=== PATIENT | female | born 1940 | race Caucasian/White ===

== ENCOUNTER 2018-11-16 13:01 | Emergency (ER) | payer BC, MEDICARE ==
[~2018-11-16] VITALS: Ht 167.6 cm; Wt 70.3 kg
[2018-11-16] MEDS ORDERED: VANCOMYCIN PER PHARMACY MC ONE (14:00)
--- NOTE | 2018-11-16 14:18 | EKG ---
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
[2018-11-16 14:31] LABS: BASO # 0.1 x10^3/uL (0.0-0.2); BASO % 1 % (0-3); EOS # 0.1 x10^3/uL (0.0-0.7); EOS % 1 % (0-3); HEMATOCRIT 42.3 % (36.0-47.0); HEMOGLOBIN 13.8 g/dL (12.0-15.5); LYMPH # 0.5 x10^3/uL (1.0-4.8); LYMPH % 8 % (24-48); MEAN CORPUSCULAR HEMOGLOBIN 31 pg (25-35); MEAN CORPUSCULAR HGB CONC 33 g/dL (31-37); MEAN CORPUSCULAR VOLUME 96 fL (79-100); MONO # 0.2 x10^3/uL (0.0-1.1); MONO % 3 % (0-9); NEUT # 6.1 x10^3uL (1.8-7.7); NEUT % 88 % (31-73); PLATELET COUNT 232 x10^3/uL (140-400); PROTHROMBIN TIME PATIENT 12.7 SEC (11.7-14.0); RED BLOOD COUNT 4.41 x10^6/uL (3.50-5.40); RED CELL DISTRIBUTION WIDTH 16.2 % (11.5-14.5)
[2018-11-16 14:36] LABS: CALCIUM 9.9 mg/dL (8.5-10.1); CREATININE 0.8 mg/dL (0.6-1.0); GFR 69.4; POTASSIUM 4.1 mmol/L (3.5-5.1)
[2018-11-16 14:41] LABS: ALBUMIN 4.6 g/dL (3.4-5.0); ALBUMIN/GLOBULIN RATIO 1.2 (1.0-1.7); TOTAL BILIRUBIN 1.1 mg/dL (0.2-1.0); TOTAL PROTEIN 8.4 g/dL (6.4-8.2)
[2018-11-16] MEDS ORDERED: SULFAMETH/TRIMETH 20 ML in IV DEXTROSE 5% 500 ML IV STA (14:50)
[2018-11-16] MEDS ORDERED: VANCOMYCIN 1.75 GM in IV NORMAL SALINE 500ML BAG 500 ML IV ONE (15:00)
--- NOTE | 2018-11-16 16:39 | RAD ---
Left lower extremity venous Doppler ultrasound History: Left lower extremity swelling and redness. Comparison: None. Procedure: Color flow Doppler, Doppler spectral analysis, and 2D images are obtained with and without compression in the area of the common femoral vein, superficial femoral vein - femoral vein junction, main femoral vein (superficial femoral vein) and popliteal vein. Veins of the proximal calf are also imaged. Findings: There is normal color flow, augmentation, and compressibility of all visualized vein segments. No evidence of deep venous thrombus is present. There is a benign lymph node in the left groin. There is severe subcutaneous edema of the medial and lateral calf. No organized fluid collection is seen. IMPRESSION: No evidence of left lower extremity deep venous thrombosis. Electronically signed by: Bennie Butler MD (11/16/2018 4:34 PM) [id number]
[2018-11-16] MEDS ORDERED: SULF1TAB24 PO (17:18)
--- NOTE | 2018-11-16 17:18 | PHYS DOC ---
Past Medical History Past Medical History: COPD, Hypertension, Other Additional Past Medical Histor: chronic BLE swellling Past Surgical History: Other Additional Past Surgical Histo: throat tumor removed, left wrist tumor removed , lt partial mastectomy Additional Information: quit smoking 50 year ago Alcohol Use: Rarely Drug Use: None Adult General Chief Complaint Chief Complaint: LOWER EXTREMITY SWELLING HPI HPI Patient is a 77 year old female who presents with left lower extremity swelling and redness. This started approximately week ago. Patient was seen by her primary care physician and started on doxycycline 3 days ago without any improvement. Patient denies any worsening shortness of breath beyond her usual baseline COPD. Denies any chest pain or palpitations. Denies any fever. Nothing seems to make this better or worse. It is moderate in intensity. [] Review of Systems Review of Systems Constitutional: Denies fever or chills [] Eyes: Denies change in visual acuity, redness, or eye pain [] HENT: Denies nasal congestion or sore throat [] Respiratory: Denies cough or shortness of breath [] Cardiovascular: No chest pain or palpitations[] GI: Denies abdominal pain, nausea, vomiting, bloody stools or diarrhea [] : Denies dysuria or hematuria [] Musculoskeletal: Denies back pain or joint pain [] Integument: See history of present illness[] Neurologic: Denies headache, focal weakness or sensory changes [] Endocrine: Denies polyuria or polydipsia [] All other systems were reviewed and found to be within normal limits, except as documented in this note. Current Medications Current Medications Current Medications Medications (Trade) Dose Ordered Sig/Samara Start Time Stop Time Status Last Admin Dose Admin Trimethoprim/ Sulfamethoxazole 20 ml/Dextrose 520 ml @ 346.667 mls/hr 1X STAT 11/16/18 14:50 11/16/18 16:19 DC 11/16/18 15:31 346.667 MLS/HR Vancomycin HCl (Vanco Per Pharmacy) 1 each 1X ONCE 11/16/18 14:00 11/16/18 14:01 UNV Vancomycin HCl 1.75 gm/Sodium Chloride 500 ml @ 250 mls/hr 1X ONCE 11/16/18 15:00 11/16/18 16:59 DC Allergies Allergies Allergies Coded Allergies Type Severity Reaction Last Updated Verified Penicillins Allergy Intermediate 11/16/18 Yes Physical Exam Physical Exam Constitutional: Well developed, well nourished, no acute distress, non-toxic appearance. [] HENT: Normocephalic, atraumatic, bilateral external ears normal, oropharynx moist, no oral exudates, nose normal. [] Eyes: PERRLA, EOMI, conjunctiva normal, no discharge. [] Neck: Normal range of motion, no tenderness, supple, no stridor. [] Cardiovascular:Heart rate regular rhythm, no murmur [] Lungs & Thorax: Bilateral breath sounds clear to auscultation [] Abdomen: Bowel sounds normal, soft, no tenderness, no masses, no pulsatile masses. [] Skin: Warm, dry, erythema of the left calf with significant swelling. Patient is distal neurovascularly intact. No skin sloughing present.. [] Back: No tenderness, no CVA tenderness. [] Extremities: No tenderness, no cyanosis, no clubbing, ROM intact, edema present bilateral lower extremities, significantly worse in the left calf[] Neurologic: Alert and oriented X 3, normal motor function, normal sensory function, no focal deficits noted. [] Psychologic: Affect normal, judgement normal, mood normal. [] Current Patient Data Vital Signs Vital Signs Date Time Temp Pulse Resp B/P (MAP) Pulse Ox O2 Delivery O2 Flow Rate FiO2 11/16/18 13:34 98.5 105 28 167/74 (105) 99 Nasal Cannula 3.0 98.5 Lab Values Laboratory Tests Test 11/16/18 13:34 White Blood Count 7.0 x10^3/uL (4.0-11.0) Red Blood Count 4.41 x10^6/uL (3.50-5.40) Hemoglobin 13.8 g/dL (12.0-15.5) Hematocrit 42.3 % (36.0-47.0) Mean Corpuscular Volume 96 fL (79-100) Mean Corpuscular Hemoglobin 31 pg (25-35) Mean Corpuscular Hemoglobin Concent 33 g/dL (31-37) Red Cell Distribution Width 16.2 % (11.5-14.5) H Platelet Count 232 x10^3/uL (140-400) Neutrophils (%) (Auto) 88 % (31-73) H Lymphocytes (%) (Auto) 8 % (24-48) L Monocytes (%) (Auto) 3 % (0-9) Eosinophils (%) (Auto) 1 % (0-3) Basophils (%) (Auto) 1 % (0-3) Neutrophils # (Auto) 6.1 x10^3uL (1.8-7.7) Lymphocytes # (Auto) 0.5 x10^3/uL (1.0-4.8) L Monocytes # (Auto) 0.2 x10^3/uL (0.0-1.1) Eosinophils # (Auto) 0.1 x10^3/uL (0.0-0.7) Basophils # (Auto) 0.1 x10^3/uL (0.0-0.2) Erythrocyte Sedimentation Rate 34 (0-25) H Prothrombin Time 12.7 SEC (11.7-14.0) Prothrombin Time INR 1.0 (0.8-1.1) Sodium Level 141 mmol/L (136-145) Potassium Level 4.1 mmol/L (3.5-5.1) Chloride Level 100 mmol/L (98-107) Carbon Dioxide Level 33 mmol/L (21-32) H Anion Gap 8 (6-14) Blood Urea Nitrogen 22 mg/dL (7-20) H Creatinine 0.8 mg/dL (0.6-1.0) Estimated GFR (Cockcroft-Gault) 69.4 BUN/Creatinine Ratio 28 (6-20) H Glucose Level 127 mg/dL (70-99) H Calcium Level 9.9 mg/dL (8.5-10.1) Total Bilirubin 1.1 mg/dL (0.2-1.0) H Aspartate Amino Transferase (AST) 17 U/L (15-37) Alanine Aminotransferase (ALT) 15 U/L (14-59) Alkaline Phosphatase 162 U/L (46-116) H C-Reactive Protein, Quantitative 2.0 mg/L (0-3.3) ZB-Krw-O-Type Natriuretic Peptide 34 pg/mL (0-449) Total Protein 8.4 g/dL (6.4-8.2) H Albumin 4.6 g/dL (3.4-5.0) Albumin/Globulin Ratio 1.2 (1.0-1.7) Laboratory Tests 11/16/18 13:34 Laboratory Tests 11/16/18 13:34 EKG EKG EKG showed a sinus tachycardia at 106 bpm, no ST elevation, normal axis, QTC of 432 ms, nonspecific T-wave changes in the anteroseptal leads.[] Radiology/Procedures Radiology/Procedures PROCEDURE: VENOUS LOWER EXTREMITY LEFT Left lower extremity venous Doppler ultrasound History: Left lower extremity swelling and redness. Comparison: None. Procedure: Color flow Doppler, Doppler spectral analysis, and 2D images are obtained with and without compression in the area of the common femoral vein, superficial femoral vein - femoral vein junction, main femoral vein (superficial femoral vein) and popliteal vein. Veins of the proximal calf are also imaged. Findings: There is normal color flow, augmentation, and compressibility of all visualized vein segments. No evidence of deep venous thrombus is present. There is a benign lymph node in the left groin. There is severe subcutaneous edema of the medial and lateral calf. No organized fluid collection is seen. IMPRESSION: No evidence of left lower extremity deep venous thrombosis. [] Course & Med Decision Making Course & Med Decision Making Pertinent Labs and Imaging studies reviewed. (See chart for details) Medical decision making: There is no evidence of CHF, DVT, significant infection , nor abscess. We will add an additional antibiotic be on the doxycycline that she is already taking along with compression. Course: Patient arrived, was placed in bed, tolerated exam well. Patient tolerated the ultrasound with thank him patient's. Patient did receive doses of IV antibiotics in the emergency department. Patient's heart rate did improve to the 90s while she was admitted to the emergency department.[] Dragon Disclaimer Dragon Disclaimer This electronic medical record was generated, in whole or in part, using a voice recognition dictation system. Departure Departure Impression: Primary Impression: Cellulitis Disposition: 01 HOME, SELF-CARE Condition: IMPROVED Referrals: SIMRAN PAT MD (PCP) Follow-up with your regular doctor in 2 days. Patient Instructions: Cellulitis Additional Instructions: Keep the area clean and dry. Use compression stockings to assist with the swelling. Follow-up with your regular doctor in 2 days. Return to the ER if you develop a fever, difficulty breathing, or any other concerns. Scripts Sulfamethoxazole/Trimethoprim (BACTRIM DS TABLET) 1 Each Tablet 1 TAB PO BID, #20 TAB Prov: DELLA RICHEY DO 11/16/18 Problem Qualifiers Primary Impression: Cellulitis Site of cellulitis: extremity Site of cellulitis of extremity: lower extremity Laterality: left Qualified Codes: L03.116 - Cellulitis of left lower limb DELLA RICHEY DO Nov 16, 2018 17:18
[2018-11-16 19:30] VITALS: BP 160/65
== END 2018-11-16 20:26 | disposition home or self-care (01) ==
LOC: ER 13:01
DX: L03.116 Cellulitis of left lower limb (principal); I10 Essential (primary) hypertension; J44.9 Chronic obstructive pulmonary disease, unspecified; Z87.891 Personal history of nicotine dependence; Z88.0 Allergy status to penicillin
CPT/HCPCS: 36415; 80053; 83880; 85025; 85610; 85651; 86140; 87040; 93005; 93971; 96365; 96366; 96367; 99285; J3370; J7040

== ENCOUNTER 2020-05-11 10:19 | Inpatient (IN) | payer OTHER, MEDICAID ==
[2020-05-11] VITALS (13 sets, daily range): BP systolic 121–168; BP diastolic 45–76
[~2020-05-11] VITALS: Ht 170.2 cm; Wt 66.2 kg
[~2020-05-11 10:19] MED LIST: SULF1TAB24 PO
--- NOTE | 2020-05-11 10:28 | PHYS DOC ---
Past Medical History Past Medical History: COPD, Hypertension, Other Additional Past Medical Histor: chronic BLE swellling Past Surgical History: Other Additional Past Surgical Histo: throat tumor removed, left wrist tumor removed, lt partial mastectomy Smoking Status: Former Smoker Alcohol Use: Rarely Drug Use: None General Adult EDM: Chief Complaint: SHORTNESS OF BREATH HPI: HPI: 79-year-old female presenting the emergency department today with shortness of breath over the past few days. It got worse last night. She has had some intermittent chest pain that is a sharp shooting nonradiating pain. The pain comes and goes. It is associated with her shortness of breath which is her primary complaint. She denies recent unilateral leg swelling or hemoptysis. She has a history of COPD. She also has been having some urinary frequency as well. She denies any fevers or cough or recent exposure to COVID-19. Review of systems is negative for abdominal pain vomiting. She denies fever or cough. Positive for shortness of breath. Positive for chest pain. Negative for recent exposure COVID. All other review of systems negative. ED course: 79-year-old female presenting with shortness of breath. On arrival she is tachycardic and tachypneic with clear wheezing with prolonged expiratory phase. Clinical presentation suggestive of COPD exacerbation. She was given a nebulizer in the emergency department along with starting her on IV corticosteroids. CBC unremarkable. Chemistry panel shows elevated troponin and elevated proBNP. EKG obtained and reviewed by myself shows sinus tachycardia. Patient improved with nebulizers in the emergency department however still tachypneic and tachycardic. We will admit the patient to the intensive care unit. CT angiogram ordered to exclude pulmonary embolism, however after speaking with Dr. Higgins her switch house operator he believes this is strongly suggestive of COPD he had just seen the patient and we decided to cancel the CT angiogram treat the patient for COPD and he will order the angiogram if the patient does not improve. I spoke with Dr. Stack who accepts the patient for admission. Heart Score: Risk Factors: Risk Factors: DM, Current or recent (<one month) smoker, HTN, HLP, family history of CAD, obesity. Risk Scores: Score 0 - 3: 2.5% MACE over next 6 weeks - Discharge Home Score 4 - 6: 20.3% MACE over next 6 weeks - Admit for Clinical Observation Score 7 - 10: 72.7% MACE over next 6 weeks - Early Invasive Strategies Allergies: Allergies: Allergies Coded Allergies Type Severity Reaction Last Updated Verified Penicillins Allergy Intermediate 11/16/18 Yes Physical Exam: PE: Constitutional: Well developed, well nourished, increased work of breathing and tachypnic but maintaining her airway HENT: Normocephalic, atraumatic, bilateral external ears normal, oropharynx moist, no oral exudates, nose normal. [] Eyes: PERRLA, EOMI, conjunctiva normal, no discharge. [] Neck: Normal range of motion, no tenderness, supple, no stridor. [] Cardiovascular:Heart rate regular rhythm, no murmur [] Lungs & Thorax: wheezing bilaterally with prolonged expiratory phase. Abdomen: Bowel sounds normal, soft, no tenderness, no masses, no pulsatile masses. [] Skin: Warm, dry, no erythema, no rash. [] Back: No tenderness, no CVA tenderness. [] Extremities: No tenderness, no cyanosis, no clubbing, ROM intact, no edema. [] Neurologic: Alert and oriented X 3, normal motor function, normal sensory function, no focal deficits noted. [] Psychologic: Affect normal, judgement normal, mood normal. [] EKG: EKG: [] Radiology/Procedures: Radiology/Procedures: [] Course & Med Decision Making: Course & Med Decision Making Pertinent Labs and Imaging studies reviewed. (See chart for details) [] Dragon Disclaimer: Dragon Disclaimer: This electronic medical record was generated, in whole or in part, using a voice recognition dictation system. Departure Departure Impression: Primary Impression: COPD exacerbation Disposition: ADMITTED INPATIENT Condition: CRITICAL Referrals: SIMRAN PAT MD (PCP) Justicifation of Admission Dx: Justifications for Admission: Justification of Admission Dx: Yes Acute COPD Exacerbation: Acute COPD Exacerbation Critical Care Time Critical care time spent was 35 minutes exclusive of procedures. Time was spent evaluating the patient, ordering the administration of medications, reevaluating the patient, discussing with the admitting provider and documenting. LEIA DUENAS MD May 11, 2020 10:28
--- NOTE | 2020-05-11 10:55 | RAD ---
EXAM: Chest, single view. HISTORY: Shortness of air. COMPARISON: None. FINDINGS: A frontal view of the chest is obtained. There is no infiltrate, pleural effusion or pneumothorax. The heart is stable in size. There are healed rib fractures. IMPRESSION: No acute pulmonary finding. Electronically signed by: Kadie Raya MD (05/11/2020 10:52 AM) [id number]
[2020-05-11 11:02] LABS: BASO # 0.1 x10^3/uL (0.0-0.2); BASO % 1 % (0-3); EOS # 0.1 x10^3/uL (0.0-0.7); EOS % 1 % (0-3); HEMATOCRIT 37.6 % (36.0-47.0); HEMOGLOBIN 12.8 g/dL (12.0-15.5); LYMPH # 0.8 x10^3/uL (1.0-4.8); LYMPH % 10 % (24-48); MEAN CORPUSCULAR HEMOGLOBIN 33 pg (25-35); MEAN CORPUSCULAR HGB CONC 34 g/dL (31-37); MEAN CORPUSCULAR VOLUME 97 fL (79-100); MONO # 0.4 x10^3/uL (0.0-1.1); MONO % 5 % (0-9); NEUT # 6.4 x10^3/uL (1.8-7.7); NEUT % 83 % (31-73); PLATELET COUNT 231 x10^3/uL (140-400); RED BLOOD COUNT 3.87 x10^6/uL (3.50-5.40); RED CELL DISTRIBUTION WIDTH 15.6 % (11.5-14.5); WHITE BLOOD COUNT 7.7 x10^3/uL (4.0-11.0)
[2020-05-11 11:11] LABS: CALCIUM 9.2 mg/dL (8.5-10.1); CREATININE 0.8 mg/dL (0.6-1.0); POTASSIUM 4.4 mmol/L (3.5-5.1)
[2020-05-11] MEDS ORDERED: IPRATRPIUM/ALBUTEROL 0.5/2.5MG 3 ML NEBU. NEB ONE (11:15)
[2020-05-11] MEDS ORDERED: methylPREDNISolone SOD SUCC PF 125 MG/2 ML VIAL. IV ONE (11:15)
[2020-05-11] MEDS ORDERED: ASPIRIN CHEWABLE 81 MG TABLET. PO ONE (11:30)
[2020-05-11 11:31] LABS: ALBUMIN 4.2 g/dL (3.4-5.0); DIRECT BILIRUBIN 0.2 mg/dL (0.0-0.2); TOTAL BILIRUBIN 0.8 mg/dL (0.2-1.0); TOTAL PROTEIN 7.3 g/dL (6.4-8.2)
[2020-05-11] MEDS ORDERED: IOHEXOL 350 MG/ML 100 ML VIAL. IV ONE (11:45)
[2020-05-11] MEDS: MORPHINE SULFATE 2 MG/ML VIAL. IV PRN ×3 (11:45→15:40)
--- NOTE | 2020-05-11 11:45 | EKG ---
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
--- NOTE | 2020-05-11 11:46 | EKG ---
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
[2020-05-11] MEDS: IPRATRPIUM/ALBUTEROL 0.5/2.5MG 3 ML NEBU. NEB SCH ×3 (11:47→20:00)
[2020-05-11] MEDS ORDERED: CONTRAST GIVEN. MC PRN (12:00)
[2020-05-11 12:10] LABS: BILIRUBIN,URINE SMALL (NEG); CLARITY,URINE CLEAR; COLOR,URINE YELLOW; NITRITE,URINE POSITIVE (NEG); PH,URINE 5.5 (<5.0-8.0); PROTEIN,URINE >=300 mg/dL (NEG-TRACE)
[2020-05-11 12:19] LABS: BACTERIA,URINE MANY /HPF (0-FEW)
[2020-05-11 12:20] LABS: HYALINE CASTS, URINE FEW /HPF
[2020-05-11] MEDS ORDERED: LABETALOL 20 MG/4 ML DISP.SYRIN. IVP ONE (13:00)
[2020-05-11 13:08] LABS: BASE EXCESS COOX 2 mmol/L (-3-3); HCO3 COOX 31 mmol/L (21-28); METHEMOGLOBIN 0.5 % (0.0-1.9); OXYHEMOGLOBIN 97.1 %; PO2 COOX 125 mmHg (65-108); SAT O2 COOX 98 % (92-99)
--- NOTE | 2020-05-11 13:13 | PDOC ---
PULMONARY PROGRESS NOTES Vitals Vital Signs Date Time Temp Pulse Resp B/P (MAP) Pulse Ox O2 Delivery O2 Flow Rate FiO2 05/11/20 12:18 114 30 203/77 (119) 99 NonRebreather Mask 15.0 05/11/20 10:28 98.1 98.1 Labs Laboratory Tests Test 05/11/20 10:40 White Blood Count 7.7 x10^3/uL (4.0-11.0) Red Blood Count 3.87 x10^6/uL (3.50-5.40) Hemoglobin 12.8 g/dL (12.0-15.5) Hematocrit 37.6 % (36.0-47.0) Mean Corpuscular Volume 97 fL (79-100) Mean Corpuscular Hemoglobin 33 pg (25-35) Mean Corpuscular Hemoglobin Concent 34 g/dL (31-37) Red Cell Distribution Width 15.6 % (11.5-14.5) Platelet Count 231 x10^3/uL (140-400) Neutrophils (%) (Auto) 83 % (31-73) Lymphocytes (%) (Auto) 10 % (24-48) Monocytes (%) (Auto) 5 % (0-9) Eosinophils (%) (Auto) 1 % (0-3) Basophils (%) (Auto) 1 % (0-3) Neutrophils # (Auto) 6.4 x10^3/uL (1.8-7.7) Lymphocytes # (Auto) 0.8 x10^3/uL (1.0-4.8) Monocytes # (Auto) 0.4 x10^3/uL (0.0-1.1) Eosinophils # (Auto) 0.1 x10^3/uL (0.0-0.7) Basophils # (Auto) 0.1 x10^3/uL (0.0-0.2) Urine Collection Type Unknown Urine Color Yellow Urine Clarity Clear Urine pH 5.5 (<5.0-8.0) Urine Specific [place] >=1.030 (1.000-1.030) Urine Protein >=300 mg/dL (NEG-TRACE) Urine Glucose (UA) Negative mg/dL (NEG) Urine Ketones (Stick) 15 mg/dL (NEG) Urine Blood Large (NEG) Urine Nitrite Positive (NEG) Urine Bilirubin Small (NEG) Urine Urobilinogen Dipstick 1.0 mg/dL (0.2 mg/dL) Urine Leukocyte Esterase Negative (NEG) Urine RBC 6-10 /HPF (0-2) Urine WBC 5-10 /HPF (0-4) Urine Bacteria Many /HPF (0-FEW) Urine Hyaline Casts Few /HPF Sodium Level 141 mmol/L (136-145) Potassium Level 4.4 mmol/L (3.5-5.1) Chloride Level 99 mmol/L (98-107) Carbon Dioxide Level 34 mmol/L (21-32) Anion Gap 8 (6-14) Blood Urea Nitrogen 21 mg/dL (7-20) Creatinine 0.8 mg/dL (0.6-1.0) Estimated GFR (Cockcroft-Gault) 69.0 Glucose Level 117 mg/dL (70-99) Calcium Level 9.2 mg/dL (8.5-10.1) Total Bilirubin 0.8 mg/dL (0.2-1.0) Direct Bilirubin 0.2 mg/dL (0.0-0.2) Aspartate Amino Transf (AST/SGOT) 24 U/L (15-37) Alanine Aminotransferase (ALT/SGPT) 17 U/L (14-59) Alkaline Phosphatase 99 U/L (46-116) Troponin I Quantitative 0.074 ng/mL (0.000-0.055) XG-Kxs-E-Type Natriuretic Peptide 1169 pg/mL (0-449) Total Protein 7.3 g/dL (6.4-8.2) Albumin 4.2 g/dL (3.4-5.0) Lipase 101 U/L (73-393) Laboratory Tests Test 05/11/20 10:40 White Blood Count 7.7 x10^3/uL (4.0-11.0) Red Blood Count 3.87 x10^6/uL (3.50-5.40) Hemoglobin 12.8 g/dL (12.0-15.5) Hematocrit 37.6 % (36.0-47.0) Mean Corpuscular Volume 97 fL (79-100) Mean Corpuscular Hemoglobin 33 pg (25-35) Mean Corpuscular Hemoglobin Concent 34 g/dL (31-37) Red Cell Distribution Width 15.6 % (11.5-14.5) Platelet Count 231 x10^3/uL (140-400) Neutrophils (%) (Auto) 83 % (31-73) Lymphocytes (%) (Auto) 10 % (24-48) Monocytes (%) (Auto) 5 % (0-9) Eosinophils (%) (Auto) 1 % (0-3) Basophils (%) (Auto) 1 % (0-3) Neutrophils # (Auto) 6.4 x10^3/uL (1.8-7.7) Lymphocytes # (Auto) 0.8 x10^3/uL (1.0-4.8) Monocytes # (Auto) 0.4 x10^3/uL (0.0-1.1) Eosinophils # (Auto) 0.1 x10^3/uL (0.0-0.7) Basophils # (Auto) 0.1 x10^3/uL (0.0-0.2) Urine Collection Type Unknown Urine Color Yellow Urine Clarity Clear Urine pH 5.5 (<5.0-8.0) Urine Specific [place] >=1.030 (1.000-1.030) Urine Protein >=300 mg/dL (NEG-TRACE) Urine Glucose (UA) Negative mg/dL (NEG) Urine Ketones (Stick) 15 mg/dL (NEG) Urine Blood Large (NEG) Urine Nitrite Positive (NEG) Urine Bilirubin Small (NEG) Urine Urobilinogen Dipstick 1.0 mg/dL (0.2 mg/dL) Urine Leukocyte Esterase Negative (NEG) Urine RBC 6-10 /HPF (0-2) Urine WBC 5-10 /HPF (0-4) Urine Bacteria Many /HPF (0-FEW) Urine Hyaline Casts Few /HPF Sodium Level 141 mmol/L (136-145) Potassium Level 4.4 mmol/L (3.5-5.1) Chloride Level 99 mmol/L (98-107) Carbon Dioxide Level 34 mmol/L (21-32) Anion Gap 8 (6-14) Blood Urea Nitrogen 21 mg/dL (7-20) Creatinine 0.8 mg/dL (0.6-1.0) Estimated GFR (Cockcroft-Gault) 69.0 Glucose Level 117 mg/dL (70-99) Calcium Level 9.2 mg/dL (8.5-10.1) Total Bilirubin 0.8 mg/dL (0.2-1.0) Direct Bilirubin 0.2 mg/dL (0.0-0.2) Aspartate Amino Transf (AST/SGOT) 24 U/L (15-37) Alanine Aminotransferase (ALT/SGPT) 17 U/L (14-59) Alkaline Phosphatase 99 U/L (46-116) Troponin I Quantitative 0.074 ng/mL (0.000-0.055) RR-Uhi-N-Type Natriuretic Peptide 1169 pg/mL (0-449) Total Protein 7.3 g/dL (6.4-8.2) Albumin 4.2 g/dL (3.4-5.0) Lipase 101 U/L (73-393) Medications Active Scripts Medications Dose Route/Sig Max Daily Dose Days Date Category Bactrim Ds Tablet (Sulfamethoxazole/Trimethoprim) 1 Each Tablet 1 Tab PO BID 11/16/18 Rx Impression . Full note dictated patient seen in the emergency department Acute exacerbation of COPD leading to acute hypoxemic respiratory failure, my clinical suspicion for PE is low Check SARS-CoV-2 next check venous Dopplers of the lower extremities along with d-dimer CHIKIS NIXON MD May 11, 2020 13:13
[2020-05-11 13:23] LABS: PCO2 COOX 75 mmHg (35-46)
--- NOTE | 2020-05-11 13:28 | CONS ---
DATE OF CONSULTATION: 05/11/2020 ATTENDING PHYSICIAN: Zachery Ruiz DO REASON FOR CONSULTATION: The patient is an 79-year-old seen in pulmonary consultation at the request of Dr. Ruiz for acute hypoxemic respiratory failure. HISTORY OF PRESENT ILLNESS: The patient is an 79-year-old that normally wears 3 liters of oxygen at home, underlying COPD. This is her first acute exacerbation of chronic obstructive pulmonary disease that she has had in many years. She quit tobacco 30 years ago. Denies fever, chills, nausea or vomiting. She has had no COVID-19 exposures. She lives by herself. She utilizes nebulized treatments at home. I saw the patient while she was in the Emergency Department. She was on oxygen supplementation. She was severely short of air, unable to complete full sentences. She was utilizing accessory muscles to breathe. PAST MEDICAL HISTORY: Otherwise remarkable for ALLERGIES TO PENICILLIN, COPD, hypertension. She has chronic lower extremity lymphedema. She was wearing compressive stockings. PAST SURGICAL HISTORY: Throat tumor removed, left wrist tumor removed. She had a partial mastectomy. REVIEW OF SYSTEMS: CONSTITUTIONAL: No fever or chills. EYES: No change in visual acuity. HENT: No nasal congestion or sore throat. PULMONARY: As indicated above. CARDIOVASCULAR: No chest pain or pressure. GASTROINTESTINAL: No nausea, vomiting, diarrhea. GENITOURINARY: No dysuria or frequency. MUSCULOSKELETAL: No localized muscle aches or joint pains. SKIN: No new skin rashes. NEUROLOGIC: No headaches, diplopia or blurred vision. ALLERGIES: PENICILLIN. CURRENT MEDICATION: List was reviewed. SOCIAL HISTORY: She is a former smoker. She is currently not smoking. Lives in assisted living situation. PHYSICAL EXAMINATION: VITAL SIGNS: She was on 4 liters. At one point, she was on 15 liters of oxygen supplementation. T-max was 98.1. HEENT: Eyes, the sclerae were nonicteric. NECK: Jugular venous distention was not elevated. No lymphadenopathy. CHEST: Full expansion. LUNGS: Very poor air flow with prolonged expiratory phase. CARDIOVASCULAR: Regular rate and rhythm with S1, S2, no S3. ABDOMEN: Soft, nontender, nondistended. EXTREMITIES: No clubbing, cyanosis or edema. NEUROLOGICAL: The patient was awake, alert, following commands. A detailed neuro exam was not performed. LABORATORY DATA: Reviewed. Troponin was slightly elevated. BNP was elevated. White count was normal. Chest x-ray was reviewed. There was evidence of hyperinflation, no evidence of acute pulmonary findings. IMPRESSION: 1. Acute hypoxemic respiratory failure. 2. Acute exacerbation of chronic obstructive pulmonary disease. 3. Chronic lower extremity cellulitis. 4. Hypertension. PLAN: 1. My clinical suspicion for pulmonary embolism is very low. I do not think we need a CT angiogram at this time. 2. We will perform venous Dopplers of lower extremities. 3. Check SARS-CoV-2 . 4. Arterial blood gas. 5. D-dimer. I do appreciate the privilege in sharing in the patient's care. CHIKIS NIXON MD DR: TOMI/olivier JOB#: [id number] / [id number]
--- NOTE | 2020-05-11 13:48 | HP ---
ADMIT DATE: 05/11/2020 CHIEF COMPLAINT: Shortness of breath. HISTORY OF PRESENT ILLNESS: The patient is a pleasant 79-year-old female, who quit smoking years ago. She does have known underlying COPD. She presents to the ER with increasing shortness of breath. She denies being exposed to COVID-19. She also has some associated chest pain. Rates her symptoms at 10/10. She increased her home meds, but that did not seem to help. Symptoms are worse with moving, better with sitting still. She has also been having some urinary frequency. While in the ER, we noticed that she is in fulminant respiratory failure. She is tripoding. She is quite short of breath. She is gasping for air. I discussed the case with ER physician and we have consulted Dr. Higgins. I briefly discussed the case with him as well. The patient is being admitted for further evaluation and treatment. 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 ALLERGIES: PENICILLIN. FAMILY HISTORY: Coronary disease. SOCIAL HISTORY: She quit smoking. No drink or drugs. MEDICATIONS: Reviewed. Please refer to the MRAD. REVIEW OF SYSTEMS: GENERAL: No history of weight change, weakness or fevers. SKIN: No bruising, hair changes or rashes. EYES: No blurred, double or loss of vision. NOSE AND THROAT: No history of nosebleeds, hoarseness or sore throat. HEART: She complains of vague chest pain. LUNGS: She complains shortness of breath and cough. GASTROINTESTINAL: Denies changes in appetite, nausea, vomiting, diarrhea or constipation. GENITOURINARY: No history of frequency, urgency, hesitancy or nocturia. NEUROLOGIC: Denies history of numbness, tingling, tremor or weakness. PSYCHIATRIC: She complains of anxiety. ENDOCRINE: No history of heat or cold intolerance, polyuria or polydipsia. EXTREMITIES: Denies muscle weakness, joint pain, pain on walking or stiffness. PHYSICAL EXAMINATION: VITALS: Within normal limits and are stable. GENERAL: She is quite anxious. She is short of breath. She is tripoding. HEENT: Normocephalic, atraumatic, external auditory canals are patent. EYES: Extraocular muscles are intact, pupils are equally round and reactive to light and accommodation. MUSCULOSKELETAL: Well developed, well nourished, good range of motion. ENDOCRINE: No thyromegaly was palpated. LYMPHATICS: No cervical chain or axillary nodes were noted. HEMATOPOIETIC: No bruising. NECK: Supple, no JVD, no thyromegaly was noted. LUNGS: She has bibasilar crackles with decreased breath sounds. HEART: RRR, S1, S2 present. Peripheral pulses intact, no obvious murmurs were noted. ABDOMEN: Soft, nontender. Positive bowel sounds no organomegaly, normal bowel sounds. EXTREMITIES: Without any cyanosis, clubbing, or edema. Pedal pulses intact, Homans sign is negative. NEUROLOGIC: Normal speech, normal tone. A & O x3, moves all extremities, no obvious focal deficits. PSYCHIATRIC: She is anxious. SKIN: No ulcerations or rashes, good skin turgor, no jaundice. VASCULAR: Good capillary refill, neurovascular bundle appears to be intact. LABORATORY DATA: White count 7, hemoglobin 12.8, platelets 231. Electrolytes: Sodium 141, potassium 4.4, chloride 99, bicarb 34, BUN 21, creatinine is 0.8, glucose 117. Troponin 0.07. BNP 1169. Chest x-ray showed no acute disease. ASSESSMENT AND PLAN: Respiratory failure, suspect chronic obstructive pulmonary disease with a low suspicion for pulmonary embolism, possible COVID-19. The patient has been admitted. We will give her breathing treatments, oxygen, steroids, antibiotics. Consult Pulmonary. Lower extremity Dopplers to rule out DVT. Home meds, DVT prophylaxis. Full code. Check blood gas. Consult Cardiology. Cardiac monitoring. Morphine p.r.n. for pain. PROGNOSIS: Long-term guarded. HOA MOSS DO DR: PIPER/olivier JOB#: [id number] / [id number]
[2020-05-11] MEDS ORDERED: hydrALAZINE 20 MG/ML VIAL. IVP PRN (15:30)
--- NOTE | 2020-05-11 15:45 | PDOC2 ---
MARY JO DUNHAM SOCIAL WORKER CLINICAL 05/11/20 1545: CARDIAC CONSULT DATE OF CONSULT Date of Consult DATE: 05/11/20 TIME: 15:01 REASON FOR CONSULT Reason for Consult: Chest pain REFERRING PHYSICIAN Referring Physician: Rambo SOURCE Source: Chart review, Patient HISTORY OF PRESENT ILLNESS HISTORY OF PRESENT ILLNESS This is an 79 yo female admitted for complains of SOA. She lives alone in an assisted living and denies any exposure to covid. She has been having increasing SOA and wheeze. She is significant for COPD with chronic O2 use. She did have some sharp chest pain with associated wheezing that was nonradiating but presently just anxious and no CP. SOA better after treatment. This just started happening yesterday. Her legs have edema but this is chronic an takes lasicx for lypmphedema and no changes by her account. PAST MEDICAL HISTORY Cardiovascular: HTN, Other (LE lymphedema) Pulmonary: COPD, Pneumonia CENTRAL NERVOUS SYSTEM: Other (parkinsons on sinemet) GI: No pertinent hx Heme/Onc: No pertinent hx Hepatobiliary: No pertinent hx Psych: No pertinent hx Musculoskeletal: Osteoarthritis Infectious disease: No pertinent hx ENT: Other (cataract) Renal/: No pertinent hx, UTI Endocrine: No pertinent hx Dermatology: No pertinent hx PAST SURGICAL HISTORY Past Surgical History: Cataract Removal (right), Mastectomy (lumpectomy), Hysterectomy, Other (thorat and left wrist tumor removal; left hip repair) FAMILY HISTORY Family History: Diabetes (father) SOCIAL HISTORY Smoke: Quit ALCOHOL: none Drugs: None Lives: Alone (assisted living) CURRENT MEDICATIONS CURRENT MEDICATIONS Current Medications Medications (Trade) Dose Ordered Sig/Samara Route PRN Reason Start Time Stop Time Status Last Admin Dose Admin Albuterol/ Ipratropium (Duoneb) 3 ml 1X ONCE NEB 05/11/20 11:15 05/11/20 11:16 DC 05/11/20 11:36 Methylprednisolone Sodium Succinate (SOLU-Medrol 125MG VIAL) 125 mg 1X ONCE IV 05/11/20 11:15 05/11/20 11:16 DC 05/11/20 11:25 Aspirin (Aspirin Chewable) 324 mg 1X ONCE PO 05/11/20 11:30 05/11/20 11:44 DC 05/11/20 11:45 Morphine Sulfate (Morphine Sulfate) 2 mg PRN Q1HR PRN IV SEVERE PAIN 05/11/20 11:30 05/11/20 13:16 Albuterol/ Ipratropium (Duoneb) 3 ml RTQID NEB 05/11/20 12:00 05/12/20 11:59 05/11/20 11:47 ALLERGIES ALLERGIES: Coded Allergies: Penicillins (Verified Allergy, Intermediate, 11/16/18) aspirin (Verified Allergy, Unknown, 05/12/20) codeine (Verified Allergy, Unknown, 05/12/20) doxycycline (Verified Allergy, Unknown, 05/12/20) tramadol (Verified Allergy, Unknown, 05/12/20) ROS Review of System 14 point ROS evaluated with pertinent positives noted per HPI PHYSICAL EXAM PHYSICAL EXAM discussed with RN General: Alert, Oriented X3, Cooperative, No acute distress HEENT: Atraumatic, Mucous membr. moist/pink Lungs: Other (diminished, with wheeze) Heart: Regular rate (SR with no significant ectopies) Abdomen: Soft, No tenderness Extremities: No cyanosis, Other (2-3+ bilateral LE pitting edema) Skin: No breakdown, No significant lesion Neuro: Normal speech, Sensation intact Psych/Mental Status: Mental status NL, Mood NL MUSCULOSKELETAL: Osteoarthritic changes both hands VITALS/I&O VITALS/I&O: Vital Signs Date Time Temp Pulse Resp B/P (MAP) Pulse Ox O2 Delivery O2 Flow Rate FiO2 05/11/20 14:25 106 161/67 (98) 95 Nasal Cannula 2.0 05/11/20 13:28 24 05/11/20 10:28 98.1 98.1 LABS Lab: Laboratory Tests Test 05/11/20 10:40 05/11/20 12:55 White Blood Count 7.7 x10^3/uL (4.0-11.0) Red Blood Count 3.87 x10^6/uL (3.50-5.40) Hemoglobin 12.8 g/dL (12.0-15.5) Hematocrit 37.6 % (36.0-47.0) Mean Corpuscular Volume 97 fL (79-100) Mean Corpuscular Hemoglobin 33 pg (25-35) Mean Corpuscular Hemoglobin Concent 34 g/dL (31-37) Red Cell Distribution Width 15.6 % (11.5-14.5) H Platelet Count 231 x10^3/uL (140-400) Neutrophils (%) (Auto) 83 % (31-73) H Lymphocytes (%) (Auto) 10 % (24-48) L Monocytes (%) (Auto) 5 % (0-9) Eosinophils (%) (Auto) 1 % (0-3) Basophils (%) (Auto) 1 % (0-3) Neutrophils # (Auto) 6.4 x10^3/uL (1.8-7.7) Lymphocytes # (Auto) 0.8 x10^3/uL (1.0-4.8) L Monocytes # (Auto) 0.4 x10^3/uL (0.0-1.1) Eosinophils # (Auto) 0.1 x10^3/uL (0.0-0.7) Basophils # (Auto) 0.1 x10^3/uL (0.0-0.2) D-Dimer (Kavya) 0.97 ug/mlFEU (0.00-0.50) H Urine Collection Type Unknown Urine Color Yellow Urine Clarity Clear Urine pH 5.5 (<5.0-8.0) Urine Specific [place] >=1.030 (1.000-1.030) Urine Protein >=300 mg/dL (NEG-TRACE) Urine Glucose (UA) Negative mg/dL (NEG) Urine Ketones (Stick) 15 mg/dL (NEG) Urine Blood Large (NEG) Urine Nitrite Positive (NEG) Urine Bilirubin Small (NEG) Urine Urobilinogen Dipstick 1.0 mg/dL (0.2 mg/dL) Urine Leukocyte Esterase Negative (NEG) Urine RBC 6-10 /HPF (0-2) Urine WBC 5-10 /HPF (0-4) Urine Bacteria Many /HPF (0-FEW) Urine Hyaline Casts Few /HPF Sodium Level 141 mmol/L (136-145) Potassium Level 4.4 mmol/L (3.5-5.1) Chloride Level 99 mmol/L (98-107) Carbon Dioxide Level 34 mmol/L (21-32) H Anion Gap 8 (6-14) Blood Urea Nitrogen 21 mg/dL (7-20) H Creatinine 0.8 mg/dL (0.6-1.0) Estimated GFR (Cockcroft-Gault) 69.0 Glucose Level 117 mg/dL (70-99) H Calcium Level 9.2 mg/dL (8.5-10.1) Total Bilirubin 0.8 mg/dL (0.2-1.0) Direct Bilirubin 0.2 mg/dL (0.0-0.2) Aspartate Amino Transferase (AST) 24 U/L (15-37) Alanine Aminotransferase (ALT) 17 U/L (14-59) Alkaline Phosphatase 99 U/L (46-116) Troponin I Quantitative 0.074 ng/mL (0.000-0.055) OF-Gqm-C-Type Natriuretic Peptide 1169 pg/mL (0-449) H Total Protein 7.3 g/dL (6.4-8.2) Albumin 4.2 g/dL (3.4-5.0) Lipase 101 U/L (73-393) O2 Saturation 98 % (92-99) Arterial Blood pH 7.24 (7.35-7.45) L Arterial Blood pCO2 at Patient Temp 75 mmHg (35-46) *H Arterial Blood pO2 at Patient Temp 125 mmHg (65-108) H Arterial Blood HCO3 31 mmol/L (21-28) H Arterial Blood Base Excess 2 mmol/L (-3-3) Oxyhemoglobin 97.1 % Methemoglobin 0.5 % (0.0-1.9) Carbon Monoxide, Quantitative 0.3 % (0.0-1.9) FiO2 36 Laboratory Tests 05/11/20 10:40 Laboratory Tests 05/11/20 10:40 ASSESSMENT/PLAN ASSESSMENT/PLAN 1. Acute on chronic respiratory failure with AECOPD: pulmonary following 2. HTN urgency: uses losartan, amlodipine, aldactone and lasix at home 3. Mild troponin elevation: EKG sinus tach without acute ST-T wave changes. CP free. Possibly demand mediated 4. PUI 5. Chronic LE lymphedema 6. UTI: per PCP 7. Anxiety 8. Reactive sinus tachycardia: post nebulizer Recommendations 1. Trend troponin. Await Covid PCR and will obtain TTE if negative. 2. Antibiotics per PCP 3. No BB with noted wheezing. Hydralazine IV PRN 4. May resume home lasix and losartan and amlodipine 5. Consider outpt stress testing if none recent SUSAN CHAMBERS MD 05/12/20 0936: CARDIAC CONSULT ASSESSMENT/PLAN ASSESSMENT/PLAN Patient seen and examined 05/11/20. Agree with FLOOR TRADER's assessment and plan. Acute respiratory failure probably secondary to acute COPD exacerbation COVID test pending. Pulmonary team following. Slight troponin elevation probably demand ischemia. Resume home antihypertensives and titrate for better control of blood pressure. We will obtain 2D echocardiogram if COVID test is negative. Consider ischemic evaluation outpatient. Thank you for your consultation. MARY JO DUNHAM APRN May 11, 2020 15:45 SUSAN CHAMBERS MD May 12, 2020 09:36
--- NOTE | 2020-05-11 16:18 | NUR ---
No breathing tx given due to PUI status CHolmesRRT
[2020-05-11] MEDS ORDERED: LOSARTAN POTASSIUM 50 MG TABLET. PO SCH (17:00)
[2020-05-11] MEDS: amLODIPine BESYLATE 10 MG TABLET PO SCH (17:00)
[2020-05-11] MEDS: FUROSEMIDE 40 MG TABLET. PO SCH (17:00)
[2020-05-12] VITALS (23 sets, daily range): BP systolic 102–198; BP diastolic 40–106
[2020-05-12] MEDS: MORPHINE SULFATE 2 MG/ML VIAL. IV PRN ×4 (00:52→11:19)
[2020-05-12] MEDS: ALBUTEROL SULFATE 8GM INHALER. INH SCH ×4 (01:23→12:00)
[2020-05-12 05:14] LABS: BASO % 0 % (0-3); EOS % 0 % (0-3); HEMATOCRIT 32.4 % (36.0-47.0); HEMOGLOBIN 11.1 g/dL (12.0-15.5); LYMPH # 0.5 x10^3/uL (1.0-4.8); LYMPH % 8 % (24-48); MEAN CORPUSCULAR HEMOGLOBIN 33 pg (25-35); MEAN CORPUSCULAR HGB CONC 34 g/dL (31-37); MEAN CORPUSCULAR VOLUME 97 fL (79-100); MONO # 0.5 x10^3/uL (0.0-1.1); MONO % 9 % (0-9); NEUT # 4.8 x10^3/uL (1.8-7.7); NEUT % 82 % (31-73); PLATELET COUNT 206 x10^3/uL (140-400); RED BLOOD COUNT 3.36 x10^6/uL (3.50-5.40); RED CELL DISTRIBUTION WIDTH 15.7 % (11.5-14.5); WHITE BLOOD COUNT 5.8 x10^3/uL (4.0-11.0)
[2020-05-12] MEDS ORDERED: CLOT12CR2 TP (05:27)
[2020-05-12] MEDS ORDERED: ALBU2.5V5 NEB (05:27)
[2020-05-12] MEDS ORDERED: BUDE10.2 IH (05:27)
[2020-05-12] MEDS ORDERED: AMLO10TA8 PO (05:27)
[2020-05-12] MEDS ORDERED: FURO40TA4 PO (05:27)
[2020-05-12] MEDS ORDERED: LOSA100T14 PO (05:27)
[2020-05-12] MEDS ORDERED: SPIR50TA4 PO (05:27)
[2020-05-12] MEDS ORDERED: TRAZ-118 PO (05:27)
[2020-05-12] MEDS ORDERED: IPRA4AER IH (05:27)
[2020-05-12] MEDS ORDERED: POTA10TA6 PO (05:27)
[2020-05-12] MEDS ORDERED: TIZA4TAB2 PO (05:27)
[2020-05-12] MEDS ORDERED: MIRT45TA58 PO (05:27)
[2020-05-12] MEDS ORDERED: PRED20TA PO (05:27)
[2020-05-12 05:40] LABS: CALCIUM 8.9 mg/dL (8.5-10.1); CREATININE 0.7 mg/dL (0.6-1.0); GFR 80.5; POTASSIUM 4.5 mmol/L (3.5-5.1)
[2020-05-12 05:58] LABS: CHOLESTEROL/HDL RATIO 2.3
[2020-05-12] MEDS: amLODIPine BESYLATE 10 MG TABLET PO SCH (08:54)
[2020-05-12] MEDS: POTASSIUM CHLORIDE 10 MEQ TABLET.ER. PO SCH (08:55)
[2020-05-12] MEDS: FUROSEMIDE 40 MG TABLET. PO SCH (08:55)
[2020-05-12] MEDS: LOSARTAN POTASSIUM 50 MG TABLET. PO SCH (08:55)
--- NOTE | 2020-05-12 09:18 | PDOC ---
PROGRESS NOTES History of Present Illness History of Present Illness ASSESSMENT AND PLAN: Respiratory failure, suspect chronic obstructive pulmonary low suspicion for pulmonary embolism, possible COVID-19. UTI admitted. breathing treatments, oxygen, steroids, antibiotics. Consult Pulmonary. Lower extremity Dopplers to rule out DVT. Home meds, DVT prophylaxis. Full code. Check blood gas. Consult Cardiology. Cardiac monitoring. Morphine p.r.n. for pain. IV ROCEPHIN 38 MIN ICU CARE Vitals Vitals Vital Signs Date Time Temp Pulse Resp B/P (MAP) Pulse Ox O2 Delivery O2 Flow Rate FiO2 05/12/20 08:59 22 91 Nasal Cannula 3.0 05/12/20 08:55 111 198/72 05/12/20 03:00 97.9 97.9 Physical Exam General: Alert, Oriented X3, Cooperative, No acute distress Heart: Regular rate (SR with no significant ectopies) Lungs: Wheezing Abdomen: Soft, No tenderness Extremities: No cyanosis, Other (2-3+ bilateral LE pitting edema) Skin: No breakdown, No significant lesion Labs LABS Procedure Result URINE CULTURE Preliminary Preliminary GREATER THAN 100,000 CFU/ML GRAM NEGATIVE RODS on 05/12/20 at 1028 FINAL ID= [ESCHERICHIA COLI] Testing Performed by: [address] [address] For Inquires, the Physician may contact the Microbiology department at [phone] ESCHERICHIA COLI Unless otherwise specified, Testing Performed by: [address] [address] For Inquires, the Physician may contact the Microbiology department at [phone] Laboratory Tests Test 05/11/20 10:40 05/11/20 12:55 05/11/20 14:45 05/11/20 17:45 White Blood Count 7.7 x10^3/uL (4.0-11.0) Red Blood Count 3.87 x10^6/uL (3.50-5.40) Hemoglobin 12.8 g/dL (12.0-15.5) Hematocrit 37.6 % (36.0-47.0) Mean Corpuscular Volume 97 fL (79-100) Mean Corpuscular Hemoglobin 33 pg (25-35) Mean Corpuscular Hemoglobin Concent 34 g/dL (31-37) Red Cell Distribution Width 15.6 % (11.5-14.5) Platelet Count 231 x10^3/uL (140-400) Neutrophils (%) (Auto) 83 % (31-73) Lymphocytes (%) (Auto) 10 % (24-48) Monocytes (%) (Auto) 5 % (0-9) Eosinophils (%) (Auto) 1 % (0-3) Basophils (%) (Auto) 1 % (0-3) Neutrophils # (Auto) 6.4 x10^3/uL (1.8-7.7) Lymphocytes # (Auto) 0.8 x10^3/uL (1.0-4.8) Monocytes # (Auto) 0.4 x10^3/uL (0.0-1.1) Eosinophils # (Auto) 0.1 x10^3/uL (0.0-0.7) Basophils # (Auto) 0.1 x10^3/uL (0.0-0.2) D-Dimer (Kavya) 0.97 ug/mlFEU (0.00-0.50) Urine Collection Type Unknown Urine Color Yellow Urine Clarity Clear Urine pH 5.5 (<5.0-8.0) Urine Specific [place] >=1.030 (1.000-1.030) Urine Protein >=300 mg/dL (NEG-TRACE) Urine Glucose (UA) Negative mg/dL (NEG) Urine Ketones (Stick) 15 mg/dL (NEG) Urine Blood Large (NEG) Urine Nitrite Positive (NEG) Urine Bilirubin Small (NEG) Urine Urobilinogen Dipstick 1.0 mg/dL (0.2 mg/dL) Urine Leukocyte Esterase Negative (NEG) Urine RBC 6-10 /HPF (0-2) Urine WBC 5-10 /HPF (0-4) Urine Bacteria Many /HPF (0-FEW) Urine Hyaline Casts Few /HPF Sodium Level 141 mmol/L (136-145) Potassium Level 4.4 mmol/L (3.5-5.1) Chloride Level 99 mmol/L (98-107) Carbon Dioxide Level 34 mmol/L (21-32) Anion Gap 8 (6-14) Blood Urea Nitrogen 21 mg/dL (7-20) Creatinine 0.8 mg/dL (0.6-1.0) Estimated GFR (Cockcroft-Gault) 69.0 Glucose Level 117 mg/dL (70-99) Calcium Level 9.2 mg/dL (8.5-10.1) Total Bilirubin 0.8 mg/dL (0.2-1.0) Direct Bilirubin 0.2 mg/dL (0.0-0.2) Aspartate Amino Transf (AST/SGOT) 24 U/L (15-37) Alanine Aminotransferase (ALT/SGPT) 17 U/L (14-59) Alkaline Phosphatase 99 U/L (46-116) Troponin I Quantitative 0.074 ng/mL (0.000-0.055) 0.086 ng/mL (0.000-0.055) 0.066 ng/mL (0.000-0.055) VK-Bwr-F-Type Natriuretic Peptide 1169 pg/mL (0-449) Total Protein 7.3 g/dL (6.4-8.2) Albumin 4.2 g/dL (3.4-5.0) Lipase 101 U/L (73-393) O2 Saturation 98 % (92-99) Arterial Blood pH 7.24 (7.35-7.45) Arterial Blood pCO2 at Patient Temp 75 mmHg (35-46) Arterial Blood pO2 at Patient Temp 125 mmHg (65-108) Arterial Blood HCO3 31 mmol/L (21-28) Arterial Blood Base Excess 2 mmol/L (-3-3) Oxyhemoglobin 97.1 % Methemoglobin 0.5 % (0.0-1.9) Carbon Monoxide, Quantitative 0.3 % (0.0-1.9) FiO2 36 Test 7/ 04:50 White Blood Count 5.8 x10^3/uL (4.0-11.0) Red Blood Count 3.36 x10^6/uL (3.50-5.40) Hemoglobin 11.1 g/dL (12.0-15.5) Hematocrit 32.4 % (36.0-47.0) Mean Corpuscular Volume 97 fL (79-100) Mean Corpuscular Hemoglobin 33 pg (25-35) Mean Corpuscular Hemoglobin Concent 34 g/dL (31-37) Red Cell Distribution Width 15.7 % (11.5-14.5) Platelet Count 206 x10^3/uL (140-400) Neutrophils (%) (Auto) 82 % (31-73) Lymphocytes (%) (Auto) 8 % (24-48) Monocytes (%) (Auto) 9 % (0-9) Eosinophils (%) (Auto) 0 % (0-3) Basophils (%) (Auto) 0 % (0-3) Neutrophils # (Auto) 4.8 x10^3/uL (1.8-7.7) Lymphocytes # (Auto) 0.5 x10^3/uL (1.0-4.8) Monocytes # (Auto) 0.5 x10^3/uL (0.0-1.1) Eosinophils # (Auto) 0.0 x10^3/uL (0.0-0.7) Basophils # (Auto) 0.0 x10^3/uL (0.0-0.2) Sodium Level 141 mmol/L (136-145) Potassium Level 4.5 mmol/L (3.5-5.1) Chloride Level 101 mmol/L (98-107) Carbon Dioxide Level 34 mmol/L (21-32) Anion Gap 6 (6-14) Blood Urea Nitrogen 22 mg/dL (7-20) Creatinine 0.7 mg/dL (0.6-1.0) Estimated GFR (Cockcroft-Gault) 80.5 Glucose Level 103 mg/dL (70-99) Calcium Level 8.9 mg/dL (8.5-10.1) Triglycerides Level 78 mg/dL (0-150) Cholesterol Level 208 mg/dL (0-200) LDL Cholesterol, Calculated 103 mg/dL (0-100) VLDL Cholesterol, Calculated 16 mg/dL (0-40) Non-HDL Cholesterol Calculated 119 mg/dL (0-129) HDL Cholesterol 89 mg/dL (40-60) Cholesterol/HDL Ratio 2.3 Assessment and Plan Assessmemt and Plan Problems Medical Problems: (1) COPD exacerbation Status: Acute Comment Review of Relevant I have reviewed the following items cira (where applicable) has been applied. Labs Laboratory Tests Test 05/11/20 10:40 05/11/20 12:55 05/11/20 14:45 05/11/20 17:45 White Blood Count 7.7 x10^3/uL (4.0-11.0) Red Blood Count 3.87 x10^6/uL (3.50-5.40) Hemoglobin 12.8 g/dL (12.0-15.5) Hematocrit 37.6 % (36.0-47.0) Mean Corpuscular Volume 97 fL (79-100) Mean Corpuscular Hemoglobin 33 pg (25-35) Mean Corpuscular Hemoglobin Concent 34 g/dL (31-37) Red Cell Distribution Width 15.6 % (11.5-14.5) Platelet Count 231 x10^3/uL (140-400) Neutrophils (%) (Auto) 83 % (31-73) Lymphocytes (%) (Auto) 10 % (24-48) Monocytes (%) (Auto) 5 % (0-9) Eosinophils (%) (Auto) 1 % (0-3) Basophils (%) (Auto) 1 % (0-3) Neutrophils # (Auto) 6.4 x10^3/uL (1.8-7.7) Lymphocytes # (Auto) 0.8 x10^3/uL (1.0-4.8) Monocytes # (Auto) 0.4 x10^3/uL (0.0-1.1) Eosinophils # (Auto) 0.1 x10^3/uL (0.0-0.7) Basophils # (Auto) 0.1 x10^3/uL (0.0-0.2) D-Dimer (Kavya) 0.97 ug/mlFEU (0.00-0.50) Urine Collection Type Unknown Urine Color Yellow Urine Clarity Clear Urine pH 5.5 (<5.0-8.0) Urine Specific [place] >=1.030 (1.000-1.030) Urine Protein >=300 mg/dL (NEG-TRACE) Urine Glucose (UA) Negative mg/dL (NEG) Urine Ketones (Stick) 15 mg/dL (NEG) Urine Blood Large (NEG) Urine Nitrite Positive (NEG) Urine Bilirubin Small (NEG) Urine Urobilinogen Dipstick 1.0 mg/dL (0.2 mg/dL) Urine Leukocyte Esterase Negative (NEG) Urine RBC 6-10 /HPF (0-2) Urine WBC 5-10 /HPF (0-4) Urine Bacteria Many /HPF (0-FEW) Urine Hyaline Casts Few /HPF Sodium Level 141 mmol/L (136-145) Potassium Level 4.4 mmol/L (3.5-5.1) Chloride Level 99 mmol/L (98-107) Carbon Dioxide Level 34 mmol/L (21-32) Anion Gap 8 (6-14) Blood Urea Nitrogen 21 mg/dL (7-20) Creatinine 0.8 mg/dL (0.6-1.0) Estimated GFR (Cockcroft-Gault) 69.0 Glucose Level 117 mg/dL (70-99) Calcium Level 9.2 mg/dL (8.5-10.1) Total Bilirubin 0.8 mg/dL (0.2-1.0) Direct Bilirubin 0.2 mg/dL (0.0-0.2) Aspartate Amino Transf (AST/SGOT) 24 U/L (15-37) Alanine Aminotransferase (ALT/SGPT) 17 U/L (14-59) Alkaline Phosphatase 99 U/L (46-116) Troponin I Quantitative 0.074 ng/mL (0.000-0.055) 0.086 ng/mL (0.000-0.055) 0.066 ng/mL (0.000-0.055) XZ-Woa-B-Type Natriuretic Peptide 1169 pg/mL (0-449) Total Protein 7.3 g/dL (6.4-8.2) Albumin 4.2 g/dL (3.4-5.0) Lipase 101 U/L (73-393) O2 Saturation 98 % (92-99) Arterial Blood pH 7.24 (7.35-7.45) Arterial Blood pCO2 at Patient Temp 75 mmHg (35-46) Arterial Blood pO2 at Patient Temp 125 mmHg (65-108) Arterial Blood HCO3 31 mmol/L (21-28) Arterial Blood Base Excess 2 mmol/L (-3-3) Oxyhemoglobin 97.1 % Methemoglobin 0.5 % (0.0-1.9) Carbon Monoxide, Quantitative 0.3 % (0.0-1.9) FiO2 36 Test 7// 04:50 White Blood Count 5.8 x10^3/uL (4.0-11.0) Red Blood Count 3.36 x10^6/uL (3.50-5.40) Hemoglobin 11.1 g/dL (12.0-15.5) Hematocrit 32.4 % (36.0-47.0) Mean Corpuscular Volume 97 fL (79-100) Mean Corpuscular Hemoglobin 33 pg (25-35) Mean Corpuscular Hemoglobin Concent 34 g/dL (31-37) Red Cell Distribution Width 15.7 % (11.5-14.5) Platelet Count 206 x10^3/uL (140-400) Neutrophils (%) (Auto) 82 % (31-73) Lymphocytes (%) (Auto) 8 % (24-48) Monocytes (%) (Auto) 9 % (0-9) Eosinophils (%) (Auto) 0 % (0-3) Basophils (%) (Auto) 0 % (0-3) Neutrophils # (Auto) 4.8 x10^3/uL (1.8-7.7) Lymphocytes # (Auto) 0.5 x10^3/uL (1.0-4.8) Monocytes # (Auto) 0.5 x10^3/uL (0.0-1.1) Eosinophils # (Auto) 0.0 x10^3/uL (0.0-0.7) Basophils # (Auto) 0.0 x10^3/uL (0.0-0.2) Sodium Level 141 mmol/L (136-145) Potassium Level 4.5 mmol/L (3.5-5.1) Chloride Level 101 mmol/L (98-107) Carbon Dioxide Level 34 mmol/L (21-32) Anion Gap 6 (6-14) Blood Urea Nitrogen 22 mg/dL (7-20) Creatinine 0.7 mg/dL (0.6-1.0) Estimated GFR (Cockcroft-Gault) 80.5 Glucose Level 103 mg/dL (70-99) Calcium Level 8.9 mg/dL (8.5-10.1) Triglycerides Level 78 mg/dL (0-150) Cholesterol Level 208 mg/dL (0-200) LDL Cholesterol, Calculated 103 mg/dL (0-100) VLDL Cholesterol, Calculated 16 mg/dL (0-40) Non-HDL Cholesterol Calculated 119 mg/dL (0-129) HDL Cholesterol 89 mg/dL (40-60) Cholesterol/HDL Ratio 2.3 Laboratory Tests Test 05/11/20 10:40 05/11/20 12:55 05/11/20 14:45 05/11/20 17:45 White Blood Count 7.7 x10^3/uL (4.0-11.0) Red Blood Count 3.87 x10^6/uL (3.50-5.40) Hemoglobin 12.8 g/dL (12.0-15.5) Hematocrit 37.6 % (36.0-47.0) Mean Corpuscular Volume 97 fL (79-100) Mean Corpuscular Hemoglobin 33 pg (25-35) Mean Corpuscular Hemoglobin Concent 34 g/dL (31-37) Red Cell Distribution Width 15.6 % (11.5-14.5) Platelet Count 231 x10^3/uL (140-400) Neutrophils (%) (Auto) 83 % (31-73) Lymphocytes (%) (Auto) 10 % (24-48) Monocytes (%) (Auto) 5 % (0-9) Eosinophils (%) (Auto) 1 % (0-3) Basophils (%) (Auto) 1 % (0-3) Neutrophils # (Auto) 6.4 x10^3/uL (1.8-7.7) Lymphocytes # (Auto) 0.8 x10^3/uL (1.0-4.8) Monocytes # (Auto) 0.4 x10^3/uL (0.0-1.1) Eosinophils # (Auto) 0.1 x10^3/uL (0.0-0.7) Basophils # (Auto) 0.1 x10^3/uL (0.0-0.2) D-Dimer (Kavya) 0.97 ug/mlFEU (0.00-0.50) Urine Collection Type Unknown Urine Color Yellow Urine Clarity Clear Urine pH 5.5 (<5.0-8.0) Urine Specific [place] >=1.030 (1.000-1.030) Urine Protein >=300 mg/dL (NEG-TRACE) Urine Glucose (UA) Negative mg/dL (NEG) Urine Ketones (Stick) 15 mg/dL (NEG) Urine Blood Large (NEG) Urine Nitrite Positive (NEG) Urine Bilirubin Small (NEG) Urine Urobilinogen Dipstick 1.0 mg/dL (0.2 mg/dL) Urine Leukocyte Esterase Negative (NEG) Urine RBC 6-10 /HPF (0-2) Urine WBC 5-10 /HPF (0-4) Urine Bacteria Many /HPF (0-FEW) Urine Hyaline Casts Few /HPF Sodium Level 141 mmol/L (136-145) Potassium Level 4.4 mmol/L (3.5-5.1) Chloride Level 99 mmol/L (98-107) Carbon Dioxide Level 34 mmol/L (21-32) Anion Gap 8 (6-14) Blood Urea Nitrogen 21 mg/dL (7-20) Creatinine 0.8 mg/dL (0.6-1.0) Estimated GFR (Cockcroft-Gault) 69.0 Glucose Level 117 mg/dL (70-99) Calcium Level 9.2 mg/dL (8.5-10.1) Total Bilirubin 0.8 mg/dL (0.2-1.0) Direct Bilirubin 0.2 mg/dL (0.0-0.2) Aspartate Amino Transf (AST/SGOT) 24 U/L (15-37) Alanine Aminotransferase (ALT/SGPT) 17 U/L (14-59) Alkaline Phosphatase 99 U/L (46-116) Troponin I Quantitative 0.074 ng/mL (0.000-0.055) 0.086 ng/mL (0.000-0.055) 0.066 ng/mL (0.000-0.055) WR-Tyi-G-Type Natriuretic Peptide 1169 pg/mL (0-449) Total Protein 7.3 g/dL (6.4-8.2) Albumin 4.2 g/dL (3.4-5.0) Lipase 101 U/L (73-393) O2 Saturation 98 % (92-99) Arterial Blood pH 7.24 (7.35-7.45) Arterial Blood pCO2 at Patient Temp 75 mmHg (35-46) Arterial Blood pO2 at Patient Temp 125 mmHg (65-108) Arterial Blood HCO3 31 mmol/L (21-28) Arterial Blood Base Excess 2 mmol/L (-3-3) Oxyhemoglobin 97.1 % Methemoglobin 0.5 % (0.0-1.9) Carbon Monoxide, Quantitative 0.3 % (0.0-1.9) FiO2 36 Test 7/ 04:50 White Blood Count 5.8 x10^3/uL (4.0-11.0) Red Blood Count 3.36 x10^6/uL (3.50-5.40) Hemoglobin 11.1 g/dL (12.0-15.5) Hematocrit 32.4 % (36.0-47.0) Mean Corpuscular Volume 97 fL (79-100) Mean Corpuscular Hemoglobin 33 pg (25-35) Mean Corpuscular Hemoglobin Concent 34 g/dL (31-37) Red Cell Distribution Width 15.7 % (11.5-14.5) Platelet Count 206 x10^3/uL (140-400) Neutrophils (%) (Auto) 82 % (31-73) Lymphocytes (%) (Auto) 8 % (24-48) Monocytes (%) (Auto) 9 % (0-9) Eosinophils (%) (Auto) 0 % (0-3) Basophils (%) (Auto) 0 % (0-3) Neutrophils # (Auto) 4.8 x10^3/uL (1.8-7.7) Lymphocytes # (Auto) 0.5 x10^3/uL (1.0-4.8) Monocytes # (Auto) 0.5 x10^3/uL (0.0-1.1) Eosinophils # (Auto) 0.0 x10^3/uL (0.0-0.7) Basophils # (Auto) 0.0 x10^3/uL (0.0-0.2) Sodium Level 141 mmol/L (136-145) Potassium Level 4.5 mmol/L (3.5-5.1) Chloride Level 101 mmol/L (98-107) Carbon Dioxide Level 34 mmol/L (21-32) Anion Gap 6 (6-14) Blood Urea Nitrogen 22 mg/dL (7-20) Creatinine 0.7 mg/dL (0.6-1.0) Estimated GFR (Cockcroft-Gault) 80.5 Glucose Level 103 mg/dL (70-99) Calcium Level 8.9 mg/dL (8.5-10.1) Triglycerides Level 78 mg/dL (0-150) Cholesterol Level 208 mg/dL (0-200) LDL Cholesterol, Calculated 103 mg/dL (0-100) VLDL Cholesterol, Calculated 16 mg/dL (0-40) Non-HDL Cholesterol Calculated 119 mg/dL (0-129) HDL Cholesterol 89 mg/dL (40-60) Cholesterol/HDL Ratio 2.3 Medications Current Medications Albuterol/ Ipratropium (Duoneb) 3 ml 1X ONCE NEB Last administered on 05/11/20at 11:36; Start 05/11/20 at 11:15; Stop 05/11/20 at 11:16; Status DC Methylprednisolone Sodium Succinate (SOLU-Medrol 125MG VIAL) 125 mg 1X ONCE IV Last administered on 05/11/20at 11:25; Start 05/11/20 at 11:15; Stop 05/11/20 at 11:16; Status DC Aspirin (Aspirin Chewable) 324 mg 1X ONCE PO Last administered on 05/11/20at 11:45; Start 05/11/20 at 11:30; Stop 05/11/20 at 11:44; Status DC Morphine Sulfate (Morphine Sulfate) 2 mg PRN Q1HR PRN IV SEVERE PAIN Last administered on 05/11/20at 15:40; Start 05/11/20 at 11:30; Stop 05/11/20 at 15:40; Status DC Albuterol/ Ipratropium (Duoneb) 3 ml RTQID NEB Last administered on 05/11/20at 11:47; Start 05/11/20 at 12:00; Stop 05/12/20 at 01:14; Status DC Iohexol (Omnipaque 350 Mg/ml) 90 ml 1X ONCE IV ; Start 05/11/20 at 11:45; Stop 05/11/20 at 11:51; Status DC Info (CONTRAST GIVEN -- Rx MONITORING) 1 each PRN DAILY PRN MC SEE COMMENTS; Start 05/11/20 at 12:00; Stop 05/13/20 at 11:59 Labetalol HCl (Normodyne Iv Push) 10 mg 1X ONCE IVP ; Start 05/11/20 at 13:00; Stop 05/11/20 at 13:01; Status DC Hydralazine HCl (Apresoline Inj) 10 mg PRN Q4HRS PRN IVP ELEVATED BP, SEE COMMENTS; Start 05/11/20 at 15:30 Morphine Sulfate (Morphine Sulfate) 2 mg PRN Q2HR PRN IV MODERATE TO SEVERE PAIN Last administered on 05/12/20at 08:59; Start 05/11/20 at 15:45 Amlodipine Besylate (Norvasc) 10 mg DAILY PO Last administered on 05/12/20at 08:54; Start 05/11/20 at 17:00 Losartan Potassium (Cozaar) 50 mg DAILY PO ; Start 05/11/20 at 17:00; Stop 05/11/20 at 16:51; Status DC Furosemide (Lasix) 40 mg DAILY PO Last administered on 05/12/20at 08:55; Start 05/11/20 at 17:00 Potassium Chloride (Klor-Con) 10 meq [id number] PO Last administered on 05/12/20at 08:55; Start 05/12/20 at 08:00 Losartan Potassium (Cozaar) 100 mg DAILY PO Last administered on 05/12/20at 08:55; Start 05/12/20 at 09:00 Albuterol Sulfate (Ventolin Hfa) 2 puff Q4HRS INH Last administered on 05/12/20at 01:23; Start 05/12/20 at 01:30 Methylprednisolone Sodium Succinate (SOLU-Medrol 125MG VIAL) 125 mg Q8HRS IV ; Start 05/12/20 at 14:00 Methylprednisolone Sodium Succinate (SOLU-Medrol 125MG VIAL) 125 mg 1X ONCE IV Last administered on 05/12/20at 09:10; Start 05/12/20 at 10:00; Stop 05/12/20 at 10:01 Active Scripts Active Bactrim Ds Tablet (Sulfamethoxazole/Trimethoprim) 1 Each Tablet 1 Tab PO BID Reported Tizanidine Hcl 4 Mg Tablet 2 Mg PO TID PRN Albuterol Sulfate Neb Soln (Albuterol Sulfate) 2.5 Mg/3 Ml Vial.neb 2.5 Mg NEB PRN Q4-6HRS PRN Trazodone Hcl 50 Mg Tablet 50 Mg PO HS Symbicort 160-4.5 Mcg Inhaler (Budesonide/Formoterol Fumarate) 10.2 Gm Hfa.aer.ad 2 Puff IH BID Spironolactone 50 Mg Tablet 50 Mg PO BID Prednisone 20 Mg Tablet 20 Mg PO DAILY Klor-Con 10 (Potassium Chloride) 10 Meq Tablet.er 10 Meq PO BID Mirtazapine 45 Mg Tablet 45 Mg PO HS Losartan Potassium 100 Mg Tablet 100 Mg PO DAILY Furosemide 40 Mg Tablet 40 Mg PO BID Combivent Respimat Inhal (Ipratropium/Albuterol Sulfate) 4 Gm Aer.w.adap 1 Puff IH 5XDAY Lotrimin Af (Clotrimazole) 12 Gm Cream..g. 1 Jesus TP BID Amlodipine Besylate 10 Mg Tablet 10 Mg PO DAILY Vitals/I & O Vital Sign - Last 24 Hours 05/11/20 05/11/20 05/11/20 05/11/20 10:25 10:28 10:55 11:08 Temp 98.1 98.1 Pulse 119 120 118 Resp 26 24 B/P (MAP) 217/94 (135) 217/94 (135) 189/80 (116) 202/80 (120) Pulse Ox 98 99 99 99 O2 Delivery Nasal Cannula NonRebreather Mask Nasal Cannula Nasal Cannula O2 Flow Rate 6.0 5.0 6.0 6.0 05/11/20 05/11/20 05/11/20 05/11/20 11:25 11:40 11:48 11:55 Pulse 115 116 Resp 22 B/P (MAP) 181/76 (111) 208/86 (126) Pulse Ox 98 96 96 97 O2 Delivery Nasal Cannula Nasal Cannula Nasal Cannula Nasal Cannula O2 Flow Rate 6.0 4.0 4.0 6.0 05/11/20 05/11/20 05/11/20 05/11/20 12:18 12:25 12:55 13:13 Pulse 114 110 112 108 Resp 30 B/P (MAP) 203/77 (119) 195/77 (116) 172/71 (104) 158/68 (98) Pulse Ox 99 99 99 99 O2 Delivery NonRebreather Mask Nasal Cannula Nasal Cannula Nasal Cannula O2 Flow Rate 15.0 6.0 6.0 6.0 05/11/20 05/11/20 05/11/20 05/11/20 13:16 13:28 13:55 14:25 Pulse 112 108 106 Resp 24 24 B/P (MAP) 151/68 (95) 149/66 (93) 161/67 (98) Pulse Ox 99 98 96 95 O2 Delivery Nasal Cannula Nasal Cannula Nasal Cannula Nasal Cannula O2 Flow Rate 3.0 2.0 2.0 2.0 05/11/20 05/11/20 05/11/20 05/11/20 14:45 15:00 15:15 15:30 Temp 98.8 98.8 Pulse 110 106 98 96 Resp 24 23 B/P (MAP) 168/65 (99) 141/49 (79) 138/50 (79) 121/45 (70) Pulse Ox 95 95 95 95 O2 Delivery Nasal Cannula Nasal Cannula Nasal Cannula Nasal Cannula O2 Flow Rate 2.0 2.0 2.0 2.0 05/11/20 05/11/20 05/11/20 05/11/20 15:40 15:45 16:00 16:00 Pulse 100 96 Resp 24 B/P (MAP) 147/49 (81) 142/56 (84) Pulse Ox 96 96 95 O2 Delivery Nasal Cannula Nasal Cannula Nasal Cannula Nasal Cannula O2 Flow Rate 2.0 2.0 2.0 2.0 05/11/20 05/11/20 05/11/20 05/11/20 17:00 18:00 19:00 20:00 Pulse 95 102 102 Resp 40 B/P (MAP) 162/76 (104) 140/52 (81) 148/50 (82) Pulse Ox 95 95 96 O2 Delivery Nasal Cannula Nasal Cannula Nasal Cannula Nasal Cannula O2 Flow Rate 2.0 2.0 2.0 2.0 05/11/20 05/11/20 05/11/20 05/11/20 20:06 21:13 22:10 23:00 Temp 98.5 98.5 Pulse 100 107 99 90 Resp 32 35 21 22 B/P (MAP) 156/65 (95) 164/64 (97) 158/63 (94) 134/63 (86) Pulse Ox 96 96 97 97 O2 Delivery Nasal Cannula Nasal Cannula Nasal Cannula Nasal Cannula O2 Flow Rate 2.0 2.0 2.0 2.0 05/12/20 05/12/20 05/12/20 05/12/20 00:00 00:00 01:00 02:22 Temp 98.2 98.2 Pulse 90 104 89 Resp 22 32 22 B/P (MAP) 140/57 (84) 189/74 (112) 139/57 (84) Pulse Ox 97 96 98 O2 Delivery Nasal Cannula Nasal Cannula Nasal Cannula Nasal Cannula O2 Flow Rate 2.0 2.0 3.0 3.0 05/12/20 05/12/20 05/12/20 05/12/20 03:00 04:00 04:25 05:00 Temp 97.9 97.9 Pulse 88 88 110 Resp 30 B/P (MAP) 127/56 (79) 138/59 (85) Pulse Ox 98 97 98 O2 Delivery Nasal Cannula Nasal Cannula Nasal Cannula Nasal Cannula O2 Flow Rate 3.0 3.0 3.0 3.5 05/12/20 05/12/20 05/12/20 05/12/20 06:04 07:00 08:54 08:55 Pulse 85 120 111 111 Resp 39 30 B/P (MAP) 119/44 (69) 117/44 (68) 198/72 198/72 Pulse Ox 98 90 O2 Delivery Nasal Cannula Nasal Cannula O2 Flow Rate 3.5 3.5 05/12/20 08:59 Resp 22 Pulse Ox 91 O2 Delivery Nasal Cannula O2 Flow Rate 3.0 Intake and Output 05/11/20 05/11/20 05/12/20 15:00 23:00 07:00 Output Total 350 ml 600 ml Balance -350 ml -600 ml Justicifation of Admission Dx: Justifications for Admission: Justification of Admission Dx: Yes Acute COPD Exacerbation: Acute COPD Exacerbation KATIE MCKEE MD May 12, 2020 09:18
[2020-05-12] MEDS ORDERED: methylPREDNISolone SOD SUCC PF 125 MG/2 ML VIAL. IV ONE (10:00)
--- NOTE | 2020-05-12 10:59 | PDOC ---
MARY JO DUNHAM UNIT OPERATOR 05/12/20 1059: CARDIO Progress Notes Date and Time Date of Service 05/12/2020 Time of Evaluation 0930 Subjective Subjective: No Chest Pain, No Palpitations, Other (some SOA) Vitals Vitals Vital Signs Date Time Temp Pulse Resp B/P (MAP) Pulse Ox O2 Delivery O2 Flow Rate FiO2 05/12/20 10:00 89 20 114/46 (68) 99 Nasal Cannula 3.5 05/12/20 08:00 97.7 97.7 Weight Weight [ ] Input and Output Intake and Output Intake and Output 05/12/20 07:00 Output Total 950 ml Balance -950 ml Output Urine Total 950 ml Laboratory Labs Laboratory Tests Test 05/11/20 12:55 05/11/20 14:45 05/11/20 17:45 05/12/20 04:50 O2 Saturation 98 % (92-99) Arterial Blood pH 7.24 (7.35-7.45) Arterial Blood pCO2 at Patient Temp 75 mmHg (35-46) Arterial Blood pO2 at Patient Temp 125 mmHg (65-108) Arterial Blood HCO3 31 mmol/L (21-28) Arterial Blood Base Excess 2 mmol/L (-3-3) Oxyhemoglobin 97.1 % Methemoglobin 0.5 % (0.0-1.9) Carbon Monoxide, Quantitative 0.3 % (0.0-1.9) FiO2 36 Troponin I Quantitative 0.086 ng/mL (0.000-0.055) 0.066 ng/mL (0.000-0.055) White Blood Count 5.8 x10^3/uL (4.0-11.0) Red Blood Count 3.36 x10^6/uL (3.50-5.40) Hemoglobin 11.1 g/dL (12.0-15.5) Hematocrit 32.4 % (36.0-47.0) Mean Corpuscular Volume 97 fL (79-100) Mean Corpuscular Hemoglobin 33 pg (25-35) Mean Corpuscular Hemoglobin Concent 34 g/dL (31-37) Red Cell Distribution Width 15.7 % (11.5-14.5) Platelet Count 206 x10^3/uL (140-400) Neutrophils (%) (Auto) 82 % (31-73) Lymphocytes (%) (Auto) 8 % (24-48) Monocytes (%) (Auto) 9 % (0-9) Eosinophils (%) (Auto) 0 % (0-3) Basophils (%) (Auto) 0 % (0-3) Neutrophils # (Auto) 4.8 x10^3/uL (1.8-7.7) Lymphocytes # (Auto) 0.5 x10^3/uL (1.0-4.8) Monocytes # (Auto) 0.5 x10^3/uL (0.0-1.1) Eosinophils # (Auto) 0.0 x10^3/uL (0.0-0.7) Basophils # (Auto) 0.0 x10^3/uL (0.0-0.2) Sodium Level 141 mmol/L (136-145) Potassium Level 4.5 mmol/L (3.5-5.1) Chloride Level 101 mmol/L (98-107) Carbon Dioxide Level 34 mmol/L (21-32) Anion Gap 6 (6-14) Blood Urea Nitrogen 22 mg/dL (7-20) Creatinine 0.7 mg/dL (0.6-1.0) Estimated GFR (Cockcroft-Gault) 80.5 Glucose Level 103 mg/dL (70-99) Calcium Level 8.9 mg/dL (8.5-10.1) Triglycerides Level 78 mg/dL (0-150) Cholesterol Level 208 mg/dL (0-200) LDL Cholesterol, Calculated 103 mg/dL (0-100) VLDL Cholesterol, Calculated 16 mg/dL (0-40) Non-HDL Cholesterol Calculated 119 mg/dL (0-129) HDL Cholesterol 89 mg/dL (40-60) Cholesterol/HDL Ratio 2.3 Microbiology Micro Microbiology 05/11/20 Urine Culture - Preliminary, Resulted Physical Exam HEENT: Neck Supple W Full Motion Chest: Symmetric LUNGS: Other (auydible wheeze) Heart: RRR (SR/ST) Abdomen: Soft N/T Extremities: No Calf Tenderness, Other (LE lymphedema) Neurology: alert, oriented, follow commands Assessment Assessment 1. Acute on chronic respiratory failure with AECOPD: Presently wheezy. pulmonary following 2. HTN urgency: labile episodes 3. Mild troponin elevation: EKG sinus tach without acute ST-T wave changes. CP free. Possibly demand mediated 4. PUI 5. Chronic LE lymphedema 6. UTI: per PCP 7. Anxiety 8. Reactive sinus tachycardia Recommendations 1. Await Covid PCR and will obtain TTE if negative. 2. Antibiotics per PCP 3. No BB with noted wheezing. Hydralazine IV PRN 4. Continue home lasix and losartan and amlodipine 5. Consider outpt stress testing if none recent. Start on baby ASA. Will check venous reflux as an outpt. Justicifation of Admission Dx: Justifications for Admission: Justification of Admission Dx: Yes Acute COPD Exacerbation: Acute COPD Exacerbation SUSAN CHAMBERS MD 05/12/20 1500: CARDIO Progress Notes Assessment Assessment Agree with ELECTORATE OFFICER's assessment and plan. Slight troponin elevation probably demand ischemia. Continue management of acute respiratory failure/acute COPD exacerbation per pulmonary team. Plan 2D echocardiogram if COVID test is negative. We will consider ischemic evaluation as an outpatient MARY JO DUNHAM APRN May 12, 2020 10:59 SUSAN CHAMBERS MD May 12, 2020 15:00
--- NOTE | 2020-05-12 11:20 | PDOC ---
PULMONARY PROGRESS NOTES Subjective increase soa/ paradoxical breathing on canula Vitals Vital Signs Date Time Temp Pulse Resp B/P (MAP) Pulse Ox O2 Delivery O2 Flow Rate FiO2 05/12/20 11:00 101 24 184/84 (117) 91 Nasal Cannula 2.5 05/12/20 08:00 97.7 97.7 General: Alert, Mild Distress Lungs: Wheezing (faint) Cardiovascular: S1 Abdomen: Soft Neuro Exam: Alert Extremities: No Edema Skin: Warm Labs Laboratory Tests Test 05/11/20 10:40 05/11/20 12:55 05/11/20 14:45 05/11/20 17:45 White Blood Count 7.7 x10^3/uL (4.0-11.0) Red Blood Count 3.87 x10^6/uL (3.50-5.40) Hemoglobin 12.8 g/dL (12.0-15.5) Hematocrit 37.6 % (36.0-47.0) Mean Corpuscular Volume 97 fL (79-100) Mean Corpuscular Hemoglobin 33 pg (25-35) Mean Corpuscular Hemoglobin Concent 34 g/dL (31-37) Red Cell Distribution Width 15.6 % (11.5-14.5) Platelet Count 231 x10^3/uL (140-400) Neutrophils (%) (Auto) 83 % (31-73) Lymphocytes (%) (Auto) 10 % (24-48) Monocytes (%) (Auto) 5 % (0-9) Eosinophils (%) (Auto) 1 % (0-3) Basophils (%) (Auto) 1 % (0-3) Neutrophils # (Auto) 6.4 x10^3/uL (1.8-7.7) Lymphocytes # (Auto) 0.8 x10^3/uL (1.0-4.8) Monocytes # (Auto) 0.4 x10^3/uL (0.0-1.1) Eosinophils # (Auto) 0.1 x10^3/uL (0.0-0.7) Basophils # (Auto) 0.1 x10^3/uL (0.0-0.2) D-Dimer (Kavya) 0.97 ug/mlFEU (0.00-0.50) Urine Collection Type Unknown Urine Color Yellow Urine Clarity Clear Urine pH 5.5 (<5.0-8.0) Urine Specific [place] >=1.030 (1.000-1.030) Urine Protein >=300 mg/dL (NEG-TRACE) Urine Glucose (UA) Negative mg/dL (NEG) Urine Ketones (Stick) 15 mg/dL (NEG) Urine Blood Large (NEG) Urine Nitrite Positive (NEG) Urine Bilirubin Small (NEG) Urine Urobilinogen Dipstick 1.0 mg/dL (0.2 mg/dL) Urine Leukocyte Esterase Negative (NEG) Urine RBC 6-10 /HPF (0-2) Urine WBC 5-10 /HPF (0-4) Urine Bacteria Many /HPF (0-FEW) Urine Hyaline Casts Few /HPF Sodium Level 141 mmol/L (136-145) Potassium Level 4.4 mmol/L (3.5-5.1) Chloride Level 99 mmol/L (98-107) Carbon Dioxide Level 34 mmol/L (21-32) Anion Gap 8 (6-14) Blood Urea Nitrogen 21 mg/dL (7-20) Creatinine 0.8 mg/dL (0.6-1.0) Estimated GFR (Cockcroft-Gault) 69.0 Glucose Level 117 mg/dL (70-99) Calcium Level 9.2 mg/dL (8.5-10.1) Total Bilirubin 0.8 mg/dL (0.2-1.0) Direct Bilirubin 0.2 mg/dL (0.0-0.2) Aspartate Amino Transf (AST/SGOT) 24 U/L (15-37) Alanine Aminotransferase (ALT/SGPT) 17 U/L (14-59) Alkaline Phosphatase 99 U/L (46-116) Troponin I Quantitative 0.074 ng/mL (0.000-0.055) 0.086 ng/mL (0.000-0.055) 0.066 ng/mL (0.000-0.055) YT-Edk-E-Type Natriuretic Peptide 1169 pg/mL (0-449) Total Protein 7.3 g/dL (6.4-8.2) Albumin 4.2 g/dL (3.4-5.0) Lipase 101 U/L (73-393) O2 Saturation 98 % (92-99) Arterial Blood pH 7.24 (7.35-7.45) Arterial Blood pCO2 at Patient Temp 75 mmHg (35-46) Arterial Blood pO2 at Patient Temp 125 mmHg (65-108) Arterial Blood HCO3 31 mmol/L (21-28) Arterial Blood Base Excess 2 mmol/L (-3-3) Oxyhemoglobin 97.1 % Methemoglobin 0.5 % (0.0-1.9) Carbon Monoxide, Quantitative 0.3 % (0.0-1.9) FiO2 36 Test 7/ 04:50 White Blood Count 5.8 x10^3/uL (4.0-11.0) Red Blood Count 3.36 x10^6/uL (3.50-5.40) Hemoglobin 11.1 g/dL (12.0-15.5) Hematocrit 32.4 % (36.0-47.0) Mean Corpuscular Volume 97 fL (79-100) Mean Corpuscular Hemoglobin 33 pg (25-35) Mean Corpuscular Hemoglobin Concent 34 g/dL (31-37) Red Cell Distribution Width 15.7 % (11.5-14.5) Platelet Count 206 x10^3/uL (140-400) Neutrophils (%) (Auto) 82 % (31-73) Lymphocytes (%) (Auto) 8 % (24-48) Monocytes (%) (Auto) 9 % (0-9) Eosinophils (%) (Auto) 0 % (0-3) Basophils (%) (Auto) 0 % (0-3) Neutrophils # (Auto) 4.8 x10^3/uL (1.8-7.7) Lymphocytes # (Auto) 0.5 x10^3/uL (1.0-4.8) Monocytes # (Auto) 0.5 x10^3/uL (0.0-1.1) Eosinophils # (Auto) 0.0 x10^3/uL (0.0-0.7) Basophils # (Auto) 0.0 x10^3/uL (0.0-0.2) Sodium Level 141 mmol/L (136-145) Potassium Level 4.5 mmol/L (3.5-5.1) Chloride Level 101 mmol/L (98-107) Carbon Dioxide Level 34 mmol/L (21-32) Anion Gap 6 (6-14) Blood Urea Nitrogen 22 mg/dL (7-20) Creatinine 0.7 mg/dL (0.6-1.0) Estimated GFR (Cockcroft-Gault) 80.5 Glucose Level 103 mg/dL (70-99) Calcium Level 8.9 mg/dL (8.5-10.1) Triglycerides Level 78 mg/dL (0-150) Cholesterol Level 208 mg/dL (0-200) LDL Cholesterol, Calculated 103 mg/dL (0-100) VLDL Cholesterol, Calculated 16 mg/dL (0-40) Non-HDL Cholesterol Calculated 119 mg/dL (0-129) HDL Cholesterol 89 mg/dL (40-60) Cholesterol/HDL Ratio 2.3 Laboratory Tests Test 05/11/20 12:55 05/11/20 14:45 05/11/20 17:45 05/12/20 04:50 O2 Saturation 98 % (92-99) Arterial Blood pH 7.24 (7.35-7.45) Arterial Blood pCO2 at Patient Temp 75 mmHg (35-46) Arterial Blood pO2 at Patient Temp 125 mmHg (65-108) Arterial Blood HCO3 31 mmol/L (21-28) Arterial Blood Base Excess 2 mmol/L (-3-3) Oxyhemoglobin 97.1 % Methemoglobin 0.5 % (0.0-1.9) Carbon Monoxide, Quantitative 0.3 % (0.0-1.9) FiO2 36 Troponin I Quantitative 0.086 ng/mL (0.000-0.055) 0.066 ng/mL (0.000-0.055) White Blood Count 5.8 x10^3/uL (4.0-11.0) Red Blood Count 3.36 x10^6/uL (3.50-5.40) Hemoglobin 11.1 g/dL (12.0-15.5) Hematocrit 32.4 % (36.0-47.0) Mean Corpuscular Volume 97 fL (79-100) Mean Corpuscular Hemoglobin 33 pg (25-35) Mean Corpuscular Hemoglobin Concent 34 g/dL (31-37) Red Cell Distribution Width 15.7 % (11.5-14.5) Platelet Count 206 x10^3/uL (140-400) Neutrophils (%) (Auto) 82 % (31-73) Lymphocytes (%) (Auto) 8 % (24-48) Monocytes (%) (Auto) 9 % (0-9) Eosinophils (%) (Auto) 0 % (0-3) Basophils (%) (Auto) 0 % (0-3) Neutrophils # (Auto) 4.8 x10^3/uL (1.8-7.7) Lymphocytes # (Auto) 0.5 x10^3/uL (1.0-4.8) Monocytes # (Auto) 0.5 x10^3/uL (0.0-1.1) Eosinophils # (Auto) 0.0 x10^3/uL (0.0-0.7) Basophils # (Auto) 0.0 x10^3/uL (0.0-0.2) Sodium Level 141 mmol/L (136-145) Potassium Level 4.5 mmol/L (3.5-5.1) Chloride Level 101 mmol/L (98-107) Carbon Dioxide Level 34 mmol/L (21-32) Anion Gap 6 (6-14) Blood Urea Nitrogen 22 mg/dL (7-20) Creatinine 0.7 mg/dL (0.6-1.0) Estimated GFR (Cockcroft-Gault) 80.5 Glucose Level 103 mg/dL (70-99) Calcium Level 8.9 mg/dL (8.5-10.1) Triglycerides Level 78 mg/dL (0-150) Cholesterol Level 208 mg/dL (0-200) LDL Cholesterol, Calculated 103 mg/dL (0-100) VLDL Cholesterol, Calculated 16 mg/dL (0-40) Non-HDL Cholesterol Calculated 119 mg/dL (0-129) HDL Cholesterol 89 mg/dL (40-60) Cholesterol/HDL Ratio 2.3 Medications Active Scripts Medications Dose Route/Sig Max Daily Dose Days Date Category Bactrim Ds Tablet (Sulfamethoxazole/Trimethoprim) 1 Each Tablet 1 Tab PO BID 11/16/18 Rx Comments cxr clear Impression . 1. Acute hypercapnic respiratory failure. 2. Acute exacerbation of chronic obstructive pulmonary disease. 3. Chronic lower extremity cellulitis. 4. Hypertension. Plan . 1. d/w RN/RT. will place her on BIPAP 2. f/u ABG post 2 hr bipap 3. Check SARS-CoV-2 .low suspicion 4. Neg venous Dopplers of lower extremities. 5. steroids 6. MDI. start nebs if covid neg d/w rn/rt. cct 30 min including review of clinical data and formulating a plan CHELSIE CARMEN MD May 12, 2020 11:20
[2020-05-12] MEDS: ASPIRIN ENTERIC COATED 81 MG TABLET.DR. PO SCH ×2 (12:00→13:02)
[2020-05-12 12:50] LABS: BASE EXCESS ABG 9 mmol/L (-3-3); HCO3 ABG 37 mmol/L (21-28); PO2 ABG 80 mmHg (65-108); SAT O2 ABG 95 % (92-99)
[2020-05-12 12:51] LABS: PCO2 ABG 68 mmHg (35-46)
[2020-05-12 12:52] LABS: FIO2 ABG 35
[2020-05-12] MEDS: methylPREDNISolone SOD SUCC PF 125 MG/2 ML VIAL. IV SCH ×2 (15:29→22:54)
[2020-05-12] MEDS ORDERED: cefTRIAXone IV Push 1 GM VIAL. IVP SCH (16:00)
--- NOTE | 2020-05-12 16:00 | NUR ---
SS following for discharge planning. SS reviewed pt chart and discussed with pt RN. Pt is from [facility], ; fax [phone]. COVID19 negative. Pt is currently on BIPAP and IV Rocephin. SS will continue to follow for discharge planning.
--- NOTE | 2020-05-12 16:48 | RAD ---
Bilateral Lower Extremity Venous Doppler Ultrasound History: Reason: Edema, short of air. / Spl. Instructions: / History: Comparison: None Procedure: Color flow, duplex, spectral analysis and 2D images are obtained with and without compression in the area of the common femoral vein, superficial femoral vein - femoral vein junction, main femoral vein (superficial femoral vein) and popliteal vein. Veins of the proximal calf are also imaged. Findings: There is normal duplex flow, color flow and compressibility of all visualized vein segments. No evidence of deep venous thrombus is present. The calf veins are difficult to visualize due to soft tissue edema. Impression: No evidence of DVT. Electronically signed by: Aly Vee III, MD (05/12/2020 4:45 PM) [facility]
[2020-05-12] MEDS: IPRATRPIUM/ALBUTEROL 0.5/2.5MG 3 ML NEBU. NEB SCH (20:00)
[2020-05-13] VITALS (18 sets, daily range): BP systolic 108–182; BP diastolic 48–78
[2020-05-13 05:24] LABS: BASO % 0 % (0-3); EOS % 0 % (0-3); HEMATOCRIT 33.5 % (36.0-47.0); HEMOGLOBIN 11.4 g/dL (12.0-15.5); LYMPH # 0.2 x10^3/uL (1.0-4.8); LYMPH % 5 % (24-48); MEAN CORPUSCULAR HEMOGLOBIN 33 pg (25-35); MEAN CORPUSCULAR HGB CONC 34 g/dL (31-37); MEAN CORPUSCULAR VOLUME 97 fL (79-100); MONO # 0.1 x10^3/uL (0.0-1.1); MONO % 3 % (0-9); NEUT # 4.1 x10^3/uL (1.8-7.7); NEUT % 92 % (31-73); PLATELET COUNT 228 x10^3/uL (140-400); RED BLOOD COUNT 3.48 x10^6/uL (3.50-5.40); RED CELL DISTRIBUTION WIDTH 16.4 % (11.5-14.5); WHITE BLOOD COUNT 4.5 x10^3/uL (4.0-11.0)
[2020-05-13 06:04] LABS: ALBUMIN 3.7 g/dL (3.4-5.0); ALBUMIN/GLOBULIN RATIO 1.1 (1.0-1.7); CALCIUM 9.3 mg/dL (8.5-10.1); CREATININE 0.9 mg/dL (0.6-1.0); GFR 60.2; POTASSIUM 4.1 mmol/L (3.5-5.1); TOTAL BILIRUBIN 0.5 mg/dL (0.2-1.0)
[2020-05-13] MEDS: methylPREDNISolone SOD SUCC PF 125 MG/2 ML VIAL. IV SCH ×3 (06:51→20:55)
[2020-05-13] MEDS: ASPIRIN ENTERIC COATED 81 MG TABLET.DR. PO SCH (08:00)
[2020-05-13 08:14] LABS: % BANDS 4 % (0-9); % LYMPHS 4 % (24-48); % MONOS 1 % (0-10); % SEGS 91 % (35-66)
[2020-05-13 08:15] LABS: PLT ESTIMATE ADEQUATE (ADEQUATE)
[2020-05-13 08:16] LABS: ANISOCYTOSIS SLIGHT
[2020-05-13] MEDS: IPRATRPIUM/ALBUTEROL 0.5/2.5MG 3 ML NEBU. NEB SCH ×4 (08:26→20:00)
[2020-05-13 08:35] LABS: BASE EXCESS ABG 9 mmol/L (-3-3); HCO3 ABG 35 mmol/L (21-28); PCO2 ABG 55 mmHg (35-46); PO2 ABG 98 mmHg (65-108); SAT O2 ABG 97 % (92-99)
[2020-05-13 08:37] LABS: FIO2 ABG 35%
[2020-05-13] MEDS: amLODIPine BESYLATE 10 MG TABLET PO SCH (09:01)
[2020-05-13] MEDS: POTASSIUM CHLORIDE 10 MEQ TABLET.ER. PO SCH (09:01)
[2020-05-13] MEDS: LOSARTAN POTASSIUM 50 MG TABLET. PO SCH (09:02)
--- NOTE | 2020-05-13 09:37 | PDOC ---
PROGRESS NOTES Chief Complaint Chief Complaint 79-year-old female, who quit smoking years ago. She does have known underlying COPD. She presented to the ER with increasing shortness of breath. She denies being exposed to COVID-19. She also has some associated chest pain. Rates her symptoms at 10/10. She increased her home meds, but that did not seem to help. Symptoms are worse with moving, better with sitting still. She has also been having some urinary frequency. While in the ER, we noticed that she is in fulminant respiratory failure. She is tripoding. She is quite short of breath. She is gasping for air. I discussed the case with ER physician and we have consulted Dr. Higgins. I briefly discussed the case with him as well. The patient is being admitted for further evaluation and treatment. 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 Consider ischemic evaluation as an outpatient. History of Present Illness History of Present Illness ASSESSMENT AND PLAN: Respiratory failure, suspect chronic obstructive pulmonary low suspicion for pulmonary embolism, possible COVID-19. covid 19 neg 05/13 hypercapnic respiratory failure UTI , ESBL anxiety admitted. breathing treatments, oxygen, steroids, antibiotics. Consult Pulmonary. Lower extremity Dopplers to rule out DVT. Home meds, DVT prophylaxis. Full code. Check blood gas. Consult Cardiology. Cardiac monitoring. Morphine p.r.n. for pain. IV ZOSYN Consider ischemic evaluation as an outpatient. 32 MIN ICU CARE Vitals Vitals Vital Signs Date Time Temp Pulse Resp B/P (MAP) Pulse Ox O2 Delivery O2 Flow Rate FiO2 05/13/20 09:02 75 134/53 05/13/20 09:00 31 93 Nasal Cannula 2.0 05/13/20 08:00 98.6 98.6 Physical Exam General: Alert, Oriented X3, Cooperative, No acute distress Heart: Regular rate (SR with no significant ectopies), Normal S1 Lungs: Wheezing Abdomen: Soft, No tenderness Extremities: No cyanosis, Other (2-3+ bilateral LE pitting edema) Skin: No breakdown, No significant lesion Labs LABS Procedure Result URINE CULTURE Final Final GREATER THAN 100,000 CFU/ML GRAM NEGATIVE RODS on 05/12/20 at 1028 FINAL ID= [ESCHERICHIA COLI ESBL] Testing Performed by: [address] [address] For Inquires, the Physician may contact the Microbiology department at [phone] ESCHERICHIA COLI ESBL ANTIMICROBIAL SUSCEPTIBILITY Final Comment NEG MATHEW 56 ESCHERICHIA COLI ESBL ANTIBIOTIC RESULT INTERPRETATION AMPICILLIN/SULBACTAM <=4/2 S AMIKACIN <=16 S AMPICILLIN >16 R* AMOXICILLIN/K CLAVULANATE <=8/4 S AZTREONAM >16 ESBL CEFTRIAXONE >32 ESBL CEFTAZIDIME 8 ESBL CEFOTAXIME-ESBL >1 ESBL CEFOTAXIME >32 ESBL CEFOXITIN <=8 S CIPROFLOXACIN >2 R CEFEPIME >16 R* CEFUROXIME >16 R* CEFTAZIDIME/AVIBACTAM <=4 S ERTAPENEM <=0.5 S NITROFURANTOIN <=32 S GENTAMICIN <=2 S LEVOFLOXACIN >4 R MEROPENEM <=1 S PIPERACILLIN/TAZOBACTAM <=8 S TRIMETHOPRIM/SULFAMETHOXAZOLE >2/38 R TETRACYCLINE >8 R STATUS: REG ER ORD. PHYSICIAN: LEIA DUENAS MD REASON: SOA PROCEDURE: CHEST AP ONLY EXAM: Chest, single view. HISTORY: Shortness of air. COMPARISON: None. FINDINGS: A frontal view of the chest is obtained. There is no infiltrate, pleural effusion or pneumothorax. The heart is stable in size. There are healed rib fractures. IMPRESSION: No acute pulmonary finding. Electronically signed by: Kadie Bonilla MD (05/11/2020 10:52 AM) [id number] DICTATED and SIGNED BY: KADIE BONILLA MD DATE: 05/11/20 105 Laboratory Tests Test 05/12/20 12:51 05/13/20 05:00 05/13/20 08:30 O2 Saturation 95 % (92-99) 97 % (92-99) Arterial Blood pH 7.36 (7.35-7.45) 7.42 (7.35-7.45) Arterial Blood pCO2 at Patient Temp 68 mmHg (35-46) 55 mmHg (35-46) Arterial Blood pO2 at Patient Temp 80 mmHg (65-108) 98 mmHg (65-108) Arterial Blood HCO3 37 mmol/L (21-28) 35 mmol/L (21-28) Arterial Blood Base Excess 9 mmol/L (-3-3) 9 mmol/L (-3-3) FiO2 35 35% White Blood Count 4.5 x10^3/uL (4.0-11.0) Red Blood Count 3.48 x10^6/uL (3.50-5.40) Hemoglobin 11.4 g/dL (12.0-15.5) Hematocrit 33.5 % (36.0-47.0) Mean Corpuscular Volume 97 fL (79-100) Mean Corpuscular Hemoglobin 33 pg (25-35) Mean Corpuscular Hemoglobin Concent 34 g/dL (31-37) Red Cell Distribution Width 16.4 % (11.5-14.5) Platelet Count 228 x10^3/uL (140-400) Neutrophils (%) (Auto) 92 % (31-73) Lymphocytes (%) (Auto) 5 % (24-48) Monocytes (%) (Auto) 3 % (0-9) Eosinophils (%) (Auto) 0 % (0-3) Basophils (%) (Auto) 0 % (0-3) Neutrophils # (Auto) 4.1 x10^3/uL (1.8-7.7) Lymphocytes # (Auto) 0.2 x10^3/uL (1.0-4.8) Monocytes # (Auto) 0.1 x10^3/uL (0.0-1.1) Eosinophils # (Auto) 0.0 x10^3/uL (0.0-0.7) Basophils # (Auto) 0.0 x10^3/uL (0.0-0.2) Segmented Neutrophils % 91 % (35-66) Band Neutrophils % 4 % (0-9) Lymphocytes % 4 % (24-48) Monocytes % 1 % (0-10) Platelet Estimate Adequate (ADEQUATE) Large Platelets Few Anisocytosis Slight Sodium Level 141 mmol/L (136-145) Potassium Level 4.1 mmol/L (3.5-5.1) Chloride Level 98 mmol/L (98-107) Carbon Dioxide Level 34 mmol/L (21-32) Anion Gap 9 (6-14) Blood Urea Nitrogen 32 mg/dL (7-20) Creatinine 0.9 mg/dL (0.6-1.0) Estimated GFR (Cockcroft-Gault) 60.2 BUN/Creatinine Ratio 36 (6-20) Glucose Level 122 mg/dL (70-99) Calcium Level 9.3 mg/dL (8.5-10.1) Total Bilirubin 0.5 mg/dL (0.2-1.0) Aspartate Amino Transf (AST/SGOT) 22 U/L (15-37) Alanine Aminotransferase (ALT/SGPT) 18 U/L (14-59) Alkaline Phosphatase 74 U/L (46-116) Total Protein 7.0 g/dL (6.4-8.2) Albumin 3.7 g/dL (3.4-5.0) Albumin/Globulin Ratio 1.1 (1.0-1.7) Assessment and Plan Assessmemt and Plan Problems Medical Problems: (1) COPD exacerbation Status: Acute Comment Review of Relevant I have reviewed the following items cira (where applicable) has been applied. Labs Laboratory Tests Test 05/11/20 10:40 05/11/20 11:30 05/11/20 12:55 05/11/20 14:45 White Blood Count 7.7 x10^3/uL (4.0-11.0) Red Blood Count 3.87 x10^6/uL (3.50-5.40) Hemoglobin 12.8 g/dL (12.0-15.5) Hematocrit 37.6 % (36.0-47.0) Mean Corpuscular Volume 97 fL (79-100) Mean Corpuscular Hemoglobin 33 pg (25-35) Mean Corpuscular Hemoglobin Concent 34 g/dL (31-37) Red Cell Distribution Width 15.6 % (11.5-14.5) Platelet Count 231 x10^3/uL (140-400) Neutrophils (%) (Auto) 83 % (31-73) Lymphocytes (%) (Auto) 10 % (24-48) Monocytes (%) (Auto) 5 % (0-9) Eosinophils (%) (Auto) 1 % (0-3) Basophils (%) (Auto) 1 % (0-3) Neutrophils # (Auto) 6.4 x10^3/uL (1.8-7.7) Lymphocytes # (Auto) 0.8 x10^3/uL (1.0-4.8) Monocytes # (Auto) 0.4 x10^3/uL (0.0-1.1) Eosinophils # (Auto) 0.1 x10^3/uL (0.0-0.7) Basophils # (Auto) 0.1 x10^3/uL (0.0-0.2) D-Dimer (Kavya) 0.97 ug/mlFEU (0.00-0.50) Urine Collection Type Unknown Urine Color Yellow Urine Clarity Clear Urine pH 5.5 (<5.0-8.0) Urine Specific [place] >=1.030 (1.000-1.030) Urine Protein >=300 mg/dL (NEG-TRACE) Urine Glucose (UA) Negative mg/dL (NEG) Urine Ketones (Stick) 15 mg/dL (NEG) Urine Blood Large (NEG) Urine Nitrite Positive (NEG) Urine Bilirubin Small (NEG) Urine Urobilinogen Dipstick 1.0 mg/dL (0.2 mg/dL) Urine Leukocyte Esterase Negative (NEG) Urine RBC 6-10 /HPF (0-2) Urine WBC 5-10 /HPF (0-4) Urine Bacteria Many /HPF (0-FEW) Urine Hyaline Casts Few /HPF Sodium Level 141 mmol/L (136-145) Potassium Level 4.4 mmol/L (3.5-5.1) Chloride Level 99 mmol/L (98-107) Carbon Dioxide Level 34 mmol/L (21-32) Anion Gap 8 (6-14) Blood Urea Nitrogen 21 mg/dL (7-20) Creatinine 0.8 mg/dL (0.6-1.0) Estimated GFR (Cockcroft-Gault) 69.0 Glucose Level 117 mg/dL (70-99) Calcium Level 9.2 mg/dL (8.5-10.1) Total Bilirubin 0.8 mg/dL (0.2-1.0) Direct Bilirubin 0.2 mg/dL (0.0-0.2) Aspartate Amino Transf (AST/SGOT) 24 U/L (15-37) Alanine Aminotransferase (ALT/SGPT) 17 U/L (14-59) Alkaline Phosphatase 99 U/L (46-116) Troponin I Quantitative 0.074 ng/mL (0.000-0.055) 0.086 ng/mL (0.000-0.055) PW-Kct-V-Type Natriuretic Peptide 1169 pg/mL (0-449) Total Protein 7.3 g/dL (6.4-8.2) Albumin 4.2 g/dL (3.4-5.0) Lipase 101 U/L (73-393) Coronavirus (PCR) Not detected (Not Detected) O2 Saturation 98 % (92-99) Arterial Blood pH 7.24 (7.35-7.45) Arterial Blood pCO2 at Patient Temp 75 mmHg (35-46) Arterial Blood pO2 at Patient Temp 125 mmHg (65-108) Arterial Blood HCO3 31 mmol/L (21-28) Arterial Blood Base Excess 2 mmol/L (-3-3) Oxyhemoglobin 97.1 % Methemoglobin 0.5 % (0.0-1.9) Carbon Monoxide, Quantitative 0.3 % (0.0-1.9) FiO2 36 Test 05/11/20 17:45 05/12/20 04:50 05/12/20 12:51 05/13/20 05:00 Troponin I Quantitative 0.066 ng/mL (0.000-0.055) White Blood Count 5.8 x10^3/uL (4.0-11.0) 4.5 x10^3/uL (4.0-11.0) Red Blood Count 3.36 x10^6/uL (3.50-5.40) 3.48 x10^6/uL (3.50-5.40) Hemoglobin 11.1 g/dL (12.0-15.5) 11.4 g/dL (12.0-15.5) Hematocrit 32.4 % (36.0-47.0) 33.5 % (36.0-47.0) Mean Corpuscular Volume 97 fL (79-100) 97 fL (79-100) Mean Corpuscular Hemoglobin 33 pg (25-35) 33 pg (25-35) Mean Corpuscular Hemoglobin Concent 34 g/dL (31-37) 34 g/dL (31-37) Red Cell Distribution Width 15.7 % (11.5-14.5) 16.4 % (11.5-14.5) Platelet Count 206 x10^3/uL (140-400) 228 x10^3/uL (140-400) Neutrophils (%) (Auto) 82 % (31-73) 92 % (31-73) Lymphocytes (%) (Auto) 8 % (24-48) 5 % (24-48) Monocytes (%) (Auto) 9 % (0-9) 3 % (0-9) Eosinophils (%) (Auto) 0 % (0-3) 0 % (0-3) Basophils (%) (Auto) 0 % (0-3) 0 % (0-3) Neutrophils # (Auto) 4.8 x10^3/uL (1.8-7.7) 4.1 x10^3/uL (1.8-7.7) Lymphocytes # (Auto) 0.5 x10^3/uL (1.0-4.8) 0.2 x10^3/uL (1.0-4.8) Monocytes # (Auto) 0.5 x10^3/uL (0.0-1.1) 0.1 x10^3/uL (0.0-1.1) Eosinophils # (Auto) 0.0 x10^3/uL (0.0-0.7) 0.0 x10^3/uL (0.0-0.7) Basophils # (Auto) 0.0 x10^3/uL (0.0-0.2) 0.0 x10^3/uL (0.0-0.2) Sodium Level 141 mmol/L (136-145) 141 mmol/L (136-145) Potassium Level 4.5 mmol/L (3.5-5.1) 4.1 mmol/L (3.5-5.1) Chloride Level 101 mmol/L (98-107) 98 mmol/L (98-107) Carbon Dioxide Level 34 mmol/L (21-32) 34 mmol/L (21-32) Anion Gap 6 (6-14) 9 (6-14) Blood Urea Nitrogen 22 mg/dL (7-20) 32 mg/dL (7-20) Creatinine 0.7 mg/dL (0.6-1.0) 0.9 mg/dL (0.6-1.0) Estimated GFR (Cockcroft-Gault) 80.5 60.2 Glucose Level 103 mg/dL (70-99) 122 mg/dL (70-99) Calcium Level 8.9 mg/dL (8.5-10.1) 9.3 mg/dL (8.5-10.1) Triglycerides Level 78 mg/dL (0-150) Cholesterol Level 208 mg/dL (0-200) LDL Cholesterol, Calculated 103 mg/dL (0-100) VLDL Cholesterol, Calculated 16 mg/dL (0-40) Non-HDL Cholesterol Calculated 119 mg/dL (0-129) HDL Cholesterol 89 mg/dL (40-60) Cholesterol/HDL Ratio 2.3 O2 Saturation 95 % (92-99) Arterial Blood pH 7.36 (7.35-7.45) Arterial Blood pCO2 at Patient Temp 68 mmHg (35-46) Arterial Blood pO2 at Patient Temp 80 mmHg (65-108) Arterial Blood HCO3 37 mmol/L (21-28) Arterial Blood Base Excess 9 mmol/L (-3-3) FiO2 35 Segmented Neutrophils % 91 % (35-66) Band Neutrophils % 4 % (0-9) Lymphocytes % 4 % (24-48) Monocytes % 1 % (0-10) Platelet Estimate Adequate (ADEQUATE) Large Platelets Few Anisocytosis Slight BUN/Creatinine Ratio 36 (6-20) Total Bilirubin 0.5 mg/dL (0.2-1.0) Aspartate Amino Transf (AST/SGOT) 22 U/L (15-37) Alanine Aminotransferase (ALT/SGPT) 18 U/L (14-59) Alkaline Phosphatase 74 U/L (46-116) Total Protein 7.0 g/dL (6.4-8.2) Albumin 3.7 g/dL (3.4-5.0) Albumin/Globulin Ratio 1.1 (1.0-1.7) Test 05/13/20 08:30 O2 Saturation 97 % (92-99) Arterial Blood pH 7.42 (7.35-7.45) Arterial Blood pCO2 at Patient Temp 55 mmHg (35-46) Arterial Blood pO2 at Patient Temp 98 mmHg (65-108) Arterial Blood HCO3 35 mmol/L (21-28) Arterial Blood Base Excess 9 mmol/L (-3-3) FiO2 35% Laboratory Tests Test 05/12/20 12:51 05/13/20 05:00 05/13/20 08:30 O2 Saturation 95 % (92-99) 97 % (92-99) Arterial Blood pH 7.36 (7.35-7.45) 7.42 (7.35-7.45) Arterial Blood pCO2 at Patient Temp 68 mmHg (35-46) 55 mmHg (35-46) Arterial Blood pO2 at Patient Temp 80 mmHg (65-108) 98 mmHg (65-108) Arterial Blood HCO3 37 mmol/L (21-28) 35 mmol/L (21-28) Arterial Blood Base Excess 9 mmol/L (-3-3) 9 mmol/L (-3-3) FiO2 35 35% White Blood Count 4.5 x10^3/uL (4.0-11.0) Red Blood Count 3.48 x10^6/uL (3.50-5.40) Hemoglobin 11.4 g/dL (12.0-15.5) Hematocrit 33.5 % (36.0-47.0) Mean Corpuscular Volume 97 fL (79-100) Mean Corpuscular Hemoglobin 33 pg (25-35) Mean Corpuscular Hemoglobin Concent 34 g/dL (31-37) Red Cell Distribution Width 16.4 % (11.5-14.5) Platelet Count 228 x10^3/uL (140-400) Neutrophils (%) (Auto) 92 % (31-73) Lymphocytes (%) (Auto) 5 % (24-48) Monocytes (%) (Auto) 3 % (0-9) Eosinophils (%) (Auto) 0 % (0-3) Basophils (%) (Auto) 0 % (0-3) Neutrophils # (Auto) 4.1 x10^3/uL (1.8-7.7) Lymphocytes # (Auto) 0.2 x10^3/uL (1.0-4.8) Monocytes # (Auto) 0.1 x10^3/uL (0.0-1.1) Eosinophils # (Auto) 0.0 x10^3/uL (0.0-0.7) Basophils # (Auto) 0.0 x10^3/uL (0.0-0.2) Segmented Neutrophils % 91 % (35-66) Band Neutrophils % 4 % (0-9) Lymphocytes % 4 % (24-48) Monocytes % 1 % (0-10) Platelet Estimate Adequate (ADEQUATE) Large Platelets Few Anisocytosis Slight Sodium Level 141 mmol/L (136-145) Potassium Level 4.1 mmol/L (3.5-5.1) Chloride Level 98 mmol/L (98-107) Carbon Dioxide Level 34 mmol/L (21-32) Anion Gap 9 (6-14) Blood Urea Nitrogen 32 mg/dL (7-20) Creatinine 0.9 mg/dL (0.6-1.0) Estimated GFR (Cockcroft-Gault) 60.2 BUN/Creatinine Ratio 36 (6-20) Glucose Level 122 mg/dL (70-99) Calcium Level 9.3 mg/dL (8.5-10.1) Total Bilirubin 0.5 mg/dL (0.2-1.0) Aspartate Amino Transf (AST/SGOT) 22 U/L (15-37) Alanine Aminotransferase (ALT/SGPT) 18 U/L (14-59) Alkaline Phosphatase 74 U/L (46-116) Total Protein 7.0 g/dL (6.4-8.2) Albumin 3.7 g/dL (3.4-5.0) Albumin/Globulin Ratio 1.1 (1.0-1.7) Microbiology 05/11/20 Urine Culture - Final, Complete 05/11/20 Antimicrobic Susceptibility - Final, Complete Medications Current Medications Albuterol/ Ipratropium (Duoneb) 3 ml 1X ONCE NEB Last administered on 05/11/20at 11:36; Start 05/11/20 at 11:15; Stop 05/11/20 at 11:16; Status DC Methylprednisolone Sodium Succinate (SOLU-Medrol 125MG VIAL) 125 mg 1X ONCE IV Last administered on 05/11/20at 11:25; Start 05/11/20 at 11:15; Stop 05/11/20 at 11:16; Status DC Aspirin (Aspirin Chewable) 324 mg 1X ONCE PO Last administered on 05/11/20at 11:45; Start 05/11/20 at 11:30; Stop 05/11/20 at 11:44; Status DC Morphine Sulfate (Morphine Sulfate) 2 mg PRN Q1HR PRN IV SEVERE PAIN Last administered on 05/11/20at 15:40; Start 05/11/20 at 11:30; Stop 05/11/20 at 15:40; Status DC Albuterol/ Ipratropium (Duoneb) 3 ml RTQID NEB Last administered on 05/11/20at 11:47; Start 05/11/20 at 12:00; Stop 05/12/20 at 01:14; Status DC Iohexol (Omnipaque 350 Mg/ml) 90 ml 1X ONCE IV ; Start 05/11/20 at 11:45; Stop 05/11/20 at 11:51; Status DC Info (CONTRAST GIVEN -- Rx MONITORING) 1 each PRN DAILY PRN MC SEE COMMENTS; Start 05/11/20 at 12:00; Stop 05/13/20 at 11:59 Labetalol HCl (Normodyne Iv Push) 10 mg 1X ONCE IVP ; Start 05/11/20 at 13:00; Stop 05/11/20 at 13:01; Status DC Hydralazine HCl (Apresoline Inj) 10 mg PRN Q4HRS PRN IVP ELEVATED BP, SEE COMMENTS; Start 05/11/20 at 15:30 Morphine Sulfate (Morphine Sulfate) 2 mg PRN Q2HR PRN IV MODERATE TO SEVERE PAIN Last administered on 05/12/20at 11:19; Start 05/11/20 at 15:45 Amlodipine Besylate (Norvasc) 10 mg DAILY PO Last administered on 05/13/20at 09:01; Start 05/11/20 at 17:00 Losartan Potassium (Cozaar) 50 mg DAILY PO ; Start 05/11/20 at 17:00; Stop 05/11/20 at 16:51; Status DC Furosemide (Lasix) 40 mg DAILY PO Last administered on 05/12/20at 08:55; Start 05/11/20 at 17:00 Potassium Chloride (Klor-Con) 10 meq DAILYWBKFT PO Last administered on 05/13/20at 09:01; Start 05/12/20 at 08:00 Losartan Potassium (Cozaar) 100 mg DAILY PO Last administered on 05/13/20at 09:02; Start 05/12/20 at 09:00 Albuterol Sulfate (Ventolin Hfa) 2 puff Q4HRS INH Last administered on 05/12/20at 01:23; Start 05/12/20 at 01:30; Stop 05/12/20 at 15:19; Status DC Methylprednisolone Sodium Succinate (SOLU-Medrol 125MG VIAL) 125 mg Q8HRS IV Last administered on 05/13/20at 06:51; Start 05/12/20 at 14:00 Methylprednisolone Sodium Succinate (SOLU-Medrol 125MG VIAL) 125 mg 1X ONCE IV Last administered on 05/12/20at 09:10; Start 05/12/20 at 10:00; Stop 05/12/20 at 10:01; Status DC Aspirin (Ecotrin) 81 mg DAILYWBKFT PO ; Start 05/12/20 at 12:00 Ceftriaxone Sodium (Rocephin) 1 gm Q24H IVP Last administered on 05/12/20at 15:29; Start 05/12/20 at 16:00 Albuterol/ Ipratropium (Duoneb) 3 ml RTQID NEB Last administered on 05/13/20at 08:26; Start 05/12/20 at 20:00 Active Scripts Active Bactrim Ds Tablet (Sulfamethoxazole/Trimethoprim) 1 Each Tablet 1 Tab PO BID Reported Tizanidine Hcl 4 Mg Tablet 2 Mg PO TID PRN Albuterol Sulfate Neb Soln (Albuterol Sulfate) 2.5 Mg/3 Ml Vial.neb 2.5 Mg NEB PRN Q4-6HRS PRN Trazodone Hcl 50 Mg Tablet 50 Mg PO HS Symbicort 160-4.5 Mcg Inhaler (Budesonide/Formoterol Fumarate) 10.2 Gm Hfa.aer.ad 2 Puff IH BID Spironolactone 50 Mg Tablet 50 Mg PO BID Prednisone 20 Mg Tablet 20 Mg PO DAILY Klor-Con 10 (Potassium Chloride) 10 Meq Tablet.er 10 Meq PO BID Mirtazapine 45 Mg Tablet 45 Mg PO HS Losartan Potassium 100 Mg Tablet 100 Mg PO DAILY Furosemide 40 Mg Tablet 40 Mg PO BID Combivent Respimat Inhal (Ipratropium/Albuterol Sulfate) 4 Gm Aer.w.adap 1 Puff IH 5XDAY Lotrimin Af (Clotrimazole) 12 Gm Cream..g. 1 Jesus TP BID Amlodipine Besylate 10 Mg Tablet 10 Mg PO DAILY Vitals/I & O Vital Sign - Last 24 Hours 05/12/20 05/12/20 05/12/20 05/12/20 10:00 11:00 11:19 11:35 Pulse 89 101 Resp 20 24 B/P (MAP) 114/46 (68) 184/84 (117) Pulse Ox 99 91 82 94 O2 Delivery Nasal Cannula Nasal Cannula Nasal Cannula BiPAP/CPAP O2 Flow Rate 3.5 2.5 2.5 05/12/20 05/12/20 05/12/20 05/12/20 11:50 12:00 12:00 13:00 Temp 98.1 98.1 Pulse 81 90 Resp 16 18 B/P (MAP) 133/54 (80) 132/55 (80) Pulse Ox 97 97 95 O2 Delivery BiPAP/CPAP Bi-pap BiPAP/CPAP BiPAP/CPAP 05/12/20 05/12/20 05/12/20 05/12/20 14:00 15:00 15:06 16:00 Pulse 77 102 Resp 18 27 B/P (MAP) 102/40 (60) 130/64 (86) Pulse Ox 97 97 97 O2 Delivery BiPAP/CPAP BiPAP/CPAP BiPAP/CPAP Bi-pap 05/12/20 05/12/20 05/12/20 05/12/20 16:00 17:00 18:00 19:00 Temp 98.2 97.6 98.2 97.6 Pulse 98 98 82 82 Resp 28 27 22 16 B/P (MAP) 155/81 (105) 153/64 (93) 162/73 (102) 167/106 (126) Pulse Ox 97 97 98 96 O2 Delivery BiPAP/CPAP BiPAP/CPAP BiPAP/CPAP BiPAP/CPAP 05/12/20 05/12/20 05/12/20 05/12/20 20:00 20:00 20:29 21:00 Temp Pulse 102 92 Resp 25 21 B/P (MAP) 176/81 (112) 126/59 (81) Pulse Ox 96 98 97 O2 Delivery Bi-pap BiPAP/CPAP BiPAP/CPAP BiPAP/CPAP 05/12/20 05/12/20 05/13/20 05/13/20 22:00 23:00 00:00 00:00 Temp Pulse 82 92 78 Resp 25 30 15 B/P (MAP) 136/60 (85) 145/66 (92) 121/63 (82) Pulse Ox 98 97 98 O2 Delivery BiPAP/CPAP BiPAP/CPAP Bi-pap BiPAP/CPAP 05/13/20 05/13/20 05/13/20 05/13/20 01:00 01:59 02:00 03:00 Temp 98.0 98.0 Pulse 76 76 74 Resp 36 31 B/P (MAP) 115/48 (70) 115/50 (71) 108/50 (69) Pulse Ox 96 98 97 96 O2 Delivery BiPAP/CPAP BiPAP/CPAP BiPAP/CPAP BiPAP/CPAP 05/13/20 05/13/20 05/13/20 05/13/20 04:00 04:00 04:55 05:09 Temp 98.0 98.0 Pulse 90 86 Resp 22 B/P (MAP) 136/72 (93) 138/64 (88) Pulse Ox 98 98 97 O2 Delivery Bi-pap BiPAP/CPAP BiPAP/CPAP BiPAP/CPAP 05/13/20 05/13/20 05/13/20 05/13/20 06:00 07:00 08:00 08:00 Temp 98.6 98.6 Pulse 75 88 Resp 22 23 25 B/P (MAP) 122/50 (74) 134/53 (80) 156/68 (97) Pulse Ox 97 97 98 O2 Delivery BiPAP/CPAP BiPAP/CPAP BiPAP/CPAP Bi-pap 05/13/20 05/13/20 05/13/20 05/13/20 08:26 09:00 09:01 09:02 Pulse 106 75 75 Resp 31 B/P (MAP) 182/78 (112) 134/53 134/53 Pulse Ox 100 93 O2 Delivery BiPAP/CPAP Nasal Cannula O2 Flow Rate 2.0 Intake and Output 05/12/20 05/12/20 05/13/20 15:00 23:00 07:00 Intake Total 360 ml 120 ml Output Total 1120 ml 700 ml 105 ml Balance -1120 ml -340 ml 15 ml Nutrition Consultation Dietary Evaluation: Recommendations by RD: Dietary education by RD, Increase Calorie Intake, Protein supplementation Comments: Continue w/cardiac diet as ordered; honor food preferences, provide snacks/supplements as requested REC Ensure w/dinner trays and more often pending pt preference Expected Outcomes/Goals: PO intake to meet >75% est needs Malnutrition Findings: Body Fat Depletion (Non Severe: Mild Depletion Weight Status: Appropriate Justicifation of Admission Dx: Justifications for Admission: Justification of Admission Dx: Yes Acute COPD Exacerbation: Acute COPD Exacerbation KATIE MCKEE MD May 13, 2020 09:37
[2020-05-13] MEDS: FUROSEMIDE 40 MG TABLET. PO SCH (10:31)
[2020-05-13] MEDS: ALPRAZolam 0.25 MG TABLET PO PRN (10:31)
--- NOTE | 2020-05-13 10:38 | PDOC ---
PULMONARY PROGRESS NOTES Subjective better with BIPAP abg improved Vitals Vital Signs Date Time Temp Pulse Resp B/P (MAP) Pulse Ox O2 Delivery O2 Flow Rate FiO2 05/13/20 10:00 98 27 132/54 (80) 98 BiPAP/CPAP 05/13/20 09:00 2.0 05/13/20 08:00 98.6 98.6 General: Alert, No acute distress Lungs: Clear Cardiovascular: S1 Abdomen: Soft Neuro Exam: Alert Extremities: No Edema Skin: Warm Labs Laboratory Tests Test 05/11/20 10:40 05/11/20 11:30 05/11/20 12:55 05/11/20 14:45 White Blood Count 7.7 x10^3/uL (4.0-11.0) Red Blood Count 3.87 x10^6/uL (3.50-5.40) Hemoglobin 12.8 g/dL (12.0-15.5) Hematocrit 37.6 % (36.0-47.0) Mean Corpuscular Volume 97 fL (79-100) Mean Corpuscular Hemoglobin 33 pg (25-35) Mean Corpuscular Hemoglobin Concent 34 g/dL (31-37) Red Cell Distribution Width 15.6 % (11.5-14.5) Platelet Count 231 x10^3/uL (140-400) Neutrophils (%) (Auto) 83 % (31-73) Lymphocytes (%) (Auto) 10 % (24-48) Monocytes (%) (Auto) 5 % (0-9) Eosinophils (%) (Auto) 1 % (0-3) Basophils (%) (Auto) 1 % (0-3) Neutrophils # (Auto) 6.4 x10^3/uL (1.8-7.7) Lymphocytes # (Auto) 0.8 x10^3/uL (1.0-4.8) Monocytes # (Auto) 0.4 x10^3/uL (0.0-1.1) Eosinophils # (Auto) 0.1 x10^3/uL (0.0-0.7) Basophils # (Auto) 0.1 x10^3/uL (0.0-0.2) D-Dimer (Kavya) 0.97 ug/mlFEU (0.00-0.50) Urine Collection Type Unknown Urine Color Yellow Urine Clarity Clear Urine pH 5.5 (<5.0-8.0) Urine Specific Fif[place] >=1.030 (1.000-1.030) Urine Protein >=300 mg/dL (NEG-TRACE) Urine Glucose (UA) Negative mg/dL (NEG) Urine Ketones (Stick) 15 mg/dL (NEG) Urine Blood Large (NEG) Urine Nitrite Positive (NEG) Urine Bilirubin Small (NEG) Urine Urobilinogen Dipstick 1.0 mg/dL (0.2 mg/dL) Urine Leukocyte Esterase Negative (NEG) Urine RBC 6-10 /HPF (0-2) Urine WBC 5-10 /HPF (0-4) Urine Bacteria Many /HPF (0-FEW) Urine Hyaline Casts Few /HPF Sodium Level 141 mmol/L (136-145) Potassium Level 4.4 mmol/L (3.5-5.1) Chloride Level 99 mmol/L (98-107) Carbon Dioxide Level 34 mmol/L (21-32) Anion Gap 8 (6-14) Blood Urea Nitrogen 21 mg/dL (7-20) Creatinine 0.8 mg/dL (0.6-1.0) Estimated GFR (Cockcroft-Gault) 69.0 Glucose Level 117 mg/dL (70-99) Calcium Level 9.2 mg/dL (8.5-10.1) Total Bilirubin 0.8 mg/dL (0.2-1.0) Direct Bilirubin 0.2 mg/dL (0.0-0.2) Aspartate Amino Transf (AST/SGOT) 24 U/L (15-37) Alanine Aminotransferase (ALT/SGPT) 17 U/L (14-59) Alkaline Phosphatase 99 U/L (46-116) Troponin I Quantitative 0.074 ng/mL (0.000-0.055) 0.086 ng/mL (0.000-0.055) XW-Ctg-C-Type Natriuretic Peptide 1169 pg/mL (0-449) Total Protein 7.3 g/dL (6.4-8.2) Albumin 4.2 g/dL (3.4-5.0) Lipase 101 U/L (73-393) Coronavirus (PCR) Not detected (Not Detected) O2 Saturation 98 % (92-99) Arterial Blood pH 7.24 (7.35-7.45) Arterial Blood pCO2 at Patient Temp 75 mmHg (35-46) Arterial Blood pO2 at Patient Temp 125 mmHg (65-108) Arterial Blood HCO3 31 mmol/L (21-28) Arterial Blood Base Excess 2 mmol/L (-3-3) Oxyhemoglobin 97.1 % Methemoglobin 0.5 % (0.0-1.9) Carbon Monoxide, Quantitative 0.3 % (0.0-1.9) FiO2 36 Test 05/11/20 17:45 05/12/20 04:50 05/12/20 12:51 05/13/20 05:00 Troponin I Quantitative 0.066 ng/mL (0.000-0.055) White Blood Count 5.8 x10^3/uL (4.0-11.0) 4.5 x10^3/uL (4.0-11.0) Red Blood Count 3.36 x10^6/uL (3.50-5.40) 3.48 x10^6/uL (3.50-5.40) Hemoglobin 11.1 g/dL (12.0-15.5) 11.4 g/dL (12.0-15.5) Hematocrit 32.4 % (36.0-47.0) 33.5 % (36.0-47.0) Mean Corpuscular Volume 97 fL (79-100) 97 fL (79-100) Mean Corpuscular Hemoglobin 33 pg (25-35) 33 pg (25-35) Mean Corpuscular Hemoglobin Concent 34 g/dL (31-37) 34 g/dL (31-37) Red Cell Distribution Width 15.7 % (11.5-14.5) 16.4 % (11.5-14.5) Platelet Count 206 x10^3/uL (140-400) 228 x10^3/uL (140-400) Neutrophils (%) (Auto) 82 % (31-73) 92 % (31-73) Lymphocytes (%) (Auto) 8 % (24-48) 5 % (24-48) Monocytes (%) (Auto) 9 % (0-9) 3 % (0-9) Eosinophils (%) (Auto) 0 % (0-3) 0 % (0-3) Basophils (%) (Auto) 0 % (0-3) 0 % (0-3) Neutrophils # (Auto) 4.8 x10^3/uL (1.8-7.7) 4.1 x10^3/uL (1.8-7.7) Lymphocytes # (Auto) 0.5 x10^3/uL (1.0-4.8) 0.2 x10^3/uL (1.0-4.8) Monocytes # (Auto) 0.5 x10^3/uL (0.0-1.1) 0.1 x10^3/uL (0.0-1.1) Eosinophils # (Auto) 0.0 x10^3/uL (0.0-0.7) 0.0 x10^3/uL (0.0-0.7) Basophils # (Auto) 0.0 x10^3/uL (0.0-0.2) 0.0 x10^3/uL (0.0-0.2) Sodium Level 141 mmol/L (136-145) 141 mmol/L (136-145) Potassium Level 4.5 mmol/L (3.5-5.1) 4.1 mmol/L (3.5-5.1) Chloride Level 101 mmol/L (98-107) 98 mmol/L (98-107) Carbon Dioxide Level 34 mmol/L (21-32) 34 mmol/L (21-32) Anion Gap 6 (6-14) 9 (6-14) Blood Urea Nitrogen 22 mg/dL (7-20) 32 mg/dL (7-20) Creatinine 0.7 mg/dL (0.6-1.0) 0.9 mg/dL (0.6-1.0) Estimated GFR (Cockcroft-Gault) 80.5 60.2 Glucose Level 103 mg/dL (70-99) 122 mg/dL (70-99) Calcium Level 8.9 mg/dL (8.5-10.1) 9.3 mg/dL (8.5-10.1) Triglycerides Level 78 mg/dL (0-150) Cholesterol Level 208 mg/dL (0-200) LDL Cholesterol, Calculated 103 mg/dL (0-100) VLDL Cholesterol, Calculated 16 mg/dL (0-40) Non-HDL Cholesterol Calculated 119 mg/dL (0-129) HDL Cholesterol 89 mg/dL (40-60) Cholesterol/HDL Ratio 2.3 O2 Saturation 95 % (92-99) Arterial Blood pH 7.36 (7.35-7.45) Arterial Blood pCO2 at Patient Temp 68 mmHg (35-46) Arterial Blood pO2 at Patient Temp 80 mmHg (65-108) Arterial Blood HCO3 37 mmol/L (21-28) Arterial Blood Base Excess 9 mmol/L (-3-3) FiO2 35 Segmented Neutrophils % 91 % (35-66) Band Neutrophils % 4 % (0-9) Lymphocytes % 4 % (24-48) Monocytes % 1 % (0-10) Platelet Estimate Adequate (ADEQUATE) Large Platelets Few Anisocytosis Slight BUN/Creatinine Ratio 36 (6-20) Total Bilirubin 0.5 mg/dL (0.2-1.0) Aspartate Amino Transf (AST/SGOT) 22 U/L (15-37) Alanine Aminotransferase (ALT/SGPT) 18 U/L (14-59) Alkaline Phosphatase 74 U/L (46-116) Total Protein 7.0 g/dL (6.4-8.2) Albumin 3.7 g/dL (3.4-5.0) Albumin/Globulin Ratio 1.1 (1.0-1.7) Test 05/13/20 08:30 O2 Saturation 97 % (92-99) Arterial Blood pH 7.42 (7.35-7.45) Arterial Blood pCO2 at Patient Temp 55 mmHg (35-46) Arterial Blood pO2 at Patient Temp 98 mmHg (65-108) Arterial Blood HCO3 35 mmol/L (21-28) Arterial Blood Base Excess 9 mmol/L (-3-3) FiO2 35% Laboratory Tests Test 05/12/20 12:51 05/13/20 05:00 05/13/20 08:30 O2 Saturation 95 % (92-99) 97 % (92-99) Arterial Blood pH 7.36 (7.35-7.45) 7.42 (7.35-7.45) Arterial Blood pCO2 at Patient Temp 68 mmHg (35-46) 55 mmHg (35-46) Arterial Blood pO2 at Patient Temp 80 mmHg (65-108) 98 mmHg (65-108) Arterial Blood HCO3 37 mmol/L (21-28) 35 mmol/L (21-28) Arterial Blood Base Excess 9 mmol/L (-3-3) 9 mmol/L (-3-3) FiO2 35 35% White Blood Count 4.5 x10^3/uL (4.0-11.0) Red Blood Count 3.48 x10^6/uL (3.50-5.40) Hemoglobin 11.4 g/dL (12.0-15.5) Hematocrit 33.5 % (36.0-47.0) Mean Corpuscular Volume 97 fL (79-100) Mean Corpuscular Hemoglobin 33 pg (25-35) Mean Corpuscular Hemoglobin Concent 34 g/dL (31-37) Red Cell Distribution Width 16.4 % (11.5-14.5) Platelet Count 228 x10^3/uL (140-400) Neutrophils (%) (Auto) 92 % (31-73) Lymphocytes (%) (Auto) 5 % (24-48) Monocytes (%) (Auto) 3 % (0-9) Eosinophils (%) (Auto) 0 % (0-3) Basophils (%) (Auto) 0 % (0-3) Neutrophils # (Auto) 4.1 x10^3/uL (1.8-7.7) Lymphocytes # (Auto) 0.2 x10^3/uL (1.0-4.8) Monocytes # (Auto) 0.1 x10^3/uL (0.0-1.1) Eosinophils # (Auto) 0.0 x10^3/uL (0.0-0.7) Basophils # (Auto) 0.0 x10^3/uL (0.0-0.2) Segmented Neutrophils % 91 % (35-66) Band Neutrophils % 4 % (0-9) Lymphocytes % 4 % (24-48) Monocytes % 1 % (0-10) Platelet Estimate Adequate (ADEQUATE) Large Platelets Few Anisocytosis Slight Sodium Level 141 mmol/L (136-145) Potassium Level 4.1 mmol/L (3.5-5.1) Chloride Level 98 mmol/L (98-107) Carbon Dioxide Level 34 mmol/L (21-32) Anion Gap 9 (6-14) Blood Urea Nitrogen 32 mg/dL (7-20) Creatinine 0.9 mg/dL (0.6-1.0) Estimated GFR (Cockcroft-Gault) 60.2 BUN/Creatinine Ratio 36 (6-20) Glucose Level 122 mg/dL (70-99) Calcium Level 9.3 mg/dL (8.5-10.1) Total Bilirubin 0.5 mg/dL (0.2-1.0) Aspartate Amino Transf (AST/SGOT) 22 U/L (15-37) Alanine Aminotransferase (ALT/SGPT) 18 U/L (14-59) Alkaline Phosphatase 74 U/L (46-116) Total Protein 7.0 g/dL (6.4-8.2) Albumin 3.7 g/dL (3.4-5.0) Albumin/Globulin Ratio 1.1 (1.0-1.7) Medications Active Scripts Medications Dose Route/Sig Max Daily Dose Days Date Category Bactrim Ds Tablet (Sulfamethoxazole/Trimethoprim) 1 Each Tablet 1 Tab PO BID 11/16/18 Rx Comments cxr clear Impression . 1. Acute hypercapnic respiratory failure.improved with BIPAP 2. Acute exacerbation of chronic obstructive pulmonary disease. 3. Chronic lower extremity cellulitis. 4. Hypertension. 5. Anxiety disorder Plan . 1. d/w RN/RT. try off BIPAP 2. f/u ABG fully compensated. 3. SARS-CoV-2 .neg 4. Neg venous Dopplers of lower extremities. 5. steroids 6. start nebs , covid neg 7. add Xanax d/w rn/rt. CHELSIE CARMEN MD May 13, 2020 10:38
--- NOTE | 2020-05-13 10:56 | PDOC ---
PROGRESS NOTES Subjective Subjective On BiPAP. COVID test negative. Objective Objective Vital Signs Date Time Temp Pulse Resp B/P (MAP) Pulse Ox O2 Delivery O2 Flow Rate FiO2 05/13/20 10:00 98 27 132/54 (80) 98 BiPAP/CPAP 05/13/20 09:00 2.0 05/13/20 08:00 98.6 98.6 Intake and Output 05/13/20 07:00 Intake Total 480 ml Output Total 1925 ml Balance -1445 ml Intake Oral 480 ml Output Urine Total 1925 ml Physical Exam Abdomen: Soft, No tenderness Heart: Regular rate (SR with no significant ectopies) Extremities: No cyanosis, Other (2-3+ bilateral LE pitting edema) General: Alert, Cooperative HEENT: Atraumatic, Other (On BiPAP) Lungs: Other (diminished, with wheeze) Psych/Mental Status: Mental status NL, Mood NL Skin: No breakdown, No significant lesion Assessment Assessment 1. Acute on chronic respiratory failure secondary to AECOPD: Improving. Currently on BiPAP. COVID test negative. Pulmonary team following. 2. HTN urgency: Better controlled since admission. 3. Mild troponin elevation: EKG sinus tach without acute ST-T wave changes. CP free. Most probably demand ischemia. Check 2D echo to assess LV systolic func tion. We will consider ischemic evaluation as an outpatient. 4. Mild acute on chronic probably diastolic heart failure. Diuresed well with Lasix yesterday. We will give another dose today. 5. Chronic LE lymphedema 6. UTI: per IM Plan Plan of Care Problems Medical Problems: (1) COPD exacerbation Status: Acute Comment Review of Relevant I have reviewed the following items cira (where applicable) has been applied. Labs Laboratory Tests Test 05/12/20 12:51 05/13/20 05:00 05/13/20 08:30 O2 Saturation 95 % (92-99) 97 % (92-99) Arterial Blood pH 7.36 (7.35-7.45) 7.42 (7.35-7.45) Arterial Blood pCO2 at Patient Temp 68 mmHg (35-46) 55 mmHg (35-46) Arterial Blood pO2 at Patient Temp 80 mmHg (65-108) 98 mmHg (65-108) Arterial Blood HCO3 37 mmol/L (21-28) 35 mmol/L (21-28) Arterial Blood Base Excess 9 mmol/L (-3-3) 9 mmol/L (-3-3) FiO2 35 35% White Blood Count 4.5 x10^3/uL (4.0-11.0) Red Blood Count 3.48 x10^6/uL (3.50-5.40) Hemoglobin 11.4 g/dL (12.0-15.5) Hematocrit 33.5 % (36.0-47.0) Mean Corpuscular Volume 97 fL (79-100) Mean Corpuscular Hemoglobin 33 pg (25-35) Mean Corpuscular Hemoglobin Concent 34 g/dL (31-37) Red Cell Distribution Width 16.4 % (11.5-14.5) Platelet Count 228 x10^3/uL (140-400) Neutrophils (%) (Auto) 92 % (31-73) Lymphocytes (%) (Auto) 5 % (24-48) Monocytes (%) (Auto) 3 % (0-9) Eosinophils (%) (Auto) 0 % (0-3) Basophils (%) (Auto) 0 % (0-3) Neutrophils # (Auto) 4.1 x10^3/uL (1.8-7.7) Lymphocytes # (Auto) 0.2 x10^3/uL (1.0-4.8) Monocytes # (Auto) 0.1 x10^3/uL (0.0-1.1) Eosinophils # (Auto) 0.0 x10^3/uL (0.0-0.7) Basophils # (Auto) 0.0 x10^3/uL (0.0-0.2) Segmented Neutrophils % 91 % (35-66) Band Neutrophils % 4 % (0-9) Lymphocytes % 4 % (24-48) Monocytes % 1 % (0-10) Platelet Estimate Adequate (ADEQUATE) Large Platelets Few Anisocytosis Slight Sodium Level 141 mmol/L (136-145) Potassium Level 4.1 mmol/L (3.5-5.1) Chloride Level 98 mmol/L (98-107) Carbon Dioxide Level 34 mmol/L (21-32) Anion Gap 9 (6-14) Blood Urea Nitrogen 32 mg/dL (7-20) Creatinine 0.9 mg/dL (0.6-1.0) Estimated GFR (Cockcroft-Gault) 60.2 BUN/Creatinine Ratio 36 (6-20) Glucose Level 122 mg/dL (70-99) Calcium Level 9.3 mg/dL (8.5-10.1) Total Bilirubin 0.5 mg/dL (0.2-1.0) Aspartate Amino Transf (AST/SGOT) 22 U/L (15-37) Alanine Aminotransferase (ALT/SGPT) 18 U/L (14-59) Alkaline Phosphatase 74 U/L (46-116) Total Protein 7.0 g/dL (6.4-8.2) Albumin 3.7 g/dL (3.4-5.0) Albumin/Globulin Ratio 1.1 (1.0-1.7) Microbiology 05/11/20 Urine Culture - Final, Complete 05/11/20 Antimicrobic Susceptibility - Final, Complete Medications Current Medications Albuterol/ Ipratropium (Duoneb) 3 ml RTQID NEB Last administered on 05/13/20at 08:26; Start 05/12/20 at 20:00 Alprazolam (Xanax) 0.25 mg PRN BID PRN PO ANXIETY / AGITATION Last administered on 05/13/20at 10:31; Start 05/13/20 at 10:15 Aspirin (Ecotrin) 81 mg [id number] PO ; Start 05/12/20 at 12:00; Stop 05/13/20 at 10:21; Status DC Ceftriaxone Sodium (Rocephin) 1 gm Q24H IVP Last administered on 05/12/20at 15:29; Start 05/12/20 at 16:00 Lactobacillus Rhamnosus (Culturelle) 1 cap BID PO ; Start 05/13/20 at 21:00; S top 05/13/20 at 09:57; Status DC Methylprednisolone Sodium Succinate (SOLU-Medrol 125MG VIAL) 125 mg Q8HRS IV Last administered on 05/13/20at 06:51; Start 05/12/20 at 14:00 Vitals/I & O Vital Sign - Last 24 Hours 05/12/20 05/12/20 05/12/20 05/12/20 11:00 11:19 11:35 11:50 Pulse 101 Resp 24 B/P (MAP) 184/84 (117) Pulse Ox 91 82 94 97 O2 Delivery Nasal Cannula Nasal Cannula BiPAP/CPAP BiPAP/CPAP O2 Flow Rate 2.5 2.5 05/12/20 05/12/20 05/12/20 05/12/20 12:00 12:00 13:00 14:00 Temp 98.1 98.1 Pulse 81 90 77 Resp 16 18 18 B/P (MAP) 133/54 (80) 132/55 (80) 102/40 (60) Pulse Ox 97 95 97 O2 Delivery Bi-pap BiPAP/CPAP BiPAP/CPAP BiPAP/CPAP 05/12/20 05/12/20 05/12/20 05/12/20 15:00 15:06 16:00 16:00 Temp 98.2 98.2 Pulse 102 98 Resp 28 B/P (MAP) 130/64 (86) 155/81 (105) Pulse Ox 97 97 97 O2 Delivery BiPAP/CPAP BiPAP/CPAP Bi-pap BiPAP/CPAP 05/12/20 05/12/20 05/12/20 05/12/20 17:00 18:00 19:00 20:00 Temp 97.6 97.6 Pulse 98 82 82 Resp 27 22 16 B/P (MAP) 153/64 (93) 162/73 (102) 167/106 (126) Pulse Ox 97 98 96 O2 Delivery BiPAP/CPAP BiPAP/CPAP BiPAP/CPAP Bi-pap 05/12/20 05/12/20 05/12/20 05/12/20 20:00 20:29 21:00 22:00 Temp Pulse 102 92 82 Resp 21 25 B/P (MAP) 176/81 (112) 126/59 (81) 136/60 (85) Pulse Ox 96 98 97 98 O2 Delivery BiPAP/CPAP BiPAP/CPAP BiPAP/CPAP BiPAP/CPAP 05/12/20 05/13/20 05/13/20 05/13/20 23:00 00:00 00:00 01:00 Pulse 92 78 76 Resp 30 15 B/P (MAP) 145/66 (92) 121/63 (82) 115/48 (70) Pulse Ox 97 98 96 O2 Delivery BiPAP/CPAP Bi-pap BiPAP/CPAP BiPAP/CPAP 05/13/20 05/13/20 05/13/20 05/13/20 01:59 02:00 03:00 04:00 Temp 98.0 98.0 Pulse 76 74 Resp 36 31 B/P (MAP) 115/50 (71) 108/50 (69) Pulse Ox 98 97 96 O2 Delivery BiPAP/CPAP BiPAP/CPAP BiPAP/CPAP Bi-pap 05/13/20 05/13/20 05/13/20 05/13/20 04:00 04:55 05:09 06:00 Temp 98.0 98.0 Pulse 90 86 Resp 22 22 B/P (MAP) 136/72 (93) 138/64 (88) 122/50 (74) Pulse Ox 98 98 97 97 O2 Delivery BiPAP/CPAP BiPAP/CPAP BiPAP/CPAP BiPAP/CPAP 05/13/20 05/13/20 05/13/20 05/13/20 07:00 08:00 08:00 08:26 Temp 98.6 98.6 Pulse 75 88 Resp 23 25 B/P (MAP) 134/53 (80) 156/68 (97) Pulse Ox 97 98 100 O2 Delivery BiPAP/CPAP BiPAP/CPAP Bi-pap BiPAP/CPAP 05/13/20 05/13/20 05/13/20 05/13/20 09:00 09:01 09:02 10:00 Pulse 106 75 75 98 Resp 31 27 B/P (MAP) 182/78 (112) 134/53 134/53 132/54 (80) Pulse Ox 93 98 O2 Delivery Nasal Cannula BiPAP/CPAP O2 Flow Rate 2.0 Intake and Output 05/12/20 05/12/20 05/13/20 15:00 23:00 07:00 Intake Total 360 ml 120 ml Output Total 1120 ml 700 ml 105 ml Balance -1120 ml -340 ml 15 ml SUSAN CHAMBERS MD May 13, 2020 10:56
[2020-05-13] MEDS: PIPERACILLIN/TAZOBACTAM 3.375 GM in IV NORMAL SALINE 50ML 50 ML IV SCH (17:48)
[2020-05-13] MEDS: MORPHINE SULFATE 2 MG/ML VIAL. IV PRN (18:10)
[2020-05-13] MEDS ORDERED: LACTOBACILLUS RHAMNOSUS GG 1 CAPSULE. PO SCH (21:00)
[2020-05-14] VITALS (7 sets, daily range): BP systolic 130–185; BP diastolic 57–117
[2020-05-14] MEDS: PIPERACILLIN/TAZOBACTAM 3.375 GM in IV NORMAL SALINE 50ML 50 ML IV SCH ×5 (00:11→22:27)
[2020-05-14 04:53] LABS: BASO % 0 % (0-3); EOS % 0 % (0-3); HEMATOCRIT 33.7 % (36.0-47.0); HEMOGLOBIN 11.7 g/dL (12.0-15.5); LYMPH # 0.2 x10^3/uL (1.0-4.8); LYMPH % 6 % (24-48); MEAN CORPUSCULAR HEMOGLOBIN 33 pg (25-35); MEAN CORPUSCULAR HGB CONC 35 g/dL (31-37); MEAN CORPUSCULAR VOLUME 96 fL (79-100); MONO # 0.2 x10^3/uL (0.0-1.1); MONO % 8 % (0-9); NEUT # 2.3 x10^3/uL (1.8-7.7); NEUT % 86 % (31-73); PLATELET COUNT 222 x10^3/uL (140-400); RED CELL DISTRIBUTION WIDTH 16.1 % (11.5-14.5); WHITE BLOOD COUNT 2.6 x10^3/uL (4.0-11.0)
[2020-05-14 05:15] LABS: ALBUMIN 3.6 g/dL (3.4-5.0); ALBUMIN/GLOBULIN RATIO 1.1 (1.0-1.7); CREATININE 1.2 mg/dL (0.6-1.0); GFR 43.2; POTASSIUM 3.9 mmol/L (3.5-5.1); TOTAL BILIRUBIN 0.5 mg/dL (0.2-1.0); TOTAL PROTEIN 6.8 g/dL (6.4-8.2)
[2020-05-14] MEDS: methylPREDNISolone SOD SUCC PF 125 MG/2 ML VIAL. IV SCH (06:05)
[2020-05-14] MEDS: IPRATRPIUM/ALBUTEROL 0.5/2.5MG 3 ML NEBU. NEB SCH ×4 (07:27→21:23)
--- NOTE | 2020-05-14 07:53 | PDOC ---
PROGRESS NOTES Chief Complaint Chief Complaint 79-year-old female, who quit smoking years ago. She does have known underlying COPD. She presented to the ER with increasing shortness of breath. She denies being exposed to COVID-19. She also has some associated chest pain. Rates her symptoms at 10/10. She increased her home meds, but that did not seem to help. Symptoms are worse with moving, better with sitting still. She has also been having some urinary frequency. While in the ER, we noticed that she is in fulminant respiratory failure. She is tripoding. She is quite short of breath. She is gasping for air. I discussed the case with ER physician and we have consulted Dr. Higgins. I briefly discussed the case with him as well. The patient is being admitted for further evaluation and treatment. 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 Consider ischemic evaluation as an outpatient. History of Present Illness History of Present Illness ASSESSMENT AND PLAN: Respiratory failure, suspect chronic obstructive pulmonary low suspicion for pulmonary embolism, possible COVID-19. covid 19 neg 05/13 hypercapnic respiratory failure UTI , ESBL anxiety admitted. breathing treatments, oxygen, steroids, antibiotics. Consult Pulmonary. Lower extremity Dopplers to rule out DVT. Home meds, DVT prophylaxis. Full code. Check blood gas. Consult Cardiology. Cardiac monitoring. Morphine p.r.n. for pain. IV ZOSYN Consider ischemic evaluation as an outpatient. 32 MIN ICU CARE Vitals Vitals Vital Signs Date Time Temp Pulse Resp B/P (MAP) Pulse Ox O2 Delivery O2 Flow Rate FiO2 05/14/20 07:47 Bi-pap 05/14/20 07:28 97 05/14/20 07:00 95.9 93 18 185/81 (115) 95.9 05/14/20 04:14 2.0 Physical Exam General: Alert, Cooperative Heart: Regular rate (SR with no significant ectopies), Normal S1 Lungs: Clear Abdomen: Soft, No tenderness Extremities: No cyanosis, Other (2-3+ bilateral LE pitting edema) Skin: No breakdown, No significant lesion Labs LABS Laboratory Tests Test 05/13/20 08:30 05/14/20 04:15 O2 Saturation 97 % (92-99) Arterial Blood pH 7.42 (7.35-7.45) Arterial Blood pCO2 at Patient Temp 55 mmHg (35-46) Arterial Blood pO2 at Patient Temp 98 mmHg (65-108) Arterial Blood HCO3 35 mmol/L (21-28) Arterial Blood Base Excess 9 mmol/L (-3-3) FiO2 35% White Blood Count 2.6 x10^3/uL (4.0-11.0) Red Blood Count 3.50 x10^6/uL (3.50-5.40) Hemoglobin 11.7 g/dL (12.0-15.5) Hematocrit 33.7 % (36.0-47.0) Mean Corpuscular Volume 96 fL (79-100) Mean Corpuscular Hemoglobin 33 pg (25-35) Mean Corpuscular Hemoglobin Concent 35 g/dL (31-37) Red Cell Distribution Width 16.1 % (11.5-14.5) Platelet Count 222 x10^3/uL (140-400) Neutrophils (%) (Auto) 86 % (31-73) Lymphocytes (%) (Auto) 6 % (24-48) Monocytes (%) (Auto) 8 % (0-9) Eosinophils (%) (Auto) 0 % (0-3) Basophils (%) (Auto) 0 % (0-3) Neutrophils # (Auto) 2.3 x10^3/uL (1.8-7.7) Lymphocytes # (Auto) 0.2 x10^3/uL (1.0-4.8) Monocytes # (Auto) 0.2 x10^3/uL (0.0-1.1) Eosinophils # (Auto) 0.0 x10^3/uL (0.0-0.7) Basophils # (Auto) 0.0 x10^3/uL (0.0-0.2) Sodium Level 142 mmol/L (136-145) Potassium Level 3.9 mmol/L (3.5-5.1) Chloride Level 100 mmol/L (98-107) Carbon Dioxide Level 37 mmol/L (21-32) Anion Gap 5 (6-14) Blood Urea Nitrogen 46 mg/dL (7-20) Creatinine 1.2 mg/dL (0.6-1.0) Estimated GFR (Cockcroft-Gault) 43.2 BUN/Creatinine Ratio 38 (6-20) Glucose Level 145 mg/dL (70-99) Calcium Level 9.0 mg/dL (8.5-10.1) Total Bilirubin 0.5 mg/dL (0.2-1.0) Aspartate Amino Transf (AST/SGOT) 16 U/L (15-37) Alanine Aminotransferase (ALT/SGPT) 13 U/L (14-59) Alkaline Phosphatase 68 U/L (46-116) Total Protein 6.8 g/dL (6.4-8.2) Albumin 3.6 g/dL (3.4-5.0) Albumin/Globulin Ratio 1.1 (1.0-1.7) Assessment and Plan Assessmemt and Plan Problems Medical Problems: (1) COPD exacerbation Status: Acute Comment Review of Relevant I have reviewed the following items cira (where applicable) has been applied. Labs Laboratory Tests Test 05/12/20 12:51 05/13/20 05:00 05/13/20 08:30 05/14/20 04:15 O2 Saturation 95 % (92-99) 97 % (92-99) Arterial Blood pH 7.36 (7.35-7.45) 7.42 (7.35-7.45) Arterial Blood pCO2 at Patient Temp 68 mmHg (35-46) 55 mmHg (35-46) Arterial Blood pO2 at Patient Temp 80 mmHg (65-108) 98 mmHg (65-108) Arterial Blood HCO3 37 mmol/L (21-28) 35 mmol/L (21-28) Arterial Blood Base Excess 9 mmol/L (-3-3) 9 mmol/L (-3-3) FiO2 35 35% White Blood Count 4.5 x10^3/uL (4.0-11.0) 2.6 x10^3/uL (4.0-11.0) Red Blood Count 3.48 x10^6/uL (3.50-5.40) 3.50 x10^6/uL (3.50-5.40) Hemoglobin 11.4 g/dL (12.0-15.5) 11.7 g/dL (12.0-15.5) Hematocrit 33.5 % (36.0-47.0) 33.7 % (36.0-47.0) Mean Corpuscular Volume 97 fL (79-100) 96 fL (79-100) Mean Corpuscular Hemoglobin 33 pg (25-35) 33 pg (25-35) Mean Corpuscular Hemoglobin Concent 34 g/dL (31-37) 35 g/dL (31-37) Red Cell Distribution Width 16.4 % (11.5-14.5) 16.1 % (11.5-14.5) Platelet Count 228 x10^3/uL (140-400) 222 x10^3/uL (140-400) Neutrophils (%) (Auto) 92 % (31-73) 86 % (31-73) Lymphocytes (%) (Auto) 5 % (24-48) 6 % (24-48) Monocytes (%) (Auto) 3 % (0-9) 8 % (0-9) Eosinophils (%) (Auto) 0 % (0-3) 0 % (0-3) Basophils (%) (Auto) 0 % (0-3) 0 % (0-3) Neutrophils # (Auto) 4.1 x10^3/uL (1.8-7.7) 2.3 x10^3/uL (1.8-7.7) Lymphocytes # (Auto) 0.2 x10^3/uL (1.0-4.8) 0.2 x10^3/uL (1.0-4.8) Monocytes # (Auto) 0.1 x10^3/uL (0.0-1.1) 0.2 x10^3/uL (0.0-1.1) Eosinophils # (Auto) 0.0 x10^3/uL (0.0-0.7) 0.0 x10^3/uL (0.0-0.7) Basophils # (Auto) 0.0 x10^3/uL (0.0-0.2) 0.0 x10^3/uL (0.0-0.2) Segmented Neutrophils % 91 % (35-66) Band Neutrophils % 4 % (0-9) Lymphocytes % 4 % (24-48) Monocytes % 1 % (0-10) Platelet Estimate Adequate (ADEQUATE) Large Platelets Few Anisocytosis Slight Sodium Level 141 mmol/L (136-145) 142 mmol/L (136-145) Potassium Level 4.1 mmol/L (3.5-5.1) 3.9 mmol/L (3.5-5.1) Chloride Level 98 mmol/L (98-107) 100 mmol/L (98-107) Carbon Dioxide Level 34 mmol/L (21-32) 37 mmol/L (21-32) Anion Gap 9 (6-14) 5 (6-14) Blood Urea Nitrogen 32 mg/dL (7-20) 46 mg/dL (7-20) Creatinine 0.9 mg/dL (0.6-1.0) 1.2 mg/dL (0.6-1.0) Estimated GFR (Cockcroft-Gault) 60.2 43.2 BUN/Creatinine Ratio 36 (6-20) 38 (6-20) Glucose Level 122 mg/dL (70-99) 145 mg/dL (70-99) Calcium Level 9.3 mg/dL (8.5-10.1) 9.0 mg/dL (8.5-10.1) Total Bilirubin 0.5 mg/dL (0.2-1.0) 0.5 mg/dL (0.2-1.0) Aspartate Amino Transf (AST/SGOT) 22 U/L (15-37) 16 U/L (15-37) Alanine Aminotransferase (ALT/SGPT) 18 U/L (14-59) 13 U/L (14-59) Alkaline Phosphatase 74 U/L (46-116) 68 U/L (46-116) Total Protein 7.0 g/dL (6.4-8.2) 6.8 g/dL (6.4-8.2) Albumin 3.7 g/dL (3.4-5.0) 3.6 g/dL (3.4-5.0) Albumin/Globulin Ratio 1.1 (1.0-1.7) 1.1 (1.0-1.7) Laboratory Tests Test 05/13/20 08:30 05/14/20 04:15 O2 Saturation 97 % (92-99) Arterial Blood pH 7.42 (7.35-7.45) Arterial Blood pCO2 at Patient Temp 55 mmHg (35-46) Arterial Blood pO2 at Patient Temp 98 mmHg (65-108) Arterial Blood HCO3 35 mmol/L (21-28) Arterial Blood Base Excess 9 mmol/L (-3-3) FiO2 35% White Blood Count 2.6 x10^3/uL (4.0-11.0) Red Blood Count 3.50 x10^6/uL (3.50-5.40) Hemoglobin 11.7 g/dL (12.0-15.5) Hematocrit 33.7 % (36.0-47.0) Mean Corpuscular Volume 96 fL (79-100) Mean Corpuscular Hemoglobin 33 pg (25-35) Mean Corpuscular Hemoglobin Concent 35 g/dL (31-37) Red Cell Distribution Width 16.1 % (11.5-14.5) Platelet Count 222 x10^3/uL (140-400) Neutrophils (%) (Auto) 86 % (31-73) Lymphocytes (%) (Auto) 6 % (24-48) Monocytes (%) (Auto) 8 % (0-9) Eosinophils (%) (Auto) 0 % (0-3) Basophils (%) (Auto) 0 % (0-3) Neutrophils # (Auto) 2.3 x10^3/uL (1.8-7.7) Lymphocytes # (Auto) 0.2 x10^3/uL (1.0-4.8) Monocytes # (Auto) 0.2 x10^3/uL (0.0-1.1) Eosinophils # (Auto) 0.0 x10^3/uL (0.0-0.7) Basophils # (Auto) 0.0 x10^3/uL (0.0-0.2) Sodium Level 142 mmol/L (136-145) Potassium Level 3.9 mmol/L (3.5-5.1) Chloride Level 100 mmol/L (98-107) Carbon Dioxide Level 37 mmol/L (21-32) Anion Gap 5 (6-14) Blood Urea Nitrogen 46 mg/dL (7-20) Creatinine 1.2 mg/dL (0.6-1.0) Estimated GFR (Cockcroft-Gault) 43.2 BUN/Creatinine Ratio 38 (6-20) Glucose Level 145 mg/dL (70-99) Calcium Level 9.0 mg/dL (8.5-10.1) Total Bilirubin 0.5 mg/dL (0.2-1.0) Aspartate Amino Transf (AST/SGOT) 16 U/L (15-37) Alanine Aminotransferase (ALT/SGPT) 13 U/L (14-59) Alkaline Phosphatase 68 U/L (46-116) Total Protein 6.8 g/dL (6.4-8.2) Albumin 3.6 g/dL (3.4-5.0) Albumin/Globulin Ratio 1.1 (1.0-1.7) Microbiology 05/11/20 Urine Culture - Final, Complete 05/11/20 Antimicrobic Susceptibility - Final, Complete Medications Current Medications Albuterol/ Ipratropium (Duoneb) 3 ml 1X ONCE NEB Last administered on 05/11/20at 11:36; Start 05/11/20 at 11:15; Stop 05/11/20 at 11:16; Status DC Methylprednisolone Sodium Succinate (SOLU-Medrol 125MG VIAL) 125 mg 1X ONCE IV Last administered on 05/11/20at 11:25; Start 05/11/20 at 11:15; Stop 05/11/20 at 11:16; Status DC Aspirin (Aspirin Chewable) 324 mg 1X ONCE PO Last administered on 05/11/20at 11:45; Start 05/11/20 at 11:30; Stop 05/11/20 at 11:44; Status DC Morphine Sulfate (Morphine Sulfate) 2 mg PRN Q1HR PRN IV SEVERE PAIN Last administered on 05/11/20at 15:40; Start 05/11/20 at 11:30; Stop 05/11/20 at 15:40; Status DC Albuterol/ Ipratropium (Duoneb) 3 ml RTQID NEB Last administered on 05/11/20at 11:47; Start 05/11/20 at 12:00; Stop 05/12/20 at 01:14; Status DC Iohexol (Omnipaque 350 Mg/ml) 90 ml 1X ONCE IV ; Start 05/11/20 at 11:45; Stop 05/11/20 at 11:51; Status DC Info (CONTRAST GIVEN -- Rx MONITORING) 1 each PRN DAILY PRN MC SEE COMMENTS; Start 05/11/20 at 12:00; Stop 05/13/20 at 11:59; Status DC Labetalol HCl (Normodyne Iv Push) 10 mg 1X ONCE IVP ; Start 05/11/20 at 13:00; Stop 05/11/20 at 13:01; Status DC Hydralazine HCl (Apresoline Inj) 10 mg PRN Q4HRS PRN IVP ELEVATED BP, SEE COMMENTS; Start 05/11/20 at 15:30 Morphine Sulfate (Morphine Sulfate) 2 mg PRN Q2HR PRN IV MODERATE TO SEVERE PAIN Last administered on 05/13/20at 18:10; Start 05/11/20 at 15:45 Amlodipine Besylate (Norvasc) 10 mg DAILY PO Last administered on 05/13/20at 09:01; Start 05/11/20 at 17:00 Losartan Potassium (Cozaar) 50 mg DAILY PO ; Start 05/11/20 at 17:00; Stop 05/11/20 at 16:51; Status DC Furosemide (Lasix) 40 mg DAILY PO Last administered on 05/13/20at 10:31; Start 05/11/20 at 17:00 Potassium Chloride (Klor-Con) 10 meq DAILYWBKFT PO Last administered on 05/13/20at 09:01; Start 05/12/20 at 08:00 Losartan Potassium (Cozaar) 100 mg DAILY PO Last administered on 05/13/20at 09:02; Start 05/12/20 at 09:00 Albuterol Sulfate (Ventolin Hfa) 2 puff Q4HRS INH Last administered on 05/12/20at 01:23; Start 05/12/20 at 01:30; Stop 05/12/20 at 15:19; Status DC Methylprednisolone Sodium Succinate (SOLU-Medrol 125MG VIAL) 125 mg Q8HRS IV Last administered on 05/14/20at 06:05; Start 05/12/20 at 14:00 Methylprednisolone Sodium Succinate (SOLU-Medrol 125MG VIAL) 125 mg 1X ONCE IV Last administered on 05/12/20at 09:10; Start 05/12/20 at 10:00; Stop 05/12/20 at 10:01; Status DC Aspirin (Ecotrin) 81 mg DAILYWBKFT PO ; Start 05/12/20 at 12:00; Stop 05/13/20 at 10:21; Status DC Ceftriaxone Sodium (Rocephin) 1 gm Q24H IVP Last administered on 05/12/20at 15:29; Start 05/12/20 at 16:00; Stop 05/13/20 at 13:29; Status DC Albuterol/ Ipratropium (Duoneb) 3 ml RTQID NEB Last administered on 05/14/20at 07:27; Start 05/12/20 at 20:00 Lactobacillus Rhamnosus (Culturelle) 1 cap BID PO ; Start 05/13/20 at 21:00; Stop 05/13/20 at 09:57; Status DC Alprazolam (Xanax) 0.25 mg PRN BID PRN PO ANXIETY / AGITATION Last administered on 05/13/20at 10:31; Start 05/13/20 at 10:15 Piperacillin Sod/ Tazobactam Sod 3.375 gm/Sodium Chloride 50 ml @ 100 mls/hr Q6HRS IV Last administered on 05/14/20at 06:06; Start 05/13/20 at 18:00 Active Scripts Active Bactrim Ds Tablet (Sulfamethoxazole/Trimethoprim) 1 Each Tablet 1 Tab PO BID Reported Tizanidine Hcl 4 Mg Tablet 2 Mg PO TID PRN Albuterol Sulfate Neb Soln (Albuterol Sulfate) 2.5 Mg/3 Ml Vial.neb 2.5 Mg NEB PRN Q4-6HRS PRN Trazodone Hcl 50 Mg Tablet 50 Mg PO HS Symbicort 160-4.5 Mcg Inhaler (Budesonide/Formoterol Fumarate) 10.2 Gm Hfa.a er.ad 2 Puff IH BID Spironolactone 50 Mg Tablet 50 Mg PO BID Prednisone 20 Mg Tablet 20 Mg PO DAILY Klor-Con 10 (Potassium Chloride) 10 Meq Tablet.er 10 Meq PO BID Mirtazapine 45 Mg Tablet 45 Mg PO HS Losartan Potassium 100 Mg Tablet 100 Mg PO DAILY Furosemide 40 Mg Tablet 40 Mg PO BID Combivent Respimat Inhal (Ipratropium/Albuterol Sulfate) 4 Gm Aer.w.adap 1 Puff IH 5XDAY Lotrimin Af (Clotrimazole) 12 Gm Cream..g. 1 Jesus TP BID Amlodipine Besylate 10 Mg Tablet 10 Mg PO DAILY Vitals/I & O Vital Sign - Last 24 Hours 05/13/20 05/13/20 05/13/20 05/13/20 08:00 08:00 08:26 09:00 Temp 98.6 98.6 Pulse 88 106 Resp 25 31 B/P (MAP) 156/68 (97) 182/78 (112) Pulse Ox 98 100 93 O2 Delivery BiPAP/CPAP Bi-pap BiPAP/CPAP Nasal Cannula O2 Flow Rate 2.0 05/13/20 05/13/20 05/13/20 05/13/20 09:01 09:02 10:00 11:00 Pulse 75 75 98 78 Resp 27 15 B/P (MAP) 134/53 134/53 132/54 (80) 125/57 (79) Pulse Ox 98 98 O2 Delivery BiPAP/CPAP BiPAP/CPAP 05/13/20 05/13/20 05/13/20 05/13/20 11:37 12:00 12:00 13:00 Temp 98.1 98.1 Pulse 84 79 Resp 18 17 B/P (MAP) 131/52 (78) 112/49 (70) Pulse Ox 99 99 98 O2 Delivery BiPAP/CPAP Bi-pap BiPAP/CPAP BiPAP/CPAP 05/13/20 05/13/20 05/13/20 05/13/20 14:00 15:00 15:13 18:10 Pulse 94 88 Resp 26 24 B/P (MAP) 138/77 (97) 146/55 (85) Pulse Ox 100 98 98 98 O2 Delivery BiPAP/CPAP BiPAP/CPAP BiPAP/CPAP BiPAP/CPAP 05/13/20 05/13/20 05/13/20 05/13/20 18:57 19:20 20:00 20:19 Temp 98.1 98.1 Pulse 88 B/P (MAP) 146/55 (85) Pulse Ox 98 98 98 O2 Delivery BiPAP/CPAP BiPAP/CPAP Bi-pap O2 Flow Rate 2.0 2.0 05/13/20 05/13/20 05/14/20 05/14/20 20:23 22:59 00:14 00:32 Temp 97.5 97.5 Pulse 81 Resp 24 B/P (MAP) 142/61 (88) Pulse Ox 100 O2 Delivery BiPAP/CPAP BiPAP/CPAP O2 Flow Rate 2.0 2.0 05/14/20 05/14/20 05/14/20 05/14/20 03:01 03:25 04:14 07:00 Temp 97.7 95.9 97.7 95.9 Pulse 65 93 Resp 18 18 B/P (MAP) 130/57 (81) 185/81 (115) Pulse Ox 100 96 O2 Delivery BiPAP/CPAP BiPAP/CPAP O2 Flow Rate 2.0 2.0 05/14/20 05/14/20 07:28 07:47 Pulse Ox 97 O2 Delivery BiPAP/CPAP Bi-pap Intake and Output 05/13/20 05/13/20 05/14/20 15:00 23:00 07:00 Intake Total 300 ml 0 ml 150 ml Output Total 180 ml 100 ml 1000 ml Balance 120 ml -100 ml -850 ml Nutrition Consultation Dietary Evaluation: Recommendations by RD: Dietary education by RD, Increase Calorie Intake, Protein supplementation Comments: Continue w/cardiac diet as ordered; honor food preferences, provide snacks/supplements as requested REC Ensure w/dinner trays and more often pending pt preference Expected Outcomes/Goals: PO intake to meet >75% est needs Malnutrition Findings: Body Fat Depletion (Non Severe: Mild Depletion Weight Status: Appropriate Justicifation of Admission Dx: Justifications for Admission: Justification of Admission Dx: Yes Acute COPD Exacerbation: Acute COPD Exacerbation KATIE MCKEE MD May 14, 2020 07:53
[2020-05-14] MEDS: POTASSIUM CHLORIDE 10 MEQ TABLET.ER. PO SCH (08:23)
[2020-05-14] MEDS: amLODIPine BESYLATE 10 MG TABLET PO SCH (08:24)
[2020-05-14] MEDS: LOSARTAN POTASSIUM 50 MG TABLET. PO SCH (08:24)
[2020-05-14] MEDS: ALPRAZolam 0.25 MG TABLET PO PRN ×2 (10:32→22:26)
--- NOTE | 2020-05-14 10:35 | PDOC ---
PULMONARY PROGRESS NOTES Subjective better with BIPAP abg improved Vitals Vital Signs Date Time Temp Pulse Resp B/P (MAP) Pulse Ox O2 Delivery O2 Flow Rate FiO2 05/14/20 08:24 93 185/81 05/14/20 07:47 Bi-pap 05/14/20 07:28 97 05/14/20 07:00 95.9 18 95.9 05/14/20 04:14 2.0 General: Alert, No acute distress Lungs: Clear Cardiovascular: S1 Abdomen: Soft Neuro Exam: Alert Extremities: No Edema Skin: Warm Labs Laboratory Tests Test 05/12/20 12:51 05/13/20 05:00 05/13/20 08:30 05/14/20 04:15 O2 Saturation 95 % (92-99) 97 % (92-99) Arterial Blood pH 7.36 (7.35-7.45) 7.42 (7.35-7.45) Arterial Blood pCO2 at Patient Temp 68 mmHg (35-46) 55 mmHg (35-46) Arterial Blood pO2 at Patient Temp 80 mmHg (65-108) 98 mmHg (65-108) Arterial Blood HCO3 37 mmol/L (21-28) 35 mmol/L (21-28) Arterial Blood Base Excess 9 mmol/L (-3-3) 9 mmol/L (-3-3) FiO2 35 35% White Blood Count 4.5 x10^3/uL (4.0-11.0) 2.6 x10^3/uL (4.0-11.0) Red Blood Count 3.48 x10^6/uL (3.50-5.40) 3.50 x10^6/uL (3.50-5.40) Hemoglobin 11.4 g/dL (12.0-15.5) 11.7 g/dL (12.0-15.5) Hematocrit 33.5 % (36.0-47.0) 33.7 % (36.0-47.0) Mean Corpuscular Volume 97 fL (79-100) 96 fL (79-100) Mean Corpuscular Hemoglobin 33 pg (25-35) 33 pg (25-35) Mean Corpuscular Hemoglobin Concent 34 g/dL (31-37) 35 g/dL (31-37) Red Cell Distribution Width 16.4 % (11.5-14.5) 16.1 % (11.5-14.5) Platelet Count 228 x10^3/uL (140-400) 222 x10^3/uL (140-400) Neutrophils (%) (Auto) 92 % (31-73) 86 % (31-73) Lymphocytes (%) (Auto) 5 % (24-48) 6 % (24-48) Monocytes (%) (Auto) 3 % (0-9) 8 % (0-9) Eosinophils (%) (Auto) 0 % (0-3) 0 % (0-3) Basophils (%) (Auto) 0 % (0-3) 0 % (0-3) Neutrophils # (Auto) 4.1 x10^3/uL (1.8-7.7) 2.3 x10^3/uL (1.8-7.7) Lymphocytes # (Auto) 0.2 x10^3/uL (1.0-4.8) 0.2 x10^3/uL (1.0-4.8) Monocytes # (Auto) 0.1 x10^3/uL (0.0-1.1) 0.2 x10^3/uL (0.0-1.1) Eosinophils # (Auto) 0.0 x10^3/uL (0.0-0.7) 0.0 x10^3/uL (0.0-0.7) Basophils # (Auto) 0.0 x10^3/uL (0.0-0.2) 0.0 x10^3/uL (0.0-0.2) Segmented Neutrophils % 91 % (35-66) Band Neutrophils % 4 % (0-9) Lymphocytes % 4 % (24-48) Monocytes % 1 % (0-10) Platelet Estimate Adequate (ADEQUATE) Large Platelets Few Anisocytosis Slight Sodium Level 141 mmol/L (136-145) 142 mmol/L (136-145) Potassium Level 4.1 mmol/L (3.5-5.1) 3.9 mmol/L (3.5-5.1) Chloride Level 98 mmol/L (98-107) 100 mmol/L (98-107) Carbon Dioxide Level 34 mmol/L (21-32) 37 mmol/L (21-32) Anion Gap 9 (6-14) 5 (6-14) Blood Urea Nitrogen 32 mg/dL (7-20) 46 mg/dL (7-20) Creatinine 0.9 mg/dL (0.6-1.0) 1.2 mg/dL (0.6-1.0) Estimated GFR (Cockcroft-Gault) 60.2 43.2 BUN/Creatinine Ratio 36 (6-20) 38 (6-20) Glucose Level 122 mg/dL (70-99) 145 mg/dL (70-99) Calcium Level 9.3 mg/dL (8.5-10.1) 9.0 mg/dL (8.5-10.1) Total Bilirubin 0.5 mg/dL (0.2-1.0) 0.5 mg/dL (0.2-1.0) Aspartate Amino Transf (AST/SGOT) 22 U/L (15-37) 16 U/L (15-37) Alanine Aminotransferase (ALT/SGPT) 18 U/L (14-59) 13 U/L (14-59) Alkaline Phosphatase 74 U/L (46-116) 68 U/L (46-116) Total Protein 7.0 g/dL (6.4-8.2) 6.8 g/dL (6.4-8.2) Albumin 3.7 g/dL (3.4-5.0) 3.6 g/dL (3.4-5.0) Albumin/Globulin Ratio 1.1 (1.0-1.7) 1.1 (1.0-1.7) Laboratory Tests Test 05/14/20 04:15 White Blood Count 2.6 x10^3/uL (4.0-11.0) Red Blood Count 3.50 x10^6/uL (3.50-5.40) Hemoglobin 11.7 g/dL (12.0-15.5) Hematocrit 33.7 % (36.0-47.0) Mean Corpuscular Volume 96 fL (79-100) Mean Corpuscular Hemoglobin 33 pg (25-35) Mean Corpuscular Hemoglobin Concent 35 g/dL (31-37) Red Cell Distribution Width 16.1 % (11.5-14.5) Platelet Count 222 x10^3/uL (140-400) Neutrophils (%) (Auto) 86 % (31-73) Lymphocytes (%) (Auto) 6 % (24-48) Monocytes (%) (Auto) 8 % (0-9) Eosinophils (%) (Auto) 0 % (0-3) Basophils (%) (Auto) 0 % (0-3) Neutrophils # (Auto) 2.3 x10^3/uL (1.8-7.7) Lymphocytes # (Auto) 0.2 x10^3/uL (1.0-4.8) Monocytes # (Auto) 0.2 x10^3/uL (0.0-1.1) Eosinophils # (Auto) 0.0 x10^3/uL (0.0-0.7) Basophils # (Auto) 0.0 x10^3/uL (0.0-0.2) Sodium Level 142 mmol/L (136-145) Potassium Level 3.9 mmol/L (3.5-5.1) Chloride Level 100 mmol/L (98-107) Carbon Dioxide Level 37 mmol/L (21-32) Anion Gap 5 (6-14) Blood Urea Nitrogen 46 mg/dL (7-20) Creatinine 1.2 mg/dL (0.6-1.0) Estimated GFR (Cockcroft-Gault) 43.2 BUN/Creatinine Ratio 38 (6-20) Glucose Level 145 mg/dL (70-99) Calcium Level 9.0 mg/dL (8.5-10.1) Total Bilirubin 0.5 mg/dL (0.2-1.0) Aspartate Amino Transf (AST/SGOT) 16 U/L (15-37) Alanine Aminotransferase (ALT/SGPT) 13 U/L (14-59) Alkaline Phosphatase 68 U/L (46-116) Total Protein 6.8 g/dL (6.4-8.2) Albumin 3.6 g/dL (3.4-5.0) Albumin/Globulin Ratio 1.1 (1.0-1.7) Medications Active Scripts Medications Dose Route/Sig Max Daily Dose Days Date Category Bactrim Ds Tablet (Sulfamethoxazole/Trimethoprim) 1 Each Tablet 1 Tab PO BID 11/16/18 Rx Comments cxr clear Impression . 1. Acute hypercapnic respiratory failure.improved with BIPAP 2. Acute exacerbation of chronic obstructive pulmonary disease. 3. Chronic lower extremity cellulitis. 4. Hypertension. 5. Anxiety disorder Plan . 1. d/w RN/RT. try off BIPAP 2. f/u ABG fully compensated. 3. SARS-CoV-2 .neg 4. Neg venous Dopplers of lower extremities. 5. steroids taper 6. nebs 7. Xanax d/w rn CHELSIE CARMEN MD May 14, 2020 10:35
[2020-05-14] MEDS: MORPHINE SULFATE 2 MG/ML VIAL. IV PRN (12:09)
[2020-05-14] MEDS: FUROSEMIDE 40 MG TABLET. PO SCH (12:13)
--- NOTE | 2020-05-14 12:46 | PDOC ---
PROGRESS NOTES Subjective Subjective On BiPAP Objective Objective Vital Signs Date Time Temp Pulse Resp B/P (MAP) Pulse Ox O2 Delivery O2 Flow Rate FiO2 05/14/20 12:09 18 98 BiPAP/CPAP 05/14/20 11:00 96.9 99 161/71 (101) 96.9 05/14/20 10:48 4.0 Intake and Output 05/14/20 07:00 Intake Total 450 ml Output Total 1280 ml Balance -830 ml Intake Oral 450 ml Output Urine Total 1280 ml Physical Exam Abdomen: Soft, No tenderness Heart: Regular rate (SR with no significant ectopies), Normal S1 Extremities: No cyanosis, Other (2-3+ bilateral LE pitting edema) General: Alert, Cooperative HEENT: Atraumatic, Other (On BiPAP) Lungs: Other (diminished, with wheeze) Psych/Mental Status: Mental status NL, Mood NL Skin: No breakdown, No significant lesion Assessment Assessment 1. Acute on chronic respiratory failure secondary to AECOPD: Improving. Currently on BiPAP. COVID test negative. Pulmonary team following. 2. HTN urgency: Better controlled since admission but still slightly elevated. Start hydralazine for better control. 3. Mild troponin elevation: EKG sinus tach without acute ST-T wave changes. CP free. Most probably demand ischemia. Check 2D echo to assess LV systolic function. We will consider ischemic evaluation as an outpatient. 4. Mild acute on chronic probably diastolic heart failure. Diuresed well with Lasix. Prerenal picture probably secondary to steroids. Continue oral Lasix. 5. Atrial fibrillation, new onset with heart rate 90-100's. Change Norvasc to Cardizem for better rate control. Start Eliquis for stroke prophylaxis. We will consider outpatient cardioversion. 5. Chronic LE lymphedema 6. UTI: per IM Plan Plan of Care Problems Medical Problems: (1) COPD exacerbation Status: Acute Comment Review of Relevant I have reviewed the following items cira (where applicable) has been applied. Labs Laboratory Tests Test 05/14/20 04:15 White Blood Count 2.6 x10^3/uL (4.0-11.0) Red Blood Count 3.50 x10^6/uL (3.50-5.40) Hemoglobin 11.7 g/dL (12.0-15.5) Hematocrit 33.7 % (36.0-47.0) Mean Corpuscular Volume 96 fL (79-100) Mean Corpuscular Hemoglobin 33 pg (25-35) Mean Corpuscular Hemoglobin Concent 35 g/dL (31-37) Red Cell Distribution Width 16.1 % (11.5-14.5) Platelet Count 222 x10^3/uL (140-400) Neutrophils (%) (Auto) 86 % (31-73) Lymphocytes (%) (Auto) 6 % (24-48) Monocytes (%) (Auto) 8 % (0-9) Eosinophils (%) (Auto) 0 % (0-3) Basophils (%) (Auto) 0 % (0-3) Neutrophils # (Auto) 2.3 x10^3/uL (1.8-7.7) Lymphocytes # (Auto) 0.2 x10^3/uL (1.0-4.8) Monocytes # (Auto) 0.2 x10^3/uL (0.0-1.1) Eosinophils # (Auto) 0.0 x10^3/uL (0.0-0.7) Basophils # (Auto) 0.0 x10^3/uL (0.0-0.2) Sodium Level 142 mmol/L (136-145) Potassium Level 3.9 mmol/L (3.5-5.1) Chloride Level 100 mmol/L (98-107) Carbon Dioxide Level 37 mmol/L (21-32) Anion Gap 5 (6-14) Blood Urea Nitrogen 46 mg/dL (7-20) Creatinine 1.2 mg/dL (0.6-1.0) Estimated GFR (Cockcroft-Gault) 43.2 BUN/Creatinine Ratio 38 (6-20) Glucose Level 145 mg/dL (70-99) Calcium Level 9.0 mg/dL (8.5-10.1) Total Bilirubin 0.5 mg/dL (0.2-1.0) Aspartate Amino Transf (AST/SGOT) 16 U/L (15-37) Alanine Aminotransferase (ALT/SGPT) 13 U/L (14-59) Alkaline Phosphatase 68 U/L (46-116) Total Protein 6.8 g/dL (6.4-8.2) Albumin 3.6 g/dL (3.4-5.0) Albumin/Globulin Ratio 1.1 (1.0-1.7) Microbiology 05/11/20 Urine Culture - Final, Complete 05/11/20 Antimicrobic Susceptibility - Final, Complete Medications Current Medications Lactobacillus Rhamnosus (Culturelle) 1 cap BID PO ; Start 05/13/20 at 21:00; Stop 05/13/20 at 09:57; Status DC Methylprednisolone Sodium Succinate (SOLU-Medrol 40MG VIAL) 60 mg Q8HRS IV ; Start 05/14/20 at 14:00 Piperacillin Sod/ Tazobactam Sod 3.375 gm/Sodium Chloride 50 ml @ 100 mls/hr Q6HRS IV Last administered on 05/14/20at 11:58; Start 05/13/20 at 18:00 Vitals/I & O Vital Sign - Last 24 Hours 05/13/20 05/13/20 05/13/20 05/13/20 13:00 14:00 15:00 15:13 Pulse 79 94 88 Resp 17 26 24 B/P (MAP) 112/49 (70) 138/77 (97) 146/55 (85) Pulse Ox 98 100 98 98 O2 Delivery BiPAP/CPAP BiPAP/CPAP BiPAP/CPAP BiPAP/CPAP 05/13/20 05/13/20 05/13/20 05/13/20 18:10 18:57 19:20 20:00 Temp 98.1 98.1 Pulse 88 B/P (MAP) 146/55 (85) Pulse Ox 98 98 98 98 O2 Delivery BiPAP/CPAP BiPAP/CPAP BiPAP/CPAP O2 Flow Rate 2.0 05/13/20 05/13/20 05/13/20 05/14/20 20:19 20:23 22:59 00:14 Temp 97.5 97.5 Pulse 81 Resp 24 B/P (MAP) 142/61 (88) Pulse Ox 100 O2 Delivery Bi-pap BiPAP/CPAP O2 Flow Rate 2.0 2.0 2.0 05/14/20 05/14/20 05/14/20 05/14/20 00:32 03:01 03:25 04:14 Temp 97.7 97.7 Pulse 65 Resp 18 B/P (MAP) 130/57 (81) Pulse Ox 100 O2 Delivery BiPAP/CPAP BiPAP/CPAP O2 Flow Rate 2.0 2.0 05/14/20 05/14/20 05/14/20 05/14/20 07:00 07:28 07:47 08:24 Temp 95.9 95.9 Pulse 93 93 Resp 18 B/P (MAP) 185/81 (115) 185/81 Pulse Ox 96 97 O2 Delivery BiPAP/CPAP BiPAP/CPAP Bi-pap 05/14/20 05/14/20 05/14/20 05/14/20 08:24 10:48 11:00 12:09 Temp 96.9 96.9 Pulse 93 99 Resp 18 18 B/P (MAP) 185/81 161/71 (101) Pulse Ox 97 98 98 O2 Delivery Nasal Cannula BiPAP/CPAP BiPAP/CPAP O2 Flow Rate 4.0 Intake and Output 05/13/20 05/13/20 05/14/20 15:00 23:00 07:00 Intake Total 300 ml 0 ml 150 ml Output Total 180 ml 100 ml 1000 ml Balance 120 ml -100 ml -850 ml SUSAN CHAMBERS MD May 14, 2020 12:46
[2020-05-14] MEDS: methylPREDNISolone SOD SUCC PF 40 MG/ML VIAL. IV SCH ×2 (14:44→21:03)
[2020-05-14] MEDS: hydrALAZINE 25 MG TABLET PO SCH ×2 (14:48→21:03)
[2020-05-14] MEDS: APIXABAN 5 MG TABLET. PO SCH (21:03)
[2020-05-15 03:40] VITALS: BP 99/54
[2020-05-15] MEDS: methylPREDNISolone SOD SUCC PF 40 MG/ML VIAL. IV SCH ×3 (05:21→21:59)
[2020-05-15] MEDS: PIPERACILLIN/TAZOBACTAM 3.375 GM in IV NORMAL SALINE 50ML 50 ML IV SCH (05:21)
[2020-05-15 07:00] VITALS: BP 144/73
[2020-05-15] MEDS: IPRATRPIUM/ALBUTEROL 0.5/2.5MG 3 ML NEBU. NEB SCH ×2 (07:20→11:16)
[2020-05-15] MEDS: APIXABAN 5 MG TABLET. PO SCH ×2 (08:19→20:18)
[2020-05-15] MEDS: POTASSIUM CHLORIDE 10 MEQ TABLET.ER. PO SCH (08:19)
[2020-05-15] MEDS: FUROSEMIDE 40 MG TABLET. PO SCH (08:19)
[2020-05-15] MEDS: hydrALAZINE 25 MG TABLET PO SCH ×3 (08:20→20:19)
[2020-05-15] MEDS: LOSARTAN POTASSIUM 50 MG TABLET. PO SCH (08:20)
[2020-05-15] MEDS: MORPHINE SULFATE 2 MG/ML VIAL. IV PRN (08:21)
--- NOTE | 2020-05-15 09:41 | NUR ---
IP: Pt has a (R) E.coli with ESBL in urine requiring contact precautions.
[2020-05-15] MEDS: ALPRAZolam 0.25 MG TABLET PO PRN ×2 (09:54→21:59)
[2020-05-15 11:00] VITALS: BP 153/69
--- NOTE | 2020-05-15 11:19 | PDOC ---
PULMONARY PROGRESS NOTES Subjective better today, off BIPAP abg improved Vitals Vital Signs Date Time Temp Pulse Resp B/P (MAP) Pulse Ox O2 Delivery O2 Flow Rate FiO2 05/15/20 09:30 100 3.0 05/15/20 08:20 83 144/73 05/15/20 08:00 Bi-pap 05/15/20 07:00 98.1 18 98.1 General: Alert, No acute distress Lungs: Clear Cardiovascular: S1 Abdomen: Soft Neuro Exam: Alert Extremities: No Edema Skin: Warm Labs Laboratory Tests Test 05/14/20 04:15 White Blood Count 2.6 x10^3/uL (4.0-11.0) Red Blood Count 3.50 x10^6/uL (3.50-5.40) Hemoglobin 11.7 g/dL (12.0-15.5) Hematocrit 33.7 % (36.0-47.0) Mean Corpuscular Volume 96 fL (79-100) Mean Corpuscular Hemoglobin 33 pg (25-35) Mean Corpuscular Hemoglobin Concent 35 g/dL (31-37) Red Cell Distribution Width 16.1 % (11.5-14.5) Platelet Count 222 x10^3/uL (140-400) Neutrophils (%) (Auto) 86 % (31-73) Lymphocytes (%) (Auto) 6 % (24-48) Monocytes (%) (Auto) 8 % (0-9) Eosinophils (%) (Auto) 0 % (0-3) Basophils (%) (Auto) 0 % (0-3) Neutrophils # (Auto) 2.3 x10^3/uL (1.8-7.7) Lymphocytes # (Auto) 0.2 x10^3/uL (1.0-4.8) Monocytes # (Auto) 0.2 x10^3/uL (0.0-1.1) Eosinophils # (Auto) 0.0 x10^3/uL (0.0-0.7) Basophils # (Auto) 0.0 x10^3/uL (0.0-0.2) Sodium Level 142 mmol/L (136-145) Potassium Level 3.9 mmol/L (3.5-5.1) Chloride Level 100 mmol/L (98-107) Carbon Dioxide Level 37 mmol/L (21-32) Anion Gap 5 (6-14) Blood Urea Nitrogen 46 mg/dL (7-20) Creatinine 1.2 mg/dL (0.6-1.0) Estimated GFR (Cockcroft-Gault) 43.2 BUN/Creatinine Ratio 38 (6-20) Glucose Level 145 mg/dL (70-99) Calcium Level 9.0 mg/dL (8.5-10.1) Total Bilirubin 0.5 mg/dL (0.2-1.0) Aspartate Amino Transf (AST/SGOT) 16 U/L (15-37) Alanine Aminotransferase (ALT/SGPT) 13 U/L (14-59) Alkaline Phosphatase 68 U/L (46-116) Total Protein 6.8 g/dL (6.4-8.2) Albumin 3.6 g/dL (3.4-5.0) Albumin/Globulin Ratio 1.1 (1.0-1.7) Medications Active Scripts Medications Dose Route/Sig Max Daily Dose Days Date Category Bactrim Ds Tablet (Sulfamethoxazole/Trimethoprim) 1 Each Tablet 1 Tab PO BID 11/16/18 Rx Comments cxr clear Impression . 1. Acute hypercapnic respiratory failure.improved with BIPAP 2. Acute exacerbation of chronic obstructive pulmonary disease. 3. Chronic lower extremity cellulitis. 4. Hypertension. 5. Anxiety disorder Plan . 1. d/w RN, off BIPAP, use PRN 2. f/u ABG fully compensated. 3. SARS-CoV-2 .neg 4. Neg venous Dopplers of lower extremities. 5. steroids taper 6. nebs 7. Xanax d/w rn ema plans to skill CHELSIE CARMEN MD May 15, 2020 11:19
--- NOTE | 2020-05-15 12:00 | NUR ---
SS following up with discharge planning. SS reviewed pt chart and discussed with pt RN. Pt is currently requiring oxygen. Pt now on IV Meropenem. COVID19 negative. PT/OT recommended fdc unit. SS met with pt and discussed discharge planning and fdc unit with pt and pt's son. Both pt and pt's son agreeable to fdc unit at [facility], ; fax [phone]. SS phoned and faxed referral to [facility]. SS will await acceptance decision and insurance determination and will proceed accordingly with discharge planning.
--- NOTE | 2020-05-15 12:31 | PDOC ---
ABDIFATAH MOTTA SECURITIES SUPERVISOR 05/15/20 1231: CARDIO Progress Notes Date and Time Date of Service 05/15/20 Time of Evaluation 1220 Subjective Subjective: No Chest Pain, No Palpitations, Other (SOA improved ) Vitals Vitals Vital Signs Date Time Temp Pulse Resp B/P (MAP) Pulse Ox O2 Delivery O2 Flow Rate FiO2 05/15/20 12:14 5.0 05/15/20 11:19 Nasal Cannula 05/15/20 11:00 97.5 83 18 153/69 (97) 95 97.5 Weight Weight [ ] Input and Output Intake and Output Intake and Output 05/15/20 07:00 Intake Total 620 ml Output Total 1450 ml Balance -830 ml Intake Oral 620 ml Output Urine Total 1450 ml Microbiology Micro Microbiology 05/11/20 Urine Culture - Final, Complete 05/11/20 Antimicrobic Susceptibility - Final, Complete Physical Exam HEENT: Neck Supple W Full Motion Chest: Symmetric LUNGS: Other (diminished) Heart: RRR (SR) Abdomen: Soft N/T Extremities: No Calf Tenderness, Other (LE lymphedema) Neurology: alert, oriented, follow commands Assessment Assessment 1. Acute on chronic respiratory failure secondary to AECOPD: Improving. BiPAP PRN. COVID test negative. Pulmonary team following. 2. HTN urgency; better controlled 3. Mild troponin elevation: EKG sinus tach without acute ST-T wave changes. CP free. Most probably type II, demand ischemia. 4. Mild acute on chronic probably diastolic heart failure. Diuresed well with Lasix. Prerenal picture probably secondary to steroids. Continue oral Lasix. 5. PAFIB; new onset. Converted back to SR and is maintaining. 5. Chronic LE lymphedema 6. UTI: per IM 7. Hyperlipidemia Recommendations Echo today to assess LV systolic function. Add ASA, low-dose statin therapy Cardizem for rate control Eliquis for stroke prophylaxis Consider ischemic evaluation as an outpatient. We will consider outpatient cardioversion. Justicifation of Admission Dx: Justifications for Admission: Justification of Admission Dx: Yes Acute COPD Exacerbation: Acute COPD Exacerbation SUSAN CHAMBERS MD 05/15/20 [id number]: CARDIO Progress Notes Assessment Assessment Patient seen and examined. Agree with SLITTER CUT OFF OPERATOR's assessment and plan, Ac resp failure secondary to AECOPD improving Slight trop elevation demand ischemia Ac on chr diast HF better compensated PAF currently back in SR Continue eliquis for stroke prophylaxis Agree wtih TTE today and MPI as outpatient ABDIFATAH MOTTA APRN May 15, 2020 12:31 SUSAN CHAMBERS MD May 15, 2020 18:51
--- NOTE | 2020-05-15 14:33 | NUR ---
SS following up with discharge planning. Pt accepted at [facility], ; fax [phone], pending insurance authorization. SS will continue to follow for discharge planning.
--- NOTE | 2020-05-15 14:39 | PDOC ---
[employer] PROGRESS NOTE Chief Complaint Chief Complaint 79-year-old female, who quit smoking years ago. She does have known underlying COPD. She presented to the ER with increasing shortness of breath. She denies being exposed to COVID-19. She also has some associated chest pain. Rates her symptoms at 10/10. She increased her home meds, but that did not seem to help. Symptoms are worse with moving, better with sitting still. She has also been having some urinary frequency. While in the ER, we noticed that she is in fulminant respiratory failure. She is tripoding. She is quite short of breath. She is gasping for air. I discussed the case with ER physician and we have consulted Dr. Higgins. I briefly discussed the case with him as well. The patient is being admitted for further evaluation and treatment. 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 05/15/2020 Patient seen and examined bedside. She still has some shortness of breath but has good oxygen saturation on nasal cannula oxygen. She does endorse some anxiety with breathing. She is able to transition from chair to bed with a walker and some assistance. Discussed extensively with son for rehab placement as a potential disposition. History of Present Illness History of Present Illness ASSESSMENT AND PLAN: Acute respiratory failure, suspect chronic obstructive pulmonary low suspicion for pulmonary embolism, possible COVID-19. covid 19 neg 05/13 hypercapnic respiratory failure Sepsis due to ESBL UTI anxiety Pending echo breathing treatments, oxygen, steroids, antibiotics. Appreciate pulmonary recommendations We will start diltiazem and Eliquis. Lower extremity Dopplers to rule out DVT. Home meds, DVT prophylaxis. Full code. Check blood gas. Consult Cardiology. Cardiac monitoring. Pending infectious disease consult for ESBL culture Appreciate recommendations for meropenem course upon discharge Morphine p.r.n. for pain. IV ZOSYN Consider ischemic evaluation as an outpatient. Eliquis for DVT prophylaxis Protonix GI prophylaxis Cardiac diet Full code Discussed with RN and SW Dispo for rehab placement Vitals/I&O Vitals/I&O: Vital Signs Date Time Temp Pulse Resp B/P (MAP) Pulse Ox O2 Delivery O2 Flow Rate FiO2 7/27/20 12:14 5.0 05/15/20 11:19 Nasal Cannula 05/15/20 11:00 97.5 83 18 153/69 (97) 95 97.5 I & O 05/14/20 05/14/20 05/15/20 15:00 23:00 07:00 Intake Total 120 ml 200 ml 300 ml Output Total 500 ml 950 ml Balance 120 ml -300 ml -650 ml Physical Exam Physical Exam: General: Alert, Cooperative currently on nasal cannula oxygen Heart: Regular rate (SR with no significant ectopies), Normal S1 Lungs: Clear Abdomen: Soft, No tenderness Extremities: No cyanosis, Other (2-3+ bilateral LE pitting edema). Flaking of the skin likely due to improving edema. Skin: No breakdown, No significant lesion General: Alert, Cooperative Heart: Regular rate (SR with no significant ectopies), Normal S1 Lungs: Clear Abdomen: Soft, No tenderness Extremities: No cyanosis, Other (2-3+ bilateral LE pitting edema) Skin: No breakdown, No significant lesion Labs Labs: Current Medications Medications (Trade) Dose Ordered Sig/Samara Route PRN Reason Start Time Stop Time Status Last Admin Dose Admin Albuterol/ Ipratropium (Duoneb) 3 ml 1X ONCE NEB 05/11/20 11:15 05/11/20 11:16 DC 05/11/20 11:36 Methylprednisolone Sodium Succinate (SOLU-Medrol 125MG VIAL) 125 mg 1X ONCE IV 05/11/20 11:15 05/11/20 11:16 DC 05/11/20 11:25 Aspirin (Aspirin Chewable) 324 mg 1X ONCE PO 05/11/20 11:30 05/11/20 11:44 DC 05/11/20 11:45 Morphine Sulfate (Morphine Sulfate) 2 mg PRN Q1HR PRN IV SEVERE PAIN 05/11/20 11:30 05/11/20 15:40 DC 05/11/20 15:40 Albuterol/ Ipratropium (Duoneb) 3 ml RTQID NEB 05/11/20 12:00 05/12/20 01:14 DC 05/11/20 11:47 Iohexol (Omnipaque 350 Mg/ml) 90 ml 1X ONCE IV 05/11/20 11:45 05/11/20 11:51 DC Info (CONTRAST GIVEN -- Rx MONITORING) 1 each PRN DAILY PRN SEE COMMENTS 05/11/20 12:00 05/13/20 11:59 DC Labetalol HCl (Normodyne Iv Push) 10 mg 1X ONCE IVP 05/11/20 13:00 05/11/20 13:01 DC Hydralazine HCl (Apresoline Inj) 10 mg PRN Q4HRS PRN IVP ELEVATED BP, SEE COMMENTS 05/11/20 15:30 05/14/20 13:40 DC Morphine Sulfate (Morphine Sulfate) 2 mg PRN Q2HR PRN IV MODERATE TO SEVERE PAIN 05/11/20 15:45 05/15/20 08:21 Amlodipine Besylate (Norvasc) 10 mg DAILY PO 05/11/20 17:00 05/14/20 13:40 DC 05/14/20 08:24 Losartan Potassium (Cozaar) 50 mg DAILY PO 05/11/20 17:00 05/11/20 16:51 DC Furosemide (Lasix) 40 mg DAILY PO 05/11/20 17:00 05/15/20 08:19 Potassium Chloride (Klor-Con) 10 meq DAILYWBKFT PO 05/12/20 08:00 05/15/20 08:19 Losartan Potassium (Cozaar) 100 mg DAILY PO 05/12/20 09:00 05/15/20 08:20 Albuterol Sulfate (Ventolin Hfa) 2 puff Q4HRS INH 05/12/20 01:30 05/12/20 15:19 DC 05/12/20 01:23 Methylprednisolone Sodium Succinate (SOLU-Medrol 125MG VIAL) 125 mg Q8HRS IV 05/12/20 14:00 05/14/20 10:36 DC 05/14/20 06:05 Methylprednisolone Sodium Succinate (SOLU-Medrol 125MG VIAL) 125 mg 1X ONCE IV 05/12/20 10:00 05/12/20 10:01 DC 05/12/20 09:10 Aspirin (Ecotrin) 81 mg DAILYWBKFT PO 05/12/20 12:00 05/13/20 10:21 DC Ceftriaxone Sodium (Rocephin) 1 gm Q24H IVP 05/12/20 16:00 05/13/20 13:29 DC 05/12/20 15:29 Albuterol/ Ipratropium (Duoneb) 3 ml RTQID NEB 05/12/20 20:00 05/15/20 11:16 Lactobacillus Rhamnosus (Culturelle) 1 cap BID PO 05/13/20 21:00 05/13/20 09:57 DC Alprazolam (Xanax) 0.25 mg PRN BID PRN PO ANXIETY / AGITATION 05/13/20 10:15 05/15/20 09:54 Piperacillin Sod/ Tazobactam Sod 3.375 gm/Sodium Chloride 50 ml @ 100 mls/hr Q6HRS IV 05/13/20 18:00 05/15/20 11:49 DC 05/15/20 05:21 Methylprednisolone Sodium Succinate (SOLU-Medrol 40MG VIAL) 60 mg Q8HRS IV 05/14/20 14:00 05/15/20 05:21 Diltiazem HCl (Cardizem 24hr Cd) 120 mg DAILY PO 05/14/20 14:00 05/15/20 08:20 Hydralazine HCl (Apresoline) 25 mg TID PO 05/14/20 14:00 05/15/20 08:20 Apixaban (Eliquis) 5 mg BID PO 05/14/20 21:00 05/15/20 08:19 Oxycodone/ Acetaminophen (Percocet 5/325) 1 tab PRN Q6HRS PRN PO MODERATE TO SEVERE PAIN 05/15/20 08:30 Non-Formulary Medication 1 ea 5XDAY INH 05/15/20 14:00 Non-Formulary Medication 1 ea BID INH 05/15/20 21:00 Meropenem 500 mg/ Sodium Chloride 50 ml @ 100 mls/hr Q8HRS IV 05/15/20 14:00 Assessment and Plan Assessmemt and Plan Problems Medical Problems: (1) COPD exacerbation Status: Acute Comment Review of Relevant I have reviewed the following items cira (where applicable) has been applied. Medications: Current Medications Medications (Trade) Dose Ordered Sig/Samara Route PRN Reason Start Time Stop Time Status Last Admin Dose Admin Apixaban (Eliquis) 5 mg BID PO 05/14/20 21:00 05/15/20 08:19 Justicifation of Admission Dx: Justifications for Admission: Justification of Admission Dx: Yes Acute COPD Exacerbation: Acute COPD Exacerbation MARVIN INFANTE MD May 15, 2020 14:39
[2020-05-15 15:00] VITALS: BP 121/56
[2020-05-15] MEDS: MEROPENEM 500 MG in IV NORMAL SALINE 50ML 50 ML IV SCH ×2 (15:13→21:59)
[2020-05-15] MEDS: IPRATROPIUM INH SCH ×3 (15:14→22:04)
[2020-05-15] MEDS: ALBUTEROL INH SCH ×3 (15:14→22:04)
[2020-05-15] MEDS ORDERED: ALBUTEROL SULFATE 2.5 MG/3 ML NEBU. NEB PRN (16:00)
--- NOTE | 2020-05-15 16:51 | CARD ---
MR#: [id number] Date of Study: 05/15/2020 Ordering Physician: SUSAN CHAMBERS, Referring Physician: SUSAN CHAMBERS, Tech: Cyndy Aguilar APPROVED REPORT EXAM: Two-dimensional and M-mode echocardiogram with Doppler and color Doppler. Other Information Quality : AverageHR: 94bpm INDICATION COPD Elevated Troponin RISK FACTORS Hypertension 2D DIMENSIONS RVDd3.7 (2.9-3.5cm)Left Atrium(2D)3.2 (1.6-4.0cm) IVSd1.1 (0.7-1.1cm)Aortic Root(2D)3.3 (2.0-3.7cm) LVDd4.2 (3.9-5.9cm)LVOT Diameter2.0 (1.8-2.4cm) PWd1.1 (0.7-1.1cm)LVDs2.6 (2.5-4.0cm) FS (%) 38.4 %SV54.7 ml LVEF(%)69.1 (>50%) Aortic Valve AoV Peak Jose.223.1cm/sAoV VTI36.5cm AO Peak GR.19.9mmHgLVOT VTI 31.22cm AO Mean GR.11mmHgAI P 1/2 [id number] Mitral Valve MV E Krivyhrt058.9cm/sMV E Peak Gr.4mmHg MV DECEL [id number] A Skwkrkyh301.6cm/s MV E Mean Gr.2mmHgE/A Ratio1.0 TDI Lateral E' P. V6.95cm/sMedial E' P. V6.89cm/s E/Lateral E'15.1E/Medial E'15.2 Tricuspid Valve TR P. [id number]/sRAP [id number] TR Peak Gr.66moQfOFHU85ylPf LEFT VENTRICLE The left ventricle is normal size. There is borderline to mild concentric left ventricular hypertroph y. The left ventricular systolic function is normal and the ejection fraction is within normal range. The Ejection Fraction is 60-65%. There is normal LV segmental wall motion. Transmitral Doppler flow pattern is Grade II-pseudonormal filling dynamics. RIGHT VENTRICLE The right ventricle is normal size. There is normal right ventricular wall thickness. The right ventr icular systolic function is normal. ATRIA The left atrium size is normal. The right atrium size is normal. The interatrial septum is intact wit h no evidence for an atrial septal defect or patent foramen ovale as noted on 2-D or Doppler imaging. AORTIC VALVE The aortic valve is thickened but opens well. Doppler and Color Flow revealed moderate aortic regurgi tation. There is no significant aortic valvular stenosis. Calculated aortic valve area is 2.81 cm2 wi th maximum pressure gradient of 22 mmHg and mean pressure gradient of 12 mmHg. MITRAL VALVE The mitral valve is thickened but opens well. There is no evidence of mitral valve prolapse. There is no mitral valve stenosis. Doppler and Color-flow revealed trace mitral regurgitation. TRICUSPID VALVE The tricuspid valve is normal in structure and function. Doppler and Color Flow revealed trace to mil d tricuspid regurgitation with an estimated PAP of 50 mmHg. There is no tricuspid valve stenosis. PULMONIC VALVE Doppler and Color Flow revealed trace pulmonic valvular regurgitation. There is no pulmonic valvular stenosis. GREAT VESSELS The aortic root is normal in size. The IVC is normal in size and collapses >50% with inspiration. PERICARDIAL EFFUSION There is no evidence of significant pericardial effusion. Critical Notification Critical Value: No <Conclusion> The left ventricular systolic function is normal and the ejection fraction is within normal range. Th e Ejection Fraction is 60-65%. There is normal LV segmental wall motion. Doppler and Color Flow revealed moderate aortic regurgitation. Doppler and Color Flow revealed trace to mild tricuspid regurgitation with an estimated PAP of 50 mmH g. Signed by : Yefri Rodas, Electronically Approved : 05/15/2020 16:50:59
[2020-05-15 19:24] VITALS: BP 153/67
[2020-05-15] MEDS: BUDESONIDE INH SCH (20:20)
[2020-05-15] MEDS: FORMOTEROL INH SCH (20:20)
[2020-05-15] MEDS: oxyCODONE/APAP 5/325 1 TAB TABLET PO PRN (20:55)
[2020-05-15] MEDS ORDERED: ATORVASTATIN CALCIUM 20 MG TABLET PO SCH (21:00)
[2020-05-15 23:11] VITALS: BP 149/67
[2020-05-16] MEDS: oxyCODONE/APAP 5/325 1 TAB TABLET PO PRN (02:59)
[2020-05-16 03:02] VITALS: BP 165/73
--- NOTE | 2020-05-16 03:28 | NUR ---
Patient c/o bladder discomfort with Mg catheter inserted on 05/11/[address] and minimal urine output(<30cc) noted at 0200 after emptying 200cc at approx. 2359. On assessment, patient's bladder noted to be distended, bladder scan performed and PVR measuring at approx. >497 ml. Mg catheter originally placed on 05/11/20 removed and new Mg placed at approximately 0310. Patient tolerated procedure well and urine output WNL; will continue to monitor.
[2020-05-16] MEDS: MEROPENEM 500 MG in IV NORMAL SALINE 50ML 50 ML IV SCH (06:08)
[2020-05-16] MEDS: methylPREDNISolone SOD SUCC PF 40 MG/ML VIAL. IV SCH (06:08)
[2020-05-16] MEDS: IPRATROPIUM INH SCH ×2 (06:11→10:00)
[2020-05-16] MEDS: ALBUTEROL INH SCH ×2 (06:11→10:00)
[2020-05-16 07:00] VITALS: BP 169/67
[2020-05-16] MEDS ORDERED: ANTI-COAG MONITOR BY PHARMACY. MC PRN (07:45)
[2020-05-16] MEDS ORDERED: ASPIRIN ENTERIC COATED 81 MG TABLET.DR. PO SCH (08:00)
[2020-05-16] MEDS: FUROSEMIDE 40 MG TABLET. PO SCH (08:19)
[2020-05-16] MEDS: POTASSIUM CHLORIDE 10 MEQ TABLET.ER. PO SCH (08:19)
[2020-05-16] MEDS: APIXABAN 5 MG TABLET. PO SCH (08:19)
[2020-05-16] MEDS: hydrALAZINE 25 MG TABLET PO SCH (08:20)
[2020-05-16] MEDS: LOSARTAN POTASSIUM 50 MG TABLET. PO SCH (08:20)
[2020-05-16] MEDS: FORMOTEROL INH SCH (08:21)
[2020-05-16] MEDS: BUDESONIDE INH SCH (08:21)
--- NOTE | 2020-05-16 08:50 | PDOC ---
Infectious Disease Note Vital Sign Vital Signs Vital Signs Date Time Temp Pulse Resp B/P (MAP) Pulse Ox O2 Delivery O2 Flow Rate FiO2 05/16/20 08:20 65 160/67 05/16/20 04:09 18 98 Nasal Cannula 3.0 05/16/20 03:02 98.0 98.0 Physical Exam PHYSICAL EXAM General: Alert, Cooperative currently on nasal cannula oxygen Heart: Regular rate (SR with no significant ectopies), Normal S1 Lungs: Clear Abdomen: Soft, No tenderness Extremities: No cyanosis, Other (2-3+ bilateral LE pitting edema). Flaking of the skin likely due to improving edema. Skin: No breakdown, No significant lesion Labs Micro Microbiology 05/11/20 Urine Culture - Final, Complete 05/11/20 Antimicrobic Susceptibility - Final, Complete Objective Assessment ESBL UTI - 05/11 - Meropenem started 05/15 Abx allergies - PCN - tolerated Zosyn and Rocephin/Doxy (does not remember reaction) Leukopenia Urinary retention s/p Mg last pm 05/15 SINGH AECOPD - on steroids HTN urgency Plan Plan of Care Cont Meropenem for now F/u labs D/w nursing Thank you # [id number] VELIA GUTIERREZ MD May 16, 2020 08:50
--- NOTE | 2020-05-16 09:55 | PDOC ---
PULMONARY PROGRESS NOTES Subjective better today, off BIPAP abg improved Vitals Vital Signs Date Time Temp Pulse Resp B/P (MAP) Pulse Ox O2 Delivery O2 Flow Rate FiO2 05/16/20 08:20 65 160/67 05/16/20 08:00 Bi-pap 05/16/20 07:00 97.5 20 98 3.0 97.5 General: Alert, No acute distress Lungs: Clear Cardiovascular: S1 Abdomen: Soft Neuro Exam: Alert Extremities: No Edema Skin: Warm Medications Active Scripts Medications Dose Route/Sig Max Daily Dose Days Date Category Bactrim Ds Tablet (Sulfamethoxazole/Trimethoprim) 1 Each Tablet 1 Tab PO BID 11/16/18 Rx Comments cxr clear Impression . 1. Acute hypercapnic respiratory failure.improved with BIPAP 2. Acute exacerbation of chronic obstructive pulmonary disease. 3. Chronic lower extremity cellulitis. 4. Hypertension. 5. Anxiety disorder Plan . 1. d/w RN, off BIPAP, use PRN 2. f/u ABG fully compensated. 3. SARS-CoV-2 .neg 4. Neg venous Dopplers of lower extremities. 5. steroids taper 6. nebs 7. Xanax d/w rn ema plans to skill CHELSIE CARMEN MD May 16, 2020 09:55
--- NOTE | 2020-05-16 10:01 | SNU/HH DC ---
DISCHARGE ORDERS DISCHARGE INFORMATION: FINAL DIAGNOSIS Problems Medical Problems: (1) COPD exacerbation Status: Acute CONDITION ON DISCHARGE: Stable CODE STATUS: Code Status: Full PRISON: SNF STAY <30 DAYS: Yes POST DISCHARGE ORDERS: DIET AFTER DISCHARGE: Cardiac CHECKS AFTER DISCHARGE: CHECKS AFTER DISCHARGE: Check blood press - daily, Check blood sugar, ac/hs FOLLOW-UP: PHYSICIAN FOLLOW-UP: Infectious disease ADDITIONAL FOLLOW-UP: cardiology LAB ORDERS FOR FOLLOW-UP: repeat urine and blood cx ANTICOAGULATION F/U NEEDED: Patient will be on Eliquis TREATMENT/EQUIPMENT ORDERS: Physical Therapy For: Evalulation/Treatment Occupational Therapy For: Evaluation/Treatment Speech Language Pathology For: Evaluation/Treatment DISCHARGE MEDICATIONS: Home Meds Active Scripts Sulfamethoxazole/Trimethoprim (BACTRIM DS TABLET) 1 Each Tablet, 1 TAB PO BID, #20 TAB Prov:DELLA RICHEY 11/16/18 Reported Medications Tizanidine Hcl (TIZANIDINE HCL) 4 Mg Tablet, 2 MG PO TID PRN for MUSCLE SPASMS, TAB 05/12/20 Albuterol Sulfate (ALBUTEROL SULFATE NEB SOLN) 2.5 Mg/3 Ml Vial.neb, 2.5 MG NEB PRN Q4-6HRS PRN for WHEEZING, EACH 0 Refills 05/12/20 Trazodone Hcl (TRAZODONE HCL) 50 Mg Tablet, 50 MG PO HS for SLEEP, TAB 05/12/20 Budesonide/Formoterol Fumarate (SYMBICORT 160-4.5 MCG INHALER) 10.2 Gm Hfa.aer.ad, 2 PUFF IH BID for COPD, INHALER 05/12/20 Spironolactone (SPIRONOLACTONE) 50 Mg Tablet, 50 MG PO BID for HTN, TAB 05/12/20 Prednisone (PREDNISONE) 20 Mg Tablet, 20 MG PO DAILY for COPD, TAB 05/12/20 Potassium Chloride (Klor-Con 10) 10 Meq Tablet.er, 10 MEQ PO BID for SUPPLEMENT, TAB.SR 05/12/20 Mirtazapine (MIRTAZAPINE) 45 Mg Tablet, 45 MG PO HS for SLEEP, TAB 05/12/20 Losartan Potassium (LOSARTAN POTASSIUM) 100 Mg Tablet, 100 MG PO DAILY for HYPERTENSION, TAB 05/12/20 Furosemide (FUROSEMIDE) 40 Mg Tablet, 40 MG PO BID for EDEMA, TAB 05/12/20 Ipratropium/Albuterol Sulfate (COMBIVENT RESPIMAT INHAL) 4 Gm Aer.w.adap, 1 PUFF IH 5XDAY for COPD, INHALER 05/12/20 Clotrimazole (LOTRIMIN AF) 12 Gm Cream..g., 1 KUSUM TP BID for LEGS/FEET, EACH 05/12/20 Amlodipine Besylate (AMLODIPINE BESYLATE) 10 Mg Tablet, 10 MG PO DAILY for HTN, TAB 05/12/20 MARVIN INFANTE MD May 16, 2020 10:01
[2020-05-16 10:07] LABS: BASO % 0 % (0-3); EOS % 0 % (0-3); HEMATOCRIT 41.1 % (36.0-47.0); HEMOGLOBIN 13.8 g/dL (12.0-15.5); LYMPH # 0.1 x10^3/uL (1.0-4.8); LYMPH % 2 % (24-48); MEAN CORPUSCULAR HEMOGLOBIN 33 pg (25-35); MEAN CORPUSCULAR HGB CONC 34 g/dL (31-37); MEAN CORPUSCULAR VOLUME 98 fL (79-100); MONO # 0.4 x10^3/uL (0.0-1.1); MONO % 5 % (0-9); NEUT # 6.8 x10^3/uL (1.8-7.7); NEUT % 93 % (31-73); PLATELET COUNT 268 x10^3/uL (140-400); RED BLOOD COUNT 4.19 x10^6/uL (3.50-5.40); RED CELL DISTRIBUTION WIDTH 16.3 % (11.5-14.5); WHITE BLOOD COUNT 7.3 x10^3/uL (4.0-11.0)
[2020-05-16 10:19] LABS: CREATININE 1.1 mg/dL (0.6-1.0); GFR 47.8; POTASSIUM 3.8 mmol/L (3.5-5.1)
--- NOTE | 2020-05-16 10:21 | NUR ---
SS following up with discharge planning. SS reviewed pt chart and discussed with pt RN. Pt has insurance authorization for [facility], ; fax [phone]. Discharge orders for [facility] received. SS phoned and faxed discharge orders to [facility]. Pt will discharge today and go to [facility] at 1330 via [facility] transport, [id number]. Pt, pt's RN, and pt's daughter notified.
--- NOTE | 2020-05-16 10:44 | CONS ---
DATE OF CONSULTATION: 05/16/2020 LOCATION: The patient's room is 202. REQUESTING PHYSICIAN: Dr. Caldwell. REASON FOR CONSULTATION: ESBL UTI. HISTORY OF PRESENT ILLNESS: The patient is an 79-year-old female with a history of COPD and Parkinson's disease, was admitted to [facility] secondary to shortness of air after presenting to the Emergency Room on the 11 of May. The shortness of air was over several days. She has intermittent chest pain and was admitted to the hospital, was placed on Rocephin, then changed to Zosyn. She also received Solu-Medrol. Her urine was positive for bacteria, wbc's, nitrite was positive as well. Her COVID test was negative and her urine culture turned positive yesterday for ESBL E. coli and was subsequently changed to meropenem and I was consulted. Currently, the patient is sitting in bed. She is feeling better. She is hungry. She denies any fevers, chills, or sweats. She has a cough that is nonproductive. No nausea, no vomiting, no diarrhea. She had issues with urinary retention last night having had a Mg placed. PAST MEDICAL HISTORY: Positive for COPD, hypertension, and lower extremity lymphedema. PAST SURGICAL HISTORY: Positive for throat tumor removal, left wrist tumor removal, partial mastectomy, also had a hysterectomy, cataract removal, left hip repair, and past medical history also positive for Parkinson's. REVIEW OF SYSTEMS: Otherwise negative. ALLERGIES: LISTED PENICILLIN, SHE SAYS IT CAUSES SWELLING, however, she tolerates Zosyn and Rocephin. DOXYCYCLINE IS ALSO LISTED, BUT SHE CANNOT REMEMBER WHAT HAPPENS WHEN SHE TAKES THAT. ASPIRIN, CODEINE, AND TRAMADOL ARE ALL LISTED WELL. SOCIAL HISTORY: She has a history of smoking, she quit. Lives in assisted living. FAMILY HISTORY: Positive for diabetes. CURRENT MEDICATIONS: Include meropenem, albuterol, Xanax, Eliquis, aspirin, Lipitor, Cardizem, Lasix, hydralazine, Cozaar, and Solu-Medrol. PHYSICAL EXAMINATION: VITAL SIGNS: Currently afebrile, temperature 98, pulse 65, respirations 18, blood pressure 160/67, on 3 L nasal cannula. CONSTITUTIONAL: She is sitting upright in a chair. She is in no acute distress. She is cooperative. HEENT: Pupils are status post cataract surgery. She has normal conjunctivae. Oral cavity, pharynx is clear. No signs of thrush. NECK: Supple, no JVD. LUNGS: Decreased in the bases. HEART: S1 and S2. ABDOMEN: Soft and nontender, no guarding or rebound. EXTREMITIES: No clubbing or cyanosis. She has some lymphedema, but also has SCDs in place. GENITOURINARY: Mg is in place. NEUROLOGIC: She moves all extremities. Alert and follows commands. SKIN: Without generalized rash. LABORATORY DATA: From 05/14, white count of 2.9, hemoglobin 11.7, platelets of 222, neutrophils of 86. Most recent creatinine from the is of 1.2, glucose is of 145. Normal liver function study tests. COVID was negative. Lower extremity Doppler is negative for DVT from the . Chest x-ray from the , no acute pulmonary findings. IMPRESSION: 1. Extended-spectrum beta-lactamase Escherichia coli on 05/11, meropenem started on the . 2. ANTIBIOTIC ALLERGIES LISTED PENICILLIN, but tolerated Zosyn, Rocephin, doxycycline, does not remember reaction. 3. Leukopenia. 4. Urinary retention status post Mg last p.m. on 05/15. 5. Acute kidney injury. 6. Acute exacerbation of chronic obstructive pulmonary disease, currently on steroids. 7. Hypertensive urgency. RECOMMENDATIONS: For now, continue meropenem. We will follow up on labs. Discussed with nursing. Thank you for allowing me to participate in the patient's care. If you have any questions, please do not hesitate to contact me. VELIA GUTIERREZ MD DR: WIL/olivier JOB#: [id number] / [id number] BLAYNE
--- NOTE | 2020-05-16 10:47 | SNU/HH DC ---
DISCHARGE ORDERS DISCHARGE INFORMATION: FINAL DIAGNOSIS Problems Medical Problems: (1) COPD exacerbation Status: Acute CONDITION ON DISCHARGE: Stable CODE STATUS: Code Status: Full POST DISCHARGE ORDERS: DIET AFTER DISCHARGE: Cardiac CHECKS AFTER DISCHARGE: CHECKS AFTER DISCHARGE: Check blood press - daily, Check blood sugar, ac/hs FOLLOW-UP: PHYSICIAN FOLLOW-UP: Infectious disease ADDITIONAL FOLLOW-UP: cardiology LAB ORDERS FOR FOLLOW-UP: repeat urine and blood cx ANTICOAGULATION F/U NEEDED: Patient will be on Eliquis TREATMENT/EQUIPMENT ORDERS: Physical Therapy For: Evalulation/Treatment Occupational Therapy For: Evaluation/Treatment Speech Language Pathology For: Evaluation/Treatment DISCHARGE MEDICATIONS: Home Meds Reported Medications Tizanidine Hcl (TIZANIDINE HCL) 4 Mg Tablet, 2 MG PO TID PRN for MUSCLE SPASMS, TAB 05/12/20 Albuterol Sulfate (ALBUTEROL SULFATE NEB SOLN) 2.5 Mg/3 Ml Vial.neb, 2.5 MG NEB PRN Q4-6HRS PRN for WHEEZING, EACH 0 Refills 05/12/20 Trazodone Hcl (TRAZODONE HCL) 50 Mg Tablet, 50 MG PO HS for SLEEP, TAB 05/12/20 Budesonide/Formoterol Fumarate (SYMBICORT 160-4.5 MCG INHALER) 10.2 Gm Hfa.aer.ad, 2 PUFF IH BID for COPD, INHALER 05/12/20 Spironolactone (SPIRONOLACTONE) 50 Mg Tablet, 50 MG PO BID for HTN, TAB 05/12/20 Prednisone (PREDNISONE) 20 Mg Tablet, 20 MG PO DAILY for COPD, TAB 05/12/20 Potassium Chloride (Klor-Con 10) 10 Meq Tablet.er, 10 MEQ PO BID for SUPPLEMENT, TAB.SR 05/12/20 Mirtazapine (MIRTAZAPINE) 45 Mg Tablet, 45 MG PO HS for SLEEP, TAB 05/12/20 Losartan Potassium (LOSARTAN POTASSIUM) 100 Mg Tablet, 100 MG PO DAILY for HYPERTENSION, TAB 05/12/20 Furosemide (FUROSEMIDE) 40 Mg Tablet, 40 MG PO BID for EDEMA, TAB 05/12/20 Ipratropium/Albuterol Sulfate (COMBIVENT RESPIMAT INHAL) 4 Gm Aer.w.adap, 1 PUFF IH 5XDAY for COPD, INHALER 05/12/20 Clotrimazole (LOTRIMIN AF) 12 Gm Cream..g., 1 UKSUM TP BID for LEGS/FEET, EACH 05/12/20 Amlodipine Besylate (AMLODIPINE BESYLATE) 10 Mg Tablet, 10 MG PO DAILY for HTN, TAB 05/12/20 Discontinued Scripts Sulfamethoxazole/Trimethoprim (BACTRIM DS TABLET) 1 Each Tablet, 1 TAB PO BID, #20 TAB Prov:DELLA RICHEY DO 11/16/18 MARVIN INFANTE MD May 16, 2020 10:47
[2020-05-16 11:00] VITALS: BP 117/55
--- NOTE | 2020-05-16 13:55 | PDOC ---
ABDIFATAH MOTTA TAPE CALENDER 05/16/20 1355: CARDIO Progress Notes Date and Time Date of Service 05/16/20 Time of Evaluation 1215 Subjective Subjective: No Chest Pain, No Palpitations, Other (SOA improved ) Vitals Vitals Vital Signs Date Time Temp Pulse Resp B/P (MAP) Pulse Ox O2 Delivery O2 Flow Rate FiO2 05/16/20 11:00 98.1 85 16 117/55 (75) 98 Nasal Cannula 3.0 98.1 Weight Weight [ ] Input and Output Intake and Output Intake and Output 05/16/20 07:00 Intake Total 1200 ml Output Total 1325 ml Balance -125 ml Intake Oral 1100 ml IV Total 100 ml Output Urine Total 1325 ml Laboratory Labs Laboratory Tests Test 05/16/20 09:50 White Blood Count 7.3 x10^3/uL (4.0-11.0) Red Blood Count 4.19 x10^6/uL (3.50-5.40) Hemoglobin 13.8 g/dL (12.0-15.5) Hematocrit 41.1 % (36.0-47.0) Mean Corpuscular Volume 98 fL (79-100) Mean Corpuscular Hemoglobin 33 pg (25-35) Mean Corpuscular Hemoglobin Concent 34 g/dL (31-37) Red Cell Distribution Width 16.3 % (11.5-14.5) Platelet Count 268 x10^3/uL (140-400) Neutrophils (%) (Auto) 93 % (31-73) Lymphocytes (%) (Auto) 2 % (24-48) Monocytes (%) (Auto) 5 % (0-9) Eosinophils (%) (Auto) 0 % (0-3) Basophils (%) (Auto) 0 % (0-3) Neutrophils # (Auto) 6.8 x10^3/uL (1.8-7.7) Lymphocytes # (Auto) 0.1 x10^3/uL (1.0-4.8) Monocytes # (Auto) 0.4 x10^3/uL (0.0-1.1) Eosinophils # (Auto) 0.0 x10^3/uL (0.0-0.7) Basophils # (Auto) 0.0 x10^3/uL (0.0-0.2) Sodium Level 144 mmol/L (136-145) Potassium Level 3.8 mmol/L (3.5-5.1) Chloride Level 100 mmol/L (98-107) Carbon Dioxide Level 40 mmol/L (21-32) Anion Gap 4 (6-14) Blood Urea Nitrogen 46 mg/dL (7-20) Creatinine 1.1 mg/dL (0.6-1.0) Estimated GFR (Cockcroft-Gault) 47.8 Glucose Level 200 mg/dL (70-99) Calcium Level 9.0 mg/dL (8.5-10.1) Microbiology Micro Microbiology 05/11/20 Urine Culture - Final, Complete 05/11/20 Antimicrobic Susceptibility - Final, Complete Physical Exam HEENT: Neck Supple W Full Motion Chest: Symmetric LUNGS: Other (diminished) Heart: RRR (SR) Abdomen: Soft N/T Extremities: No Calf Tenderness, Other (LE lymphedema) Neurology: alert, oriented, follow commands Assessment Assessment 1. Acute on chronic respiratory failure secondary to AECOPD: Improved. BiPAP PRN. COVID test negative. Pulmonary team following. 2. HTN urgency; better controlled 3. Mild troponin elevation: EKG sinus tach without acute ST-T wave changes. CP free. Most probably type II, demand ischemia. Echo with preserved LV systolic function 4. Mild acute on chronic probably diastolic heart failure. appears compensated 5. PAFIB; new onset. Converted back to SR and is maintaining. 5. Chronic LE lymphedema 6. UTI: per IM 7. Hyperlipidemia Recommendations Lasix therapy ASA, statin therapy Cardizem for rate control Eliquis for stroke prophylaxis Consider ischemic evaluation as an outpatient. Supportive care Follow up in our office with Dr. Martines as scheduled. Justicifation of Admission Dx: Justifications for Admission: Justification of Admission Dx: Yes Acute COPD Exacerbation: Acute COPD Exacerbation SUSAN MARTINES MD 05/16/20 2143: CARDIO Progress Notes Assessment Assessment Patient seen and examined. Agree with MIME ARTIST's assessment and plan, Ac resp failure secondary to AECOPD improved Slight trop elevation demand ischemia Ac on chr diast HF better compensated PAF currently back in SR Continue eliquis for stroke prophylaxis 2D echo showed normal LVF Plan ischemic eval as outpatient ABDIFATAH MOTTA APRN May 16, 2020 13:55 SUSAN MARTINES MD May 16, 2020 21:43
--- NOTE | 2020-05-16 14:30 | NUR ---
Discharge Note: GERMAIN HSIEH Discharge instructions and discharge home medications reviewed with Roberto OSWALD at [facility] and a copy given. All questions have been answered and understanding verbalized. Pt sent with 16 F coffman catheter as well as IV intact. Pt to have IV infusions at [facility].
--- NOTE | 2020-05-16 16:03 | PDOC3 ---
[facility]-Discharge Summary Date of Admission: Date of Admission: May 11, 2020 Date of Discharge: Date of Discharge: May 16, 2020 Admission Diagnosis: Admitting Diagnosis: Respiratory failure, suspect chronic obstructive pulmonary low suspicion for pulmonary embolism, possible COVID-19. UTI Discharge Diagnosis: Discharge Diagnosis: Acute respiratory failure due to COPD exacerbation low suspicion for pulmonary embolism, P UI COVID-19. covid 19 neg 05/13 hypercapnic respiratory failure Sepsis due to ESBL UTI anxiety Consults: Consults: Infectious disease Pulmonary Cardiology Hospital Course: Hospital Course: 79-year-old female, who quit smoking years ago. She does have known underlying COPD. She presents to the ER with increasing shortness of breath. She denies being exposed to COVID-19. She also has some associated chest pain. Rates her symptoms at 10/10. She increased her home meds, but that did not seem to help. Symptoms are worse with moving, better with sitting still. She has also been having some urinary frequency. While in the ER, we noticed that she is in fulminant respiratory failure. She is tripoding. She is quite short of breath. She is gasping for air. I discussed the case with ER physician and we have consulted Dr. Higgins Patient was admitted for further treatments for her COPD exacerbation. She she was kept on high-dose steroids and eventually went on a prednisone taper. Her urine cultures did grow back as E. coli ESBL that was sensitive to meropenem. She did describe some suprapubic tenderness and the decision was to consult infectious disease and narrow her broad-spectrum antibiotics to target ESBL. She was started on meropenem on 05/15/2020. Infectious disease recommended to continue with meropenem. A PICC line was placed before her discharge and she was transferred to care home facility. Patient was tolerating diet and ambulating with assistance. She was able to tolerate off BiPAP during most of the day. Her breathing had improved and she felt much better. The rest of her hospital course was uneventful Disposition: Disposition/Orders: D/C to Another Facility Activity: Activity: Resume previous activity Diet: Diet: Cardiac Medications: Home Meds Reported Medications Tizanidine Hcl (TIZANIDINE HCL) 4 Mg Tablet, 2 MG PO TID PRN for MUSCLE SPASMS, TAB 05/12/20 Albuterol Sulfate (ALBUTEROL SULFATE NEB SOLN) 2.5 Mg/3 Ml Vial.neb, 2.5 MG NEB PRN Q4-6HRS PRN for WHEEZING, EACH 0 Refills 05/12/20 Trazodone Hcl (TRAZODONE HCL) 50 Mg Tablet, 50 MG PO HS for SLEEP, TAB 05/12/20 Budesonide/Formoterol Fumarate (SYMBICORT 160-4.5 MCG INHALER) 10.2 Gm Hfa.aer.ad, 2 PUFF IH BID for COPD, INHALER 05/12/20 Spironolactone (SPIRONOLACTONE) 50 Mg Tablet, 50 MG PO BID for HTN, TAB 05/12/20 Prednisone (PREDNISONE) 20 Mg Tablet, 20 MG PO DAILY for COPD, TAB 05/12/20 Potassium Chloride (Klor-Con 10) 10 Meq Tablet.er, 10 MEQ PO BID for SUPPLEMENT, TAB.SR 05/12/20 Mirtazapine (MIRTAZAPINE) 45 Mg Tablet, 45 MG PO HS for SLEEP, TAB 05/12/20 Losartan Potassium (LOSARTAN POTASSIUM) 100 Mg Tablet, 100 MG PO DAILY for HYPERTENSION, TAB 05/12/20 Furosemide (FUROSEMIDE) 40 Mg Tablet, 40 MG PO BID for EDEMA, TAB 05/12/20 Ipratropium/Albuterol Sulfate (COMBIVENT RESPIMAT INHAL) 4 Gm Aer.w.adap, 1 PUFF IH 5XDAY for COPD, INHALER 05/12/20 Clotrimazole (LOTRIMIN AF) 12 Gm Cream..g., 1 KUSUM TP BID for LEGS/FEET, EACH 05/12/20 Amlodipine Besylate (AMLODIPINE BESYLATE) 10 Mg Tablet, 10 MG PO DAILY for HTN, TAB 05/12/20 Discontinued Scripts Sulfamethoxazole/Trimethoprim (BACTRIM DS TABLET) 1 Each Tablet, 1 TAB PO BID, #20 TAB Prov:DELLA RICHEY 11/16/18 Scheduled Amlodipine Besylate (Amlodipine Besylate), 10 MG PO DAILY, (Reported) Budesonide/Formoterol Fumarate (Symbicort 160-4.5 Mcg Inhaler), 2 PUFF IH BID, (Reported) Clotrimazole (Lotrimin Af), 1 KUSUM TP BID, (Reported) Furosemide (Furosemide), 40 MG PO BID, (Reported) Ipratropium/Albuterol Sulfate (Combivent Respimat Inhal), 1 PUFF IH 5XDAY, (Reported) Losartan Potassium (Losartan Potassium), 100 MG PO DAILY, (Reported) Mirtazapine (Mirtazapine), 45 MG PO HS, (Reported) Potassium Chloride (Klor-Con 10), 10 MEQ PO BID, (Reported) Prednisone (Prednisone), 20 MG PO DAILY, (Reported) Spironolactone (Spironolactone), 50 MG PO BID, (Reported) Trazodone Hcl (Trazodone Hcl), 50 MG PO HS, (Reported) Scheduled PRN Albuterol Sulfate (Albuterol Sulfate Neb Soln), 2.5 MG NEB PRN Q4-6HRS PRN for WHEEZING, (Reported) Tizanidine Hcl (Tizanidine Hcl), 2 MG PO TID PRN for MUSCLE SPASMS, (Reported) Discontinued Medications Sulfamethoxazole/Trimethoprim (Bactrim Ds Tablet), 1 TAB PO BID Total Time: Total Time: Total time spent was 45 minutes minutes in preparing scripts, discharge planning with SWI and RN and preparing this discharge summary Justicifation of Admission Dx: Justifications for Admission: Justification of Admission Dx: Yes Acute COPD Exacerbation: Acute COPD Exacerbation MARVIN INFANTE MD May 16, 2020 16:03
[2020-07-03] MEDS ORDERED: LOSA100T14 PO (18:35)
[2020-07-03] MEDS ORDERED: AMLO10TA8 PO (18:35)
[2020-07-03] MEDS ORDERED: BUDE10.2 IH (18:35)
[2020-07-03] MEDS ORDERED: BUME1TAB3 PO (18:35)
[2020-07-10] MEDS ORDERED: METO-239 PO (10:02)
[2020-07-10] MEDS ORDERED: APIX5TAB PO (10:02)
[2020-07-10] MEDS ORDERED: ASCO500T4 PO (10:02)
[2020-07-11] MEDS ORDERED: IPRA4AER IH (10:25)
[2020-07-11] MEDS ORDERED: BUSP5TAB PO (10:26)
== END 2020-05-16 14:50 | DRG 871 ==
LOC: ER 10:19 → ED HOLD 11:34 → 1 WEST ICU 14:08 → 2 NORTH 05-13 20:00
PROVIDERS: ADMIT Internal Medicine; ATTEND Internal Medicine
PROC: 5A09357 Assistance with Respiratory Ventilation, Less than 24 Consecutive Hours, Continuous Positive Airway Pressure (ICD-10-PCS; 2020-05-12)
PROC: 5A09357 Assistance with Respiratory Ventilation, Less than 24 Consecutive Hours, Continuous Positive Airway Pressure (ICD-10-PCS; 2020-05-13)
PROC: 5A09357 Assistance with Respiratory Ventilation, Less than 24 Consecutive Hours, Continuous Positive Airway Pressure (ICD-10-PCS; 2020-05-14)
PROC: 5A09357 Assistance with Respiratory Ventilation, Less than 24 Consecutive Hours, Continuous Positive Airway Pressure (ICD-10-PCS; 2020-05-15)
PROC: 02HV33Z Insertion of Infusion Device into Superior Vena Cava, Percutaneous Approach (ICD-10-PCS; 2020-05-15)
PROC: 5A09357 Assistance with Respiratory Ventilation, Less than 24 Consecutive Hours, Continuous Positive Airway Pressure (ICD-10-PCS; principal; 2020-05-16)
DX: A41.89 Other specified sepsis (principal); J96.21 Acute and chronic respiratory failure with hypoxia; I50.33 Acute on chronic diastolic (congestive) heart failure; J96.22 Acute and chronic respiratory failure with hypercapnia; I24.8 Other forms of acute ischemic heart disease; J44.1 Chronic obstructive pulmonary disease with (acute) exacerbation; L03.119 Cellulitis of unspecified part of limb; N17.9 Acute kidney failure, unspecified; N39.0 Urinary tract infection, site not specified; Z16.12 Extended spectrum beta lactamase (ESBL) resistance; I16.0 Hypertensive urgency; Z20.828 Contact with and (suspected) exposure to other viral communicable diseases; E11.9 Type 2 diabetes mellitus without complications; E78.5 Hyperlipidemia, unspecified; F41.9 Anxiety disorder, unspecified; G20 Parkinson's disease; I11.0 Hypertensive heart disease with heart failure; I48.0 Paroxysmal atrial fibrillation; I89.0 Lymphedema, not elsewhere classified; T38.0X5A Adverse effect of glucocorticoids and synthetic analogues, initial encounter; Z82.49 Family history of ischemic heart disease and other diseases of the circulatory system; Z83.3 Family history of diabetes mellitus; Z87.891 Personal history of nicotine dependence; Z88.0 Allergy status to penicillin; Z88.1 Allergy status to other antibiotic agents; Z90.710 Acquired absence of both cervix and uterus; M19.90 Unspecified osteoarthritis, unspecified site
CPT/HCPCS: 36415; 36600; 71045; 80048; 80053; 80061; 80076; 81001; 82805; 83690; 83880; 84484; 85007; 85025; 85379; 87077; 87086; 87186; 93005; 93306; 93970; 94640; 94660; 96374; 99291; J0696; J2185; J2270; J2543; J2920; J2930; 97530-GO; 97530-GP; 97535-GO; G0378; U0003-CS

== ENCOUNTER 2020-05-30 09:46 | Inpatient (IN) | payer OTHER, MEDICAID ==
[2020-05-30] VITALS (10 sets, daily range): BP systolic 89–128; BP diastolic 36–64
[~2020-05-30] VITALS: Ht 167.6 cm; Wt 63.5 kg
[~2020-05-30 09:46] MED LIST changes: +ALBU2.5V5 NEB; +AMLO10TA8 PO; +BUDE10.2 IH; +CLOT12CR2 TP; +FURO40TA4 PO; +IPRA4AER IH; +LOSA100T14 PO; +MIRT45TA58 PO; +POTA10TA6 PO; +PRED20TA PO; +SPIR50TA4 PO; +TIZA4TAB2 PO; +TRAZ-118 PO
[2020-05-30] MEDS ORDERED: diphenhydrAMINE 50 MG/ML VIAL IVP ONE (10:45)
[2020-05-30] MEDS ORDERED: methylPREDNISolone SOD SUCC PF 125 MG/2 ML VIAL. IV ONE (10:45)
[2020-05-30 10:50] LABS: BASO # 0.1 x10^3/uL (0.0-0.2); BASO % 0 % (0-3); EOS # 1.1 x10^3/uL (0.0-0.7); EOS % 5 % (0-3); HEMATOCRIT 39.7 % (36.0-47.0); HEMOGLOBIN 12.9 g/dL (12.0-15.5); LYMPH # 0.5 x10^3/uL (1.0-4.8); LYMPH % 2 % (24-48); MEAN CORPUSCULAR HEMOGLOBIN 32 pg (25-35); MEAN CORPUSCULAR HGB CONC 33 g/dL (31-37); MEAN CORPUSCULAR VOLUME 98 fL (79-100); MONO % 0 % (0-9); NEUT % 93 % (31-73); PLATELET COUNT 147 x10^3/uL (140-400); RED BLOOD COUNT 4.07 x10^6/uL (3.50-5.40); RED CELL DISTRIBUTION WIDTH 17.2 % (11.5-14.5); WHITE BLOOD COUNT 22.6 x10^3/uL (4.0-11.0)
[2020-05-30 10:59] LABS: PROTHROMBIN TIME PATIENT 12.6 SEC (11.7-14.0)
[2020-05-30 11:06] LABS: ALBUMIN 3.3 g/dL (3.4-5.0); ALBUMIN/GLOBULIN RATIO 1.1 (1.0-1.7); CALCIUM 9.2 mg/dL (8.5-10.1); CREATININE 2.7 mg/dL (0.6-1.0); MAGNESIUM 2.1 mg/dL (1.8-2.4); TOTAL BILIRUBIN 1.2 mg/dL (0.2-1.0); TOTAL PROTEIN 6.4 g/dL (6.4-8.2)
[2020-05-30 11:11] LABS: POTASSIUM 7.6 mmol/L (3.5-5.1)
[2020-05-30] MEDS ORDERED: SODIUM BICARB ADULT 8.4% 50 MEQ/50 ML DISP.SYRIN. IV ONE (11:15)
[2020-05-30 11:27] LABS: % BANDS 6 % (0-9); % LYMPHS 1 % (24-48); % MONOS 2 % (0-10); % SEGS 91 % (35-66); PLT ESTIMATE DECREASED (ADEQUATE)
[2020-05-30 11:28] LABS: ANISOCYTOSIS SLIGHT
[2020-05-30] MEDS ORDERED: IV NORMAL SALINE 1000ML BAG 1,000 ML IV ONE ×3 (11:30→14:45)
[2020-05-30] MEDS ORDERED: DEXTROSE 50% 25 GM / 50ML DISP.SYRIN. IV ONE ×2 (11:30→18:45)
[2020-05-30] MEDS ORDERED: INSULIN REGULAR 100 UNIT/ML 3ML VIAL. IV ONE ×4 (11:45→19:00)
--- NOTE | 2020-05-30 11:47 | EKG ---
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
[2020-05-30] MEDS ORDERED: ALBUTEROL SULFATE 2.5 MG/3 ML NEBU. CONT NEB ONE (12:00)
[2020-05-30] MEDS ORDERED: IV NORMAL SALINE 1000ML BAG 1,000 ML IV SCH (12:19)
--- NOTE | 2020-05-30 12:19 | PDOC1 ---
History and Physical Date of Admission Date of Admission DATE: 05/30/20 TIME: 12:16 Identification/Chief Complaint Chief Complaint SEEN IN ER WITH RASH, ACUTE SEVERE RENAL FAILURE 79 year old female who was [facility] due to trouble breathing, rash all over her body. Patient has history of COPD, she is on oxygen at home all the time. Patient is currently on some form of antibiotic for urinary tract infection. Patient was noted to have some rash in her genital area in her abdomen area yesterday, however it became widespread this morning so she was sent here for evaluation. Patient denies any fever, denies any chest pain. Patient says she only had a cough and still has trouble breathing because of COPD. recently admitted to hospital last month for COPD exacerbation. 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 Past Medical History Cardiovascular: HTN, Other Pulmonary: COPD, Pneumonia CENTRAL NERVOUS SYSTEM: Other GI: No pertinent hx Heme/Onc: No pertinent hx Hepatobiliary: No pertinent hx Psych: No pertinent hx Musculoskeletal: Osteoarthritis Infectious disease: No pertinent hx Renal/: No pertinent hx, UTI Endocrine: No pertinent hx Past Surgical History Past Surgical History: Cataract Removal, Mastectomy, Hysterectomy, Other Family History Family History: Diabetes, Hypertension Social History Smoke: No ALCOHOL: none Drugs: None Current Medications Current Medications Current Medications Methylprednisolone Sodium Succinate (SOLU-Medrol 125MG VIAL) 125 mg 1X ONCE IV Last administered on 05/30/20at 10:31; Start 05/30/20 at 10:45; Stop 05/30/20 at 10:46; Status DC Diphenhydramine HCl (Benadryl) 25 mg 1X ONCE IVP Last administered on 05/30/20at 10:27; Start 05/30/20 at 10:45; Stop 05/30/20 at 10:46; Status DC Sodium Bicarbonate (Sodium Bicarb Adult 8.4% Syr) 50 meq 1X ONCE IV Last administered on 05/30/20at 11:42; Start 05/30/20 at 11:15; Stop 05/30/20 at 11:16; Status DC Sodium Chloride 1,000 ml @ 1,000 mls/hr 1X ONCE IV Last administered on 05/30/20at 11:53; Start 05/30/20 at 11:30; Stop 05/30/20 at 12:29 Dextrose (Dextrose 50%-Water Syringe) 25 gm 1X ONCE IV Last administered on 05/30/20at 11:35; Start 05/30/20 at 11:30; Stop 05/30/20 at 11:31; Status DC Insulin Human Regular (HumuLIN R VIAL) 10 unit 1X ONCE IV Last administered on 05/30/20at 11:45; Start 05/30/20 at 11:45; Stop 05/30/20 at 11:46; Status DC Albuterol Sulfate (Ventolin Neb Soln) 10 mg 1X ONCE CONT NEB Last administered on 05/30/20at 12:09; Start 05/30/20 at 12:00; Stop 05/30/20 at 12:01; Status DC Calcium Gluconate (Calcium Gluconate) 1,000 mg 1X ONCE IVP ; Start 05/30/20 at 12:15; Stop 05/30/20 at 12:16; Status UNV Active Scripts Active Reported Tizanidine Hcl 4 Mg Tablet 2 Mg PO TID PRN Albuterol Sulfate Neb Soln (Albuterol Sulfate) 2.5 Mg/3 Ml Vial.neb 2.5 Mg NEB PRN Q4-6HRS PRN Trazodone Hcl 50 Mg Tablet 50 Mg PO HS Symbicort 160-4.5 Mcg Inhaler (Budesonide/Formoterol Fumarate) 10.2 Gm Hfa.aer.ad 2 Puff IH BID Spironolactone 50 Mg Tablet 50 Mg PO BID Prednisone 20 Mg Tablet 20 Mg PO DAILY Klor-Con 10 (Potassium Chloride) 10 Meq Tablet.er 10 Meq PO BID Mirtazapine 45 Mg Tablet 45 Mg PO HS Losartan Potassium 100 Mg Tablet 100 Mg PO DAILY Furosemide 40 Mg Tablet 40 Mg PO BID Combivent Respimat Inhal (Ipratropium/Albuterol Sulfate) 4 Gm Aer.w.adap 1 Puff IH 5XDAY Lotrimin Af (Clotrimazole) 12 Gm Cream..g. 1 Jesus TP BID Amlodipine Besylate 10 Mg Tablet 10 Mg PO DAILY Allergies Allergies: Coded Allergies: Penicillins (Verified Allergy, Intermediate, 05/15/20) HAS TOLERATED ZOSYN I S O L A T I O N *CONTACT* (Verified Allergy, Unknown, 05/15/20) ESBL aspirin (Verified Allergy, Unknown, 05/12/20) codeine (Verified Allergy, Unknown, 05/12/20) doxycycline (Verified Allergy, Unknown, 05/12/20) tramadol (Verified Allergy, Unknown, 05/12/20) ROS Review of System Constitutional: Denies fever or chills. [] Eyes: Denies change in visual acuity. [] HENT: Denies nasal congestion or sore throat. [] Respiratory: Positive for cough and trouble breathing Cardiovascular: Denies chest pain or edema. [] GI: Denies abdominal pain, nausea, vomiting, bloody stools or diarrhea. [] : Denies dysuria. [] Musculoskeletal: Denies back pain or joint pain. [] Integument: Positive for rash Neurologic: Denies headache, focal weakness or sensory changes. [] Endocrine: Denies polyuria or polydipsia. [] Lymphatic: Denies swollen glands. [] Psychiatric: Denies depression or anxiety. [] 14 PT ROS OTHERWISE NEG Respiratory: YES: Cough, Shortness of breath, SOB with excertion; No: Hemoptysis, Orthopnea, Pleuritic Pain, Sputum Changes, Stridor, Tachypnea, Wheezing, Other Neurological: Yes Confusion, Yes Gait Disturbance Physical Exam Physical Exam Constitutional: Well developed, well nourished, MOD acute distress, non-toxic appearance. [] HENT: Normocephalic, atraumatic, bilateral external ears normal, oropharynx moist, no oral exudates, nose normal. [] Eyes: PERRLA, EOMI, conjunctiva normal, no discharge. [] Neck: Normal range of motion, no tenderness, supple, no stridor. [] Cardiovascular:Heart rate regular rhythm, no murmur [] Lungs & Thorax: Bilateral breath sounds with expiratory wheezing, tachypnic. Abdomen: Bowel sounds normal, soft, no tenderness, no masses, no pulsatile masses. [] Skin: Warm, dry, diffuse maculopapular rash all over her body, no mucosa involvement. Back: No tenderness, no CVA tenderness. [] Extremities: No tenderness, no cyanosis, no clubbing, ROM intact, no edema. [] Neurologic: Alert and oriented X 3, normal motor function, normal sensory function, no focal deficits noted. [] Psychologic: CONFUSED mood normal. [] General: Alert, Cooperative, mild distress, moderate distress HEENT: Atraumatic, EOMI Heart: RRR, no gallops Breasts: Not examined Abdomen: Soft, No tenderness Rectal Exam: not examined PELVIC: Examination not indicated Extremities: No cyanosis Vitals Vitals Vital Signs Date Time Temp Pulse Resp B/P (MAP) Pulse Ox O2 Delivery O2 Flow Rate FiO2 05/30/20 12:09 98 Nasal Cannula 4.0 05/30/20 10:11 98.1 82 28 111/52 (71) 98.1 Labs Labs Laboratory Tests Test 05/30/20 10:40 White Blood Count 22.6 x10^3/uL (4.0-11.0) Red Blood Count 4.07 x10^6/uL (3.50-5.40) Hemoglobin 12.9 g/dL (12.0-15.5) Hematocrit 39.7 % (36.0-47.0) Mean Corpuscular Volume 98 fL (79-100) Mean Corpuscular Hemoglobin 32 pg (25-35) Mean Corpuscular Hemoglobin Concent 33 g/dL (31-37) Red Cell Distribution Width 17.2 % (11.5-14.5) Platelet Count 147 x10^3/uL (140-400) Neutrophils (%) (Auto) 93 % (31-73) Lymphocytes (%) (Auto) 2 % (24-48) Monocytes (%) (Auto) 0 % (0-9) Eosinophils (%) (Auto) 5 % (0-3) Basophils (%) (Auto) 0 % (0-3) Neutrophils # (Auto) 21.0 x10^3/uL (1.8-7.7) Lymphocytes # (Auto) 0.5 x10^3/uL (1.0-4.8) Monocytes # (Auto) 0.0 x10^3/uL (0.0-1.1) Eosinophils # (Auto) 1.1 x10^3/uL (0.0-0.7) Basophils # (Auto) 0.1 x10^3/uL (0.0-0.2) Segmented Neutrophils % 91 % (35-66) Band Neutrophils % 6 % (0-9) Lymphocytes % 1 % (24-48) Monocytes % 2 % (0-10) Platelet Estimate Decreased (ADEQUATE) Large Platelets Occ Anisocytosis Slight Prothrombin Time 12.6 SEC (11.7-14.0) Prothromb Time International Ratio 1.0 (0.8-1.1) Activated Partial Thromboplast Time 29 SEC (24-38) Sodium Level 136 mmol/L (136-145) Potassium Level 7.6 mmol/L (3.5-5.1) Chloride Level 101 mmol/L (98-107) Carbon Dioxide Level 28 mmol/L (21-32) Anion Gap 7 (6-14) Blood Urea Nitrogen 96 mg/dL (7-20) Creatinine 2.7 mg/dL (0.6-1.0) Estimated GFR (Cockcroft-Gault) 17.0 BUN/Creatinine Ratio 36 (6-20) Glucose Level 137 mg/dL (70-99) Calcium Level 9.2 mg/dL (8.5-10.1) Magnesium Level 2.1 mg/dL (1.8-2.4) Total Bilirubin 1.2 mg/dL (0.2-1.0) Aspartate Amino Transf (AST/SGOT) 11 U/L (15-37) Alanine Aminotransferase (ALT/SGPT) 16 U/L (14-59) Alkaline Phosphatase 91 U/L (46-116) Total Protein 6.4 g/dL (6.4-8.2) Albumin 3.3 g/dL (3.4-5.0) Albumin/Globulin Ratio 1.1 (1.0-1.7) Laboratory Tests Test 05/30/20 10:40 White Blood Count 22.6 x10^3/uL (4.0-11.0) Red Blood Count 4.07 x10^6/uL (3.50-5.40) Hemoglobin 12.9 g/dL (12.0-15.5) Hematocrit 39.7 % (36.0-47.0) Mean Corpuscular Volume 98 fL (79-100) Mean Corpuscular Hemoglobin 32 pg (25-35) Mean Corpuscular Hemoglobin Concent 33 g/dL (31-37) Red Cell Distribution Width 17.2 % (11.5-14.5) Platelet Count 147 x10^3/uL (140-400) Neutrophils (%) (Auto) 93 % (31-73) Lymphocytes (%) (Auto) 2 % (24-48) Monocytes (%) (Auto) 0 % (0-9) Eosinophils (%) (Auto) 5 % (0-3) Basophils (%) (Auto) 0 % (0-3) Neutrophils # (Auto) 21.0 x10^3/uL (1.8-7.7) Lymphocytes # (Auto) 0.5 x10^3/uL (1.0-4.8) Monocytes # (Auto) 0.0 x10^3/uL (0.0-1.1) Eosinophils # (Auto) 1.1 x10^3/uL (0.0-0.7) Basophils # (Auto) 0.1 x10^3/uL (0.0-0.2) Segmented Neutrophils % 91 % (35-66) Band Neutrophils % 6 % (0-9) Lymphocytes % 1 % (24-48) Monocytes % 2 % (0-10) Platelet Estimate Decreased (ADEQUATE) Large Platelets Occ Anisocytosis Slight Prothrombin Time 12.6 SEC (11.7-14.0) Prothromb Time International Ratio 1.0 (0.8-1.1) Activated Partial Thromboplast Time 29 SEC (24-38) Sodium Level 136 mmol/L (136-145) Potassium Level 7.6 mmol/L (3.5-5.1) Chloride Level 101 mmol/L (98-107) Carbon Dioxide Level 28 mmol/L (21-32) Anion Gap 7 (6-14) Blood Urea Nitrogen 96 mg/dL (7-20) Creatinine 2.7 mg/dL (0.6-1.0) Estimated GFR (Cockcroft-Gault) 17.0 BUN/Creatinine Ratio 36 (6-20) Glucose Level 137 mg/dL (70-99) Calcium Level 9.2 mg/dL (8.5-10.1) Magnesium Level 2.1 mg/dL (1.8-2.4) Total Bilirubin 1.2 mg/dL (0.2-1.0) Aspartate Amino Transf (AST/SGOT) 11 U/L (15-37) Alanine Aminotransferase (ALT/SGPT) 16 U/L (14-59) Alkaline Phosphatase 91 U/L (46-116) Total Protein 6.4 g/dL (6.4-8.2) Albumin 3.3 g/dL (3.4-5.0) Albumin/Globulin Ratio 1.1 (1.0-1.7) Images Images LEFT VENTRICLE The left ventricle is normal size. There is borderline to mild concentric left ventricular hypertrophy. The left ventricular systolic function is normal and the ejection fraction is within normal range. The Ejection Fraction is 60-65%. There is normal LV segmental wall motion. Transmitral Doppler flow pattern is Grade II-pseudonormal filling dynamics. RIGHT VENTRICLE The right ventricle is normal size. There is normal right ventricular wall thickness. The right ventricular systolic function is normal. ATRIA The left atrium size is normal. The right atrium size is normal. The interatrial septum is intact with no evidence for an atrial septal defect or patent foramen ovale as noted on 2-D or Doppler imaging. AORTIC VALVE The aortic valve is thickened but opens well. Doppler and Color Flow revealed moderate aortic regurgitation. There is no significant aortic valvular stenosis. Calculated aortic valve area is 2.81 cm2 with maximum pressure gradient of 22 mmHg and mean pressure gradient of 12 mmHg. MITRAL VALVE The mitral valve is thickened but opens well. There is no evidence of mitral valve prolapse. There is no mitral valve stenosis. Doppler and Color-flow revealed trace mitral regurgitation. TRICUSPID VALVE The tricuspid valve is normal in structure and function. Doppler and Color Flow revealed trace to mild tricuspid regurgitation with an estimated PAP of 50 mmHg. There is no tricuspid valve stenosis. PULMONIC VALVE Doppler and Color Flow revealed trace pulmonic valvular regurgitation. There is no pulmonic valvular stenosis. GREAT VESSELS The aortic root is normal in size. The IVC is normal in size and collapses >50% with inspiration. PERICARDIAL EFFUSION There is no evidence of significant pericardial effusion. Critical Notification Critical Value: No <Conclusion> The left ventricular systolic function is normal and the ejection fraction is within normal range. The Ejection Fraction is 60-65%. There is normal LV segmental wall motion. Doppler and Color Flow revealed moderate aortic regurgitation. Doppler and Color Flow revealed trace to mild tricuspid regurgitation with an estimated PAP of 50 mmHg. Signed by : Stephanie Rodas, Electronically Approved : 05/15/2020 16:50:59 DICTATED and SIGNED BY: STEPHANIE RODAS MD DATE: 05/15/20 1230 AP chest. HISTORY: Short of air AP view was taken of the chest. Heart is normal in size. The aorta is tortuous. Lungs are free of infiltrates. There is thoracolumbar scoliosis. There is arthritis at the shoulders. IMPRESSION: 1. No acute infiltrates. Electronically signed by: Brett Vee MD (05/30/2020 12:55 PM) [id number] DICTATED and SIGNED BY: BRETT VEE MD Bilateral Lower Extremity Venous Doppler Ultrasound History: Reason: Edema, short of air. / Spl. Instructions: / History: Comparison: None Procedure: Color flow, duplex, spectral analysis and 2D images are obtained with and without compression in the area of the common femoral vein, superficial femoral vein - femoral vein junction, main femoral vein (superficial femoral vein) and popliteal vein. Veins of the proximal calf are also imaged. Findings: There is normal duplex flow, color flow and compressibility of all visualized vein segments. No evidence of deep venous thrombus is present. The calf veins are difficult to visualize due to soft tissue edema. Impression: No evidence of DVT. Electronically signed by: Monika Figueroa III, MD (05/12/2020 4:45 PM) [facility] DICTATED and SIGNED BY: MONIKA FIGUEROA III, MD DATE: 05/12/20 1645 VTE Prophylaxis Ordered VTE Prophylaxis Devices: Yes VTE Pharmacological Prophylaxi: Yes Assessment/Plan Assessment/Plan IMPRESSION Acute SEVERE renal failure // HYPERKALEMIA DRUG RASH ACUTE METABOLIC ENCEPHALOPATHY Extended-spectrum beta-lactamase Escherichia coli on 05/11, meropenem started on the ANTIBIOTIC ALLERGIES LISTED PENICILLIN, but tolerated Zosyn, Rocephin, doxycycline, does not remember reaction. Respiratory failure, suspect chronic obstructive pulmonary possible COVID-19. UTI PUI COVID-19. covid 19 neg 05/13 hypercapnic respiratory failure Sepsis due to ESBL UTI anxiety HX URINARY RETENTION RECENT echo c/w moderate aortic regurgitation. mild tricuspid regurgitation with an estimated PAP of 50 mmHg. c/w moderate pulmonary hypertension plan admit consult nephrology IRIS icu bed ID CONSULT INSULIN, IV DEXTROSE, CA IV FLUIDS PER NEPHROLOGY PULM CONSULT DELVALLE DVT PROPHYLAXIS, SQ HEPARIN 95 MIN CC TIME Justicifation of Admission Dx: Justifications for Admission: Justification of Admission Dx: Yes Acute COPD Exacerbation: Acute COPD Exacerbation KATIE MCKEE MD May 30, 2020 12:19
--- NOTE | 2020-05-30 12:29 | PHYS DOC ---
Past Medical History Past Medical History: COPD, Hypertension, Other Additional Past Medical Histor: chronic BLE swellling Past Surgical History: Other Additional Past Surgical Histo: throat tumor removed, left wrist tumor removed, lt partial mastectomy Smoking Status: Former Smoker Alcohol Use: Rarely Drug Use: None General Adult EDM: Chief Complaint: SKIN PROBLEM HPI: HPI: Patient is a 79 year old female who was sent here from residential due to trouble breathing, rash all over her body. Patient has history of COPD, she is on oxygen at home all the time. Patient is currently on some form of antibiotic for urinary tract infection. Patient was noted to have some rash in her genital area in her abdomen area yesterday, however it became widespread this morning so she was sent here for evaluation. Patient denies any fever, denies any chest pain. Patient says she only had a cough and still has trouble breathing because of COPD. Patient was recently admitted to hospital last month for COPD exacerbation. Review of Systems: Review of Systems: Constitutional: Denies fever or chills. [] Eyes: Denies change in visual acuity. [] HENT: Denies nasal congestion or sore throat. [] Respiratory: Positive for cough and trouble breathing Cardiovascular: Denies chest pain or edema. [] GI: Denies abdominal pain, nausea, vomiting, bloody stools or diarrhea. [] : Denies dysuria. [] Musculoskeletal: Denies back pain or joint pain. [] Integument: Positive for rash Neurologic: Denies headache, focal weakness or sensory changes. [] Endocrine: Denies polyuria or polydipsia. [] Lymphatic: Denies swollen glands. [] Psychiatric: Denies depression or anxiety. [] Heart Score: Risk Factors: Risk Factors: DM, Current or recent (<one month) smoker, HTN, HLP, family history of CAD, obesity. Risk Scores: Score 0 - 3: 2.5% MACE over next 6 weeks - Discharge Home Score 4 - 6: 20.3% MACE over next 6 weeks - Admit for Clinical Observation Score 7 - 10: 72.7% MACE over next 6 weeks - Early Invasive Strategies Current Medications: Current Medications Medications (Trade) Dose Ordered Sig/Samara Start Time Stop Time Status Last Admin Dose Admin Albuterol Sulfate (Ventolin Neb Soln) 10 mg 1X ONCE 05/30/20 12:00 05/30/20 12:01 DC 05/30/20 12:09 10 MG Calcium Gluconate (Calcium Gluconate) 1,000 mg 1X ONCE 05/30/20 12:30 05/30/20 12:31 05/30/20 12:21 1,000 MG Dextrose (Dextrose 50%-Water Syringe) 25 gm 1X ONCE 05/30/20 11:30 05/30/20 11:31 DC 05/30/20 11:35 25 GM Diphenhydramine HCl (Benadryl) 25 mg 1X ONCE 05/30/20 10:45 05/30/20 10:46 DC 05/30/20 10:27 25 MG Insulin Human Regular (HumuLIN R VIAL) 10 unit 1X ONCE 05/30/20 11:45 05/30/20 11:46 DC 05/30/20 11:45 10 UNIT Methylprednisolone Sodium Succinate (SOLU-Medrol 125MG VIAL) 125 mg 1X ONCE 05/30/20 10:45 05/30/20 10:46 DC 05/30/20 10:31 125 MG Ondansetron HCl (Zofran) 4 mg PRN Q8HRS PRN 05/30/20 12:30 05/31/20 12:29 UNV Sodium Bicarbonate (Sodium Bicarb Adult 8.4% Syr) 50 meq 1X ONCE 05/30/20 11:15 05/30/20 11:16 DC 05/30/20 11:42 50 MEQ Sodium Chloride 1,000 ml @ 125 mls/hr Q8H 05/30/20 12:19 05/31/20 12:18 UNV Allergies: Allergies: Allergies Coded Allergies Type Severity Reaction Last Updated Verified Penicillins Allergy Intermediate 05/15/20 Yes I S O L A T I O N *CONTACT* Allergy Unknown 05/15/20 Yes aspirin Allergy Unknown 05/12/20 Yes codeine Allergy Unknown 05/12/20 Yes doxycycline Allergy Unknown 05/12/20 Yes tramadol Allergy Unknown 05/12/20 Yes Physical Exam: PE: Constitutional: Well developed, well nourished, no acute distress, non-toxic appearance. [] HENT: Normocephalic, atraumatic, bilateral external ears normal, oropharynx moist, no oral exudates, nose normal. [] Eyes: PERRLA, EOMI, conjunctiva normal, no discharge. [] Neck: Normal range of motion, no tenderness, supple, no stridor. [] Cardiovascular:Heart rate regular rhythm, no murmur [] Lungs & Thorax: Bilateral breath sounds with expiratory wheezing, tachypnic. Abdomen: Bowel sounds normal, soft, no tenderness, no masses, no pulsatile masses. [] Skin: Warm, dry, diffuse maculopapular rash all over her body, no mucosa involvement. Back: No tenderness, no CVA tenderness. [] Extremities: No tenderness, no cyanosis, no clubbing, ROM intact, no edema. [] Neurologic: Alert and oriented X 3, normal motor function, normal sensory function, no focal deficits noted. [] Psychologic: Affect normal, judgement normal, mood normal. [] Current Patient Data: Labs: Laboratory Tests Test 05/30/20 10:40 White Blood Count 22.6 x10^3/uL (4.0-11.0) H Red Blood Count 4.07 x10^6/uL (3.50-5.40) Hemoglobin 12.9 g/dL (12.0-15.5) Hematocrit 39.7 % (36.0-47.0) Mean Corpuscular Volume 98 fL (79-100) Mean Corpuscular Hemoglobin 32 pg (25-35) Mean Corpuscular Hemoglobin Concent 33 g/dL (31-37) Red Cell Distribution Width 17.2 % (11.5-14.5) H Platelet Count 147 x10^3/uL (140-400) Neutrophils (%) (Auto) 93 % (31-73) H Lymphocytes (%) (Auto) 2 % (24-48) L Monocytes (%) (Auto) 0 % (0-9) Eosinophils (%) (Auto) 5 % (0-3) H Basophils (%) (Auto) 0 % (0-3) Neutrophils # (Auto) 21.0 x10^3/uL (1.8-7.7) H Lymphocytes # (Auto) 0.5 x10^3/uL (1.0-4.8) L Monocytes # (Auto) 0.0 x10^3/uL (0.0-1.1) Eosinophils # (Auto) 1.1 x10^3/uL (0.0-0.7) H Basophils # (Auto) 0.1 x10^3/uL (0.0-0.2) Segmented Neutrophils % 91 % (35-66) H Band Neutrophils % 6 % (0-9) Lymphocytes % 1 % (24-48) L Monocytes % 2 % (0-10) Platelet Estimate Decreased (ADEQUATE) Large Platelets Occ Anisocytosis Slight Prothrombin Time 12.6 SEC (11.7-14.0) Prothrombin Time INR 1.0 (0.8-1.1) Activated Partial Thromboplast Time 29 SEC (24-38) Sodium Level 136 mmol/L (136-145) Potassium Level 7.6 mmol/L (3.5-5.1) *H Chloride Level 101 mmol/L (98-107) Carbon Dioxide Level 28 mmol/L (21-32) Anion Gap 7 (6-14) Blood Urea Nitrogen 96 mg/dL (7-20) H Creatinine 2.7 mg/dL (0.6-1.0) H Estimated GFR (Cockcroft-Gault) 17.0 BUN/Creatinine Ratio 36 (6-20) H Glucose Level 137 mg/dL (70-99) H Calcium Level 9.2 mg/dL (8.5-10.1) Magnesium Level 2.1 mg/dL (1.8-2.4) Total Bilirubin 1.2 mg/dL (0.2-1.0) H Aspartate Amino Transferase (AST) 11 U/L (15-37) L Alanine Aminotransferase (ALT) 16 U/L (14-59) Alkaline Phosphatase 91 U/L (46-116) Total Protein 6.4 g/dL (6.4-8.2) Albumin 3.3 g/dL (3.4-5.0) L Albumin/Globulin Ratio 1.1 (1.0-1.7) Laboratory Tests 05/30/20 10:40 Laboratory Tests 05/30/20 10:40 Vital Signs: Vital Signs Date Time Temp Pulse Resp B/P (MAP) Pulse Ox O2 Delivery O2 Flow Rate FiO2 05/30/20 12:09 98 Nasal Cannula 4.0 05/30/20 10:11 98.1 82 28 111/52 (71) 98.1 EKG: EKG: Interpreted by emergency department physician Rhythm: SINUS RHYTHM Rate: 77 Ectopy: PVC Conduction: PVC ST Segments: NO STEMI T Waves: TALL Q Waves: NORMAL Clinical Impression: SINUS RHYTHM, TALL T WAVE, HYPERKALEMIA Radiology/Procedures: Radiology/Procedures: [][facility] [address] [place] [address] IMAGING REPORT Signed PATIENT: CORDELIA HSIEH ACCOUNT: [id number] : 1940 LOCATION: ER AGE: 79 SEX: F EXAM STATUS: REG ER ORD. PHYSICIAN: MIKO PEREZ DO REASON: SOA PROCEDURE: CHEST AP ONLY AP chest. HISTORY: Short of air AP view was taken of the chest. Heart is normal in size. The aorta is tortuous. Lungs are free of infiltrates. There is thoracolumbar scoliosis. There is arthritis at the shoulders. IMPRESSION: 1. No acute infiltrates. Electronically signed by: Brett Vee MD (05/30/2020 12:55 PM) [id number] DICTATED and SIGNED BY: BRETT VEE MD DATE: 05/30/20 1255 Course & Med Decision Making: Course & Med Decision Making Pertinent Labs and Imaging studies reviewed. (See chart for details) Patient is a 79-year-old female who was sent here from residential due to rash all over her body suspect of allergic reaction to the IV antibiotic that she currently on for UTI. Patient was found in acute renal failure with creatinine level of 2.8 BUN of 97, potassium was 7.6. Patient was given IV fluid in ER, albuterol 10 mg neb treatment, 1 ampule of sodium bicarb, 1 g calcium gluconate IV, 1 amp of D50 and 10 units of regular insulin IV. Patient will be admitted to the ICU due to elevated potassium level of 7.6, she will be consulted by nephrology for acute renal failure,, hospitalist service Dr. Cortez was called who agreed to admit the patient to ICU. Critical care time was [45] minutes which includes time at bedside, spent in discussion of patient's care with specialist and/or family members, with interp retation of laboratory and/or radiological studies and is exclusive of procedures. Dragon Disclaimer: Dragon Disclaimer: This electronic medical record was generated, in whole or in part, using a voice recognition dictation system. Departure Departure Impression: Primary Impression: Acute renal failure (ARF) Additional Impressions: Hyperkalemia Allergic reaction due to antibacterial drug Disposition: ADMITTED INPATIENT Admitting Physician: FERNANDO (Dr. Cortez) Condition: STABLE Referrals: HOA MOSS III, DO (PCP) Justicifation of Admission Dx: Justifications for Admission: Justification of Admission Dx: Yes Acute COPD Exacerbation: Acute COPD Exacerbation MIKO PEREZ DO May 30, 2020 12:29
[2020-05-30] MEDS ORDERED: CALCIUM GLUCONATE 1,000 MG/10 ML VIAL. IVP ONE (12:30)
[2020-05-30] MEDS ORDERED: ONDANSETRON PF 4 MG/2 ML VIAL. IV PRN (12:30)
--- NOTE | 2020-05-30 12:58 | RAD ---
AP chest. HISTORY: Short of air AP view was taken of the chest. Heart is normal in size. The aorta is tortuous. Lungs are free of infiltrates. There is thoracolumbar scoliosis. There is arthritis at the shoulders. IMPRESSION: 1. No acute infiltrates. Electronically signed by: Brett Vee MD (05/30/2020 12:55 PM) [id number]
[2020-05-30] MEDS ORDERED: 0.9 % SODIUM CHLORIDE 10 ML DISP.SYRIN. IV PRN ×2 (14:30)
[2020-05-30] MEDS ORDERED: BISACODYL 10 MG SUPP.RECT. PR PRN (14:30)
[2020-05-30] MEDS ORDERED: PROCHLORPERAZINE 25 MG SUPP.RECT. PR PRN (14:30)
[2020-05-30] MEDS ORDERED: ACETAMINOPHEN 325 MG TABLET. PO PRN (14:30)
[2020-05-30] MEDS ORDERED: HYDROCORTISONE SOD SUCC/PF 100 MG/2 ML VIAL. IV ONE (15:00)
[2020-05-30 16:25] LABS: BASE EXCESS COOX -4 mmol/L (-3-3); HCO3 COOX 22 mmol/L (21-28); METHEMOGLOBIN 0.5 % (0.0-1.9); OXYHEMOGLOBIN 93.8 %; PCO2 COOX 42 mmHg (35-46); PO2 COOX 76 mmHg (65-108); SAT O2 COOX 95 % (92-99)
[2020-05-30] MEDS ORDERED: IBUPROFEN 200 MG TABLET. PO PRN (16:30)
[2020-05-30] MEDS: COMBIVENT INHALER INH SCH ×2 (16:45→17:00)
--- NOTE | 2020-05-30 16:57 | NUR ---
Pt arrived on unit from ED by bed at approx 1555. Pt requiring 4 L O2 via NC, which is pt's home requirements. Pain currently rated at a 6 in pt's head. NS running @ 125 mL/hr. Pt requesting water at this time. Water and extra blankets given to pt. Will assume care of this pt and monitor closely.
--- NOTE | 2020-05-30 18:27 | NUR ---
This RN called STAT consult to Dr. Boss and spoke with him per telephone. Orders received to stop home medications Potassium, Aldactone, and Losartan. Orders also received to administer one amp of dextrose, followed by 10 units of regular insulin and change IV fluids to 1/2 NS with amp of sodium bicarb @ 150 mL/hr. Then in 3 hours after dextrose and insulin administration, obtain a STAT potassium and call Dr. Boss if not approved.
--- NOTE | 2020-05-30 18:36 | CONS ---
DATE OF CONSULTATION: PULMONARY CONSULTATION ATTENDING PHYSICIAN: Dr. Cortez. REASON FOR CONSULTATION: COPD, hypoxia. HISTORY OF PRESENT ILLNESS: The patient is an 79-year-old female who has smoked for 40 years, but she quit a long time ago. She was brought into the hospital after she had a rash over her upper part of the body. The patient is normally on oxygen at 3 liters. I did the consultation via telemedicine and the patient states that she is not short of breath. She denies any cough, no fever, no chills, no chest pains. She did have a rash in her upper chest, which I could see. Her chest x-ray was reviewed by me. There is no acute infiltrates. She never had any history of DVT or pulmonary embolism. She has been treated for UTI. PAST MEDICAL HISTORY: Significant for history of COPD, on home oxygen at 3 liters on a 24-hour basis. Currently on 4 liters at 99% saturation. History of normal ejection fraction of 60-65%, history of moderate aortic regurgitation, history of moderate pulmonary hypertension with pulmonary artery systolic pressure of 50, which is secondary. History of osteoarthritis. Hypertension and COPD. PAST SURGICAL HISTORY: Including cataract removal, mastectomy, hysterectomy. FAMILY HISTORY: Diabetes and hypertension. SOCIAL HISTORY: She quit tobacco long time ago, before that she smoked for 40 years. ALLERGIES: PENICILLIN, ASPIRIN, CODEINE, DOXYCYCLINE, AND TRAMADOL. MEDICATIONS: All reviewed as listed in the [facility]AD including heparin for DVT prophylaxis. PHYSICAL EXAMINATION: GENERAL: She is in no obvious respiratory distress. Saturation 99% on 4 liters. VITAL SIGNS: Blood pressure is stable 90/46 and this has been as high as 113 systolic, afebrile. HEENT: Sclerae nonicteric. She has no paradoxical breathing. Exam was mostly done via telemedicine. Her upper chest has a rash. LABORATORY DATA: Reviewed. ABGs with a pH of 7.34, pCO2 of 42 and a pO2 of 76, bicarbonate of 22 on 4 liters nasal cannula. Potassium 7.6. BUN 96 and creatinine of 2.7. IMPRESSION: 1. The patient with chronic hypoxic respiratory failure, on home oxygen at 3 liters and this is secondary to chronic obstructive pulmonary disease. She came into the hospital due to rash over her body. Clinically, her chronic obstructive pulmonary disease appears to be compensated. She can be weaned down to 3 liters of oxygen. 2. No evidence of any pneumonia. A chest x-ray was reviewed and was clear 3. Acute renal failure. Could be some chronic component and associated with hyperkalemia. Renal is following. 4. No history of pulmonary embolism or deep venous thrombosis. 5. Leukocytosis. RECOMMENDATIONS: 1. Discussed with RN. Discussed with the patient. At this time, pulmonary status stable. 2. We will keep her on 3 liters of oxygen. 3. Add bronchodilators. 4. Monitor white cell count and rash per Infectious Disease. 5. She did receive hydrocortisone and leukocytosis could be related to steroids. 6. We will follow as needed. CHELSIE CARMEN MD DR: GAVI/olivier JOB#: [id number] / [id number]
[2020-05-30] MEDS ORDERED: POLY17PO29 PO (19:26)
[2020-05-30] MEDS ORDERED: TAMS0.4C97 PO (19:26)
[2020-05-30] MEDS ORDERED: TRIA80OI TP (19:26)
[2020-05-30] MEDS ORDERED: ALPR0.254 PO (19:26)
[2020-05-30] MEDS ORDERED: DIPH25TA64 PO ×2 (19:26)
[2020-05-30] MEDS: diphenhydrAMINE HCL 25 MG CAPSULE PO SCH (19:56)
[2020-05-30] MEDS: BUDESONIDE 0.5 MG/2 ML NEBU. NEB SCH (20:18)
[2020-05-30] MEDS: IPRATRPIUM/ALBUTEROL 0.5/2.5MG 3 ML NEBU. NEB SCH (20:18)
[2020-05-30] MEDS: SODIUM BICARBONATE VIAL 50 MEQ in IV 1/2 NORMAL SALINE 1,000 ML IV SCH (20:42)
[2020-05-30 22:09] LABS: BILIRUBIN,URINE NEGATIVE (NEG); CLARITY,URINE CLEAR; COLOR,URINE YELLOW; NITRITE,URINE NEGATIVE (NEG); PROTEIN,URINE NEGATIVE (NEG-TRACE); UROBILINOGEN,URINE 0.2 mg/dL (0.2 mg/dL)
[2020-05-30] MEDS: FAMOTIDINE 20 MG/2 ML VIAL IVP SCH (22:10)
[2020-05-30] MEDS: DOCUSATE SODIUM 100 MG CAPSULE. PO SCH (22:14)
[2020-05-30] MEDS: HEPARIN for SUB-Q USE 5,000 UNIT/ML VIAL. SQ SCH (22:19)
[2020-05-30 22:24] LABS: BACTERIA,URINE 0 /HPF (0-FEW); HYALINE CASTS, URINE MODERATE /HPF; RBC,URINE 0 /HPF (0-2); WBC,URINE 0 /HPF (0-4); YEAST,URINE PRESENT /HPF
[2020-05-31] VITALS (13 sets, daily range): BP systolic 81–137; BP diastolic 32–57
[2020-05-31] MEDS: SODIUM BICARBONATE VIAL 50 MEQ in IV 1/2 NORMAL SALINE 1,000 ML IV SCH ×5 (05:20→21:56)
--- NOTE | 2020-05-31 05:30 | NUR ---
Right forearm swollen due to IV infiltration. 20g IV started left forearm on 1st attempt. "I had a mastectomy 30 years ago, just use this arm."
[2020-05-31 06:10] LABS: PROTHROMBIN TIME PATIENT 11.8 SEC (11.7-14.0)
[2020-05-31 06:17] LABS: ALBUMIN 2.7 g/dL (3.4-5.0); CALCIUM 8.4 mg/dL (8.5-10.1); CREATININE 1.6 mg/dL (0.6-1.0); TOTAL BILIRUBIN 0.6 mg/dL (0.2-1.0); TOTAL PROTEIN 5.4 g/dL (6.4-8.2)
[2020-05-31 06:19] LABS: POTASSIUM 5.9 mmol/L (3.5-5.1)
[2020-05-31] MEDS: HEPARIN for SUB-Q USE 5,000 UNIT/ML VIAL. SQ SCH ×3 (06:41→21:55)
--- NOTE | 2020-05-31 07:40 | NUR ---
IP: Pt adm with rash. Pt on abx due to ESBL in urine on 05/11/20. Pt to be in contact precautions.
[2020-05-31] MEDS: BUDESONIDE 0.5 MG/2 ML NEBU. NEB SCH ×2 (07:53→20:15)
[2020-05-31] MEDS: IPRATRPIUM/ALBUTEROL 0.5/2.5MG 3 ML NEBU. NEB SCH ×4 (07:53→20:15)
[2020-05-31 08:29] LABS: BASO # 0.1 x10^3/uL (0.0-0.2); BASO % 1 % (0-3); EOS # 0.2 x10^3/uL (0.0-0.7); EOS % 1 % (0-3); HEMATOCRIT 31.3 % (36.0-47.0); HEMOGLOBIN 10.5 g/dL (12.0-15.5); LYMPH # 0.4 x10^3/uL (1.0-4.8); LYMPH % 3 % (24-48); MEAN CORPUSCULAR HEMOGLOBIN 33 pg (25-35); MEAN CORPUSCULAR HGB CONC 34 g/dL (31-37); MEAN CORPUSCULAR VOLUME 98 fL (79-100); MONO # 0.4 x10^3/uL (0.0-1.1); MONO % 3 % (0-9); NEUT # 9.9 x10^3/uL (1.8-7.7); NEUT % 91 % (31-73); PLATELET COUNT 102 x10^3/uL (140-400); RED CELL DISTRIBUTION WIDTH 16.7 % (11.5-14.5); WHITE BLOOD COUNT 10.9 x10^3/uL (4.0-11.0)
--- NOTE | 2020-05-31 08:37 | PDOC ---
[employer] PROGRESS NOTE Date of Service DOS: DATE: 05/31/20 TIME: 08:32 Chief Complaint Chief Complaint Acute renal failure Hyperkalemia Metabolic encephalopathy Allergic reaction History of Present Illness History of Present Illness 05/31/20 Patient seen and examined in ICU Chart reviewed Discussed with RN Patient was making conversation pleasantly Some edema in her right arm due to a mastectomy 30 yrs ago Vitals/I&O Vitals/I&O: Vital Signs Date Time Temp Pulse Resp B/P (MAP) Pulse Ox O2 Delivery O2 Flow Rate FiO2 05/31/20 07:54 98 Nasal Cannula 3.0 05/31/20 06:15 84 18 108/48 (68) 05/30/20 23:15 98.2 98.2 I & O 05/30/20 05/30/20 05/31/20 15:00 23:00 07:00 Intake Total 1000 ml 1473 ml 1378 ml Output Total 350 ml 1100 ml Balance 1000 ml 1123 ml 278 ml Physical Exam General: Alert, Cooperative, mild distress, moderate distress Lungs: Clear Abdomen: Soft, No tenderness Extremities: No cyanosis, Normal pulses Labs Labs: Laboratory Tests Test 05/30/20 10:40 05/30/20 13:30 05/30/20 14:17 05/30/20 15:45 White Blood Count 22.6 x10^3/uL (4.0-11.0) Red Blood Count 4.07 x10^6/uL (3.50-5.40) Hemoglobin 12.9 g/dL (12.0-15.5) Hematocrit 39.7 % (36.0-47.0) Mean Corpuscular Volume 98 fL (79-100) Mean Corpuscular Hemoglobin 32 pg (25-35) Mean Corpuscular Hemoglobin Concent 33 g/dL (31-37) Red Cell Distribution Width 17.2 % (11.5-14.5) Platelet Count 147 x10^3/uL (140-400) Neutrophils (%) (Auto) 93 % (31-73) Lymphocytes (%) (Auto) 2 % (24-48) Monocytes (%) (Auto) 0 % (0-9) Eosinophils (%) (Auto) 5 % (0-3) Basophils (%) (Auto) 0 % (0-3) Neutrophils # (Auto) 21.0 x10^3/uL (1.8-7.7) Lymphocytes # (Auto) 0.5 x10^3/uL (1.0-4.8) Monocytes # (Auto) 0.0 x10^3/uL (0.0-1.1) Eosinophils # (Auto) 1.1 x10^3/uL (0.0-0.7) Basophils # (Auto) 0.1 x10^3/uL (0.0-0.2) Segmented Neutrophils % 91 % (35-66) Band Neutrophils % 6 % (0-9) Lymphocytes % 1 % (24-48) Monocytes % 2 % (0-10) Platelet Estimate Decreased (ADEQUATE) Large Platelets Occ Anisocytosis Slight Prothrombin Time 12.6 SEC (11.7-14.0) Prothromb Time International Ratio 1.0 (0.8-1.1) Activated Partial Thromboplast Time 29 SEC (24-38) D-Dimer (Kavya) 2.75 ug/mlFEU (0.00-0.50) Sodium Level 136 mmol/L (136-145) Potassium Level 7.6 mmol/L (3.5-5.1) 7.1 mmol/L (3.5-5.1) Chloride Level 101 mmol/L (98-107) Carbon Dioxide Level 28 mmol/L (21-32) Anion Gap 7 (6-14) Blood Urea Nitrogen 96 mg/dL (7-20) Creatinine 2.7 mg/dL (0.6-1.0) Estimated GFR (Cockcroft-Gault) 17.0 BUN/Creatinine Ratio 36 (6-20) Glucose Level 137 mg/dL (70-99) Calcium Level 9.2 mg/dL (8.5-10.1) Magnesium Level 2.1 mg/dL (1.8-2.4) Total Bilirubin 1.2 mg/dL (0.2-1.0) Aspartate Amino Transf (AST/SGOT) 11 U/L (15-37) Alanine Aminotransferase (ALT/SGPT) 16 U/L (14-59) Alkaline Phosphatase 91 U/L (46-116) Troponin I Quantitative < 0.017 ng/mL (0.000-0.055) JY-Nyp-P-Type Natriuretic Peptide 228 pg/mL (0-449) Total Protein 6.4 g/dL (6.4-8.2) Albumin 3.3 g/dL (3.4-5.0) Albumin/Globulin Ratio 1.1 (1.0-1.7) Procalcitonin 0.50 ng/mL (0.00-0.10) Thyroid Stimulating Hormone (TSH) 0.935 uIU/mL (0.358-3.74) Lactic Acid Level 2.8 mmol/L (0.4-2.0) 1.6 mmol/L (0.4-2.0) Phosphorus Level 5.0 mg/dL (2.6-4.7) Ammonia < 10 mcmol/L (11-34) Test 05/30/20 16:20 05/30/20 19:48 05/30/20 22:00 05/30/20 23:39 O2 Saturation 95 % (92-99) Arterial Blood pH 7.34 (7.35-7.45) Arterial Blood pCO2 at Patient Temp 42 mmHg (35-46) Arterial Blood pO2 at Patient Temp 76 mmHg (65-108) Arterial Blood HCO3 22 mmol/L (21-28) Arterial Blood Base Excess -4 mmol/L (-3-3) Oxyhemoglobin 93.8 % Methemoglobin 0.5 % (0.0-1.9) Carbon Monoxide, Quantitative 0.3 % (0.0-1.9) FiO2 4l nc Glucose (Fingerstick) 171 mg/dL (70-99) 159 mg/dL (70-99) Urine Collection Type Unknown Urine Color Yellow Urine Clarity Clear Urine pH 5.0 (<5.0-8.0) Urine Specific [place] 1.010 (1.000-1.030) Urine Protein Negative mg/dL (NEG-TRACE) Urine Glucose (UA) Negative mg/dL (NEG) Urine Ketones (Stick) Negative mg/dL (NEG) Urine Blood Negative (NEG) Urine Nitrite Negative (NEG) Urine Bilirubin Negative (NEG) Urine Urobilinogen Dipstick 0.2 mg/dL (0.2 mg/dL) Urine Leukocyte Esterase Negative (NEG) Urine RBC 0 /HPF (0-2) Urine WBC 0 /HPF (0-4) Urine Bacteria 0 /HPF (0-FEW) Urine Hyaline Casts Moderate /HPF Urine Mucus Slight /LPF Urine Yeast Present /HPF Test 05/30/20 23:40 05/31/20 03:08 05/31/20 05:10 05/31/20 07:35 Potassium Level 6.5 mmol/L (3.5-5.1) 5.9 mmol/L (3.5-5.1) Glucose (Fingerstick) 126 mg/dL (70-99) 112 mg/dL (70-99) Prothrombin Time 11.8 SEC (11.7-14.0) Prothromb Time International Ratio 0.9 (0.8-1.1) Activated Partial Thromboplast Time 28 SEC (24-38) Sodium Level 140 mmol/L (136-145) Chloride Level 106 mmol/L (98-107) Carbon Dioxide Level 27 mmol/L (21-32) Anion Gap 7 (6-14) Blood Urea Nitrogen 78 mg/dL (7-20) Creatinine 1.6 mg/dL (0.6-1.0) Estimated GFR (Cockcroft-Gault) 31.0 BUN/Creatinine Ratio 49 (6-20) Glucose Level 104 mg/dL (70-99) Calcium Level 8.4 mg/dL (8.5-10.1) Total Bilirubin 0.6 mg/dL (0.2-1.0) Aspartate Amino Transf (AST/SGOT) 11 U/L (15-37) Alanine Aminotransferase (ALT/SGPT) 13 U/L (14-59) Alkaline Phosphatase 77 U/L (46-116) Total Protein 5.4 g/dL (6.4-8.2) Albumin 2.7 g/dL (3.4-5.0) Albumin/Globulin Ratio 1.0 (1.0-1.7) Assessment and Plan Assessmemt and Plan Problems Medical Problems: (1) Acute renal failure (ARF) Status: Acute (2) Allergic reaction due to antibacterial drug Status: Acute (3) Hyperkalemia Status: Acute Assessment: Acute renal failure Hyperkalemia Metabolic encephalopathy Allergic reaction Plan: ICU monitoring Continue IV fluids PT/OT Full code Home meds DVT prophylaxis Trend labs Appreciate subspecialist input Comment Review of Relevant I have reviewed the following items cira (where applicable) has been applied. Medications: Current Medications Medications (Trade) Dose Ordered Sig/Samara Route PRN Reason Start Time Stop Time Status Last Admin Dose Admin Methylprednisolone Sodium Succinate (SOLU-Medrol 125MG VIAL) 125 mg 1X ONCE IV 05/30/20 10:45 05/30/20 10:46 DC 05/30/20 10:31 Diphenhydramine HCl (Benadryl) 25 mg 1X ONCE IVP 05/30/20 10:45 05/30/20 10:46 DC 05/30/20 10:27 Sodium Bicarbonate (Sodium Bicarb Adult 8.4% Syr) 50 meq 1X ONCE IV 05/30/20 11:15 05/30/20 11:16 DC 05/30/20 11:42 Sodium Chloride 1,000 ml @ 1,000 mls/hr 1X ONCE IV 05/30/20 11:30 05/30/20 12:29 DC 05/30/20 11:53 Dextrose (Dextrose 50%-Water Syringe) 25 gm 1X ONCE IV 05/30/20 11:30 05/30/20 11:31 DC 05/30/20 11:35 Insulin Human Regular (HumuLIN R VIAL) 10 unit 1X ONCE IV 05/30/20 11:45 05/30/20 11:46 DC 05/30/20 11:45 Albuterol Sulfate (Ventolin Neb Soln) 10 mg 1X ONCE CONT NEB 05/30/20 12:00 05/30/20 12:01 DC 05/30/20 12:09 Calcium Gluconate (Calcium Gluconate) 1,000 mg 1X ONCE IVP 05/30/20 12:30 05/30/20 12:31 DC 05/30/20 12:21 Sodium Chloride 1,000 ml @ 125 mls/hr Q8H IV 05/30/20 12:19 05/30/20 18:43 DC 05/30/20 12:30 Famotidine (Pepcid Vial) 20 mg QHS IVP 05/30/20 21:00 05/30/20 22:10 Heparin Sodium (Porcine) (Heparin Sodium) 5,000 unit Q8HRS SQ 05/30/20 22:00 05/31/20 06:41 Docusate Sodium (Colace) 100 mg BID PO 05/30/20 21:00 05/30/20 22:14 Sodium Chloride 1,000 ml @ 1,000 mls/hr 1X ONCE IV 05/30/20 14:30 05/30/20 15:29 DC 05/30/20 14:30 Hydrocortisone Sodium Succinate (Solu-CORTEF) 100 mg 1X ONCE IV 05/30/20 15:00 05/30/20 15:01 DC 05/30/20 18:03 Budesonide (Pulmicort) 0.5 mg RTBID NEB 05/30/20 20:00 05/31/20 07:53 Ibuprofen (Motrin) 200 mg PRN Q6HRS PRN PO INFLAMMATION 05/30/20 16:30 05/30/20 22:14 Dextrose (Dextrose 50%-Water Syringe) 25 gm 1X ONCE IV 05/30/20 18:45 05/30/20 18:46 DC 05/30/20 20:04 Sodium Bicarbonate 50 meq/Sodium Chloride 1,050 ml @ 150 mls/hr Q7H IV 05/30/20 19:00 05/31/20 05:20 Insulin Human Regular (HumuLIN R VIAL) 10 unit 1X ONCE IV 05/30/20 19:00 05/30/20 19:01 DC 05/30/20 20:41 Diphenhydramine HCl (Benadryl) 50 mg DAILY PO 05/30/20 20:00 05/30/20 19:56 Albuterol/ Ipratropium (Duoneb) 3 ml RTQID NEB 05/30/20 21:00 05/31/20 07:53 Justicifation of Admission Dx: Justifications for Admission: Justification of Admission Dx: Yes Acute COPD Exacerbation: Acute COPD Exacerbation HOA MOSS III DO May 31, 2020 08:37
[2020-05-31] MEDS: diphenhydrAMINE HCL 25 MG CAPSULE PO SCH (09:17)
[2020-05-31] MEDS: DOCUSATE SODIUM 100 MG CAPSULE. PO SCH ×2 (09:17→20:37)
--- NOTE | 2020-05-31 09:38 | NUR ---
Sodium Bicarb Fluids infusing since 0520 hours. I did not request another bag for 0900 hours. Patient is tolerating the fluids well - 150ml/hr Left Forearm.
--- NOTE | 2020-05-31 10:14 | PDOC ---
Infectious Disease Note Vital Signs: Vital Signs Vital Signs Date Time Temp Pulse Resp B/P (MAP) Pulse Ox O2 Delivery O2 Flow Rate FiO2 05/31/20 09:00 97.5 99 20 100/48 (65) 98 Nasal Cannula 3.0 97.5 Medications: Inpatient Meds: Current Medications Medications (Trade) Dose Ordered Sig/Samara Start Time Stop Time Status Last Admin Dose Admin Acetaminophen (Tylenol) 650 mg PRN Q6HRS PRN 05/30/20 14:30 Albuterol Sulfate (Ventolin Neb Soln) 10 mg 1X ONCE 05/30/20 12:00 05/30/20 12:01 DC 05/30/20 12:09 10 MG Albuterol/ Ipratropium (Duoneb) 3 ml RTQID 05/30/20 21:00 05/31/20 07:53 3 ML Bisacodyl (Dulcolax Supp) 10 mg PRN DAILY PRN 05/30/20 14:30 Budesonide (Pulmicort) 0.5 mg RTBID 05/30/20 20:00 05/31/20 07:53 0.5 MG Calcium Gluconate (Calcium Gluconate) 1,000 mg 1X ONCE 05/30/20 12:30 05/30/20 12:31 DC 05/30/20 12:21 1,000 MG Dextrose (Dextrose 50%-Water Syringe) 25 gm 1X ONCE 05/30/20 18:45 05/30/20 18:46 DC 05/30/20 20:04 25 GM Diphenhydramine HCl (Benadryl) 50 mg DAILY 05/30/20 20:00 05/31/20 09:17 50 MG Docusate Sodium (Colace) 100 mg BID 05/30/20 21:00 05/31/20 09:17 100 MG Famotidine (Pepcid Vial) 20 mg QHS 05/30/20 21:00 05/30/20 22:10 20 MG Heparin Sodium (Porcine) (Heparin Sodium) 5,000 unit Q8HRS 05/30/20 22:00 05/31/20 06:41 5,000 UNIT Hydrocortisone Sodium Succinate (Solu-CORTEF) 100 mg 1X ONCE 05/30/20 15:00 05/30/20 15:01 DC 05/30/20 18:03 100 MG Ibuprofen (Motrin) 200 mg PRN Q6HRS PRN 05/30/20 16:30 05/30/20 22:14 200 MG Insulin Human Regular (HumuLIN R VIAL) 10 unit 1X ONCE 05/30/20 19:00 05/30/20 19:01 DC 05/30/20 20:41 10 UNIT Methylprednisolone Sodium Succinate (SOLU-Medrol 125MG VIAL) 125 mg 1X ONCE 05/30/20 10:45 05/30/20 10:46 DC 05/30/20 10:31 125 MG Non-Formulary Medication 1 ea QID 05/30/20 16:45 05/30/20 21:02 DC Ondansetron HCl (Zofran) 4 mg PRN Q8HRS PRN 05/30/20 12:30 05/31/20 12:29 Prochlorperazine (Compazine) 25 mg PRN Q12HR PRN 05/30/20 14:30 Sodium Bicarbonate 50 meq/Sodium Chloride 1,050 ml @ 150 mls/hr Q7H 05/30/20 19:00 05/31/20 05:20 150 MLS/HR Sodium Bicarbonate (Sodium Bicarb Adult 8.4% Syr) 50 meq 1X ONCE 05/30/20 11:15 05/30/20 11:16 DC 05/30/20 11:42 50 MEQ Sodium Chloride (Normal Saline Flush) 10 ml QSHIFT PRN 05/30/20 14:30 Labs: Lab Laboratory Tests Test 05/30/20 10:40 05/30/20 13:30 05/30/20 14:17 05/30/20 15:45 White Blood Count 22.6 x10^3/uL (4.0-11.0) Red Blood Count 4.07 x10^6/uL (3.50-5.40) Hemoglobin 12.9 g/dL (12.0-15.5) Hematocrit 39.7 % (36.0-47.0) Mean Corpuscular Volume 98 fL (79-100) Mean Corpuscular Hemoglobin 32 pg (25-35) Mean Corpuscular Hemoglobin Concent 33 g/dL (31-37) Red Cell Distribution Width 17.2 % (11.5-14.5) Platelet Count 147 x10^3/uL (140-400) Neutrophils (%) (Auto) 93 % (31-73) Lymphocytes (%) (Auto) 2 % (24-48) Monocytes (%) (Auto) 0 % (0-9) Eosinophils (%) (Auto) 5 % (0-3) Basophils (%) (Auto) 0 % (0-3) Neutrophils # (Auto) 21.0 x10^3/uL (1.8-7.7) Lymphocytes # (Auto) 0.5 x10^3/uL (1.0-4.8) Monocytes # (Auto) 0.0 x10^3/uL (0.0-1.1) Eosinophils # (Auto) 1.1 x10^3/uL (0.0-0.7) Basophils # (Auto) 0.1 x10^3/uL (0.0-0.2) Segmented Neutrophils % 91 % (35-66) Band Neutrophils % 6 % (0-9) Lymphocytes % 1 % (24-48) Monocytes % 2 % (0-10) Platelet Estimate Decreased (ADEQUATE) Large Platelets Occ Anisocytosis Slight Prothrombin Time 12.6 SEC (11.7-14.0) Prothromb Time International Ratio 1.0 (0.8-1.1) Activated Partial Thromboplast Time 29 SEC (24-38) D-Dimer (Kavya) 2.75 ug/mlFEU (0.00-0.50) Sodium Level 136 mmol/L (136-145) Potassium Level 7.6 mmol/L (3.5-5.1) 7.1 mmol/L (3.5-5.1) Chloride Level 101 mmol/L (98-107) Carbon Dioxide Level 28 mmol/L (21-32) Anion Gap 7 (6-14) Blood Urea Nitrogen 96 mg/dL (7-20) Creatinine 2.7 mg/dL (0.6-1.0) Estimated GFR (Cockcroft-Gault) 17.0 BUN/Creatinine Ratio 36 (6-20) Glucose Level 137 mg/dL (70-99) Calcium Level 9.2 mg/dL (8.5-10.1) Magnesium Level 2.1 mg/dL (1.8-2.4) Total Bilirubin 1.2 mg/dL (0.2-1.0) Aspartate Amino Transf (AST/SGOT) 11 U/L (15-37) Alanine Aminotransferase (ALT/SGPT) 16 U/L (14-59) Alkaline Phosphatase 91 U/L (46-116) Troponin I Quantitative < 0.017 ng/mL (0.000-0.055) FF-Owr-R-Type Natriuretic Peptide 228 pg/mL (0-449) Total Protein 6.4 g/dL (6.4-8.2) Albumin 3.3 g/dL (3.4-5.0) Albumin/Globulin Ratio 1.1 (1.0-1.7) Procalcitonin 0.50 ng/mL (0.00-0.10) Thyroid Stimulating Hormone (TSH) 0.935 uIU/mL (0.358-3.74) Lactic Acid Level 2.8 mmol/L (0.4-2.0) 1.6 mmol/L (0.4-2.0) Phosphorus Level 5.0 mg/dL (2.6-4.7) Ammonia < 10 mcmol/L (11-34) Test 05/30/20 16:20 05/30/20 19:48 05/30/20 22:00 05/30/20 23:39 O2 Saturation 95 % (92-99) Arterial Blood pH 7.34 (7.35-7.45) Arterial Blood pCO2 at Patient Temp 42 mmHg (35-46) Arterial Blood pO2 at Patient Temp 76 mmHg (65-108) Arterial Blood HCO3 22 mmol/L (21-28) Arterial Blood Base Excess -4 mmol/L (-3-3) Oxyhemoglobin 93.8 % Methemoglobin 0.5 % (0.0-1.9) Carbon Monoxide, Quantitative 0.3 % (0.0-1.9) FiO2 4l nc Glucose (Fingerstick) 171 mg/dL (70-99) 159 mg/dL (70-99) Urine Collection Type Unknown Urine Color Yellow Urine Clarity Clear Urine pH 5.0 (<5.0-8.0) Urine Specific [place] 1.010 (1.000-1.030) Urine Protein Negative mg/dL (NEG-TRACE) Urine Glucose (UA) Negative mg/dL (NEG) Urine Ketones (Stick) Negative mg/dL (NEG) Urine Blood Negative (NEG) Urine Nitrite Negative (NEG) Urine Bilirubin Negative (NEG) Urine Urobilinogen Dipstick 0.2 mg/dL (0.2 mg/dL) Urine Leukocyte Esterase Negative (NEG) Urine RBC 0 /HPF (0-2) Urine WBC 0 /HPF (0-4) Urine Bacteria 0 /HPF (0-FEW) Urine Hyaline Casts Moderate /HPF Urine Mucus Slight /LPF Urine Yeast Present /HPF Test 05/30/20 23:40 05/31/20 03:08 05/31/20 05:10 05/31/20 07:35 Potassium Level 6.5 mmol/L (3.5-5.1) 5.9 mmol/L (3.5-5.1) Glucose (Fingerstick) 126 mg/dL (70-99) 112 mg/dL (70-99) Prothrombin Time 11.8 SEC (11.7-14.0) Prothromb Time International Ratio 0.9 (0.8-1.1) Activated Partial Thromboplast Time 28 SEC (24-38) Sodium Level 140 mmol/L (136-145) Chloride Level 106 mmol/L (98-107) Carbon Dioxide Level 27 mmol/L (21-32) Anion Gap 7 (6-14) Blood Urea Nitrogen 78 mg/dL (7-20) Creatinine 1.6 mg/dL (0.6-1.0) Estimated GFR (Cockcroft-Gault) 31.0 BUN/Creatinine Ratio 49 (6-20) Glucose Level 104 mg/dL (70-99) Calcium Level 8.4 mg/dL (8.5-10.1) Total Bilirubin 0.6 mg/dL (0.2-1.0) Aspartate Amino Transf (AST/SGOT) 11 U/L (15-37) Alanine Aminotransferase (ALT/SGPT) 13 U/L (14-59) Alkaline Phosphatase 77 U/L (46-116) Total Protein 5.4 g/dL (6.4-8.2) Albumin 2.7 g/dL (3.4-5.0) Albumin/Globulin Ratio 1.0 (1.0-1.7) Test 05/31/20 08:05 White Blood Count 10.9 x10^3/uL (4.0-11.0) Red Blood Count 3.20 x10^6/uL (3.50-5.40) Hemoglobin 10.5 g/dL (12.0-15.5) Hematocrit 31.3 % (36.0-47.0) Mean Corpuscular Volume 98 fL (79-100) Mean Corpuscular Hemoglobin 33 pg (25-35) Mean Corpuscular Hemoglobin Concent 34 g/dL (31-37) Red Cell Distribution Width 16.7 % (11.5-14.5) Platelet Count 102 x10^3/uL (140-400) Neutrophils (%) (Auto) 91 % (31-73) Lymphocytes (%) (Auto) 3 % (24-48) Monocytes (%) (Auto) 3 % (0-9) Eosinophils (%) (Auto) 1 % (0-3) Basophils (%) (Auto) 1 % (0-3) Neutrophils # (Auto) 9.9 x10^3/uL (1.8-7.7) Lymphocytes # (Auto) 0.4 x10^3/uL (1.0-4.8) Monocytes # (Auto) 0.4 x10^3/uL (0.0-1.1) Eosinophils # (Auto) 0.2 x10^3/uL (0.0-0.7) Basophils # (Auto) 0.1 x10^3/uL (0.0-0.2) Objective: Assessment: Patient seen and examined ID consult dictated Plan: Plan of Care [id number] Thank you BHUMIKA CESAR MD May 31, 2020 10:14
--- NOTE | 2020-05-31 10:15 | PDOC2 ---
CONSULT Date of Consult Date of Consult DATE: 05/31/20 TIME: 10:07 Reason for Consult Reason for Consult: SINGH AND HIGH K Referring Physician Referring Physician: RYLEE Identification/Chief Complaint Chief Complaint WEAKNESS Source Source: Chart review, Patient History of Present Illness Reason for Visit: THIS IS AN 79 YR OLD PT ADMITTED WITH WEAKNESS. SHE ALSO HAS A BODY RASH. FELT TO BE RELATED TO ANTIBIOTICS GIVEN FOR HER UTI. SHE HAS PROBLEMS WITH O2 DEPENDENT COPD AND WAS JUST DISCHARGED. NO CKD NOTED BUT ADMIT LABS INDICATED A K OF 7.6 AND A CR OF 2.6. APPETITE HAS BEEN POOR. NO N/V OR DIARRHEA. MEDS INCLUDE K SUPPLEMENTS, ALDACTONE AND AN ARB. STILL HAS SOB AND IS UNDERGOING PULM EVALUATION. NO OTHER HX REPORTED. Past Medical History Cardiovascular: HTN, Other Pulmonary: COPD, Pneumonia CENTRAL NERVOUS SYSTEM: Other GI: No pertinent hx Heme/Onc: No pertinent hx Hepatobiliary: No pertinent hx Psych: No pertinent hx Musculoskeletal: Osteoarthritis Infectious disease: No pertinent hx Renal/: No pertinent hx, UTI Endocrine: No pertinent hx Past Surgical History Past Surgical History: Cataract Removal, Mastectomy, Hysterectomy, Other Family History Family History: Diabetes, Hypertension Social History No ALCOHOL: none Drugs: None Lives: Alone Current Problem List Problem List Problems Medical Problems: (1) Acute renal failure (ARF) Status: Acute (2) Allergic reaction due to antibacterial drug Status: Acute (3) Hyperkalemia Status: Acute Current Medications Current Medications Current Medications Methylprednisolone Sodium Succinate (SOLU-Medrol 125MG VIAL) 125 mg 1X ONCE IV Last administered on 05/30/20at 10:31; Start 05/30/20 at 10:45; Stop 05/30/20 at 10:46; Status DC Diphenhydramine HCl (Benadryl) 25 mg 1X ONCE IVP Last administered on 05/30/20at 10:27; Start 05/30/20 at 10:45; Stop 05/30/20 at 10:46; Status DC Sodium Bicarbonate (Sodium Bicarb Adult 8.4% Syr) 50 meq 1X ONCE IV Last administered on 05/30/20at 11:42; Start 05/30/20 at 11:15; Stop 05/30/20 at 11:16; Status DC Sodium Chloride 1,000 ml @ 1,000 mls/hr 1X ONCE IV Last administered on 05/30/20at 11:53; Start 05/30/20 at 11:30; Stop 05/30/20 at 12:29; Status DC Dextrose (Dextrose 50%-Water Syringe) 25 gm 1X ONCE IV Last administered on 05/30/20at 11:35; Start 05/30/20 at 11:30; Stop 05/30/20 at 11:31; Status DC Insulin Human Regular (HumuLIN R VIAL) 10 unit 1X ONCE IV Last administered on 05/30/20at 11:45; Start 05/30/20 at 11:45; Stop 05/30/20 at 11:46; Status DC Albuterol Sulfate (Ventolin Neb Soln) 10 mg 1X ONCE CONT NEB Last administered on 05/30/20at 12:09; Start 05/30/20 at 12:00; Stop 05/30/20 at 12:01; Status DC Calcium Gluconate (Calcium Gluconate) 1,000 mg 1X ONCE IVP Last administered on 05/30/20at 12:21; Start 05/30/20 at 12:30; Stop 05/30/20 at 12:31; Status DC Ondansetron HCl (Zofran) 4 mg PRN Q8HRS PRN IV NAUSEA/VOMITING; Start 05/30/20 at 12:30; Stop 05/31/20 at 12:29 Sodium Chloride 1,000 ml @ 125 mls/hr Q8H IV Last administered on 05/30/20at 12:30; Start 05/30/20 at 12:19; Stop 05/30/20 at 18:43; Status DC Acetaminophen (Tylenol) 650 mg PRN Q6HRS PRN PO Headaches, Temp > 101.5'; Start 05/30/20 at 14:30 Prochlorperazine (Compazine) 25 mg PRN Q12HR PRN FL NAUSEA/VOMITING; Start 05/30/20 at 14:30 Famotidine (Pepcid Vial) 20 mg QHS IVP Last administered on 05/30/20at 22:10; Start 05/30/20 at 21:00 Heparin Sodium (Porcine) (Heparin Sodium) 5,000 unit Q8HRS SQ Last administered on 05/31/20at 06:41; Start 05/30/20 at 22:00 Sodium Chloride (Normal Saline Flush) 3 ml QSHIFT PRN IV AFTER MEDS AND BLOOD DRAWS; Start 05/30/20 at 14:30; Stop 05/30/20 at 14:40; Status DC Docusate Sodium (Colace) 100 mg BID PO Last administered on 05/31/20at 09:17; Start 05/30/20 at 21:00 Bisacodyl (Dulcolax Supp) 10 mg PRN DAILY PRN FL CONSTIPATION; Start 05/30/20 at 14:30 Sodium Chloride 1,000 ml @ 1,000 mls/hr 1X ONCE IV Last administered on 05/30/20at 14:30; Start 05/30/20 at 14:30; Stop 05/30/20 at 15:29; Status DC Sodium Chloride 1,000 ml @ 1,000 mls/hr 1X ONCE IV ; Start 05/30/20 at 14:45; Stop 05/30/20 at 15:44; Status DC Hydrocortisone Sodium Succinate (Solu-CORTEF) 100 mg 1X ONCE IV Last administered on 05/30/20at 18:03; Start 05/30/20 at 15:00; Stop 05/30/20 at 15:01; Status DC Sodium Chloride (Normal Saline Flush) 10 ml QSHIFT PRN IV AFTER MEDS AND BLOOD DRAWS; Start 05/30/20 at 14:30 Budesonide (Pulmicort) 0.5 mg RTBID NEB Last administered on 05/31/20at 07:53; Start 05/30/20 at 20:00 Non-Formulary Medication 1 ea QID INH ; Start 05/30/20 at 16:45; Stop 05/30/20 at 21:02; Status DC Ibuprofen (Motrin) 200 mg PRN Q6HRS PRN PO INFLAMMATION Last administered on 05/30/20at 22:14; Start 05/30/20 at 16:30 Dextrose (Dextrose 50%-Water Syringe) 25 gm 1X ONCE IV Last administered on 05/30/20at 20:04; Start 05/30/20 at 18:45; Stop 05/30/20 at 18:46; Status DC Insulin Human Regular (HumuLIN R VIAL) 10 unit 1X ONCE IV ; Start 05/30/20 at 19:00; Stop 05/30/20 at 18:48; Status DC Sodium Bicarbonate 50 meq/Sodium Chloride 1,050 ml @ 150 mls/hr Q7H IV Last administered on 05/31/20at 05:20; Start 05/30/20 at 19:00 Insulin Human Regular (HumuLIN R VIAL) 10 unit 1X ONCE IV ; Start 05/30/20 at 19:00; Stop 05/30/20 at 18:48; Status DC Insulin Human Regular (HumuLIN R VIAL) 10 unit 1X ONCE IV Last administered on 05/30/20at 20:41; Start 05/30/20 at 19:00; Stop 05/30/20 at 19:01; Status DC Diphenhydramine HCl (Benadryl) 50 mg DAILY PO Last administered on 05/31/20at 09:17; Start 05/30/20 at 20:00 Albuterol/ Ipratropium (Duoneb) 3 ml RTQID NEB Last administered on 05/31/20at 07:53; Start 05/30/20 at 21:00 Active Scripts Active Reported Alprazolam 0.25 Mg Tablet 0.25 Mg PO PRN Q12HRS PRN Miralax (Polyethylene Glycol 3350) 17 Gm Powd.pack 1 Packet PO DAILY 2 Days dissolve in water Flomax (Tamsulosin Hcl) 0.4 Mg Cap.er.24h 0.4 Mg PO DAILY Benadryl Allergy (Diphenhydramine Hcl) 25 Mg Tablet 25 Mg PO PRN Q6HRS PRN Benadryl Allergy (Diphenhydramine Hcl) 25 Mg Tablet 50 Mg PO DAILY Triamcinolone Acetonide 80 Gm Oint...g. 1 Jesus TP BID Tizanidine Hcl 4 Mg Tablet 2 Mg PO TID PRN Albuterol Sulfate Neb Soln (Albuterol Sulfate) 2.5 Mg/3 Ml Vial.neb 2.5 Mg NEB PRN Q4-6HRS PRN Trazodone Hcl 50 Mg Tablet 50 Mg PO HS Symbicort 160-4.5 Mcg Inhaler (Budesonide/Formoterol Fumarate) 10.2 Gm Hfa.aer.ad 2 Puff IH BID Prednisone 20 Mg Tablet 20 Mg PO DAILY Mirtazapine 45 Mg Tablet 45 Mg PO HS Furosemide 40 Mg Tablet 40 Mg PO BID Combivent Respimat Inhal (Ipratropium/Albuterol Sulfate) 4 Gm Aer.w.adap 1 Puff IH 5XDAY Lotrimin Af (Clotrimazole) 12 Gm Cream..g. 1 Jesus TP BID Amlodipine Besylate 10 Mg Tablet 10 Mg PO DAILY Allergies Allergies: Coded Allergies: Penicillins (Verified Allergy, Intermediate, 05/15/20) HAS TOLERATED ZOSYN I S O L A T I O N *CONTACT* (Verified Allergy, Unknown, 05/15/20) ESBL aspirin (Verified Allergy, Unknown, 05/12/20) codeine (Verified Allergy, Unknown, 05/12/20) doxycycline (Verified Allergy, Unknown, 05/12/20) tramadol (Verified Allergy, Unknown, 05/12/20) ROS General: YES: Fatigue, Malaise, Appetite PSYCHOLOGICAL ROS: YES: Anxiety Eyes: Yes Decreased vision HEENT: YES: [place] ALLERGY AND IMMUNOLOGY: YES: Seasonal Allergies Respiratory: YES: Cough, Shortness of breath Gastrointestinal: Yes Constipation Genitourinary: YES Incontinence Musculoskeletal: Yes Muscular Weakness Neurological: Yes Weakness Skin: Yes Rash Physical Exam General: Alert, Oriented X3, Cooperative, No acute distress HEENT: Atraumatic, PERRLA, EOMI, Other (DRY MUCOSA) Lungs: Clear to auscultation, Normal air movement Heart: Regular rate Abdomen: Normal bowel sounds, Soft, No tenderness Extremities: No cyanosis Neuro: Normal gait, Normal speech, Sensation intact Psych/Mental Status: Mental status NL, Mood NL MUSCULOSKELETAL: No joint tenderness, No deformity, No swelling Vitals VITALS Vital Signs Date Time Temp Pulse Resp B/P (MAP) Pulse Ox O2 Delivery O2 Flow Rate FiO2 05/31/20 09:00 97.5 99 20 100/48 (65) 98 Nasal Cannula 3.0 97.5 Labs Labs Laboratory Tests Test 05/30/20 10:40 05/30/20 13:30 05/30/20 14:17 05/30/20 15:45 White Blood Count 22.6 x10^3/uL (4.0-11.0) Red Blood Count 4.07 x10^6/uL (3.50-5.40) Hemoglobin 12.9 g/dL (12.0-15.5) Hematocrit 39.7 % (36.0-47.0) Mean Corpuscular Volume 98 fL (79-100) Mean Corpuscular Hemoglobin 32 pg (25-35) Mean Corpuscular Hemoglobin Concent 33 g/dL (31-37) Red Cell Distribution Width 17.2 % (11.5-14.5) Platelet Count 147 x10^3/uL (140-400) Neutrophils (%) (Auto) 93 % (31-73) Lymphocytes (%) (Auto) 2 % (24-48) Monocytes (%) (Auto) 0 % (0-9) Eosinophils (%) (Auto) 5 % (0-3) Basophils (%) (Auto) 0 % (0-3) Neutrophils # (Auto) 21.0 x10^3/uL (1.8-7.7) Lymphocytes # (Auto) 0.5 x10^3/uL (1.0-4.8) Monocytes # (Auto) 0.0 x10^3/uL (0.0-1.1) Eosinophils # (Auto) 1.1 x10^3/uL (0.0-0.7) Basophils # (Auto) 0.1 x10^3/uL (0.0-0.2) Segmented Neutrophils % 91 % (35-66) Band Neutrophils % 6 % (0-9) Lymphocytes % 1 % (24-48) Monocytes % 2 % (0-10) Platelet Estimate Decreased (ADEQUATE) Large Platelets Occ Anisocytosis Slight Prothrombin Time 12.6 SEC (11.7-14.0) Prothromb Time International Ratio 1.0 (0.8-1.1) Activated Partial Thromboplast Time 29 SEC (24-38) D-Dimer (Kavya) 2.75 ug/mlFEU (0.00-0.50) Sodium Level 136 mmol/L (136-145) Potassium Level 7.6 mmol/L (3.5-5.1) 7.1 mmol/L (3.5-5.1) Chloride Level 101 mmol/L (98-107) Carbon Dioxide Level 28 mmol/L (21-32) Anion Gap 7 (6-14) Blood Urea Nitrogen 96 mg/dL (7-20) Creatinine 2.7 mg/dL (0.6-1.0) Estimated GFR (Cockcroft-Gault) 17.0 BUN/Creatinine Ratio 36 (6-20) Glucose Level 137 mg/dL (70-99) Calcium Level 9.2 mg/dL (8.5-10.1) Magnesium Level 2.1 mg/dL (1.8-2.4) Total Bilirubin 1.2 mg/dL (0.2-1.0) Aspartate Amino Transf (AST/SGOT) 11 U/L (15-37) Alanine Aminotransferase (ALT/SGPT) 16 U/L (14-59) Alkaline Phosphatase 91 U/L (46-116) Troponin I Quantitative < 0.017 ng/mL (0.000-0.055) TU-Hzp-K-Type Natriuretic Peptide 228 pg/mL (0-449) Total Protein 6.4 g/dL (6.4-8.2) Albumin 3.3 g/dL (3.4-5.0) Albumin/Globulin Ratio 1.1 (1.0-1.7) Procalcitonin 0.50 ng/mL (0.00-0.10) Thyroid Stimulating Hormone (TSH) 0.935 uIU/mL (0.358-3.74) Lactic Acid Level 2.8 mmol/L (0.4-2.0) 1.6 mmol/L (0.4-2.0) Phosphorus Level 5.0 mg/dL (2.6-4.7) Ammonia < 10 mcmol/L (11-34) Test 05/30/20 16:20 05/30/20 19:48 05/30/20 22:00 05/30/20 23:39 O2 Saturation 95 % (92-99) Arterial Blood pH 7.34 (7.35-7.45) Arterial Blood pCO2 at Patient Temp 42 mmHg (35-46) Arterial Blood pO2 at Patient Temp 76 mmHg (65-108) Arterial Blood HCO3 22 mmol/L (21-28) Arterial Blood Base Excess -4 mmol/L (-3-3) Oxyhemoglobin 93.8 % Methemoglobin 0.5 % (0.0-1.9) Carbon Monoxide, Quantitative 0.3 % (0.0-1.9) FiO2 4l nc Glucose (Fingerstick) 171 mg/dL (70-99) 159 mg/dL (70-99) Urine Collection Type Unknown Urine Color Yellow Urine Clarity Clear Urine pH 5.0 (<5.0-8.0) Urine Specific [place] 1.010 (1.000-1.030) Urine Protein Negative mg/dL (NEG-TRACE) Urine Glucose (UA) Negative mg/dL (NEG) Urine Ketones (Stick) Negative mg/dL (NEG) Urine Blood Negative (NEG) Urine Nitrite Negative (NEG) Urine Bilirubin Negative (NEG) Urine Urobilinogen Dipstick 0.2 mg/dL (0.2 mg/dL) Urine Leukocyte Esterase Negative (NEG) Urine RBC 0 /HPF (0-2) Urine WBC 0 /HPF (0-4) Urine Bacteria 0 /HPF (0-FEW) Urine Hyaline Casts Moderate /HPF Urine Mucus Slight /LPF Urine Yeast Present /HPF Test 05/30/20 23:40 05/31/20 03:08 05/31/20 05:10 05/31/20 07:35 Potassium Level 6.5 mmol/L (3.5-5.1) 5.9 mmol/L (3.5-5.1) Glucose (Fingerstick) 126 mg/dL (70-99) 112 mg/dL (70-99) Prothrombin Time 11.8 SEC (11.7-14.0) Prothromb Time International Ratio 0.9 (0.8-1.1) Activated Partial Thromboplast Time 28 SEC (24-38) Sodium Level 140 mmol/L (136-145) Chloride Level 106 mmol/L (98-107) Carbon Dioxide Level 27 mmol/L (21-32) Anion Gap 7 (6-14) Blood Urea Nitrogen 78 mg/dL (7-20) Creatinine 1.6 mg/dL (0.6-1.0) Estimated GFR (Cockcroft-Gault) 31.0 BUN/Creatinine Ratio 49 (6-20) Glucose Level 104 mg/dL (70-99) Calcium Level 8.4 mg/dL (8.5-10.1) Total Bilirubin 0.6 mg/dL (0.2-1.0) Aspartate Amino Transf (AST/SGOT) 11 U/L (15-37) Alanine Aminotransferase (ALT/SGPT) 13 U/L (14-59) Alkaline Phosphatase 77 U/L (46-116) Total Protein 5.4 g/dL (6.4-8.2) Albumin 2.7 g/dL (3.4-5.0) Albumin/Globulin Ratio 1.0 (1.0-1.7) Test 05/31/20 08:05 White Blood Count 10.9 x10^3/uL (4.0-11.0) Red Blood Count 3.20 x10^6/uL (3.50-5.40) Hemoglobin 10.5 g/dL (12.0-15.5) Hematocrit 31.3 % (36.0-47.0) Mean Corpuscular Volume 98 fL (79-100) Mean Corpuscular Hemoglobin 33 pg (25-35) Mean Corpuscular Hemoglobin Concent 34 g/dL (31-37) Red Cell Distribution Width 16.7 % (11.5-14.5) Platelet Count 102 x10^3/uL (140-400) Neutrophils (%) (Auto) 91 % (31-73) Lymphocytes (%) (Auto) 3 % (24-48) Monocytes (%) (Auto) 3 % (0-9) Eosinophils (%) (Auto) 1 % (0-3) Basophils (%) (Auto) 1 % (0-3) Neutrophils # (Auto) 9.9 x10^3/uL (1.8-7.7) Lymphocytes # (Auto) 0.4 x10^3/uL (1.0-4.8) Monocytes # (Auto) 0.4 x10^3/uL (0.0-1.1) Eosinophils # (Auto) 0.2 x10^3/uL (0.0-0.7) Basophils # (Auto) 0.1 x10^3/uL (0.0-0.2) Laboratory Tests Test 05/30/20 10:40 05/30/20 13:30 05/30/20 14:17 05/30/20 15:45 White Blood Count 22.6 x10^3/uL (4.0-11.0) Red Blood Count 4.07 x10^6/uL (3.50-5.40) Hemoglobin 12.9 g/dL (12.0-15.5) Hematocrit 39.7 % (36.0-47.0) Mean Corpuscular Volume 98 fL (79-100) Mean Corpuscular Hemoglobin 32 pg (25-35) Mean Corpuscular Hemoglobin Concent 33 g/dL (31-37) Red Cell Distribution Width 17.2 % (11.5-14.5) Platelet Count 147 x10^3/uL (140-400) Neutrophils (%) (Auto) 93 % (31-73) Lymphocytes (%) (Auto) 2 % (24-48) Monocytes (%) (Auto) 0 % (0-9) Eosinophils (%) (Auto) 5 % (0-3) Basophils (%) (Auto) 0 % (0-3) Neutrophils # (Auto) 21.0 x10^3/uL (1.8-7.7) Lymphocytes # (Auto) 0.5 x10^3/uL (1.0-4.8) Monocytes # (Auto) 0.0 x10^3/uL (0.0-1.1) Eosinophils # (Auto) 1.1 x10^3/uL (0.0-0.7) Basophils # (Auto) 0.1 x10^3/uL (0.0-0.2) Segmented Neutrophils % 91 % (35-66) Band Neutrophils % 6 % (0-9) Lymphocytes % 1 % (24-48) Monocytes % 2 % (0-10) Platelet Estimate Decreased (ADEQUATE) Large Platelets Occ Anisocytosis Slight Prothrombin Time 12.6 SEC (11.7-14.0) Prothromb Time International Ratio 1.0 (0.8-1.1) Activated Partial Thromboplast Time 29 SEC (24-38) D-Dimer (Kavya) 2.75 ug/mlFEU (0.00-0.50) Sodium Level 136 mmol/L (136-145) Potassium Level 7.6 mmol/L (3.5-5.1) 7.1 mmol/L (3.5-5.1) Chloride Level 101 mmol/L (98-107) Carbon Dioxide Level 28 mmol/L (21-32) Anion Gap 7 (6-14) Blood Urea Nitrogen 96 mg/dL (7-20) Creatinine 2.7 mg/dL (0.6-1.0) Estimated GFR (Cockcroft-Gault) 17.0 BUN/Creatinine Ratio 36 (6-20) Glucose Level 137 mg/dL (70-99) Calcium Level 9.2 mg/dL (8.5-10.1) Magnesium Level 2.1 mg/dL (1.8-2.4) Total Bilirubin 1.2 mg/dL (0.2-1.0) Aspartate Amino Transf (AST/SGOT) 11 U/L (15-37) Alanine Aminotransferase (ALT/SGPT) 16 U/L (14-59) Alkaline Phosphatase 91 U/L (46-116) Troponin I Quantitative < 0.017 ng/mL (0.000-0.055) JQ-Zie-B-Type Natriuretic Peptide 228 pg/mL (0-449) Total Protein 6.4 g/dL (6.4-8.2) Albumin 3.3 g/dL (3.4-5.0) Albumin/Globulin Ratio 1.1 (1.0-1.7) Procalcitonin 0.50 ng/mL (0.00-0.10) Thyroid Stimulating Hormone (TSH) 0.935 uIU/mL (0.358-3.74) Lactic Acid Level 2.8 mmol/L (0.4-2.0) 1.6 mmol/L (0.4-2.0) Phosphorus Level 5.0 mg/dL (2.6-4.7) Ammonia < 10 mcmol/L (11-34) Test 05/30/20 16:20 05/30/20 19:48 05/30/20 22:00 05/30/20 23:39 O2 Saturation 95 % (92-99) Arterial Blood pH 7.34 (7.35-7.45) Arterial Blood pCO2 at Patient Temp 42 mmHg (35-46) Arterial Blood pO2 at Patient Temp 76 mmHg (65-108) Arterial Blood HCO3 22 mmol/L (21-28) Arterial Blood Base Excess -4 mmol/L (-3-3) Oxyhemoglobin 93.8 % Methemoglobin 0.5 % (0.0-1.9) Carbon Monoxide, Quantitative 0.3 % (0.0-1.9) FiO2 4l nc Glucose (Fingerstick) 171 mg/dL (70-99) 159 mg/dL (70-99) Urine Collection Type Unknown Urine Color Yellow Urine Clarity Clear Urine pH 5.0 (<5.0-8.0) Urine Specific [place] 1.010 (1.000-1.030) Urine Protein Negative mg/dL (NEG-TRACE) Urine Glucose (UA) Negative mg/dL (NEG) Urine Ketones (Stick) Negative mg/dL (NEG) Urine Blood Negative (NEG) Urine Nitrite Negative (NEG) Urine Bilirubin Negative (NEG) Urine Urobilinogen Dipstick 0.2 mg/dL (0.2 mg/dL) Urine Leukocyte Esterase Negative (NEG) Urine RBC 0 /HPF (0-2) Urine WBC 0 /HPF (0-4) Urine Bacteria 0 /HPF (0-FEW) Urine Hyaline Casts Moderate /HPF Urine Mucus Slight /LPF Urine Yeast Present /HPF Test 05/30/20 23:40 05/31/20 03:08 05/31/20 05:10 05/31/20 07:35 Potassium Level 6.5 mmol/L (3.5-5.1) 5.9 mmol/L (3.5-5.1) Glucose (Fingerstick) 126 mg/dL (70-99) 112 mg/dL (70-99) Prothrombin Time 11.8 SEC (11.7-14.0) Prothromb Time International Ratio 0.9 (0.8-1.1) Activated Partial Thromboplast Time 28 SEC (24-38) Sodium Level 140 mmol/L (136-145) Chloride Level 106 mmol/L (98-107) Carbon Dioxide Level 27 mmol/L (21-32) Anion Gap 7 (6-14) Blood Urea Nitrogen 78 mg/dL (7-20) Creatinine 1.6 mg/dL (0.6-1.0) Estimated GFR (Cockcroft-Gault) 31.0 BUN/Creatinine Ratio 49 (6-20) Glucose Level 104 mg/dL (70-99) Calcium Level 8.4 mg/dL (8.5-10.1) Total Bilirubin 0.6 mg/dL (0.2-1.0) Aspartate Amino Transf (AST/SGOT) 11 U/L (15-37) Alanine Aminotransferase (ALT/SGPT) 13 U/L (14-59) Alkaline Phosphatase 77 U/L (46-116) Total Protein 5.4 g/dL (6.4-8.2) Albumin 2.7 g/dL (3.4-5.0) Albumin/Globulin Ratio 1.0 (1.0-1.7) Test 05/31/20 08:05 White Blood Count 10.9 x10^3/uL (4.0-11.0) Red Blood Count 3.20 x10^6/uL (3.50-5.40) Hemoglobin 10.5 g/dL (12.0-15.5) Hematocrit 31.3 % (36.0-47.0) Mean Corpuscular Volume 98 fL (79-100) Mean Corpuscular Hemoglobin 33 pg (25-35) Mean Corpuscular Hemoglobin Concent 34 g/dL (31-37) Red Cell Distribution Width 16.7 % (11.5-14.5) Platelet Count 102 x10^3/uL (140-400) Neutrophils (%) (Auto) 91 % (31-73) Lymphocytes (%) (Auto) 3 % (24-48) Monocytes (%) (Auto) 3 % (0-9) Eosinophils (%) (Auto) 1 % (0-3) Basophils (%) (Auto) 1 % (0-3) Neutrophils # (Auto) 9.9 x10^3/uL (1.8-7.7) Lymphocytes # (Auto) 0.4 x10^3/uL (1.0-4.8) Monocytes # (Auto) 0.4 x10^3/uL (0.0-1.1) Eosinophils # (Auto) 0.2 x10^3/uL (0.0-0.7) Basophils # (Auto) 0.1 x10^3/uL (0.0-0.2) Assessment/Plan Assessment/Plan IMP LIFE THREATENING HYPERKALEMIA EXTRACELLULAR VOLUME DEPLETION SINGH-POSSIBLE ATN ACUTE ON CHRONIC HYPOXIC RESP FAILURE LEUCOCYTOSIS RECENT UTI SKIN RASH-PROB ALLERGIC RXN TO ABX PLAN AFTER D/W ED PHYSICIAN-PT GIVEN CA, D50, INSULIN AND HCO3 REPEAT LABS THROUGH OUT THE NIGHT WAS DONE WITH K DECREASING HYDRATION WITHHOLD K SUPPLEMENTS HOLD ARB AND ALDACTONE WILL FOLLOW NIKKI TARANGO MD May 31, 2020 10:15
--- NOTE | 2020-05-31 10:39 | PDOC ---
PULMONARY PROGRESS NOTES DATE: 05/31/20 TIME: 10:36 Subjective no higinio on 2 litres baseline Vitals Vital Signs Date Time Temp Pulse Resp B/P (MAP) Pulse Ox O2 Delivery O2 Flow Rate FiO2 05/31/20 09:00 97.5 99 20 100/48 (65) 98 Nasal Cannula 3.0 97.5 General: Alert, No acute distress Lungs: Clear Cardiovascular: S1 Abdomen: Soft Neuro Exam: Alert Extremities: No Edema, Other (rash improving) Labs Laboratory Tests Test 05/30/20 10:40 05/30/20 13:30 05/30/20 14:17 05/30/20 15:45 White Blood Count 22.6 x10^3/uL (4.0-11.0) Red Blood Count 4.07 x10^6/uL (3.50-5.40) Hemoglobin 12.9 g/dL (12.0-15.5) Hematocrit 39.7 % (36.0-47.0) Mean Corpuscular Volume 98 fL (79-100) Mean Corpuscular Hemoglobin 32 pg (25-35) Mean Corpuscular Hemoglobin Concent 33 g/dL (31-37) Red Cell Distribution Width 17.2 % (11.5-14.5) Platelet Count 147 x10^3/uL (140-400) Neutrophils (%) (Auto) 93 % (31-73) Lymphocytes (%) (Auto) 2 % (24-48) Monocytes (%) (Auto) 0 % (0-9) Eosinophils (%) (Auto) 5 % (0-3) Basophils (%) (Auto) 0 % (0-3) Neutrophils # (Auto) 21.0 x10^3/uL (1.8-7.7) Lymphocytes # (Auto) 0.5 x10^3/uL (1.0-4.8) Monocytes # (Auto) 0.0 x10^3/uL (0.0-1.1) Eosinophils # (Auto) 1.1 x10^3/uL (0.0-0.7) Basophils # (Auto) 0.1 x10^3/uL (0.0-0.2) Segmented Neutrophils % 91 % (35-66) Band Neutrophils % 6 % (0-9) Lymphocytes % 1 % (24-48) Monocytes % 2 % (0-10) Platelet Estimate Decreased (ADEQUATE) Large Platelets Occ Anisocytosis Slight Prothrombin Time 12.6 SEC (11.7-14.0) Prothromb Time International Ratio 1.0 (0.8-1.1) Activated Partial Thromboplast Time 29 SEC (24-38) D-Dimer (Kavya) 2.75 ug/mlFEU (0.00-0.50) Sodium Level 136 mmol/L (136-145) Potassium Level 7.6 mmol/L (3.5-5.1) 7.1 mmol/L (3.5-5.1) Chloride Level 101 mmol/L (98-107) Carbon Dioxide Level 28 mmol/L (21-32) Anion Gap 7 (6-14) Blood Urea Nitrogen 96 mg/dL (7-20) Creatinine 2.7 mg/dL (0.6-1.0) Estimated GFR (Cockcroft-Gault) 17.0 BUN/Creatinine Ratio 36 (6-20) Glucose Level 137 mg/dL (70-99) Calcium Level 9.2 mg/dL (8.5-10.1) Magnesium Level 2.1 mg/dL (1.8-2.4) Total Bilirubin 1.2 mg/dL (0.2-1.0) Aspartate Amino Transf (AST/SGOT) 11 U/L (15-37) Alanine Aminotransferase (ALT/SGPT) 16 U/L (14-59) Alkaline Phosphatase 91 U/L (46-116) Troponin I Quantitative < 0.017 ng/mL (0.000-0.055) VH-Zpj-F-Type Natriuretic Peptide 228 pg/mL (0-449) Total Protein 6.4 g/dL (6.4-8.2) Albumin 3.3 g/dL (3.4-5.0) Albumin/Globulin Ratio 1.1 (1.0-1.7) Procalcitonin 0.50 ng/mL (0.00-0.10) Thyroid Stimulating Hormone (TSH) 0.935 uIU/mL (0.358-3.74) Lactic Acid Level 2.8 mmol/L (0.4-2.0) 1.6 mmol/L (0.4-2.0) Phosphorus Level 5.0 mg/dL (2.6-4.7) Ammonia < 10 mcmol/L (11-34) Test 05/30/20 16:20 05/30/20 19:48 05/30/20 22:00 05/30/20 23:39 O2 Saturation 95 % (92-99) Arterial Blood pH 7.34 (7.35-7.45) Arterial Blood pCO2 at Patient Temp 42 mmHg (35-46) Arterial Blood pO2 at Patient Temp 76 mmHg (65-108) Arterial Blood HCO3 22 mmol/L (21-28) Arterial Blood Base Excess -4 mmol/L (-3-3) Oxyhemoglobin 93.8 % Methemoglobin 0.5 % (0.0-1.9) Carbon Monoxide, Quantitative 0.3 % (0.0-1.9) FiO2 4l nc Glucose (Fingerstick) 171 mg/dL (70-99) 159 mg/dL (70-99) Urine Collection Type Unknown Urine Color Yellow Urine Clarity Clear Urine pH 5.0 (<5.0-8.0) Urine Specific [place] 1.010 (1.000-1.030) Urine Protein Negative mg/dL (NEG-TRACE) Urine Glucose (UA) Negative mg/dL (NEG) Urine Ketones (Stick) Negative mg/dL (NEG) Urine Blood Negative (NEG) Urine Nitrite Negative (NEG) Urine Bilirubin Negative (NEG) Urine Urobilinogen Dipstick 0.2 mg/dL (0.2 mg/dL) Urine Leukocyte Esterase Negative (NEG) Urine RBC 0 /HPF (0-2) Urine WBC 0 /HPF (0-4) Urine Bacteria 0 /HPF (0-FEW) Urine Hyaline Casts Moderate /HPF Urine Mucus Slight /LPF Urine Yeast Present /HPF Test 05/30/20 23:40 05/31/20 03:08 05/31/20 05:10 05/31/20 07:35 Potassium Level 6.5 mmol/L (3.5-5.1) 5.9 mmol/L (3.5-5.1) Glucose (Fingerstick) 126 mg/dL (70-99) 112 mg/dL (70-99) Prothrombin Time 11.8 SEC (11.7-14.0) Prothromb Time International Ratio 0.9 (0.8-1.1) Activated Partial Thromboplast Time 28 SEC (24-38) Sodium Level 140 mmol/L (136-145) Chloride Level 106 mmol/L (98-107) Carbon Dioxide Level 27 mmol/L (21-32) Anion Gap 7 (6-14) Blood Urea Nitrogen 78 mg/dL (7-20) Creatinine 1.6 mg/dL (0.6-1.0) Estimated GFR (Cockcroft-Gault) 31.0 BUN/Creatinine Ratio 49 (6-20) Glucose Level 104 mg/dL (70-99) Calcium Level 8.4 mg/dL (8.5-10.1) Total Bilirubin 0.6 mg/dL (0.2-1.0) Aspartate Amino Transf (AST/SGOT) 11 U/L (15-37) Alanine Aminotransferase (ALT/SGPT) 13 U/L (14-59) Alkaline Phosphatase 77 U/L (46-116) Total Protein 5.4 g/dL (6.4-8.2) Albumin 2.7 g/dL (3.4-5.0) Albumin/Globulin Ratio 1.0 (1.0-1.7) Test 05/31/20 08:05 White Blood Count 10.9 x10^3/uL (4.0-11.0) Red Blood Count 3.20 x10^6/uL (3.50-5.40) Hemoglobin 10.5 g/dL (12.0-15.5) Hematocrit 31.3 % (36.0-47.0) Mean Corpuscular Volume 98 fL (79-100) Mean Corpuscular Hemoglobin 33 pg (25-35) Mean Corpuscular Hemoglobin Concent 34 g/dL (31-37) Red Cell Distribution Width 16.7 % (11.5-14.5) Platelet Count 102 x10^3/uL (140-400) Neutrophils (%) (Auto) 91 % (31-73) Lymphocytes (%) (Auto) 3 % (24-48) Monocytes (%) (Auto) 3 % (0-9) Eosinophils (%) (Auto) 1 % (0-3) Basophils (%) (Auto) 1 % (0-3) Neutrophils # (Auto) 9.9 x10^3/uL (1.8-7.7) Lymphocytes # (Auto) 0.4 x10^3/uL (1.0-4.8) Monocytes # (Auto) 0.4 x10^3/uL (0.0-1.1) Eosinophils # (Auto) 0.2 x10^3/uL (0.0-0.7) Basophils # (Auto) 0.1 x10^3/uL (0.0-0.2) Laboratory Tests Test 05/30/20 10:40 05/30/20 13:30 05/30/20 14:17 05/30/20 15:45 White Blood Count 22.6 x10^3/uL (4.0-11.0) Red Blood Count 4.07 x10^6/uL (3.50-5.40) Hemoglobin 12.9 g/dL (12.0-15.5) Hematocrit 39.7 % (36.0-47.0) Mean Corpuscular Volume 98 fL (79-100) Mean Corpuscular Hemoglobin 32 pg (25-35) Mean Corpuscular Hemoglobin Concent 33 g/dL (31-37) Red Cell Distribution Width 17.2 % (11.5-14.5) Platelet Count 147 x10^3/uL (140-400) Neutrophils (%) (Auto) 93 % (31-73) Lymphocytes (%) (Auto) 2 % (24-48) Monocytes (%) (Auto) 0 % (0-9) Eosinophils (%) (Auto) 5 % (0-3) Basophils (%) (Auto) 0 % (0-3) Neutrophils # (Auto) 21.0 x10^3/uL (1.8-7.7) Lymphocytes # (Auto) 0.5 x10^3/uL (1.0-4.8) Monocytes # (Auto) 0.0 x10^3/uL (0.0-1.1) Eosinophils # (Auto) 1.1 x10^3/uL (0.0-0.7) Basophils # (Auto) 0.1 x10^3/uL (0.0-0.2) Segmented Neutrophils % 91 % (35-66) Band Neutrophils % 6 % (0-9) Lymphocytes % 1 % (24-48) Monocytes % 2 % (0-10) Platelet Estimate Decreased (ADEQUATE) Large Platelets Occ Anisocytosis Slight Prothrombin Time 12.6 SEC (11.7-14.0) Prothromb Time International Ratio 1.0 (0.8-1.1) Activated Partial Thromboplast Time 29 SEC (24-38) D-Dimer (Kavya) 2.75 ug/mlFEU (0.00-0.50) Sodium Level 136 mmol/L (136-145) Potassium Level 7.6 mmol/L (3.5-5.1) 7.1 mmol/L (3.5-5.1) Chloride Level 101 mmol/L (98-107) Carbon Dioxide Level 28 mmol/L (21-32) Anion Gap 7 (6-14) Blood Urea Nitrogen 96 mg/dL (7-20) Creatinine 2.7 mg/dL (0.6-1.0) Estimated GFR (Cockcroft-Gault) 17.0 BUN/Creatinine Ratio 36 (6-20) Glucose Level 137 mg/dL (70-99) Calcium Level 9.2 mg/dL (8.5-10.1) Magnesium Level 2.1 mg/dL (1.8-2.4) Total Bilirubin 1.2 mg/dL (0.2-1.0) Aspartate Amino Transf (AST/SGOT) 11 U/L (15-37) Alanine Aminotransferase (ALT/SGPT) 16 U/L (14-59) Alkaline Phosphatase 91 U/L (46-116) Troponin I Quantitative < 0.017 ng/mL (0.000-0.055) ZC-Efm-M-Type Natriuretic Peptide 228 pg/mL (0-449) Total Protein 6.4 g/dL (6.4-8.2) Albumin 3.3 g/dL (3.4-5.0) Albumin/Globulin Ratio 1.1 (1.0-1.7) Procalcitonin 0.50 ng/mL (0.00-0.10) Thyroid Stimulating Hormone (TSH) 0.935 uIU/mL (0.358-3.74) Lactic Acid Level 2.8 mmol/L (0.4-2.0) 1.6 mmol/L (0.4-2.0) Phosphorus Level 5.0 mg/dL (2.6-4.7) Ammonia < 10 mcmol/L (11-34) Test 05/30/20 16:20 05/30/20 19:48 05/30/20 22:00 05/30/20 23:39 O2 Saturation 95 % (92-99) Arterial Blood pH 7.34 (7.35-7.45) Arterial Blood pCO2 at Patient Temp 42 mmHg (35-46) Arterial Blood pO2 at Patient Temp 76 mmHg (65-108) Arterial Blood HCO3 22 mmol/L (21-28) Arterial Blood Base Excess -4 mmol/L (-3-3) Oxyhemoglobin 93.8 % Methemoglobin 0.5 % (0.0-1.9) Carbon Monoxide, Quantitative 0.3 % (0.0-1.9) FiO2 4l nc Glucose (Fingerstick) 171 mg/dL (70-99) 159 mg/dL (70-99) Urine Collection Type Unknown Urine Color Yellow Urine Clarity Clear Urine pH 5.0 (<5.0-8.0) Urine Specific [place] 1.010 (1.000-1.030) Urine Protein Negative mg/dL (NEG-TRACE) Urine Glucose (UA) Negative mg/dL (NEG) Urine Ketones (Stick) Negative mg/dL (NEG) Urine Blood Negative (NEG) Urine Nitrite Negative (NEG) Urine Bilirubin Negative (NEG) Urine Urobilinogen Dipstick 0.2 mg/dL (0.2 mg/dL) Urine Leukocyte Esterase Negative (NEG) Urine RBC 0 /HPF (0-2) Urine WBC 0 /HPF (0-4) Urine Bacteria 0 /HPF (0-FEW) Urine Hyaline Casts Moderate /HPF Urine Mucus Slight /LPF Urine Yeast Present /HPF Test 05/30/20 23:40 05/31/20 03:08 05/31/20 05:10 05/31/20 07:35 Potassium Level 6.5 mmol/L (3.5-5.1) 5.9 mmol/L (3.5-5.1) Glucose (Fingerstick) 126 mg/dL (70-99) 112 mg/dL (70-99) Prothrombin Time 11.8 SEC (11.7-14.0) Prothromb Time International Ratio 0.9 (0.8-1.1) Activated Partial Thromboplast Time 28 SEC (24-38) Sodium Level 140 mmol/L (136-145) Chloride Level 106 mmol/L (98-107) Carbon Dioxide Level 27 mmol/L (21-32) Anion Gap 7 (6-14) Blood Urea Nitrogen 78 mg/dL (7-20) Creatinine 1.6 mg/dL (0.6-1.0) Estimated GFR (Cockcroft-Gault) 31.0 BUN/Creatinine Ratio 49 (6-20) Glucose Level 104 mg/dL (70-99) Calcium Level 8.4 mg/dL (8.5-10.1) Total Bilirubin 0.6 mg/dL (0.2-1.0) Aspartate Amino Transf (AST/SGOT) 11 U/L (15-37) Alanine Aminotransferase (ALT/SGPT) 13 U/L (14-59) Alkaline Phosphatase 77 U/L (46-116) Total Protein 5.4 g/dL (6.4-8.2) Albumin 2.7 g/dL (3.4-5.0) Albumin/Globulin Ratio 1.0 (1.0-1.7) Test 05/31/20 08:05 White Blood Count 10.9 x10^3/uL (4.0-11.0) Red Blood Count 3.20 x10^6/uL (3.50-5.40) Hemoglobin 10.5 g/dL (12.0-15.5) Hematocrit 31.3 % (36.0-47.0) Mean Corpuscular Volume 98 fL (79-100) Mean Corpuscular Hemoglobin 33 pg (25-35) Mean Corpuscular Hemoglobin Concent 34 g/dL (31-37) Red Cell Distribution Width 16.7 % (11.5-14.5) Platelet Count 102 x10^3/uL (140-400) Neutrophils (%) (Auto) 91 % (31-73) Lymphocytes (%) (Auto) 3 % (24-48) Monocytes (%) (Auto) 3 % (0-9) Eosinophils (%) (Auto) 1 % (0-3) Basophils (%) (Auto) 1 % (0-3) Neutrophils # (Auto) 9.9 x10^3/uL (1.8-7.7) Lymphocytes # (Auto) 0.4 x10^3/uL (1.0-4.8) Monocytes # (Auto) 0.4 x10^3/uL (0.0-1.1) Eosinophils # (Auto) 0.2 x10^3/uL (0.0-0.7) Basophils # (Auto) 0.1 x10^3/uL (0.0-0.2) Medications Active Scripts Medications Dose Route/Sig Max Daily Dose Days Date Category Dose Instructions Alprazolam 0.25 Mg Tablet 0.25 Mg PO PRN Q12HRS PRN 05/30/20 Reported Miralax (Polyethylene Glycol 3350) 17 Gm Powd.pack 1 Packet PO DAILY 2 05/30/20 Reported dissolve in water Flomax (Tamsulosin Hcl) 0.4 Mg Cap.er.24h 0.4 Mg PO DAILY 05/30/20 Reported Benadryl Allergy (Diphenhydramine Hcl) 25 Mg Tablet 25 Mg PO PRN Q6HRS PRN 05/30/20 Reported Benadryl Allergy (Diphenhydramine Hcl) 25 Mg Tablet 50 Mg PO DAILY 05/30/20 Reported Triamcinolone Acetonide 80 Gm Oint...g. 1 Jesus TP BID 05/30/20 Reported Tizanidine Hcl 4 Mg Tablet 2 Mg PO TID PRN 05/12/20 Reported Albuterol Sulfate Neb Soln (Albuterol Sulfate) 2.5 Mg/3 Ml Vial.neb 2.5 Mg NEB PRN Q4-6HRS PRN 05/12/20 Reported Trazodone Hcl 50 Mg Tablet 50 Mg PO HS 05/12/20 Reported Symbicort 160-4.5 Mcg Inhaler (Budesonide/Formoterol Fumarate) 10.2 Gm Hfa.aer.ad 2 Puff IH BID 05/12/20 Reported Prednisone 20 Mg Tablet 20 Mg PO DAILY 05/12/20 Reported Mirtazapine 45 Mg Tablet 45 Mg PO HS 05/12/20 Reported Furosemide 40 Mg Tablet 40 Mg PO BID 05/12/20 Reported Combivent Respimat Inhal (Ipratropium/Albuterol Sulfate) 4 Gm Aer.w.adap 1 Puff IH 5XDAY 05/12/20 Reported Lotrimin Af (Clotrimazole) 12 Gm Cream..g. 1 Jesus TP BID 05/12/20 Reported Amlodipine Besylate 10 Mg Tablet 10 Mg PO DAILY 05/12/20 Reported Impression . 1. The patient with chronic hypoxic respiratory failure, on home oxygen at 3 liters and this is secondary to chronic obstructive pulmonary disease. She came into the hospital due to rash over her body. Clinically, her chronic obstructive pulmonary disease appears to be compensated. 2. No evidence of any pneumonia. A chest x-ray was reviewed and was clear 3. Acute renal failure. Could be some chronic component and associated with hyperkalemia. Renal is following. 4. No history of pulmonary embolism or deep venous thrombosis. 5. Leukocytosis. 6. Rash / per PCP Plan . RECOMMENDATIONS: 1. Discussed with RN. Discussed with the patient. At this time, pulmonary status stable. 2. We will keep her on 3 liters of oxygen. 3. bronchodilators. 4. Monitor white cell count and rash per Infectious Disease. 5. She did receive hydrocortisone and leukocytosis could be related to steroids. 6. follow renal function 7. Rash per PCP will see as needed. CHELSIE CARMEN MD May 31, 2020 10:39
--- NOTE | 2020-05-31 11:05 | CONS ---
DATE OF CONSULTATION: 05/31/2020 REFERRING PHYSICIAN: Dr. Cortez. REASON FOR CONSULTATION: Leukocytosis. HISTORY OF PRESENT ILLNESS: Ms Lawler is a 79-year-old female who was sent to [facility] from the assisted due to trouble breathing and rash all over her body. The patient has chronic hypoxic respiratory failure, on home O2, had noticed a rash all over her body, which started a couple of days prior to admission. She was treated with some antibiotic for urinary tract infection. She got steroids, Benadryl at the assisted, but since it continued to progress, she was sent here for further evaluation and treatment. The patient denies any fevers, chills, nausea, vomiting, diarrhea, abdominal pain, oral sores, eye sores, difficulty with vision, genital sores. The patient also has cough, which is chronic. Upon presentation, the patient was found to have leukocytosis, remained afebrile, remains on 3 liters of O2 by nasal cannula, which is baseline per patient. ID consult has been requested for further evaluation and treatment. PAST MEDICAL HISTORY: Hypertension, chronic respiratory failure on home O2, osteoarthritis, history of urinary tract infection, history of right mastectomy. PAST SURGICAL HISTORY: Cataract removal, mastectomy, hysterectomy. FAMILY HISTORY: As per HPI. SOCIAL HISTORY: Denies smoking, ETOH or illicit drug use. [facility] resident. CURRENT MEDICATIONS: Antibiotics none. The patient did get methylprednisolone once in the ER, was on prednisone and Benadryl at the assisted. ALLERGIES: PENICILLIN, has tolerated Zosyn. ASPIRIN, CODEINE, DOXYCYCLINE, UNKNOWN REACTION AND TRAMADOL. REVIEW OF SYSTEMS: Negative except for above in HPI. PHYSICAL EXAMINATION: VITAL SIGNS: Temperature 97.5, pulse 99, respiratory rate 20, blood pressure 100/48, oxygen saturation 98% on 3 liters by nasal cannula. GENERAL: Alert, oriented x 3, female, in bed comfortably, in no acute distress, on O2 by nasal cannula. HEENT: Anicteric, no conjunctival petechiae. No oral lesions seen. Pupils equally reactive. Extraocular movements intact. Oral mucosa moist. No thrush. No oral lesions. No lip lesions. NECK: Supple, no JVD, no lymphadenopathy. LUNGS: Clear bilaterally except for decreased breath sounds at the bases. Few scattered rhonchi. No accessory muscle use. HEART: S1, S2. No gallops or murmurs. ABDOMEN: Soft, nontender, nondistended, no rebound, no guarding. EXTREMITIES: No cyanosis. Edema over right upper extremity, chronic. DERMATOLOGY: Diffuse maculopapular rash all over the body, mainly the upper extremity, abdomen, chest, back, lower extremity. No open wounds noted. NEUROLOGIC: Alert, oriented x 3. PSYCHIATRIC: Slightly anxious, otherwise appropriate. LABORATORY DATA: WBC 10.9, was 22.6, hemoglobin 10.5, was 12.9, platelets 102, was 147. Eosinophils were 5. Sodium 140, potassium 5.9, was 6.5, chloride 106, bicarbonate 27, BUN 28, creatinine 1.6, glucose 104. Lactate 1.6. Ammonia normal. Phosphorus 5. LFTs within normal limits. Albumin 2.7. UA is negative. IMAGING: Chest x-ray, no acute infiltrate. IMPRESSION: 1. Leukocytosis, likely from steroids. 2. Dermatitis appears drug induced allergic reaction. 3. Eosinophilia likely from drug induced. 4. Chronic hypoxic respiratory failure, on home O2. 5. Acute kidney injury with hyperkalemia. 6. Hypertension. 7. Metabolic encephalopathy, improving. RECOMMENDATIONS: Continue observation off antibiotics. Continue local care. Follow up cultures and lab. Continue supportive care. Thank you for consulting Infectious Disease to participate in this patient's care. If you have any questions, do not hesitate to contact me. BHUMIKA CESAR MD DR: MARCIAL/olivier JOB#: [id number] / [id number] BLAYNE
[2020-05-31 12:08] LABS: CALCIUM 8.2 mg/dL (8.5-10.1); CREATININE 1.4 mg/dL (0.6-1.0); GFR 36.2
[2020-05-31 12:20] LABS: POTASSIUM 5.8 mmol/L (3.5-5.1)
--- NOTE | 2020-05-31 13:37 | NUR ---
Patient refused to be turned at 12pm and 1pm.
--- NOTE | 2020-05-31 15:59 | NUR ---
Wound Care Wound Type/Assessment: Consult for multiple wounds present on admission. Stage III pressure ulcer to midline coccyx. No other open areas noted on head to toe inspection. Feet are warm and dark red/purple with lymphedema and dry flaky skin. No openings noted. Applied lotion and nonskid socks. Treatment Recommendations/Plan: Hydrocolloid and foam dressing to coccyx. Education provided: Encouraged pt to change position to help wound to coccyx heal, bt pt is very resistant to changing position because of pain in her legs. Offloading surface/device: ICU bed Follow up 06/06
--- NOTE | 2020-05-31 16:35 | NUR ---
Report given for transfer - patient moved from 103 to 504 for [employer]. Patient's Glucose 83 ; Patient's Sodium Bicarbonate Fluid is still running from 1407 hours. Non-administered next dose at 1600 hours since fluids is still running at 150/hr volume 690 ml at transfer.
[2020-05-31] MEDS: FAMOTIDINE 20 MG/2 ML VIAL IVP SCH (20:37)
[2020-06-01 02:39] VITALS: BP 93/40
[2020-06-01] MEDS: SODIUM BICARBONATE VIAL 50 MEQ in IV 1/2 NORMAL SALINE 1,000 ML IV SCH (06:00)
[2020-06-01] MEDS: HEPARIN for SUB-Q USE 5,000 UNIT/ML VIAL. SQ SCH ×3 (06:00→22:00)
[2020-06-01 07:15] VITALS: BP 119/43
[2020-06-01] MEDS: IPRATRPIUM/ALBUTEROL 0.5/2.5MG 3 ML NEBU. NEB SCH ×4 (07:18→20:33)
[2020-06-01] MEDS: BUDESONIDE 0.5 MG/2 ML NEBU. NEB SCH ×2 (07:19→20:33)
--- NOTE | 2020-06-01 08:01 | PDOC ---
PROGRESS NOTES Date of Service: DATE: 06/01/20 TIME: 07:59 Chief Complaint Chief Complaint IMPRESSION Acute renal failure Hyperkalemia, IMPROVING Metabolic encephalopathy Allergic reaction Extended-spectrum beta-lactamase Escherichia coli on 05/11, meropenem started on the ANTIBIOTIC ALLERGIES LISTED PENICILLIN, but tolerated Zosyn, Rocephin, doxycycline, does not remember reaction. Respiratory failure, suspect chronic obstructive pulmonary UTI hypercapnic respiratory failure HX Sepsis due to ESBL UTI anxiety HX URINARY RETENTION RECENT echo c/w moderate aortic regurgitation. mild tricuspid regurgitation with an estimated PAP of 50 mmHg. c/w moderate pulmonary hypertension 39 MIN PT EXAM, CHART REVIEW, > 50% of time spent with exam, chart review, pt care coordination History of Present Illness History of Present Illness 06/01/20 Patient seen and examined Chart reviewed Discussed with RN Patient was making conversation pleasantly Some edema in her right arm due to a mastectomy 30 yrs ago CR BETTER AT 1.1 06/01, MORE ALERT DEC IV RATE 06/01 50/HR Identification/Chief Complaint Chief Complaint SEEN IN ER WITH RASH, ACUTE SEVERE RENAL FAILURE 79 year old female who was sent here from detention due to trouble breathing, rash all over her body. Patient has history of COPD, she is on oxygen at home all the time. Patient is currently on some form of antibiotic for urinary tract infection. Patient was noted to have some rash in her genital area in her abdomen area yesterday, however it became widespread this morning so she was sent here for evaluation. Patient denies any fever, denies any chest pain. Patient says she only had a cough and still has trouble breathing because of COPD. recently admitted to hospital last month for COPD exacerbation. 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 Past Medical History Cardiovascular: HTN, Other Pulmonary: COPD, Pneumonia CENTRAL NERVOUS SYSTEM: Other GI: No pertinent hx Heme/Onc: No pertinent hx Hepatobiliary: No pertinent hx Psych: No pertinent hx Musculoskeletal: Osteoarthritis Infectious disease: No pertinent hx Renal/: No pertinent hx, UTI Endocrine: No pertinent hx Past Surgical History Past Surgical History: Cataract Removal, Mastectomy, Hysterectomy, Other Family History Family History: Diabetes, Hypertension Social History Smoke: No ALCOHOL: none Drugs: None Vitals Vitals Vital Signs Date Time Temp Pulse Resp B/P (MAP) Pulse Ox O2 Delivery O2 Flow Rate FiO2 06/01/20 02:39 98.0 85 26 93/40 (57) 95 Nasal Cannula 3.0 98.0 Physical Exam General: Alert, Oriented X3, Cooperative, No acute distress Heart: Regular rate Lungs: Clear Abdomen: Normal bowel sounds, Soft, No tenderness Extremities: No cyanosis Labs LABS * Good Learning Preferences * One-on-One Instruction Factors Facilitating Goal Achievement * Motivation level * Prior level of function * Response to training Problem List (body system elements) * Impaired fnctnl mobility * Strength * Balance * Age * Knowledge-safe techniques * Skin Integrity * Pain Clinical Presentation * Evolving Evaluation Complexity Level * Moderate Complexity Pt/caregiver agrees with plan of care/goals * Yes Patient condition at conclusion of therapy * Pt in chair * Call light in reach * PtIn no apparent distress * Pt denies further needs Communicated Patient Care With (Name, Title) * Kayleen RN; BLAS Kaplan Goal 1 - Bed Mobility Assistance Required * Independent Goal 2 - Transfers Assistance Required * Contact Guard Assist Goal 2 - Transfer Type * Stand-Pivot Treatment Plan * Therapeutic Exercise * Bed Mobility Training * Transfer training Frequency of Treatment Expected * 6 visits/week Duration of Treatment Expected * 2 weeks Discharge Recommendations * Care Home Unit RDERED: BCULT Procedure Result BLOOD CULTURE Preliminary NO GROWTH AFTER 1 DAY Laboratory Tests Test 05/31/20 08:05 05/31/20 11:31 05/31/20 11:40 05/31/20 16:33 White Blood Count 10.9 x10^3/uL (4.0-11.0) Red Blood Count 3.20 x10^6/uL (3.50-5.40) Hemoglobin 10.5 g/dL (12.0-15.5) Hematocrit 31.3 % (36.0-47.0) Mean Corpuscular Volume 98 fL (79-100) Mean Corpuscular Hemoglobin 33 pg (25-35) Mean Corpuscular Hemoglobin Concent 34 g/dL (31-37) Red Cell Distribution Width 16.7 % (11.5-14.5) Platelet Count 102 x10^3/uL (140-400) Neutrophils (%) (Auto) 91 % (31-73) Lymphocytes (%) (Auto) 3 % (24-48) Monocytes (%) (Auto) 3 % (0-9) Eosinophils (%) (Auto) 1 % (0-3) Basophils (%) (Auto) 1 % (0-3) Neutrophils # (Auto) 9.9 x10^3/uL (1.8-7.7) Lymphocytes # (Auto) 0.4 x10^3/uL (1.0-4.8) Monocytes # (Auto) 0.4 x10^3/uL (0.0-1.1) Eosinophils # (Auto) 0.2 x10^3/uL (0.0-0.7) Basophils # (Auto) 0.1 x10^3/uL (0.0-0.2) Glucose (Fingerstick) 127 mg/dL (70-99) 82 mg/dL (70-99) Sodium Level 142 mmol/L (136-145) Potassium Level 5.8 mmol/L (3.5-5.1) Chloride Level 106 mmol/L (98-107) Carbon Dioxide Level 32 mmol/L (21-32) Anion Gap 4 (6-14) Blood Urea Nitrogen 73 mg/dL (7-20) Creatinine 1.4 mg/dL (0.6-1.0) Estimated GFR (Cockcroft-Gault) 36.2 Glucose Level 118 mg/dL (70-99) Calcium Level 8.2 mg/dL (8.5-10.1) Test 05/31/20 20:10 06/01/20 07:28 Glucose (Fingerstick) 110 mg/dL (70-99) 69 mg/dL (70-99) Assessment and Plan Assessmemt and Plan Problems Medical Problems: (1) Acute renal failure (ARF) Status: Acute (2) Allergic reaction due to antibacterial drug Status: Acute (3) Hyperkalemia Status: Acute Comment Review of Relevant I have reviewed the following items cira (where applicable) has been applied. Labs Laboratory Tests Test 05/30/20 10:40 05/30/20 13:30 05/30/20 14:17 05/30/20 15:45 White Blood Count 22.6 x10^3/uL (4.0-11.0) Red Blood Count 4.07 x10^6/uL (3.50-5.40) Hemoglobin 12.9 g/dL (12.0-15.5) Hematocrit 39.7 % (36.0-47.0) Mean Corpuscular Volume 98 fL (79-100) Mean Corpuscular Hemoglobin 32 pg (25-35) Mean Corpuscular Hemoglobin Concent 33 g/dL (31-37) Red Cell Distribution Width 17.2 % (11.5-14.5) Platelet Count 147 x10^3/uL (140-400) Neutrophils (%) (Auto) 93 % (31-73) Lymphocytes (%) (Auto) 2 % (24-48) Monocytes (%) (Auto) 0 % (0-9) Eosinophils (%) (Auto) 5 % (0-3) Basophils (%) (Auto) 0 % (0-3) Neutrophils # (Auto) 21.0 x10^3/uL (1.8-7.7) Lymphocytes # (Auto) 0.5 x10^3/uL (1.0-4.8) Monocytes # (Auto) 0.0 x10^3/uL (0.0-1.1) Eosinophils # (Auto) 1.1 x10^3/uL (0.0-0.7) Basophils # (Auto) 0.1 x10^3/uL (0.0-0.2) Segmented Neutrophils % 91 % (35-66) Band Neutrophils % 6 % (0-9) Lymphocytes % 1 % (24-48) Monocytes % 2 % (0-10) Platelet Estimate Decreased (ADEQUATE) Large Platelets Occ Anisocytosis Slight Prothrombin Time 12.6 SEC (11.7-14.0) Prothromb Time International Ratio 1.0 (0.8-1.1) Activated Partial Thromboplast Time 29 SEC (24-38) D-Dimer (Kavya) 2.75 ug/mlFEU (0.00-0.50) Sodium Level 136 mmol/L (136-145) Potassium Level 7.6 mmol/L (3.5-5.1) 7.1 mmol/L (3.5-5.1) Chloride Level 101 mmol/L (98-107) Carbon Dioxide Level 28 mmol/L (21-32) Anion Gap 7 (6-14) Blood Urea Nitrogen 96 mg/dL (7-20) Creatinine 2.7 mg/dL (0.6-1.0) Estimated GFR (Cockcroft-Gault) 17.0 BUN/Creatinine Ratio 36 (6-20) Glucose Level 137 mg/dL (70-99) Calcium Level 9.2 mg/dL (8.5-10.1) Magnesium Level 2.1 mg/dL (1.8-2.4) Total Bilirubin 1.2 mg/dL (0.2-1.0) Aspartate Amino Transf (AST/SGOT) 11 U/L (15-37) Alanine Aminotransferase (ALT/SGPT) 16 U/L (14-59) Alkaline Phosphatase 91 U/L (46-116) Troponin I Quantitative < 0.017 ng/mL (0.000-0.055) IK-Bam-N-Type Natriuretic Peptide 228 pg/mL (0-449) Total Protein 6.4 g/dL (6.4-8.2) Albumin 3.3 g/dL (3.4-5.0) Albumin/Globulin Ratio 1.1 (1.0-1.7) Procalcitonin 0.50 ng/mL (0.00-0.10) Thyroid Stimulating Hormone (TSH) 0.935 uIU/mL (0.358-3.74) Lactic Acid Level 2.8 mmol/L (0.4-2.0) 1.6 mmol/L (0.4-2.0) Phosphorus Level 5.0 mg/dL (2.6-4.7) Ammonia < 10 mcmol/L (11-34) Test 05/30/20 16:20 05/30/20 19:48 05/30/20 22:00 05/30/20 23:39 O2 Saturation 95 % (92-99) Arterial Blood pH 7.34 (7.35-7.45) Arterial Blood pCO2 at Patient Temp 42 mmHg (35-46) Arterial Blood pO2 at Patient Temp 76 mmHg (65-108) Arterial Blood HCO3 22 mmol/L (21-28) Arterial Blood Base Excess -4 mmol/L (-3-3) Oxyhemoglobin 93.8 % Methemoglobin 0.5 % (0.0-1.9) Carbon Monoxide, Quantitative 0.3 % (0.0-1.9) FiO2 4l nc Glucose (Fingerstick) 171 mg/dL (70-99) 159 mg/dL (70-99) Urine Collection Type Unknown Urine Color Yellow Urine Clarity Clear Urine pH 5.0 (<5.0-8.0) Urine Specific [place] 1.010 (1.000-1.030) Urine Protein Negative mg/dL (NEG-TRACE) Urine Glucose (UA) Negative mg/dL (NEG) Urine Ketones (Stick) Negative mg/dL (NEG) Urine Blood Negative (NEG) Urine Nitrite Negative (NEG) Urine Bilirubin Negative (NEG) Urine Urobilinogen Dipstick 0.2 mg/dL (0.2 mg/dL) Urine Leukocyte Esterase Negative (NEG) Urine RBC 0 /HPF (0-2) Urine WBC 0 /HPF (0-4) Urine Bacteria 0 /HPF (0-FEW) Urine Hyaline Casts Moderate /HPF Urine Mucus Slight /LPF Urine Yeast Present /HPF Test 05/30/20 23:40 05/31/20 03:08 05/31/20 05:10 05/31/20 07:35 Potassium Level 6.5 mmol/L (3.5-5.1) 5.9 mmol/L (3.5-5.1) Glucose (Fingerstick) 126 mg/dL (70-99) 112 mg/dL (70-99) Prothrombin Time 11.8 SEC (11.7-14.0) Prothromb Time International Ratio 0.9 (0.8-1.1) Activated Partial Thromboplast Time 28 SEC (24-38) Sodium Level 140 mmol/L (136-145) Chloride Level 106 mmol/L (98-107) Carbon Dioxide Level 27 mmol/L (21-32) Anion Gap 7 (6-14) Blood Urea Nitrogen 78 mg/dL (7-20) Creatinine 1.6 mg/dL (0.6-1.0) Estimated GFR (Cockcroft-Gault) 31.0 BUN/Creatinine Ratio 49 (6-20) Glucose Level 104 mg/dL (70-99) Calcium Level 8.4 mg/dL (8.5-10.1) Total Bilirubin 0.6 mg/dL (0.2-1.0) Aspartate Amino Transf (AST/SGOT) 11 U/L (15-37) Alanine Aminotransferase (ALT/SGPT) 13 U/L (14-59) Alkaline Phosphatase 77 U/L (46-116) Total Protein 5.4 g/dL (6.4-8.2) Albumin 2.7 g/dL (3.4-5.0) Albumin/Globulin Ratio 1.0 (1.0-1.7) Test 05/31/20 08:05 05/31/20 11:31 05/31/20 11:40 05/31/20 16:33 White Blood Count 10.9 x10^3/uL (4.0-11.0) Red Blood Count 3.20 x10^6/uL (3.50-5.40) Hemoglobin 10.5 g/dL (12.0-15.5) Hematocrit 31.3 % (36.0-47.0) Mean Corpuscular Volume 98 fL (79-100) Mean Corpuscular Hemoglobin 33 pg (25-35) Mean Corpuscular Hemoglobin Concent 34 g/dL (31-37) Red Cell Distribution Width 16.7 % (11.5-14.5) Platelet Count 102 x10^3/uL (140-400) Neutrophils (%) (Auto) 91 % (31-73) Lymphocytes (%) (Auto) 3 % (24-48) Monocytes (%) (Auto) 3 % (0-9) Eosinophils (%) (Auto) 1 % (0-3) Basophils (%) (Auto) 1 % (0-3) Neutrophils # (Auto) 9.9 x10^3/uL (1.8-7.7) Lymphocytes # (Auto) 0.4 x10^3/uL (1.0-4.8) Monocytes # (Auto) 0.4 x10^3/uL (0.0-1.1) Eosinophils # (Auto) 0.2 x10^3/uL (0.0-0.7) Basophils # (Auto) 0.1 x10^3/uL (0.0-0.2) Glucose (Fingerstick) 127 mg/dL (70-99) 82 mg/dL (70-99) Sodium Level 142 mmol/L (136-145) Potassium Level 5.8 mmol/L (3.5-5.1) Chloride Level 106 mmol/L (98-107) Carbon Dioxide Level 32 mmol/L (21-32) Anion Gap 4 (6-14) Blood Urea Nitrogen 73 mg/dL (7-20) Creatinine 1.4 mg/dL (0.6-1.0) Estimated GFR (Cockcroft-Gault) 36.2 Glucose Level 118 mg/dL (70-99) Calcium Level 8.2 mg/dL (8.5-10.1) Test 05/31/20 20:10 06/01/20 07:28 Glucose (Fingerstick) 110 mg/dL (70-99) 69 mg/dL (70-99) Laboratory Tests Test 05/31/20 08:05 05/31/20 11:31 05/31/20 11:40 05/31/20 16:33 White Blood Count 10.9 x10^3/uL (4.0-11.0) Red Blood Count 3.20 x10^6/uL (3.50-5.40) Hemoglobin 10.5 g/dL (12.0-15.5) Hematocrit 31.3 % (36.0-47.0) Mean Corpuscular Volume 98 fL (79-100) Mean Corpuscular Hemoglobin 33 pg (25-35) Mean Corpuscular Hemoglobin Concent 34 g/dL (31-37) Red Cell Distribution Width 16.7 % (11.5-14.5) Platelet Count 102 x10^3/uL (140-400) Neutrophils (%) (Auto) 91 % (31-73) Lymphocytes (%) (Auto) 3 % (24-48) Monocytes (%) (Auto) 3 % (0-9) Eosinophils (%) (Auto) 1 % (0-3) Basophils (%) (Auto) 1 % (0-3) Neutrophils # (Auto) 9.9 x10^3/uL (1.8-7.7) Lymphocytes # (Auto) 0.4 x10^3/uL (1.0-4.8) Monocytes # (Auto) 0.4 x10^3/uL (0.0-1.1) Eosinophils # (Auto) 0.2 x10^3/uL (0.0-0.7) Basophils # (Auto) 0.1 x10^3/uL (0.0-0.2) Glucose (Fingerstick) 127 mg/dL (70-99) 82 mg/dL (70-99) Sodium Level 142 mmol/L (136-145) Potassium Level 5.8 mmol/L (3.5-5.1) Chloride Level 106 mmol/L (98-107) Carbon Dioxide Level 32 mmol/L (21-32) Anion Gap 4 (6-14) Blood Urea Nitrogen 73 mg/dL (7-20) Creatinine 1.4 mg/dL (0.6-1.0) Estimated GFR (Cockcroft-Gault) 36.2 Glucose Level 118 mg/dL (70-99) Calcium Level 8.2 mg/dL (8.5-10.1) Test 05/31/20 20:10 06/01/20 07:28 Glucose (Fingerstick) 110 mg/dL (70-99) 69 mg/dL (70-99) Microbiology 05/30/20 Blood Culture - Preliminary, Resulted NO GROWTH AFTER 1 DAY Medications Current Medications Methylprednisolone Sodium Succinate (SOLU-Medrol 125MG VIAL) 125 mg 1X ONCE IV Last administered on 05/30/20at 10:31; Start 05/30/20 at 10:45; Stop 05/30/20 at 10:46; Status DC Diphenhydramine HCl (Benadryl) 25 mg 1X ONCE IVP Last administered on 05/30/20at 10:27; Start 05/30/20 at 10:45; Stop 05/30/20 at 10:46; Status DC Sodium Bicarbonate (Sodium Bicarb Adult 8.4% Syr) 50 meq 1X ONCE IV Last administered on 05/30/20at 11:42; Start 05/30/20 at 11:15; Stop 05/30/20 at 11:16; Status DC Sodium Chloride 1,000 ml @ 1,000 mls/hr 1X ONCE IV Last administered on 05/30at 11:53; Start 05/30/20 at 11:30; Stop 05/30/20 at 12:29; Status DC Dextrose (Dextrose 50%-Water Syringe) 25 gm 1X ONCE IV Last administered on 05/30/20at 11:35; Start 05/30/20 at 11:30; Stop 05/30/20 at 11:31; Status DC Insulin Human Regular (HumuLIN R VIAL) 10 unit 1X ONCE IV Last administered on 05/30/20at 11:45; Start 05/30/20 at 11:45; Stop 05/30/20 at 11:46; Status DC Albuterol Sulfate (Ventolin Neb Soln) 10 mg 1X ONCE CONT NEB Last administered on 05/30/20at 12:09; Start 05/30/20 at 12:00; Stop 05/30/20 at 12:01; Status DC Calcium Gluconate (Calcium Gluconate) 1,000 mg 1X ONCE IVP Last administered on 05/30/20at 12:21; Start 05/30/20 at 12:30; Stop 05/30/20 at 12:31; Status DC Ondansetron HCl (Zofran) 4 mg PRN Q8HRS PRN IV NAUSEA/VOMITING; Start 05/30/20 at 12:30; Stop 05/31/20 at 12:29; Status DC Sodium Chloride 1,000 ml @ 125 mls/hr Q8H IV Last administered on 05/30/20at 12:30; Start 05/30/20 at 12:19; Stop 05/30/20 at 18:43; Status DC Acetaminophen (Tylenol) 650 mg PRN Q6HRS PRN PO Headaches, Temp > 101.5'; Start 05/30/20 at 14:30 Prochlorperazine (Compazine) 25 mg PRN Q12HR PRN VA NAUSEA/VOMITING; Start 05/30/20 at 14:30 Famotidine (Pepcid Vial) 20 mg QHS IVP Last administered on 05/31/20at 20:37; Start 05/30/20 at 21:00 Heparin Sodium (Porcine) (Heparin Sodium) 5,000 unit Q8HRS SQ Last administered on 05/31/20at 14:00; Start 05/30/20 at 22:00 Sodium Chloride (Normal Saline Flush) 3 ml QSHIFT PRN IV AFTER MEDS AND BLOOD DRAWS; Start 05/30/20 at 14:30; Stop 05/30/20 at 14:40; Status DC Docusate Sodium (Colace) 100 mg BID PO Last administered on 05/31/20at 09:17; Start 05/30/20 at 21:00 Bisacodyl (Dulcolax Supp) 10 mg PRN DAILY PRN VA CONSTIPATION; Start 05/30/20 at 14:30 Sodium Chloride 1,000 ml @ 1,000 mls/hr 1X ONCE IV Last administered on 05/30/20at 14:30; Start 05/30/20 at 14:30; Stop 05/30/20 at 15:29; Status DC Sodium Chloride 1,000 ml @ 1,000 mls/hr 1X ONCE IV ; Start 05/30/20 at 14:45; Stop 05/30/20 at 15:44; Status DC Hydrocortisone Sodium Succinate (Solu-CORTEF) 100 mg 1X ONCE IV Last administered on 05/30/20at 18:03; Start 05/30/20 at 15:00; Stop 05/30/20 at 15:01; Status DC Sodium Chloride (Normal Saline Flush) 10 ml QSHIFT PRN IV AFTER MEDS AND BLOOD DRAWS; Start 05/30/20 at 14:30 Budesonide (Pulmicort) 0.5 mg RTBID NEB Last administered on 06/01/20at 07:19; Start 05/30/20 at 20:00 Non-Formulary Medication 1 ea QID INH ; Start 05/30/20 at 16:45; Stop 05/30/20 at 21:02; Status DC Ibuprofen (Motrin) 200 mg PRN Q6HRS PRN PO INFLAMMATION Last administered on 05/30/20at 22:14; Start 05/30/20 at 16:30 Dextrose (Dextrose 50%-Water Syringe) 25 gm 1X ONCE IV Last administered on 05/30/20at 20:04; Start 05/30/20 at 18:45; Stop 05/30/20 at 18:46; Status DC Insulin Human Regular (HumuLIN R VIAL) 10 unit 1X ONCE IV ; Start 05/30/20 at 19:00; Stop 05/30/20 at 18:48; Status DC Sodium Bicarbonate 50 meq/Sodium Chloride 1,050 ml @ 50 mls/hr Q21H IV Last administered on 05/31/20at 21:56; Start 05/30/20 at 19:00 Insulin Human Regular (HumuLIN R VIAL) 10 unit 1X ONCE IV ; Start 05/30/20 at 19:00; Stop 05/30/20 at 18:48; Status DC Insulin Human Regular (HumuLIN R VIAL) 10 unit 1X ONCE IV Last administered on 05/30/20at 20:41; Start 05/30/20 at 19:00; Stop 05/30/20 at 19:01; Status DC Diphenhydramine HCl (Benadryl) 50 mg DAILY PO Last administered on 05/31/20at 09:17; Start 05/30/20 at 20:00 Albuterol/ Ipratropium (Duoneb) 3 ml RTQID NEB Last administered on 06/01/20at 07:18; Start 05/30/20 at 21:00 Ascorbic Acid (Vitamin C) 500 mg DAILY PO ; Start 06/01/20 at 09:00 Multivitamins (Thera M Plus) 1 tab DAILY PO ; Start 06/01/20 at 09:00 Active Scripts Active Reported Alprazolam 0.25 Mg Tablet 0.25 Mg PO PRN Q12HRS PRN Miralax (Polyethylene Glycol 3350) 17 Gm Powd.pack 1 Packet PO DAILY 2 Days dissolve in water Flomax (Tamsulosin Hcl) 0.4 Mg Cap.er.24h 0.4 Mg PO DAILY Benadryl Allergy (Diphenhydramine Hcl) 25 Mg Tablet 25 Mg PO PRN Q6HRS PRN Benadryl Allergy (Diphenhydramine Hcl) 25 Mg Tablet 50 Mg PO DAILY Triamcinolone Acetonide 80 Gm Oint...g. 1 Jesus TP BID Tizanidine Hcl 4 Mg Tablet 2 Mg PO TID PRN Albuterol Sulfate Neb Soln (Albuterol Sulfate) 2.5 Mg/3 Ml Vial.neb 2.5 Mg NEB PRN Q4-6HRS PRN Trazodone Hcl 50 Mg Tablet 50 Mg PO HS Symbicort 160-4.5 Mcg Inhaler (Budesonide/Formoterol Fumarate) 10.2 Gm Hfa.aer.ad 2 Puff IH BID Prednisone 20 Mg Tablet 20 Mg PO DAILY Mirtazapine 45 Mg Tablet 45 Mg PO HS Furosemide 40 Mg Tablet 40 Mg PO BID Combivent Respimat Inhal (Ipratropium/Albuterol Sulfate) 4 Gm Aer.w.adap 1 Puff IH 5XDAY Lotrimin Af (Clotrimazole) 12 Gm Cream..g. 1 Jesus TP BID Amlodipine Besylate 10 Mg Tablet 10 Mg PO DAILY Vitals/I & O Vital Sign - Last 24 Hours 05/31/20 05/31/20 05/31/20 05/31/20 08:15 08:30 09:00 11:08 Temp 97.7 97.5 97.5 97.7 97.5 97.5 Pulse 92 99 93 Resp 20 20 20 B/P (MAP) 133/57 (82) 100/48 (65) 99/40 (59) Pulse Ox 99 98 98 O2 Delivery Nasal Cannula Nasal Cannula Nasal Cannula Nasal Cannula O2 Flow Rate 3.0 3.0 3.0 3.0 05/31/20 05/31/20 05/31/20 05/31/20 11:47 14:18 19:00 20:00 Temp 98.5 98.5 98.5 98.5 Pulse 93 98 Resp 22 B/P (MAP) 105/46 (65) 107/45 (65) Pulse Ox 98 99 98 O2 Delivery Nasal Cannula Nasal Cannula Nasal Cannula Nasal Cannula O2 Flow Rate 3.0 3.0 3.0 3.0 05/31/20 05/31/20 05/31/20 06/01/20 20:16 20:17 22:32 02:39 Temp 98.1 98.0 98.1 98.0 Pulse 96 85 Resp B/P (MAP) 137/46 (76) 93/40 (57) Pulse Ox 98 98 96 95 O2 Delivery Nasal Cannula Nasal Cannula Nasal Cannula Nasal Cannula O2 Flow Rate 3.0 3.0 3.0 3.0 Intake and Output 05/31/20 05/31/20 06/01/20 15:00 23:00 07:00 Intake Total 1240 ml 0 ml 0 ml Output Total 0 ml 1250 ml 1150 ml Balance 1240 ml -1250 ml -1150 ml Nutrition Consultation Dietary Evaluation: Recommendations by RD: Dietary education by RD, Increase Calorie Intake, Protein supplementation Comments: Continue w/cardiac diet, honor food preferences, provide snacks as requested; will monitor renal labs and adjust diet as needed REC Ensure w/dinner (chocolate or strawberry per pt request) REC MVI q day and Vit C 500 mg q day for wound healing Expected Outcomes/Goals: PO intake to meet >75% est needs Interpretation of weight loss: >5% in 1 month Malnutrition Findings: Food and Nutrition Intake (Mod: <75% est energy req 7days Weight Status: Appropriate Justicifation of Admission Dx: Justifications for Admission: Justification of Admission Dx: Yes Acute COPD Exacerbation: Acute COPD Exacerbation KATIE MCKEE MD Jun 01, 2020 08:01
[2020-06-01] MEDS: MULTIVITAMIN with MINERAL TABLET. PO SCH ×2 (08:18→09:00)
[2020-06-01] MEDS: DOCUSATE SODIUM 100 MG CAPSULE. PO SCH ×3 (08:18→21:00)
[2020-06-01] MEDS: ASCORBIC ACID 500 MG TABLET PO SCH ×2 (08:18→09:00)
[2020-06-01] MEDS: diphenhydrAMINE HCL 25 MG CAPSULE PO SCH ×2 (08:18→09:00)
[2020-06-01 09:31] LABS: CALCIUM 7.7 mg/dL (8.5-10.1); CREATININE 1.1 mg/dL (0.6-1.0); GFR 47.8; POTASSIUM 4.7 mmol/L (3.5-5.1)
[2020-06-01 11:00] VITALS: BP 105/54
[2020-06-01] MEDS: DIPHENHYDRAMINE/ZINC ACETATE 2%/0.1% TOPICAL CREAM 28GM TUBE. TP SCH ×2 (11:00→21:00)
--- NOTE | 2020-06-01 11:09 | PDOC ---
PULMONARY PROGRESS NOTES DATE: 06/01/20 TIME: 11:06 Subjective Pt. remains on N/C oxygen 2 liters Improved rash on chest No SOA, No cough, No CP Feeling much better Vitals Vital Signs Date Time Temp Pulse Resp B/P (MAP) Pulse Ox O2 Delivery O2 Flow Rate FiO2 06/01/20 07:15 98.7 88 18 119/43 (68) 87 Room Air 98.7 06/01/20 02:39 3.0 ROS: No Nausea, No Chest Pain, No Abdominal Pain, No Increase Cough General: Alert, No acute distress Lungs: Clear Cardiovascular: S1 Abdomen: Soft Neuro Exam: Alert Extremities: No Edema, Other (rash improving) Labs Laboratory Tests Test 05/30/20 13:30 05/30/20 14:17 05/30/20 15:45 05/30/20 16:20 Lactic Acid Level 2.8 mmol/L (0.4-2.0) 1.6 mmol/L (0.4-2.0) Phosphorus Level 5.0 mg/dL (2.6-4.7) Potassium Level 7.1 mmol/L (3.5-5.1) Ammonia < 10 mcmol/L (11-34) O2 Saturation 95 % (92-99) Arterial Blood pH 7.34 (7.35-7.45) Arterial Blood pCO2 at Patient Temp 42 mmHg (35-46) Arterial Blood pO2 at Patient Temp 76 mmHg (65-108) Arterial Blood HCO3 22 mmol/L (21-28) Arterial Blood Base Excess -4 mmol/L (-3-3) Oxyhemoglobin 93.8 % Methemoglobin 0.5 % (0.0-1.9) Carbon Monoxide, Quantitative 0.3 % (0.0-1.9) FiO2 4l nc Test 05/30/20 19:48 05/30/20 22:00 05/30/20 23:39 05/30/20 23:40 Glucose (Fingerstick) 171 mg/dL (70-99) 159 mg/dL (70-99) Urine Collection Type Unknown Urine Color Yellow Urine Clarity Clear Urine pH 5.0 (<5.0-8.0) Urine Specific [place] 1.010 (1.000-1.030) Urine Protein Negative mg/dL (NEG-TRACE) Urine Glucose (UA) Negative mg/dL (NEG) Urine Ketones (Stick) Negative mg/dL (NEG) Urine Blood Negative (NEG) Urine Nitrite Negative (NEG) Urine Bilirubin Negative (NEG) Urine Urobilinogen Dipstick 0.2 mg/dL (0.2 mg/dL) Urine Leukocyte Esterase Negative (NEG) Urine RBC 0 /HPF (0-2) Urine WBC 0 /HPF (0-4) Urine Bacteria 0 /HPF (0-FEW) Urine Hyaline Casts Moderate /HPF Urine Mucus Slight /LPF Urine Yeast Present /HPF Potassium Level 6.5 mmol/L (3.5-5.1) Test 05/31/20 03:08 05/31/20 05:10 05/31/20 07:35 05/31/20 08:05 Glucose (Fingerstick) 126 mg/dL (70-99) 112 mg/dL (70-99) Prothrombin Time 11.8 SEC (11.7-14.0) Prothromb Time International Ratio 0.9 (0.8-1.1) Activated Partial Thromboplast Time 28 SEC (24-38) Sodium Level 140 mmol/L (136-145) Potassium Level 5.9 mmol/L (3.5-5.1) Chloride Level 106 mmol/L (98-107) Carbon Dioxide Level 27 mmol/L (21-32) Anion Gap 7 (6-14) Blood Urea Nitrogen 78 mg/dL (7-20) Creatinine 1.6 mg/dL (0.6-1.0) Estimated GFR (Cockcroft-Gault) 31.0 BUN/Creatinine Ratio 49 (6-20) Glucose Level 104 mg/dL (70-99) Calcium Level 8.4 mg/dL (8.5-10.1) Total Bilirubin 0.6 mg/dL (0.2-1.0) Aspartate Amino Transf (AST/SGOT) 11 U/L (15-37) Alanine Aminotransferase (ALT/SGPT) 13 U/L (14-59) Alkaline Phosphatase 77 U/L (46-116) Total Protein 5.4 g/dL (6.4-8.2) Albumin 2.7 g/dL (3.4-5.0) Albumin/Globulin Ratio 1.0 (1.0-1.7) White Blood Count 10.9 x10^3/uL (4.0-11.0) Red Blood Count 3.20 x10^6/uL (3.50-5.40) Hemoglobin 10.5 g/dL (12.0-15.5) Hematocrit 31.3 % (36.0-47.0) Mean Corpuscular Volume 98 fL (79-100) Mean Corpuscular Hemoglobin 33 pg (25-35) Mean Corpuscular Hemoglobin Concent 34 g/dL (31-37) Red Cell Distribution Width 16.7 % (11.5-14.5) Platelet Count 102 x10^3/uL (140-400) Neutrophils (%) (Auto) 91 % (31-73) Lymphocytes (%) (Auto) 3 % (24-48) Monocytes (%) (Auto) 3 % (0-9) Eosinophils (%) (Auto) 1 % (0-3) Basophils (%) (Auto) 1 % (0-3) Neutrophils # (Auto) 9.9 x10^3/uL (1.8-7.7) Lymphocytes # (Auto) 0.4 x10^3/uL (1.0-4.8) Monocytes # (Auto) 0.4 x10^3/uL (0.0-1.1) Eosinophils # (Auto) 0.2 x10^3/uL (0.0-0.7) Basophils # (Auto) 0.1 x10^3/uL (0.0-0.2) Test 05/31/20 11:31 05/31/20 11:40 05/31/20 16:33 05/31/20 20:10 Glucose (Fingerstick) 127 mg/dL (70-99) 82 mg/dL (70-99) 110 mg/dL (70-99) Sodium Level 142 mmol/L (136-145) Potassium Level 5.8 mmol/L (3.5-5.1) Chloride Level 106 mmol/L (98-107) Carbon Dioxide Level 32 mmol/L (21-32) Anion Gap 4 (6-14) Blood Urea Nitrogen 73 mg/dL (7-20) Creatinine 1.4 mg/dL (0.6-1.0) Estimated GFR (Cockcroft-Gault) 36.2 Glucose Level 118 mg/dL (70-99) Calcium Level 8.2 mg/dL (8.5-10.1) Test 06/01/20 07:28 06/01/20 09:05 Glucose (Fingerstick) 69 mg/dL (70-99) Sodium Level 144 mmol/L (136-145) Potassium Level 4.7 mmol/L (3.5-5.1) Chloride Level 107 mmol/L (98-107) Carbon Dioxide Level 34 mmol/L (21-32) Anion Gap 3 (6-14) Blood Urea Nitrogen 44 mg/dL (7-20) Creatinine 1.1 mg/dL (0.6-1.0) Estimated GFR (Cockcroft-Gault) 47.8 Glucose Level 76 mg/dL (70-99) Calcium Level 7.7 mg/dL (8.5-10.1) Laboratory Tests Test 05/31/20 11:31 05/31/20 11:40 05/31/20 16:33 05/31/20 20:10 Glucose (Fingerstick) 127 mg/dL (70-99) 82 mg/dL (70-99) 110 mg/dL (70-99) Sodium Level 142 mmol/L (136-145) Potassium Level 5.8 mmol/L (3.5-5.1) Chloride Level 106 mmol/L (98-107) Carbon Dioxide Level 32 mmol/L (21-32) Anion Gap 4 (6-14) Blood Urea Nitrogen 73 mg/dL (7-20) Creatinine 1.4 mg/dL (0.6-1.0) Estimated GFR (Cockcroft-Gault) 36.2 Glucose Level 118 mg/dL (70-99) Calcium Level 8.2 mg/dL (8.5-10.1) Test 06/01/20 07:28 06/01/20 09:05 Glucose (Fingerstick) 69 mg/dL (70-99) Sodium Level 144 mmol/L (136-145) Potassium Level 4.7 mmol/L (3.5-5.1) Chloride Level 107 mmol/L (98-107) Carbon Dioxide Level 34 mmol/L (21-32) Anion Gap 3 (6-14) Blood Urea Nitrogen 44 mg/dL (7-20) Creatinine 1.1 mg/dL (0.6-1.0) Estimated GFR (Cockcroft-Gault) 47.8 Glucose Level 76 mg/dL (70-99) Calcium Level 7.7 mg/dL (8.5-10.1) Medications Active Scripts Medications Dose Route/Sig Max Daily Dose Days Date Category Dose Instructions Alprazolam 0.25 Mg Tablet 0.25 Mg PO PRN Q12HRS PRN 05/30/20 Reported Miralax (Polyethylene Glycol 3350) 17 Gm Powd.pack 1 Packet PO DAILY 2 05/30/20 Reported dissolve in water Flomax (Tamsulosin Hcl) 0.4 Mg Cap.er.24h 0.4 Mg PO DAILY 05/30/20 Reported Benadryl Allergy (Diphenhydramine Hcl) 25 Mg Tablet 25 Mg PO PRN Q6HRS PRN 05/30/20 Reported Benadryl Allergy (Diphenhydramine Hcl) 25 Mg Tablet 50 Mg PO DAILY 05/30/20 Reported Triamcinolone Acetonide 80 Gm Oint...g. 1 Jesus TP BID 05/30/20 Reported Tizanidine Hcl 4 Mg Tablet 2 Mg PO TID PRN 05/12/20 Reported Albuterol Sulfate Neb Soln (Albuterol Sulfate) 2.5 Mg/3 Ml Vial.neb 2.5 Mg NEB PRN Q4-6HRS PRN 05/12/20 Reported Trazodone Hcl 50 Mg Tablet 50 Mg PO HS 05/12/20 Reported Symbicort 160-4.5 Mcg Inhaler (Budesonide/Formoterol Fumarate) 10.2 Gm Hfa.aer.ad 2 Puff IH BID 05/12/20 Reported Prednisone 20 Mg Tablet 20 Mg PO DAILY 05/12/20 Reported Mirtazapine 45 Mg Tablet 45 Mg PO HS 05/12/20 Reported Furosemide 40 Mg Tablet 40 Mg PO BID 05/12/20 Reported Combivent Respimat Inhal (Ipratropium/Albuterol Sulfate) 4 Gm Aer.w.adap 1 Puff IH 5XDAY 05/12/20 Reported Lotrimin Af (Clotrimazole) 12 Gm Cream..g. 1 Jesus TP BID 05/12/20 Reported Amlodipine Besylate 10 Mg Tablet 10 Mg PO DAILY 05/12/20 Reported Impression . 1. The patient with chronic hypoxic respiratory failure, on home oxygen at 3 liters and this is secondary to chronic obstructive pulmonary disease. She came into the hospital due to rash over her body. Clinically, her chronic obstructive pulmonary disease appears to be compensated. 2. No evidence of any pneumonia. A chest x-ray was reviewed and was clear 3. Acute renal failure. Could be some chronic component and associated with hyperkalemia. Renal is following.-- improving 4. No history of pulmonary embolism or deep venous thrombosis. 5. Leukocytosis.--resolved 6. Rash / per PCP-- improving Plan . RECOMMENDATIONS: Discussed with RN. Discussed with the patient. At this time, pulmonary status stable. We will keep her on 3 liters of oxygen. bronchodilators. Monitor white cell count and rash per Infectious Disease. follow renal function Rash per PCP We will sign off please call with any further questions or concerns CHELSIE CARMEN MD Jun 01, 2020 11:09
--- NOTE | 2020-06-01 11:37 | PDOC ---
Renal-Progress Notes Subjective Notes Notes NO NEW COMPLAINTS History of Present Illness Hx of present illness STABLE Vitals Vitals Vital Signs Date Time Temp Pulse Resp B/P (MAP) Pulse Ox O2 Delivery O2 Flow Rate FiO2 06/01/20 07:15 98.7 88 18 119/43 (68) 87 Room Air 98.7 06/01/20 02:39 3.0 Weight Weight [ ] I.O. Intake and Output Intake and Output 06/01/20 07:00 Intake Total 1240 ml Output Total 2400 ml Balance -1160 ml Intake Oral 240 ml IV Total 1000 ml Output Urine Total 2400 ml Stool Total 0 ml Labs Labs Laboratory Tests Test 05/31/20 11:40 05/31/20 16:33 05/31/20 20:10 06/01/20 07:28 Sodium Level 142 mmol/L (136-145) Potassium Level 5.8 mmol/L (3.5-5.1) Chloride Level 106 mmol/L (98-107) Carbon Dioxide Level 32 mmol/L (21-32) Anion Gap 4 (6-14) Blood Urea Nitrogen 73 mg/dL (7-20) Creatinine 1.4 mg/dL (0.6-1.0) Estimated GFR (Cockcroft-Gault) 36.2 Glucose Level 118 mg/dL (70-99) Calcium Level 8.2 mg/dL (8.5-10.1) Glucose (Fingerstick) 82 mg/dL (70-99) 110 mg/dL (70-99) 69 mg/dL (70-99) Test 06/01/20 09:05 Sodium Level 144 mmol/L (136-145) Potassium Level 4.7 mmol/L (3.5-5.1) Chloride Level 107 mmol/L (98-107) Carbon Dioxide Level 34 mmol/L (21-32) Anion Gap 3 (6-14) Blood Urea Nitrogen 44 mg/dL (7-20) Creatinine 1.1 mg/dL (0.6-1.0) Estimated GFR (Cockcroft-Gault) 47.8 Glucose Level 76 mg/dL (70-99) Calcium Level 7.7 mg/dL (8.5-10.1) Micro Micro Microbiology 05/30/20 Blood Culture - Preliminary, Resulted NO GROWTH AFTER 1 DAY Review of Systems Constitutional: yes: other (CONFUSED) Physical Exam General Appearance: no apparent distress Skin: warm Respiratory: decreased breath sounds Heart: S1S2 Abdomen: soft, bowel sounds present Genitourinary: bladder flat Extremities: pulses present Neurology: alert, confused Musculoskeletal: Osteoarthritis Assessment Assessment IMP LIFE THREATENING HYPERKALEMIA-RESOLVED EXTRACELLULAR VOLUME DEPLETION SINGH-POSSIBLE ATN-CR DOWN TO 1.1 ACUTE ON CHRONIC HYPOXIC RESP FAILURE LEUCOCYTOSIS RECENT UTI SKIN RASH-PROB ALLERGIC RXN TO ABX PLAN HYDRATION WITHHOLD K SUPPLEMENTS HOLD ARB AND ALDACTONE AM LABS WILL FOLLOW NIKKI TARANGO MD Jun 01, 2020 11:37
--- NOTE | 2020-06-01 11:47 | PDOC ---
Infectious Disease Note Subjective: Subjective Patient transferred out of ICU Feels a little better Denies fever, chills, nausea, vomiting, diarrhea, abdominal pain Rash is improving though continues to have itching Vital Signs: Vital Signs Vital Signs Date Time Temp Pulse Resp B/P (MAP) Pulse Ox O2 Delivery O2 Flow Rate FiO2 06/01/20 07:15 98.7 88 18 119/43 (68) 87 Room Air 98.7 06/01/20 02:39 3.0 Physical Exam: PHYSICAL EXAM GENERAL: Alert, oriented x 3, female, in bed comfortably, in no acute distress, HEENT: Anicteric, no conjunctival petechiae. No oral lesions seen. Pupils equally reactive. Extraocular movements intact. Oral mucosa moist. No thrush. No oral lesions. No lip lesions. NECK: Supple, no JVD, no lymphadenopathy. LUNGS: Clear bilaterally except for decreased breath sounds at the bases. Few scattered rhonchi. No accessory muscle use. HEART: S1, S2. No gallops or murmurs. ABDOMEN: Soft, nontender, nondistended, no rebound, no guarding. EXTREMITIES: No cyanosis. Edema over right upper extremity, chronic. DERMATOLOGY: Diffuse maculopapular rash all over the body, mainly the upper extremity, abdomen, chest, back, lower extremity. No open wounds noted. NEUROLOGIC: Alert, oriented x 3. PSYCHIATRIC: Slightly anxious, otherwise appropriate. Medications: Inpatient Meds: Current Medications Medications (Trade) Dose Ordered Sig/Samara Start Time Stop Time Status Last Admin Dose Admin Acetaminophen (Tylenol) 650 mg PRN Q6HRS PRN 05/30/20 14:30 Albuterol Sulfate (Ventolin Neb Soln) 10 mg 1X ONCE 05/30/20 12:00 05/30/20 12:01 DC 05/30/20 12:09 10 MG Albuterol/ Ipratropium (Duoneb) 3 ml RTQID 05/30/20 21:00 06/01/20 07:18 3 ML Ascorbic Acid (Vitamin C) 500 mg DAILY 06/01/20 09:00 Bisacodyl (Dulcolax Supp) 10 mg PRN DAILY PRN 05/30/20 14:30 Budesonide (Pulmicort) 0.5 mg RTBID 05/30/20 20:00 06/01/20 07:19 0.5 MG Calcium Gluconate (Calcium Gluconate) 1,000 mg 1X ONCE 05/30/20 12:30 05/30/20 12:31 DC 05/30/20 12:21 1,000 MG Dextrose (Dextrose 50%-Water Syringe) 25 gm 1X ONCE 05/30/20 18:45 05/30/20 18:46 DC 05/30/20 20:04 25 GM Diphenhydramine HCl (Benadryl) 50 mg DAILY 05/30/20 20:00 05/31/20 09:17 50 MG Docusate Sodium (Colace) 100 mg BID 05/30/20 21:00 05/31/20 09:17 100 MG Famotidine (Pepcid Vial) 20 mg QHS 05/30/20 21:00 05/31/20 20:37 20 MG Heparin Sodium (Porcine) (Heparin Sodium) 5,000 unit Q8HRS 05/30/20 22:00 05/31/20 14:00 5,000 UNIT Hydrocortisone Sodium Succinate (Solu-CORTEF) 100 mg 1X ONCE 05/30/20 15:00 05/30/20 15:01 DC 05/30/20 18:03 100 MG Ibuprofen (Motrin) 200 mg PRN Q6HRS PRN 05/30/20 16:30 05/30/20 22:14 200 MG Insulin Human Regular (HumuLIN R VIAL) 10 unit 1X ONCE 05/30/20 19:00 05/30/20 19:01 DC 05/30/20 20:41 10 UNIT Methylprednisolone Sodium Succinate (SOLU-Medrol 125MG VIAL) 125 mg 1X ONCE 05/30/20 10:45 05/30/20 10:46 DC 05/30/20 10:31 125 MG Multivitamins (Thera M Plus) 1 tab DAILY 06/01/20 09:00 Non-Formulary Medication 1 ea QID 05/30/20 16:45 05/30/20 21:02 DC Ondansetron HCl (Zofran) 4 mg PRN Q8HRS PRN 05/30/20 12:30 05/31/20 12:29 DC Prochlorperazine (Compazine) 25 mg PRN Q12HR PRN 05/30/20 14:30 Sodium Bicarbonate 50 meq/Sodium Chloride 1,050 ml @ 50 mls/hr Q21H 05/30/20 19:00 06/01/20 11:39 DC 05/31/20 21:56 150 MLS/HR Sodium Bicarbonate (Sodium Bicarb Adult 8.4% Syr) 50 meq 1X ONCE 05/30/20 11:15 05/30/20 11:16 DC 05/30/20 11:42 50 MEQ Sodium Chloride 1,000 ml @ 75 mls/hr [id number] 06/01/20 11:45 Sodium Chloride (Normal Saline Flush) 10 ml QSHIFT PRN 05/30/20 14:30 Zinc Acetate/ Diphenhydramine (Benadryl Topical) 1 harvinder BID 06/01/20 11:00 Labs: Lab Laboratory Tests Test 05/31/20 16:33 05/31/20 20:10 06/01/20 07:28 06/01/20 09:05 Glucose (Fingerstick) 82 mg/dL (70-99) 110 mg/dL (70-99) 69 mg/dL (70-99) Sodium Level 144 mmol/L (136-145) Potassium Level 4.7 mmol/L (3.5-5.1) Chloride Level 107 mmol/L (98-107) Carbon Dioxide Level 34 mmol/L (21-32) Anion Gap 3 (6-14) Blood Urea Nitrogen 44 mg/dL (7-20) Creatinine 1.1 mg/dL (0.6-1.0) Estimated GFR (Cockcroft-Gault) 47.8 Glucose Level 76 mg/dL (70-99) Calcium Level 7.7 mg/dL (8.5-10.1) Objective: Assessment: 1. Leukocytosis, likely from steroids. 2. Dermatitis appears drug induced allergic reaction. Improving 3. Eosinophilia likely from drug induced. 4. Chronic hypoxic respiratory failure, on home O2. 5. Acute kidney injury with hyperkalemia. 6. Hypertension. 7. Metabolic encephalopathy, improved Plan: Plan of Care Continue observation off antibiotics. Continue local care. Avoid scratching Continue supportive care. Discussed with nursing staff BHUMIKA CESAR MD Jun 01, 2020 11:47
[2020-06-01] MEDS: IV NORMAL SALINE 1000ML BAG 1,000 ML IV SCH (12:10)
[2020-06-01 15:00] VITALS: BP 111/45
--- NOTE | 2020-06-01 16:49 | NUR ---
G[facility]MA following. Spoke with RN. Pt from [facility]. LVM to coordinate care with Charline. Pt does reside at [facility] per chart review. GEMMA asked to contact family about potential hospice for this pt. G[facility]MA LVM for dtr Candice ([phone]). Pt on 3l. Pt's diet advanced to cardiac. GEMMA to follow. Addendum: 06/02/20 at 1142 by DONOVAN MENENDEZ G[facility]MA following. Spoke with RN. GEMMA spoke with pt and pt's dtr Namrata and they do not want hospice services at this time. [facility]EMMA phoned and faxed referral to [facility] at request of pt. Patient Choice of Vendor form completed. Pt remains on 3l 02. GEMMA requested RN order COVID test as this is needed per Charline at [facility]. GEMMA to follow. Addendum: 06/02/20 at 1310 by DONOVAN MENENDEZ pt added to weekend discharge list. Awaiting COVID results.
[2020-06-01 19:00] VITALS: BP 112/64
[2020-06-01] MEDS: FAMOTIDINE 20 MG/2 ML VIAL IVP SCH (22:21)
[2020-06-01 23:00] VITALS: BP 97/58
[2020-06-02] MEDS: IV NORMAL SALINE 1000ML BAG 1,000 ML IV SCH (01:05)
[2020-06-02 03:09] VITALS: BP 146/57
[2020-06-02] MEDS ORDERED: DEXTROSE 50% 25 GM / 50ML DISP.SYRIN. IV PRN (04:15)
[2020-06-02 04:29] LABS: BASO % 1 % (0-3); EOS # 1.1 x10^3/uL (0.0-0.7); EOS % 20 % (0-3); HEMOGLOBIN 10.5 g/dL (12.0-15.5); LYMPH # 0.9 x10^3/uL (1.0-4.8); LYMPH % 15 % (24-48); MEAN CORPUSCULAR HEMOGLOBIN 33 pg (25-35); MEAN CORPUSCULAR HGB CONC 34 g/dL (31-37); MEAN CORPUSCULAR VOLUME 98 fL (79-100); MONO # 0.3 x10^3/uL (0.0-1.1); MONO % 5 % (0-9); NEUT # 3.3 x10^3/uL (1.8-7.7); NEUT % 59 % (31-73); PLATELET COUNT 101 x10^3/uL (140-400); RED BLOOD COUNT 3.15 x10^6/uL (3.50-5.40); RED CELL DISTRIBUTION WIDTH 16.2 % (11.5-14.5); WHITE BLOOD COUNT 5.6 x10^3/uL (4.0-11.0)
[2020-06-02 04:55] LABS: ALBUMIN 2.5 g/dL (3.4-5.0); CALCIUM 7.9 mg/dL (8.5-10.1); CREATININE 0.9 mg/dL (0.6-1.0); GFR 60.2; POTASSIUM 4.4 mmol/L (3.5-5.1); TOTAL BILIRUBIN 0.7 mg/dL (0.2-1.0)
[2020-06-02] MEDS: HEPARIN for SUB-Q USE 5,000 UNIT/ML VIAL. SQ SCH ×3 (05:28→21:16)
[2020-06-02 07:15] VITALS: BP 139/49
[2020-06-02] MEDS: BUDESONIDE 0.5 MG/2 ML NEBU. NEB SCH ×2 (08:07→20:05)
[2020-06-02] MEDS: IPRATRPIUM/ALBUTEROL 0.5/2.5MG 3 ML NEBU. NEB SCH ×4 (08:07→20:05)
--- NOTE | 2020-06-02 08:28 | PDOC ---
PROGRESS NOTES Date of Service: DATE: 06/02/20 TIME: 08:26 Chief Complaint Chief Complaint IMPRESSION Acute renal failure Hyperkalemia, IMPROVING Metabolic encephalopathy Allergic reaction Extended-spectrum beta-lactamase Escherichia coli on 05/11, meropenem started on the ANTIBIOTIC ALLERGIES LISTED PENICILLIN, but tolerated Zosyn, Rocephin, doxycycline, does not remember reaction. Respiratory failure, suspect chronic obstructive pulmonary UTI hypercapnic respiratory failure HX Sepsis due to ESBL UTI anxiety HX URINARY RETENTION RECENT echo c/w moderate aortic regurgitation. mild tricuspid regurgitation with an estimated PAP of 50 mmHg. c/w moderate pulmonary hypertension HOLD ARB AND ALDACTONE Duration of Treatment Expected * 2 weeks Discharge Recommendations * [facility] 28 MIN PT EXAM, CHART REVIEW, > 50% of time spent with exam, chart review, pt care coordination History of Present Illness History of Present Illness 06/01/20 Patient seen and examined Chart reviewed Discussed with RN Patient was making conversation pleasantly Some edema in her right arm due to a mastectomy 30 yrs ago CR BETTER AT 1.1 06/01, MORE ALERT DEC IV RATE 06/01 50/HR Identification/Chief Complaint Chief Complaint SEEN IN ER WITH RASH, ACUTE SEVERE RENAL FAILURE 79 year old female who was sent here from skilled nursing due to trouble breathing, rash all over her body. Patient has history of COPD, she is on oxygen at home all the time. Patient is currently on some form of antibiotic for urinary tract infection. Patient was noted to have some rash in her genital area in her abdomen area yesterday, however it became widespread this morning so she was sent here for evaluation. Patient denies any fever, denies any chest pain. Patient says she only had a cough and still has trouble breathing because of COPD. recently admitted to hospital last month for COPD exacerbation. 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 Past Medical History Cardiovascular: HTN, Other Pulmonary: COPD, Pneumonia CENTRAL NERVOUS SYSTEM: Other GI: No pertinent hx Heme/Onc: No pertinent hx Hepatobiliary: No pertinent hx Psych: No pertinent hx Musculoskeletal: Osteoarthritis Infectious disease: No pertinent hx Renal/: No pertinent hx, UTI Endocrine: No pertinent hx Past Surgical History Past Surgical History: Cataract Removal, Mastectomy, Hysterectomy, Other Family History Family History: Diabetes, Hypertension Social History Smoke: No ALCOHOL: none Drugs: None Vitals Vitals Vital Signs Date Time Temp Pulse Resp B/P (MAP) Pulse Ox O2 Delivery O2 Flow Rate FiO2 06/02/20 08:08 99 Nasal Cannula 3.0 06/02/20 03:09 98.0 100 20 146/57 (86) 98.0 Physical Exam Physical Exam GENERAL: Alert, oriented x 3, female, in bed comfortably, in no acute distress, HEENT: Anicteric, no conjunctival petechiae. No oral lesions seen. Pupils equally reactive. Extraocular movements intact. Oral mucosa moist. No thrush. No oral lesions. No lip lesions. NECK: Supple, no JVD, no lymphadenopathy. LUNGS: Clear bilaterally except for decreased breath sounds at the bases. Few scattered rhonchi. No accessory muscle use. HEART: S1, S2. No gallops or murmurs. ABDOMEN: Soft, nontender, nondistended, no rebound, no guarding. EXTREMITIES: No cyanosis. Edema over right upper extremity, chronic. DERMATOLOGY: Diffuse maculopapular rash all over the body, mainly the upper extremity, abdomen, chest, back, lower extremity. No open wounds noted. NEUROLOGIC: Alert, oriented x 3. PSYCHIATRIC: Slightly anxious, otherwise appropriate. General: Alert, Oriented X3, Cooperative, No acute distress Heart: Regular rate, Normal S1 Lungs: Clear Abdomen: Normal bowel sounds, Soft, No tenderness Extremities: No cyanosis, No edema Skin: No significant lesion Labs LABS Laboratory Tests Test 06/01/20 09:05 06/01/20 11:46 06/01/20 16:27 06/01/20 20:44 Sodium Level 144 mmol/L (136-145) Potassium Level 4.7 mmol/L (3.5-5.1) Chloride Level 107 mmol/L (98-107) Carbon Dioxide Level 34 mmol/L (21-32) Anion Gap 3 (6-14) Blood Urea Nitrogen 44 mg/dL (7-20) Creatinine 1.1 mg/dL (0.6-1.0) Estimated GFR (Cockcroft-Gault) 47.8 Glucose Level 76 mg/dL (70-99) Calcium Level 7.7 mg/dL (8.5-10.1) Glucose (Fingerstick) 85 mg/dL (70-99) 64 mg/dL (70-99) 72 mg/dL (70-99) Test 06/02/20 03:25 06/02/20 04:11 06/02/20 04:47 06/02/20 07:54 White Blood Count 5.6 x10^3/uL (4.0-11.0) Red Blood Count 3.15 x10^6/uL (3.50-5.40) Hemoglobin 10.5 g/dL (12.0-15.5) Hematocrit 31.0 % (36.0-47.0) Mean Corpuscular Volume 98 fL (79-100) Mean Corpuscular Hemoglobin 33 pg (25-35) Mean Corpuscular Hemoglobin Concent 34 g/dL (31-37) Red Cell Distribution Width 16.2 % (11.5-14.5) Platelet Count 101 x10^3/uL (140-400) Neutrophils (%) (Auto) 59 % (31-73) Lymphocytes (%) (Auto) 15 % (24-48) Monocytes (%) (Auto) 5 % (0-9) Eosinophils (%) (Auto) 20 % (0-3) Basophils (%) (Auto) 1 % (0-3) Neutrophils # (Auto) 3.3 x10^3/uL (1.8-7.7) Lymphocytes # (Auto) 0.9 x10^3/uL (1.0-4.8) Monocytes # (Auto) 0.3 x10^3/uL (0.0-1.1) Eosinophils # (Auto) 1.1 x10^3/uL (0.0-0.7) Basophils # (Auto) 0.0 x10^3/uL (0.0-0.2) Sodium Level 148 mmol/L (136-145) Potassium Level 4.4 mmol/L (3.5-5.1) Chloride Level 111 mmol/L (98-107) Carbon Dioxide Level 33 mmol/L (21-32) Anion Gap 4 (6-14) Blood Urea Nitrogen 31 mg/dL (7-20) Creatinine 0.9 mg/dL (0.6-1.0) Estimated GFR (Cockcroft-Gault) 60.2 BUN/Creatinine Ratio 34 (6-20) Glucose Level 68 mg/dL (70-99) Calcium Level 7.9 mg/dL (8.5-10.1) Total Bilirubin 0.7 mg/dL (0.2-1.0) Aspartate Amino Transf (AST/SGOT) 12 U/L (15-37) Alanine Aminotransferase (ALT/SGPT) 12 U/L (14-59) Alkaline Phosphatase 75 U/L (46-116) Total Protein 5.0 g/dL (6.4-8.2) Albumin 2.5 g/dL (3.4-5.0) Albumin/Globulin Ratio 1.0 (1.0-1.7) Glucose (Fingerstick) 67 mg/dL (70-99) 119 mg/dL (70-99) 77 mg/dL (70-99) Assessment and Plan Assessmemt and Plan Problems Medical Problems: (1) Acute renal failure (ARF) Status: Acute (2) Allergic reaction due to antibacterial drug Status: Acute (3) Hyperkalemia Status: Acute * Pain Pt/caregiver agrees with plan of care/goals * Yes Patient condition at conclusion of therapy * Pt in chair * Call light in reach * Phone in reach * PtIn no apparent distress * Pt denies further needs Communicated Patient Care With (Name, Title) * DAREK Ortega; BLAS Kaplan Goal 1 - Bed Mobility Assistance Required * Independent Goal 1 Assessment * Appropriate - Continue Goal 2 - Transfers Assistance Required * Contact Guard Assist Goal 2 - Transfer Type * Stand-Pivot Goal 2 Assessment * Appropriate - Continue Treatment Plan * Therapeutic Exercise * Bed Mobility Training * Transfer training Frequency of Treatment Expected * 6 visits/week Duration of Treatment Expected * 2 weeks Discharge Recommendations * [facility] Comment Review of Relevant I have reviewed the following items cira (where applicable) has been applied. Labs Laboratory Tests Test 05/31/20 11:31 05/31/20 11:40 05/31/20 16:33 05/31/20 20:10 Glucose (Fingerstick) 127 mg/dL (70-99) 82 mg/dL (70-99) 110 mg/dL (70-99) Sodium Level 142 mmol/L (136-145) Potassium Level 5.8 mmol/L (3.5-5.1) Chloride Level 106 mmol/L (98-107) Carbon Dioxide Level 32 mmol/L (21-32) Anion Gap 4 (6-14) Blood Urea Nitrogen 73 mg/dL (7-20) Creatinine 1.4 mg/dL (0.6-1.0) Estimated GFR (Cockcroft-Gault) 36.2 Glucose Level 118 mg/dL (70-99) Calcium Level 8.2 mg/dL (8.5-10.1) Test 06/01/20 07:28 06/01/20 09:05 06/01/20 11:46 06/01/20 16:27 Glucose (Fingerstick) 69 mg/dL (70-99) 85 mg/dL (70-99) 64 mg/dL (70-99) Sodium Level 144 mmol/L (136-145) Potassium Level 4.7 mmol/L (3.5-5.1) Chloride Level 107 mmol/L (98-107) Carbon Dioxide Level 34 mmol/L (21-32) Anion Gap 3 (6-14) Blood Urea Nitrogen 44 mg/dL (7-20) Creatinine 1.1 mg/dL (0.6-1.0) Estimated GFR (Cockcroft-Gault) 47.8 Glucose Level 76 mg/dL (70-99) Calcium Level 7.7 mg/dL (8.5-10.1) Test 06/01/20 20:44 06/02/20 03:25 06/02/20 04:11 06/02/20 04:47 Glucose (Fingerstick) 72 mg/dL (70-99) 67 mg/dL (70-99) 119 mg/dL (70-99) White Blood Count 5.6 x10^3/uL (4.0-11.0) Red Blood Count 3.15 x10^6/uL (3.50-5.40) Hemoglobin 10.5 g/dL (12.0-15.5) Hematocrit 31.0 % (36.0-47.0) Mean Corpuscular Volume 98 fL (79-100) Mean Corpuscular Hemoglobin 33 pg (25-35) Mean Corpuscular Hemoglobin Concent 34 g/dL (31-37) Red Cell Distribution Width 16.2 % (11.5-14.5) Platelet Count 101 x10^3/uL (140-400) Neutrophils (%) (Auto) 59 % (31-73) Lymphocytes (%) (Auto) 15 % (24-48) Monocytes (%) (Auto) 5 % (0-9) Eosinophils (%) (Auto) 20 % (0-3) Basophils (%) (Auto) 1 % (0-3) Neutrophils # (Auto) 3.3 x10^3/uL (1.8-7.7) Lymphocytes # (Auto) 0.9 x10^3/uL (1.0-4.8) Monocytes # (Auto) 0.3 x10^3/uL (0.0-1.1) Eosinophils # (Auto) 1.1 x10^3/uL (0.0-0.7) Basophils # (Auto) 0.0 x10^3/uL (0.0-0.2) Sodium Level 148 mmol/L (136-145) Potassium Level 4.4 mmol/L (3.5-5.1) Chloride Level 111 mmol/L (98-107) Carbon Dioxide Level 33 mmol/L (21-32) Anion Gap 4 (6-14) Blood Urea Nitrogen 31 mg/dL (7-20) Creatinine 0.9 mg/dL (0.6-1.0) Estimated GFR (Cockcroft-Gault) 60.2 BUN/Creatinine Ratio 34 (6-20) Glucose Level 68 mg/dL (70-99) Calcium Level 7.9 mg/dL (8.5-10.1) Total Bilirubin 0.7 mg/dL (0.2-1.0) Aspartate Amino Transf (AST/SGOT) 12 U/L (15-37) Alanine Aminotransferase (ALT/SGPT) 12 U/L (14-59) Alkaline Phosphatase 75 U/L (46-116) Total Protein 5.0 g/dL (6.4-8.2) Albumin 2.5 g/dL (3.4-5.0) Albumin/Globulin Ratio 1.0 (1.0-1.7) Test 06/02/20 07:54 Glucose (Fingerstick) 77 mg/dL (70-99) Laboratory Tests Test 06/01/20 09:05 06/01/20 11:46 06/01/20 16:27 06/01/20 20:44 Sodium Level 144 mmol/L (136-145) Potassium Level 4.7 mmol/L (3.5-5.1) Chloride Level 107 mmol/L (98-107) Carbon Dioxide Level 34 mmol/L (21-32) Anion Gap 3 (6-14) Blood Urea Nitrogen 44 mg/dL (7-20) Creatinine 1.1 mg/dL (0.6-1.0) Estimated GFR (Cockcroft-Gault) 47.8 Glucose Level 76 mg/dL (70-99) Calcium Level 7.7 mg/dL (8.5-10.1) Glucose (Fingerstick) 85 mg/dL (70-99) 64 mg/dL (70-99) 72 mg/dL (70-99) Test 06/02/20 03:25 06/02/20 04:11 06/02/20 04:47 06/02/20 07:54 White Blood Count 5.6 x10^3/uL (4.0-11.0) Red Blood Count 3.15 x10^6/uL (3.50-5.40) Hemoglobin 10.5 g/dL (12.0-15.5) Hematocrit 31.0 % (36.0-47.0) Mean Corpuscular Volume 98 fL (79-100) Mean Corpuscular Hemoglobin 33 pg (25-35) Mean Corpuscular Hemoglobin Concent 34 g/dL (31-37) Red Cell Distribution Width 16.2 % (11.5-14.5) Platelet Count 101 x10^3/uL (140-400) Neutrophils (%) (Auto) 59 % (31-73) Lymphocytes (%) (Auto) 15 % (24-48) Monocytes (%) (Auto) 5 % (0-9) Eosinophils (%) (Auto) 20 % (0-3) Basophils (%) (Auto) 1 % (0-3) Neutrophils # (Auto) 3.3 x10^3/uL (1.8-7.7) Lymphocytes # (Auto) 0.9 x10^3/uL (1.0-4.8) Monocytes # (Auto) 0.3 x10^3/uL (0.0-1.1) Eosinophils # (Auto) 1.1 x10^3/uL (0.0-0.7) Basophils # (Auto) 0.0 x10^3/uL (0.0-0.2) Sodium Level 148 mmol/L (136-145) Potassium Level 4.4 mmol/L (3.5-5.1) Chloride Level 111 mmol/L (98-107) Carbon Dioxide Level 33 mmol/L (21-32) Anion Gap 4 (6-14) Blood Urea Nitrogen 31 mg/dL (7-20) Creatinine 0.9 mg/dL (0.6-1.0) Estimated GFR (Cockcroft-Gault) 60.2 BUN/Creatinine Ratio 34 (6-20) Glucose Level 68 mg/dL (70-99) Calcium Level 7.9 mg/dL (8.5-10.1) Total Bilirubin 0.7 mg/dL (0.2-1.0) Aspartate Amino Transf (AST/SGOT) 12 U/L (15-37) Alanine Aminotransferase (ALT/SGPT) 12 U/L (14-59) Alkaline Phosphatase 75 U/L (46-116) Total Protein 5.0 g/dL (6.4-8.2) Albumin 2.5 g/dL (3.4-5.0) Albumin/Globulin Ratio 1.0 (1.0-1.7) Glucose (Fingerstick) 67 mg/dL (70-99) 119 mg/dL (70-99) 77 mg/dL (70-99) Microbiology 05/30/20 Blood Culture - Preliminary, Resulted NO GROWTH AFTER 2 DAYS Medications Current Medications Methylprednisolone Sodium Succinate (SOLU-Medrol 125MG VIAL) 125 mg 1X ONCE IV Last administered on 05/30/20at 10:31; Start 05/30/20 at 10:45; Stop 05/30/20 at 10:46; Status DC Diphenhydramine HCl (Benadryl) 25 mg 1X ONCE IVP Last administered on 05/30/20at 10:27; Start 05/30/20 at 10:45; Stop 05/30/20 at 10:46; Status DC Sodium Bicarbonate (Sodium Bicarb Adult 8.4% Syr) 50 meq 1X ONCE IV Last administered on 05/30/20at 11:42; Start 05/30/20 at 11:15; Stop 05/30/20 at 11:16; Status DC Sodium Chloride 1,000 ml @ 1,000 mls/hr 1X ONCE IV Last administered on 05/30/20at 11:53; Start 05/30/20 at 11:30; Stop 05/30/20 at 12:29; Status DC Dextrose (Dextrose 50%-Water Syringe) 25 gm 1X ONCE IV Last administered on 05/30/20at 11:35; Start 05/30/20 at 11:30; Stop 05/30/20 at 11:31; Status DC Insulin Human Regular (HumuLIN R VIAL) 10 unit 1X ONCE IV Last administered on 05/30/20at 11:45; Start 05/30/20 at 11:45; Stop 05/30/20 at 11:46; Status DC Albuterol Sulfate (Ventolin Neb Soln) 10 mg 1X ONCE CONT NEB Last administered on 05/30/20at 12:09; Start 05/30/20 at 12:00; Stop 05/30/20 at 12:01; Status DC Calcium Gluconate (Calcium Gluconate) 1,000 mg 1X ONCE IVP Last administered on 05/30/20at 12:21; Start 05/30/20 at 12:30; Stop 05/30/20 at 12:31; Status DC Ondansetron HCl (Zofran) 4 mg PRN Q8HRS PRN IV NAUSEA/VOMITING; Start 05/30/20 at 12:30; Stop 05/31/20 at 12:29; Status DC Sodium Chloride 1,000 ml @ 125 mls/hr Q8H IV Last administered on 05/30/20at 12:30; Start 05/30/20 at 12:19; Stop 05/30/20 at 18:43; Status DC Acetaminophen (Tylenol) 650 mg PRN Q6HRS PRN PO Headaches, Temp > 101.5'; Start 05/30/20 at 14:30 Prochlorperazine (Compazine) 25 mg PRN Q12HR PRN DC NAUSEA/VOMITING; Start 05/30/20 at 14:30 Famotidine (Pepcid Vial) 20 mg QHS IVP Last administered on 06/01/20at 22:21; Start 05/30/20 at 21:00 Heparin Sodium (Porcine) (Heparin Sodium) 5,000 unit Q8HRS SQ Last administered on 05/31/20at 14:00; Start 05/30/20 at 22:00 Sodium Chloride (Normal Saline Flush) 3 ml QSHIFT PRN IV AFTER MEDS AND BLOOD DRAWS; Start 05/30/20 at 14:30; Stop 05/30/20 at 14:40; Status DC Docusate Sodium (Colace) 100 mg BID PO Last administered on 05/31/20at 09:17; Start 05/30/20 at 21:00 Bisacodyl (Dulcolax Supp) 10 mg PRN DAILY PRN DC CONSTIPATION; Start 05/30/20 at 14:30 Sodium Chloride 1,000 ml @ 1,000 mls/hr 1X ONCE IV Last administered on 05/30/20at 14:30; Start 05/30/20 at 14:30; Stop 05/30/20 at 15:29; Status DC Sodium Chloride 1,000 ml @ 1,000 mls/hr 1X ONCE IV ; Start 05/30/20 at 14:45; Stop 05/30/20 at 15:44; Status DC Hydrocortisone Sodium Succinate (Solu-CORTEF) 100 mg 1X ONCE IV Last administered on 05/30/20at 18:03; Start 05/30/20 at 15:00; Stop 05/30/20 at 15:01; Status DC Sodium Chloride (Normal Saline Flush) 10 ml QSHIFT PRN IV AFTER MEDS AND BLOOD DRAWS; Start 05/30/20 at 14:30 Budesonide (Pulmicort) 0.5 mg RTBID NEB Last administered on 06/02/20at 08:07; Start 05/30/20 at 20:00 Non-Formulary Medication 1 ea QID INH ; Start 05/30/20 at 16:45; Stop 05/30/20 at 21:02; Status DC Ibuprofen (Motrin) 200 mg PRN Q6HRS PRN PO INFLAMMATION Last administered on 05/30/20at 22:14; Start 05/30/20 at 16:30 Dextrose (Dextrose 50%-Water Syringe) 25 gm 1X ONCE IV Last administered on 05/30/20at 20:04; Start 05/30/20 at 18:45; Stop 05/30/20 at 18:46; Status DC Insulin Human Regular (HumuLIN R VIAL) 10 unit 1X ONCE IV ; Start 05/30/20 at 19:00; Stop 05/30/20 at 18:48; Status DC Sodium Bicarbonate 50 meq/Sodium Chloride 1,050 ml @ 50 mls/hr Q21H IV Last administered on 05/31/20at 21:56; Start 05/30/20 at 19:00; Stop 06/01/20 at 11:39; Status DC Insulin Human Regular (HumuLIN R VIAL) 10 unit 1X ONCE IV ; Start 05/30/20 at 19:00; Stop 05/30/20 at 18:48; Status DC Insulin Human Regular (HumuLIN R VIAL) 10 unit 1X ONCE IV Last administered on 05/30/20at 20:41; Start 05/30/20 at 19:00; Stop 05/30/20 at 19:01; Status DC Diphenhydramine HCl (Benadryl) 50 mg DAILY PO Last administered on 05/31/20at 09:17; Start 05/30/20 at 20:00 Albuterol/ Ipratropium (Duoneb) 3 ml RTQID NEB Last administered on 06/02/20at 08:07; Start 05/30/20 at 21:00 Ascorbic Acid (Vitamin C) 500 mg DAILY PO ; Start 06/01/20 at 09:00 Multivitamins (Thera M Plus) 1 tab DAILY PO ; Start 06/01/20 at 09:00 Zinc Acetate/ Diphenhydramine (Benadryl Topical) 1 jesus BID TP Last administered on 06/01/20at 21:00; Start 06/01/20 at 11:00 Sodium Chloride 1,000 ml @ 75 mls/hr [id number] IV Last administered on 06/01/20at 12:10; Start 06/01/20 at 11:45 Dextrose (Dextrose 50%-Water Syringe) 12.5 gm PRN Q15MIN PRN IV SEE COMMENTS Last administered on 06/02/20at 04:18; Start 06/02/20 at 04:15 Active Scripts Active Reported Alprazolam 0.25 Mg Tablet 0.25 Mg PO PRN Q12HRS PRN Miralax (Polyethylene Glycol 3350) 17 Gm Powd.pack 1 Packet PO DAILY 2 Days dissolve in water Flomax (Tamsulosin Hcl) 0.4 Mg Cap.er.24h 0.4 Mg PO DAILY Benadryl Allergy (Diphenhydramine Hcl) 25 Mg Tablet 25 Mg PO PRN Q6HRS PRN Benadryl Allergy (Diphenhydramine Hcl) 25 Mg Tablet 50 Mg PO DAILY Triamcinolone Acetonide 80 Gm Oint...g. 1 Jesus TP BID Tizanidine Hcl 4 Mg Tablet 2 Mg PO TID PRN Albuterol Sulfate Neb Soln (Albuterol Sulfate) 2.5 Mg/3 Ml Vial.neb 2.5 Mg NEB PRN Q4-6HRS PRN Trazodone Hcl 50 Mg Tablet 50 Mg PO HS Symbicort 160-4.5 Mcg Inhaler (Budesonide/Formoterol Fumarate) 10.2 Gm Hfa.aer.ad 2 Puff IH BID Prednisone 20 Mg Tablet 20 Mg PO DAILY Mirtazapine 45 Mg Tablet 45 Mg PO HS Furosemide 40 Mg Tablet 40 Mg PO BID Combivent Respimat Inhal (Ipratropium/Albuterol Sulfate) 4 Gm Aer.w.adap 1 Puff IH 5XDAY Lotrimin Af (Clotrimazole) 12 Gm Cream..g. 1 Jesus TP BID Amlodipine Besylate 10 Mg Tablet 10 Mg PO DAILY Vitals/I & O Vital Sign - Last 24 Hours 06/01/20 06/01/20 06/01/20 06/01/20 11:00 15:00 15:30 19:00 Temp 97.8 98.2 97.9 97.8 98.2 97.9 Pulse 95 88 100 Resp 18 16 20 B/P (MAP) 105/54 (71) 111/45 (67) 112/64 (80) Pulse Ox 98 98 96 O2 Delivery Nasal Cannula Nasal Cannula Nasal Cannula Nasal Cannula O2 Flow Rate 3.0 3.0 3.0 06/01/20 06/01/20 06/01/20 06/01/20 20:00 20:36 20:37 23:00 Temp 97.5 97.5 Pulse 90 Resp 18 B/P (MAP) 97/58 (71) Pulse Ox 99 99 97 O2 Delivery Nasal Cannula Nasal Cannula Nasal Cannula Nasal Cannula O2 Flow Rate 3.0 3.0 3.0 06/02/20 06/02/20 03:09 08:08 Temp 98.0 98.0 Pulse 100 Resp 20 B/P (MAP) 146/57 (86) Pulse Ox 91 99 O2 Delivery Nasal Cannula Nasal Cannula O2 Flow Rate 3.0 Intake and Output 06/01/20 06/01/20 06/02/20 15:00 23:00 07:00 Intake Total 260 ml Output Total 650 ml 600 ml Balance -390 ml -600 ml Nutrition Consultation Dietary Evaluation: Recommendations by RD: Dietary education by RD, Increase Calorie Intake, Protein supplementation Comments: Continue w/cardiac diet, honor food preferences, provide snacks as requested; will monitor renal labs and adjust diet as needed REC Ensure w/dinner (chocolate or strawberry per pt request) REC MVI q day and Vit C 500 mg q day for wound healing Expected Outcomes/Goals: PO intake to meet >75% est needs Interpretation of weight loss: >5% in 1 month Malnutrition Findings: Food and Nutrition Intake (Mod: <75% est energy req 7days Weight Status: Appropriate Justicifation of Admission Dx: Justifications for Admission: Justification of Admission Dx: Yes Acute COPD Exacerbation: Acute COPD Exacerbation KATIE MCKEE MD Jun 02, 2020 08:28
[2020-06-02] MEDS: DIPHENHYDRAMINE/ZINC ACETATE 2%/0.1% TOPICAL CREAM 28GM TUBE. TP SCH ×2 (09:00→21:00)
[2020-06-02] MEDS ORDERED: FUROSEMIDE 20 MG/2 ML VIAL. IVP ONE (09:30)
[2020-06-02] MEDS: ASCORBIC ACID 500 MG TABLET PO SCH (09:37)
[2020-06-02] MEDS: diphenhydrAMINE HCL 25 MG CAPSULE PO SCH (09:37)
[2020-06-02] MEDS: DOCUSATE SODIUM 100 MG CAPSULE. PO SCH ×2 (09:37→21:00)
[2020-06-02] MEDS: MULTIVITAMIN with MINERAL TABLET. PO SCH (09:37)
--- NOTE | 2020-06-02 10:51 | PDOC ---
Infectious Disease Note Subjective: Subjective Feels a little better Denies fever, chills, nausea, vomiting, diarrhea, abdominal pain Rash is improving though continues to have itching Vital Signs: Vital Signs Vital Signs Date Time Temp Pulse Resp B/P (MAP) Pulse Ox O2 Delivery O2 Flow Rate FiO2 06/02/20 08:08 99 Nasal Cannula 3.0 06/02/20 07:15 98.1 99 22 139/49 (79) 98.1 Physical Exam: PHYSICAL EXAM GENERAL: Alert, oriented x 3, female, in bed comfortably, in no acute distress, HEENT: Anicteric, no conjunctival petechiae. No oral lesions seen. Pupils equally reactive. Extraocular movements intact. Oral mucosa moist. No thrush. No oral lesions. No lip lesions. NECK: Supple, no JVD, no lymphadenopathy. LUNGS: Clear bilaterally except for decreased breath sounds at the bases. Few scattered rhonchi. No accessory muscle use. HEART: S1, S2. No gallops or murmurs. ABDOMEN: Soft, nontender, nondistended, no rebound, no guarding. EXTREMITIES: No cyanosis. Edema over right upper extremity, chronic. DERMATOLOGY: Diffuse maculopapular rash all over the body, mainly the upper extremity, abdomen, chest, back, lower extremity. No open wounds noted. NEUROLOGIC: Alert, oriented x 3. PSYCHIATRIC: Slightly anxious, otherwise appropriate. Medications: Inpatient Meds: Current Medications Medications (Trade) Dose Ordered Sig/Samara Start Time Stop Time Status Last Admin Dose Admin Acetaminophen (Tylenol) 650 mg PRN Q6HRS PRN 05/30/20 14:30 Albuterol Sulfate (Ventolin Neb Soln) 10 mg 1X ONCE 05/30/20 12:00 05/30/20 12:01 DC 05/30/20 12:09 10 MG Albuterol/ Ipratropium (Duoneb) 3 ml RTQID 05/30/20 21:00 06/02/20 08:07 3 ML Ascorbic Acid (Vitamin C) 500 mg DAILY 06/01/20 09:00 06/02/20 09:37 500 MG Bisacodyl (Dulcolax Supp) 10 mg PRN DAILY PRN 05/30/20 14:30 Budesonide (Pulmicort) 0.5 mg RTBID 05/30/20 20:00 06/02/20 08:07 0.5 MG Calcium Gluconate (Calcium Gluconate) 1,000 mg 1X ONCE 05/30/20 12:30 05/30/20 12:31 DC 05/30/20 12:21 1,000 MG Dextrose (Dextrose 50%-Water Syringe) 12.5 gm PRN Q15MIN PRN 06/02/20 04:15 06/02/20 04:18 12.5 GM Diphenhydramine HCl (Benadryl) 50 mg DAILY 05/30/20 20:00 06/02/20 09:37 50 MG Docusate Sodium (Colace) 100 mg BID 05/30/20 21:00 06/02/20 09:37 100 MG Famotidine (Pepcid Vial) 20 mg QHS 05/30/20 21:00 06/01/20 22:21 20 MG Furosemide (Lasix) 20 mg 1X ONCE 06/02/20 09:30 06/02/20 09:36 DC 06/02/20 10:35 20 MG Heparin Sodium (Porcine) (Heparin Sodium) 5,000 unit Q8HRS 05/30/20 22:00 05/31/20 14:00 5,000 UNIT Hydrocortisone Sodium Succinate (Solu-CORTEF) 100 mg 1X ONCE 05/30/20 15:00 05/30/20 15:01 DC 05/30/20 18:03 100 MG Ibuprofen (Motrin) 200 mg PRN Q6HRS PRN 05/30/20 16:30 05/30/20 22:14 200 MG Insulin Human Regular (HumuLIN R VIAL) 10 unit 1X ONCE 05/30/20 19:00 05/30/20 19:01 DC 05/30/20 20:41 10 UNIT Methylprednisolone Sodium Succinate (SOLU-Medrol 125MG VIAL) 125 mg 1X ONCE 05/30/20 10:45 05/30/20 10:46 DC 05/30/20 10:31 125 MG Multivitamins (Thera M Plus) 1 tab DAILY 06/01/20 09:00 06/02/20 09:37 1 TAB Non-Formulary Medication 1 ea QID 05/30/20 16:45 05/30/20 21:02 DC Ondansetron HCl (Zofran) 4 mg PRN Q8HRS PRN 05/30/20 12:30 05/31/20 12:29 DC Prochlorperazine (Compazine) 25 mg PRN Q12HR PRN 05/30/20 14:30 Sodium Bicarbonate 50 meq/Sodium Chloride 1,050 ml @ 50 mls/hr Q21H 05/30/20 19:00 06/01/20 11:39 DC 05/31/20 21:56 150 MLS/HR Sodium Bicarbonate (Sodium Bicarb Adult 8.4% Syr) 50 meq 1X ONCE 05/30/20 11:15 05/30/20 11:16 DC 05/30/20 11:42 50 MEQ Sodium Chloride 1,000 ml @ 75 mls/hr [id number] 06/01/20 11:45 06/01/20 12:10 75 MLS/HR Sodium Chloride (Normal Saline Flush) 10 ml QSHIFT PRN 05/30/20 14:30 Zinc Acetate/ Diphenhydramine (Benadryl Topical) 1 harvinder BID 06/01/20 11:00 06/02/20 09:00 1 HARVINDER Labs: Lab Laboratory Tests Test 06/01/20 11:46 06/01/20 16:27 06/01/20 20:44 06/02/20 03:25 Glucose (Fingerstick) 85 mg/dL (70-99) 64 mg/dL (70-99) 72 mg/dL (70-99) White Blood Count 5.6 x10^3/uL (4.0-11.0) Red Blood Count 3.15 x10^6/uL (3.50-5.40) Hemoglobin 10.5 g/dL (12.0-15.5) Hematocrit 31.0 % (36.0-47.0) Mean Corpuscular Volume 98 fL (79-100) Mean Corpuscular Hemoglobin 33 pg (25-35) Mean Corpuscular Hemoglobin Concent 34 g/dL (31-37) Red Cell Distribution Width 16.2 % (11.5-14.5) Platelet Count 101 x10^3/uL (140-400) Neutrophils (%) (Auto) 59 % (31-73) Lymphocytes (%) (Auto) 15 % (24-48) Monocytes (%) (Auto) 5 % (0-9) Eosinophils (%) (Auto) 20 % (0-3) Basophils (%) (Auto) 1 % (0-3) Neutrophils # (Auto) 3.3 x10^3/uL (1.8-7.7) Lymphocytes # (Auto) 0.9 x10^3/uL (1.0-4.8) Monocytes # (Auto) 0.3 x10^3/uL (0.0-1.1) Eosinophils # (Auto) 1.1 x10^3/uL (0.0-0.7) Basophils # (Auto) 0.0 x10^3/uL (0.0-0.2) Sodium Level 148 mmol/L (136-145) Potassium Level 4.4 mmol/L (3.5-5.1) Chloride Level 111 mmol/L (98-107) Carbon Dioxide Level 33 mmol/L (21-32) Anion Gap 4 (6-14) Blood Urea Nitrogen 31 mg/dL (7-20) Creatinine 0.9 mg/dL (0.6-1.0) Estimated GFR (Cockcroft-Gault) 60.2 BUN/Creatinine Ratio 34 (6-20) Glucose Level 68 mg/dL (70-99) Calcium Level 7.9 mg/dL (8.5-10.1) Total Bilirubin 0.7 mg/dL (0.2-1.0) Aspartate Amino Transf (AST/SGOT) 12 U/L (15-37) Alanine Aminotransferase (ALT/SGPT) 12 U/L (14-59) Alkaline Phosphatase 75 U/L (46-116) Total Protein 5.0 g/dL (6.4-8.2) Albumin 2.5 g/dL (3.4-5.0) Albumin/Globulin Ratio 1.0 (1.0-1.7) Test 06/02/20 04:11 06/02/20 04:47 06/02/20 07:54 Glucose (Fingerstick) 67 mg/dL (70-99) 119 mg/dL (70-99) 77 mg/dL (70-99) Objective: Assessment: 1. Leukocytosis, likely from steroids.improved 2. Dermatitis appears drug induced allergic reaction. Improving 3. Eosinophilia likely from drug induced. 4. Chronic hypoxic respiratory failure, on home O2. 5. Acute kidney injury with hyperkalemia. 6. Hypertension. 7. Metabolic encephalopathy, improved 8. Thrombocytopenia ? etiology,drug induced Plan: Plan of Care Continue observation off antibiotics. Continue local care. Avoid scratching offered zyrtec, pt is refusing Continue supportive care. Discussed with nursing staff BHUMIKA CESAR MD Jun 02, 2020 10:51
[2020-06-02 11:15] VITALS: BP 108/59
--- NOTE | 2020-06-02 11:30 | PDOC ---
Renal-Progress Notes Subjective Notes Notes FEELING BETTER History of Present Illness Hx of present illness STABLE Vitals Vitals Vital Signs Date Time Temp Pulse Resp B/P (MAP) Pulse Ox O2 Delivery O2 Flow Rate FiO2 06/02/20 08:08 99 Nasal Cannula 3.0 06/02/20 07:15 98.1 99 22 139/49 (79) 98.1 Weight Weight [ ] I.O. Intake and Output Intake and Output 06/02/20 07:00 Intake Total 260 ml Output Total 1250 ml Balance -990 ml Intake Oral 260 ml Output Urine Total 1250 ml # Bowel Movements 1 Labs Labs Laboratory Tests Test 06/01/20 11:46 06/01/20 16:27 06/01/20 20:44 06/02/20 03:25 Glucose (Fingerstick) 85 mg/dL (70-99) 64 mg/dL (70-99) 72 mg/dL (70-99) White Blood Count 5.6 x10^3/uL (4.0-11.0) Red Blood Count 3.15 x10^6/uL (3.50-5.40) Hemoglobin 10.5 g/dL (12.0-15.5) Hematocrit 31.0 % (36.0-47.0) Mean Corpuscular Volume 98 fL (79-100) Mean Corpuscular Hemoglobin 33 pg (25-35) Mean Corpuscular Hemoglobin Concent 34 g/dL (31-37) Red Cell Distribution Width 16.2 % (11.5-14.5) Platelet Count 101 x10^3/uL (140-400) Neutrophils (%) (Auto) 59 % (31-73) Lymphocytes (%) (Auto) 15 % (24-48) Monocytes (%) (Auto) 5 % (0-9) Eosinophils (%) (Auto) 20 % (0-3) Basophils (%) (Auto) 1 % (0-3) Neutrophils # (Auto) 3.3 x10^3/uL (1.8-7.7) Lymphocytes # (Auto) 0.9 x10^3/uL (1.0-4.8) Monocytes # (Auto) 0.3 x10^3/uL (0.0-1.1) Eosinophils # (Auto) 1.1 x10^3/uL (0.0-0.7) Basophils # (Auto) 0.0 x10^3/uL (0.0-0.2) Sodium Level 148 mmol/L (136-145) Potassium Level 4.4 mmol/L (3.5-5.1) Chloride Level 111 mmol/L (98-107) Carbon Dioxide Level 33 mmol/L (21-32) Anion Gap 4 (6-14) Blood Urea Nitrogen 31 mg/dL (7-20) Creatinine 0.9 mg/dL (0.6-1.0) Estimated GFR (Cockcroft-Gault) 60.2 BUN/Creatinine Ratio 34 (6-20) Glucose Level 68 mg/dL (70-99) Calcium Level 7.9 mg/dL (8.5-10.1) Total Bilirubin 0.7 mg/dL (0.2-1.0) Aspartate Amino Transf (AST/SGOT) 12 U/L (15-37) Alanine Aminotransferase (ALT/SGPT) 12 U/L (14-59) Alkaline Phosphatase 75 U/L (46-116) Total Protein 5.0 g/dL (6.4-8.2) Albumin 2.5 g/dL (3.4-5.0) Albumin/Globulin Ratio 1.0 (1.0-1.7) Test 06/02/20 04:11 06/02/20 04:47 06/02/20 07:54 Glucose (Fingerstick) 67 mg/dL (70-99) 119 mg/dL (70-99) 77 mg/dL (70-99) Micro Micro Microbiology 05/30/20 Blood Culture - Preliminary, Resulted NO GROWTH AFTER 2 DAYS Review of Systems Constitutional: yes: other (CONFUSED) Physical Exam General Appearance: no apparent distress Skin: warm Respiratory: decreased breath sounds Heart: S1S2 Abdomen: soft, bowel sounds present Genitourinary: bladder flat Extremities: pulses present Neurology: alert, confused Musculoskeletal: Osteoarthritis Assessment Assessment IMP LIFE THREATENING HYPERKALEMIA-RESOLVED EXTRACELLULAR VOLUME DEPLETION SINGH-POSSIBLE ATN-CR DOWN TO 1.1-NO IN ACUTE ON CHRONIC HYPOXIC RESP FAILURE LEUCOCYTOSIS-RESOLVED RECENT UTI SKIN RASH-PROB ALLERGIC RXN TO ABX PLAN HYDRATION WITHHOLD K SUPPLEMENTS HOLD ARB AND ALDACTONE AM LABS WILL FOLLOW NIKKI TARANGO MD Jun 02, 2020 11:30
[2020-06-02 15:00] VITALS: BP 131/75
[2020-06-02 19:00] VITALS: BP 118/58
--- NOTE | 2020-06-02 20:09 | NUR ---
PT HAS BEEN REFUSING BLOOD SUGAR CHECKS AT BEDSIDE X2, MULTIPLE PEOPLE ATTEMPTED TO GET BLOOD SUGAR READING BUT PT STATED THAT SHE DOES NOT NEED THEM, PHYSICIAN NOTIFIED, WILL CONTINUE TO MONITOR FOR S/S OF HYPER/HYPOGLYCEMIA.
[2020-06-02] MEDS: FAMOTIDINE 20 MG/2 ML VIAL IVP SCH (21:13)
[2020-06-02 23:00] VITALS: BP 126/60
[2020-06-03 03:00] VITALS: BP 129/50
[2020-06-03] MEDS: HEPARIN for SUB-Q USE 5,000 UNIT/ML VIAL. SQ SCH ×3 (06:00→21:20)
[2020-06-03 07:00] VITALS: BP 133/70
[2020-06-03 07:02] LABS: CALCIUM 7.9 mg/dL (8.5-10.1); GFR 53.3; POTASSIUM 4.1 mmol/L (3.5-5.1)
[2020-06-03] MEDS: BUDESONIDE 0.5 MG/2 ML NEBU. NEB SCH ×2 (07:07→19:41)
[2020-06-03] MEDS: IPRATRPIUM/ALBUTEROL 0.5/2.5MG 3 ML NEBU. NEB SCH ×4 (07:07→19:41)
[2020-06-03] MEDS: DIPHENHYDRAMINE/ZINC ACETATE 2%/0.1% TOPICAL CREAM 28GM TUBE. TP SCH ×2 (09:00→21:20)
[2020-06-03] MEDS: MULTIVITAMIN with MINERAL TABLET. PO SCH (10:03)
[2020-06-03] MEDS: ASCORBIC ACID 500 MG TABLET PO SCH (10:04)
[2020-06-03] MEDS: diphenhydrAMINE HCL 25 MG CAPSULE PO SCH (10:04)
[2020-06-03] MEDS: DOCUSATE SODIUM 100 MG CAPSULE. PO SCH ×2 (10:06→21:20)
[2020-06-03 11:00] VITALS: BP 124/54
--- NOTE | 2020-06-03 12:36 | PDOC ---
Infectious Disease Note Subjective Subjective Itchy Denies pain/SOA/N/V ROS ROS as mentioned above Vital Sign Vital Signs Vital Signs Date Time Temp Pulse Resp B/P (MAP) Pulse Ox O2 Delivery O2 Flow Rate FiO2 06/03/20 11:00 98 Nasal Cannula 3.0 06/03/20 07:00 98.5 92 18 133/70 (91) 98.5 Physical Exam PHYSICAL EXAM GENERAL: Sleeping, arouses to name HENT: Oral mucosa moist. No thrush. No oral lesions. No lip lesions. NECK: Supple, no JVD, no lymphadenopathy. LUNGS: Clear bilaterally except for decreased breath sounds at the bases. No accessory muscle use. HEART: S1, S2. No gallops or murmurs. ABDOMEN: Soft, nontender, nondistended, no rebound, no guarding. : Mg in place EXTREMITIES: No cyanosis. Edema over right upper extremity, chronic. DERMATOLOGY: Diffuse maculopapular rash all over the body, improving. Coccyx wound (refer to wound care note for further details) NEUROLOGIC: Answers questions appropriately PIV looks ok Labs Lab Laboratory Tests Test 06/02/20 21:20 06/03/20 05:30 06/03/20 07:36 06/03/20 11:34 Glucose (Fingerstick) 121 mg/dL (70-99) 68 mg/dL (70-99) 82 mg/dL (70-99) Sodium Level 146 mmol/L (136-145) Potassium Level 4.1 mmol/L (3.5-5.1) Chloride Level 109 mmol/L (98-107) Carbon Dioxide Level 33 mmol/L (21-32) Anion Gap 4 (6-14) Blood Urea Nitrogen 27 mg/dL (7-20) Creatinine 1.0 mg/dL (0.6-1.0) Estimated GFR (Cockcroft-Gault) 53.3 Glucose Level 71 mg/dL (70-99) Calcium Level 7.9 mg/dL (8.5-10.1) Micro Microbiology 05/30/20 Blood Culture - Preliminary, Resulted NO GROWTH AFTER 3 DAYS Objective Assessment Leukocytosis, likely from steroids, improved. Dermatitis appears drug induced allergic reaction. Improving Eosinophilia likely from drug induced. Chronic hypoxic respiratory failure, on home O2. Acute kidney injury with hyperkalemia. Hypertension. Metabolic encephalopathy, improved Thrombocytopenia ? etiology,drug induced Pressure ulcer to coccyx. Plan Plan of Care Continue observation off antibiotics. Avoid scratching offered zyrtec, pt is refusing Local wound care and offloading as directed Continue supportive care. Discussed with nursing staff Attending Co-Sign Attending Co-Sign Attending Co-Sign The patient was seen and examined at the bedside. The chart was reviewed. The case was discussed. Agree with the plan of care. TIFFANIE HAM APRN Jun 03, 2020 12:36 BHUMIKA CESAR MD Jun 03, 2020 13:24
[2020-06-03 15:17] VITALS: BP 113/42
--- NOTE | 2020-06-03 15:25 | PDOC ---
PROGRESS NOTES Date of Service: DATE: 06/03/20 TIME: 15:24 Chief Complaint Chief Complaint IMPRESSION Acute renal failure Hyperkalemia, IMPROVING Metabolic encephalopathy Allergic reaction Extended-spectrum beta-lactamase Escherichia coli on 05/11, meropenem started on the ANTIBIOTIC ALLERGIES LISTED PENICILLIN, but tolerated Zosyn, Rocephin, doxycycline, does not remember reaction. Respiratory failure, suspect chronic obstructive pulmonary UTI hypercapnic respiratory failure HX Sepsis due to ESBL UTI anxiety HX URINARY RETENTION RECENT echo c/w moderate aortic regurgitation. mild tricuspid regurgitation with an estimated PAP of 50 mmHg. 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 Patient has history of COPD, she is on oxygen at home all the time. Patient is currently on some form of antibiotic for urinary tract infection. Patient was noted to have some rash in her genital area in her abdomen area yesterday, however it became widespread this morning so she was sent here for evaluation. Patient denies any fever, denies any chest pain. Patient says she only had a cough and still has trouble breathing because of COPD. recently admitted to hospital last month for COPD exacerbation. 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 Vitals Vitals Vital Signs Date Time Temp Pulse Resp B/P (MAP) Pulse Ox O2 Delivery O2 Flow Rate FiO2 06/03/20 11:00 98 Nasal Cannula 3.0 06/03/20 11:00 98.6 91 18 124/54 (77) 98.6 Physical Exam Physical Exam GENERAL: Sleeping, arouses to name HENT: Oral mucosa moist. No thrush. No oral lesions. No lip lesions. NECK: Supple, no JVD, no lymphadenopathy. LUNGS: Clear bilaterally except for decreased breath sounds at the bases. No accessory muscle use. HEART: S1, S2. No gallops or murmurs. ABDOMEN: Soft, nontender, nondistended, no rebound, no guarding. : Mg in place EXTREMITIES: No cyanosis. Edema over right upper extremity, chronic. DERMATOLOGY: Diffuse maculopapular rash all over the body, improving. Coccyx wound (refer to wound care note for further details) NEUROLOGIC: Answers questions appropriately PIV looks ok General: Alert, Oriented X3, Cooperative, No acute distress Heart: Regular rate, Normal S1 Lungs: Clear Abdomen: Normal bowel sounds, Soft, No tenderness Extremities: No cyanosis, No edema Skin: No significant lesion Labs LABS Laboratory Tests Test 06/02/20 21:20 06/03/20 05:30 06/03/20 07:36 06/03/20 11:34 Glucose (Fingerstick) 121 mg/dL (70-99) 68 mg/dL (70-99) 82 mg/dL (70-99) Sodium Level 146 mmol/L (136-145) Potassium Level 4.1 mmol/L (3.5-5.1) Chloride Level 109 mmol/L (98-107) Carbon Dioxide Level 33 mmol/L (21-32) Anion Gap 4 (6-14) Blood Urea Nitrogen 27 mg/dL (7-20) Creatinine 1.0 mg/dL (0.6-1.0) Estimated GFR (Cockcroft-Gault) 53.3 Glucose Level 71 mg/dL (70-99) Calcium Level 7.9 mg/dL (8.5-10.1) Assessment and Plan Assessmemt and Plan Problems Medical Problems: (1) Acute renal failure (ARF) Status: Acute (2) Allergic reaction due to antibacterial drug Status: Acute (3) Hyperkalemia Status: Acute Comment Review of Relevant I have reviewed the following items cira (where applicable) has been applied. Labs Laboratory Tests Test 06/01/20 16:27 06/01/20 20:44 06/02/20 03:25 06/02/20 04:11 Glucose (Fingerstick) 64 mg/dL (70-99) 72 mg/dL (70-99) 67 mg/dL (70-99) White Blood Count 5.6 x10^3/uL (4.0-11.0) Red Blood Count 3.15 x10^6/uL (3.50-5.40) Hemoglobin 10.5 g/dL (12.0-15.5) Hematocrit 31.0 % (36.0-47.0) Mean Corpuscular Volume 98 fL (79-100) Mean Corpuscular Hemoglobin 33 pg (25-35) Mean Corpuscular Hemoglobin Concent 34 g/dL (31-37) Red Cell Distribution Width 16.2 % (11.5-14.5) Platelet Count 101 x10^3/uL (140-400) Neutrophils (%) (Auto) 59 % (31-73) Lymphocytes (%) (Auto) 15 % (24-48) Monocytes (%) (Auto) 5 % (0-9) Eosinophils (%) (Auto) 20 % (0-3) Basophils (%) (Auto) 1 % (0-3) Neutrophils # (Auto) 3.3 x10^3/uL (1.8-7.7) Lymphocytes # (Auto) 0.9 x10^3/uL (1.0-4.8) Monocytes # (Auto) 0.3 x10^3/uL (0.0-1.1) Eosinophils # (Auto) 1.1 x10^3/uL (0.0-0.7) Basophils # (Auto) 0.0 x10^3/uL (0.0-0.2) Sodium Level 148 mmol/L (136-145) Potassium Level 4.4 mmol/L (3.5-5.1) Chloride Level 111 mmol/L (98-107) Carbon Dioxide Level 33 mmol/L (21-32) Anion Gap 4 (6-14) Blood Urea Nitrogen 31 mg/dL (7-20) Creatinine 0.9 mg/dL (0.6-1.0) Estimated GFR (Cockcroft-Gault) 60.2 BUN/Creatinine Ratio 34 (6-20) Glucose Level 68 mg/dL (70-99) Calcium Level 7.9 mg/dL (8.5-10.1) Total Bilirubin 0.7 mg/dL (0.2-1.0) Aspartate Amino Transf (AST/SGOT) 12 U/L (15-37) Alanine Aminotransferase (ALT/SGPT) 12 U/L (14-59) Alkaline Phosphatase 75 U/L (46-116) Total Protein 5.0 g/dL (6.4-8.2) Albumin 2.5 g/dL (3.4-5.0) Albumin/Globulin Ratio 1.0 (1.0-1.7) Test 06/02/20 04:47 06/02/20 07:54 06/02/20 21:20 06/03/20 05:30 Glucose (Fingerstick) 119 mg/dL (70-99) 77 mg/dL (70-99) 121 mg/dL (70-99) Sodium Level 146 mmol/L (136-145) Potassium Level 4.1 mmol/L (3.5-5.1) Chloride Level 109 mmol/L (98-107) Carbon Dioxide Level 33 mmol/L (21-32) Anion Gap 4 (6-14) Blood Urea Nitrogen 27 mg/dL (7-20) Creatinine 1.0 mg/dL (0.6-1.0) Estimated GFR (Cockcroft-Gault) 53.3 Glucose Level 71 mg/dL (70-99) Calcium Level 7.9 mg/dL (8.5-10.1) Test 06/03/20 07:36 06/03/20 11:34 Glucose (Fingerstick) 68 mg/dL (70-99) 82 mg/dL (70-99) Laboratory Tests Test 06/02/20 21:20 06/03/20 05:30 06/03/20 07:36 06/03/20 11:34 Glucose (Fingerstick) 121 mg/dL (70-99) 68 mg/dL (70-99) 82 mg/dL (70-99) Sodium Level 146 mmol/L (136-145) Potassium Level 4.1 mmol/L (3.5-5.1) Chloride Level 109 mmol/L (98-107) Carbon Dioxide Level 33 mmol/L (21-32) Anion Gap 4 (6-14) Blood Urea Nitrogen 27 mg/dL (7-20) Creatinine 1.0 mg/dL (0.6-1.0) Estimated GFR (Cockcroft-Gault) 53.3 Glucose Level 71 mg/dL (70-99) Calcium Level 7.9 mg/dL (8.5-10.1) Microbiology 05/30/20 Blood Culture - Preliminary, Resulted NO GROWTH AFTER 4 DAYS Medications Current Medications Methylprednisolone Sodium Succinate (SOLU-Medrol 125MG VIAL) 125 mg 1X ONCE IV Last administered on 05/30/20at 10:31; Start 05/30/20 at 10:45; Stop 05/30/20 at 10:46; Status DC Diphenhydramine HCl (Benadryl) 25 mg 1X ONCE IVP Last administered on 05/30/20at 10:27; Start 05/30/20 at 10:45; Stop 05/30/20 at 10:46; Status DC Sodium Bicarbonate (Sodium Bicarb Adult 8.4% Syr) 50 meq 1X ONCE IV Last administered on 05/30/20at 11:42; Start 05/30/20 at 11:15; Stop 05/30/20 at 11:16; Status DC Sodium Chloride 1,000 ml @ 1,000 mls/hr 1X ONCE IV Last administered on 05/30/20at 11:53; Start 05/30/20 at 11:30; Stop 05/30/20 at 12:29; Status DC Dextrose (Dextrose 50%-Water Syringe) 25 gm 1X ONCE IV Last administered on 05/30/20at 11:35; Start 05/30/20 at 11:30; Stop 05/30/20 at 11:31; Status DC Insulin Human Regular (HumuLIN R VIAL) 10 unit 1X ONCE IV Last administered on 05/30/20at 11:45; Start 05/30/20 at 11:45; Stop 05/30/20 at 11:46; Status DC Albuterol Sulfate (Ventolin Neb Soln) 10 mg 1X ONCE CONT NEB Last administered on 05/30/20at 12:09; Start 05/30/20 at 12:00; Stop 05/30/20 at 12:01; Status DC Calcium Gluconate (Calcium Gluconate) 1,000 mg 1X ONCE IVP Last administered on 05/30/20at 12:21; Start 05/30/20 at 12:30; Stop 05/30/20 at 12:31; Status DC Ondansetron HCl (Zofran) 4 mg PRN Q8HRS PRN IV NAUSEA/VOMITING; Start 05/30/20 at 12:30; Stop 05/31/20 at 12:29; Status DC Sodium Chloride 1,000 ml @ 125 mls/hr Q8H IV Last administered on 05/30/20at 12:30; Start 05/30/20 at 12:19; Stop 05/30/20 at 18:43; Status DC Acetaminophen (Tylenol) 650 mg PRN Q6HRS PRN PO Headaches, Temp > 101.5'; Start 05/30/20 at 14:30 Prochlorperazine (Compazine) 25 mg PRN Q12HR PRN MS NAUSEA/VOMITING; Start 05/30/20 at 14:30 Famotidine (Pepcid Vial) 20 mg QHS IVP Last administered on 06/02/20at 21:13; Start 05/30/20 at 21:00 Heparin Sodium (Porcine) (Heparin Sodium) 5,000 unit Q8HRS SQ Last administered on 06/02/20at 21:16; Start 05/30/20 at 22:00 Sodium Chloride (Normal Saline Flush) 3 ml QSHIFT PRN IV AFTER MEDS AND BLOOD DRAWS; Start 05/30/20 at 14:30; Stop 05/30/20 at 14:40; Status DC Docusate Sodium (Colace) 100 mg BID PO Last administered on 06/03/20at 10:06; Start 05/30/20 at 21:00 Bisacodyl (Dulcolax Supp) 10 mg PRN DAILY PRN MS CONSTIPATION; Start 05/30/20 at 14:30 Sodium Chloride 1,000 ml @ 1,000 mls/hr 1X ONCE IV Last administered on 05/30/20at 14:30; Start 05/30/20 at 14:30; Stop 05/30/20 at 15:29; Status DC Sodium Chloride 1,000 ml @ 1,000 mls/hr 1X ONCE IV ; Start 05/30/20 at 14:45; Stop 05/30/20 at 15:44; Status DC Hydrocortisone Sodium Succinate (Solu-CORTEF) 100 mg 1X ONCE IV Last administered on 05/30/20at 18:03; Start 05/30/20 at 15:00; Stop 05/30/20 at 15:01; Status DC Sodium Chloride (Normal Saline Flush) 10 ml QSHIFT PRN IV AFTER MEDS AND BLOOD DRAWS; Start 05/30/20 at 14:30 Budesonide (Pulmicort) 0.5 mg RTBID NEB Last administered on 06/03/20at 07:07; Start 05/30/20 at 20:00 Non-Formulary Medication 1 ea QID INH ; Start 05/30/20 at 16:45; Stop 05/30/20 at 21:02; Status DC Ibuprofen (Motrin) 200 mg PRN Q6HRS PRN PO INFLAMMATION Last administered on 05/30/20at 22:14; Start 05/30/20 at 16:30 Dextrose (Dextrose 50%-Water Syringe) 25 gm 1X ONCE IV Last administered on 05/30/20at 20:04; Start 05/30/20 at 18:45; Stop 05/30/20 at 18:46; Status DC Insulin Human Regular (HumuLIN R VIAL) 10 unit 1X ONCE IV ; Start 05/30/20 at 19:00; Stop 05/30/20 at 18:48; Status DC Sodium Bicarbonate 50 meq/Sodium Chloride 1,050 ml @ 50 mls/hr Q21H IV Last administered on 05/31/20at 21:56; Start 05/30/20 at 19:00; Stop 06/01/20 at 11:39; Status DC Insulin Human Regular (HumuLIN R VIAL) 10 unit 1X ONCE IV ; Start 05/30/20 at 19:00; Stop 05/30/20 at 18:48; Status DC Insulin Human Regular (HumuLIN R VIAL) 10 unit 1X ONCE IV Last administered on 05/30/20at 20:41; Start 05/30/20 at 19:00; Stop 05/30/20 at 19:01; Status DC Diphenhydramine HCl (Benadryl) 50 mg DAILY PO Last administered on 06/03/20at 10:04; Start 05/30/20 at 20:00 Albuterol/ Ipratropium (Duoneb) 3 ml RTQID NEB Last administered on 06/03/20at 10:59; Start 05/30/20 at 21:00 Ascorbic Acid (Vitamin C) 500 mg DAILY PO Last administered on 06/03/20at 10:04; Start 06/01/20 at 09:00 Multivitamins (Thera M Plus) 1 tab DAILY PO Last administered on 06/03/20at 10:03; Start 06/01/20 at 09:00 Zinc Acetate/ Diphenhydramine (Benadryl Topical) 1 jesus BID TP Last administered on 06/03/20at 09:00; Start 06/01/20 at 11:00 Sodium Chloride 1,000 ml @ 75 mls/hr [id number] IV Last administered on 06/01/20at 12:10; Start 06/01/20 at 11:45; Stop 06/02/20 at 12:06; Status DC Dextrose (Dextrose 50%-Water Syringe) 12.5 gm PRN Q15MIN PRN IV SEE COMMENTS [facility] administered on 06/02/20at 04:18; Start 06/02/20 at 04:15 Furosemide (Lasix) 20 mg 1X ONCE IVP Last administered on 06/02/20at 10:35; Start 06/02/20 at 09:30; Stop 06/02/20 at 09:36; Status DC Active Scripts Active Reported Alprazolam 0.25 Mg Tablet 0.25 Mg PO PRN Q12HRS PRN Miralax (Polyethylene Glycol 3350) 17 Gm Powd.pack 1 Packet PO DAILY 2 Days dissolve in water Flomax (Tamsulosin Hcl) 0.4 Mg Cap.er.24h 0.4 Mg PO DAILY Benadryl Allergy (Diphenhydramine Hcl) 25 Mg Tablet 25 Mg PO PRN Q6HRS PRN Benadryl Allergy (Diphenhydramine Hcl) 25 Mg Tablet 50 Mg PO DAILY Triamcinolone Acetonide 80 Gm Oint...g. 1 Jesus TP BID Tizanidine Hcl 4 Mg Tablet 2 Mg PO TID PRN Albuterol Sulfate Neb Soln (Albuterol Sulfate) 2.5 Mg/3 Ml Vial.neb 2.5 Mg NEB PRN Q4-6HRS PRN Trazodone Hcl 50 Mg Tablet 50 Mg PO HS Symbicort 160-4.5 Mcg Inhaler (Budesonide/Formoterol Fumarate) 10.2 Gm Hfa.aer.ad 2 Puff IH BID Prednisone 20 Mg Tablet 20 Mg PO DAILY Mirtazapine 45 Mg Tablet 45 Mg PO HS Furosemide 40 Mg Tablet 40 Mg PO BID Combivent Respimat Inhal (Ipratropium/Albuterol Sulfate) 4 Gm Aer.w.adap 1 Puff IH 5XDAY Lotrimin Af (Clotrimazole) 12 Gm Cream..g. 1 Jesus TP BID Amlodipine Besylate 10 Mg Tablet 10 Mg PO DAILY Vitals/I & O Vital Sign - Last 24 Hours 8/14/06/02/20 06/02/20 06/02/20 15:44 19:00 20:06 20:07 Temp 97.6 97.6 Pulse 99 Resp 18 B/P (MAP) 118/58 (78) Pulse Ox 100 98 98 98 O2 Delivery Nasal Cannula Nasal Cannula Nasal Cannula Nasal Cannula O2 Flow Rate 3.0 3.0 3.0 3.0 06/02/20 06/03/20 06/03/20 06/03/20 23:00 03:00 07:00 07:08 Temp 97.8 98.3 98.5 97.8 98.3 98.5 Pulse 89 92 92 Resp 18 18 18 B/P (MAP) 126/60 (82) 129/50 (76) 133/70 (91) Pulse Ox 96 95 98 98 O2 Delivery Nasal Cannula Room Air Nasal Cannula Nasal Cannula O2 Flow Rate 3.0 3.0 3.0 3.0 06/03/20 06/03/20 11:00 11:00 Temp 98.6 98.6 Pulse 91 Resp 18 B/P (MAP) 124/54 (77) Pulse Ox 100 98 O2 Delivery Nasal Cannula Nasal Cannula O2 Flow Rate 3.0 3.0 Intake and Output 06/02/20 06/02/20 06/03/20 15:00 23:00 07:00 Intake Total 1100 ml 400 ml Output Total 750 ml 300 ml Balance 350 ml 100 ml Nutrition Consultation Dietary Evaluation: Recommendations by RD: Dietary education by RD, Increase Calorie Intake, Protein supplementation Comments: Continue w/cardiac diet, honor food preferences, provide snacks as requested REC Ensure w/dinner (chocolate or strawberry per pt request) mvi and vit c in place per wound protocal - continue Expected Outcomes/Goals: PO intake to meet >75% est needs- not met, goal ongoing Interpretation of weight loss: >5% in 1 month Malnutrition Findings: Food and Nutrition Intake (Mod: <75% est energy req 7days Weight Status: Appropriate Justicifation of Admission Dx: Justifications for Admission: Justification of Admission Dx: Yes Acute COPD Exacerbation: Acute COPD Exacerbation DORA TRAORE MD Jun 03, 2020 15:24
[2020-06-03 19:00] VITALS: BP 124/54
[2020-06-03] MEDS: FAMOTIDINE 20 MG TABLET. PO SCH (21:20)
[2020-06-03 23:00] VITALS: BP 109/46
--- NOTE | 2020-06-04 02:20 | NUR ---
PT REMAIN ALERT AND ORIENT TIMES THREE. DID NOT REFUSE ANY MEDS BUT DID INQUIRE ABOUT THE NEED FOR HEPARIN AND HOW MANY TIMES DOES SHE GET IT IN ONE DAY. C/O ITCHING ON HANDS, BENEDRYL CREAM APPLIED. VSS, AFEBRILE. SLEEPY YET EASY TO AROUSE. SLOW PROGRESS TOWARDS DC GOALS,. WILL CONTINUE TO MONITOR.
[2020-06-04 03:05] VITALS: BP 112/54
[2020-06-04] MEDS: HEPARIN for SUB-Q USE 5,000 UNIT/ML VIAL. SQ SCH ×2 (06:00→14:00)
[2020-06-04] MEDS: BUDESONIDE 0.5 MG/2 ML NEBU. NEB SCH ×2 (06:28→20:29)
[2020-06-04] MEDS: IPRATRPIUM/ALBUTEROL 0.5/2.5MG 3 ML NEBU. NEB SCH ×4 (06:28→20:29)
[2020-06-04 07:00] VITALS: BP 127/55
[2020-06-04] MEDS: DIPHENHYDRAMINE/ZINC ACETATE 2%/0.1% TOPICAL CREAM 28GM TUBE. TP SCH ×2 (09:00→21:00)
[2020-06-04 11:00] VITALS: BP 95/50
--- NOTE | 2020-06-04 11:41 | PDOC ---
Infectious Disease Note Subjective Subjective Still itchy all over some Mouth is dry Denies pain/SOA/N/V ROS ROS as mentioned above Vital Sign Vital Signs Vital Signs Date Time Temp Pulse Resp B/P (MAP) Pulse Ox O2 Delivery O2 Flow Rate FiO2 06/04/20 07:00 98.2 102 18 127/55 (79) 100 Nasal Cannula 3.0 98.2 Physical Exam PHYSICAL EXAM GENERAL: Propped up in bed, alert in NAD HENT: Oral mucosa dry, no oral lesions. No lip lesions. NECK: Supple, no JVD, no lymphadenopathy. LUNGS: Clear bilaterally except for decreased breath sounds at the bases. No accessory muscle use. HEART: S1, S2. No gallops or murmurs. ABDOMEN: Soft, nontender, nondistended, no rebound, no guarding. : Mg in place EXTREMITIES: No cyanosis. Edema over right upper extremity, chronic. DERMATOLOGY: Improved diffuse maculopapular rash all over the body Coccyx wound (refer to wound care note for further details) NEUROLOGIC: ALert, answers questions appropriately PIV looks ok Labs Lab Laboratory Tests Test 06/03/20 20:34 06/04/20 07:33 06/04/20 11:25 Glucose (Fingerstick) 124 mg/dL (70-99) 75 mg/dL (70-99) 83 mg/dL (70-99) Micro Microbiology 05/30/20 Blood Culture - Preliminary, Resulted NO GROWTH AFTER 4 DAYS Objective Assessment Leukocytosis, likely from steroids, improved. Dermatitis appears drug induced allergic reaction. Improving Eosinophilia likely from drug induced. Chronic hypoxic respiratory failure, on home O2. Acute kidney injury with hyperkalemia. Hypertension. Metabolic encephalopathy, improved Thrombocytopenia ? etiology,drug induced Pressure ulcer to coccyx. Plan Plan of Care Continue observation off antibiotics. Avoid scratching offered zyrtec, pt is refusing Local wound care and offloading as directed Continue supportive care. Discussed with nursing staff Attending Co-Sign Attending Co-Sign The patient was seen and interviewed as well as examined at the bedside. The chart was reviewed. The case was discussed. Agree with the plan of care. TIFFANIE HAM APRN Jun 04, 2020 11:41 BHUMKIA CESAR MD Jun 04, 2020 15:04
[2020-06-04] MEDS: diphenhydrAMINE HCL 25 MG CAPSULE PO SCH (13:47)
[2020-06-04] MEDS: DOCUSATE SODIUM 100 MG CAPSULE. PO SCH ×2 (13:51→21:25)
[2020-06-04] MEDS: MULTIVITAMIN with MINERAL TABLET. PO SCH (13:51)
[2020-06-04] MEDS: ASCORBIC ACID 500 MG TABLET PO SCH (13:51)
--- NOTE | 2020-06-04 14:53 | PDOC ---
PROGRESS NOTES Date of Service: DATE: 06/04/20 TIME: 14:53 Chief Complaint Chief Complaint IMPRESSION Acute renal failure Hyperkalemia, IMPROVING Metabolic encephalopathy Allergic reaction Extended-spectrum beta-lactamase Escherichia coli on 05/11, meropenem started on the ANTIBIOTIC ALLERGIES LISTED PENICILLIN, but tolerated Zosyn, Rocephin, doxycycline, does not remember reaction. Respiratory failure, suspect chronic obstructive pulmonary UTI hypercapnic respiratory failure HX Sepsis due to ESBL UTI anxiety HX URINARY RETENTION RECENT echo c/w moderate aortic regurgitation. mild tricuspid regurgitation with an estimated PAP of 50 mmHg. 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 Patient has history of COPD, she is on oxygen at home all the time. Patient is currently on some form of antibiotic for urinary tract infection. Patient was noted to have some rash in her genital area in her abdomen area yesterday, however it became widespread this morning so she was sent here for evaluation. Patient denies any fever, denies any chest pain. Patient says she only had a cough and still has trouble breathing because of COPD. recently admitted to hospital last month for COPD exacerbation. 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 Vitals Vitals Vital Signs Date Time Temp Pulse Resp B/P (MAP) Pulse Ox O2 Delivery O2 Flow Rate FiO2 06/04/20 11:42 Nasal Cannula 3.0 06/04/20 11:00 97.4 104 18 95/50 (65) 100 97.4 Physical Exam Physical Exam GENERAL: Propped up in bed, alert in NAD HENT: Oral mucosa dry, no oral lesions. No lip lesions. NECK: Supple, no JVD, no lymphadenopathy. LUNGS: Clear bilaterally except for decreased breath sounds at the bases. No accessory muscle use. HEART: S1, S2. No gallops or murmurs. ABDOMEN: Soft, nontender, nondistended, no rebound, no guarding. : Mg in place EXTREMITIES: No cyanosis. Edema over right upper extremity, chronic. DERMATOLOGY: Improved diffuse maculopapular rash all over the body Coccyx wound (refer to wound care note for further details) NEUROLOGIC: ALert, answers questions appropriately PIV looks ok General: Alert, Oriented X3, Cooperative, No acute distress Heart: Regular rate, Normal S1 Lungs: Clear Abdomen: Normal bowel sounds, Soft, No tenderness Extremities: No cyanosis, No edema Skin: No significant lesion Labs LABS Laboratory Tests Test 06/03/20 20:34 06/04/20 07:33 06/04/20 11:25 Glucose (Fingerstick) 124 mg/dL (70-99) 75 mg/dL (70-99) 83 mg/dL (70-99) Assessment and Plan Assessmemt and Plan Problems Medical Problems: (1) Acute renal failure (ARF) Status: Acute (2) Allergic reaction due to antibacterial drug Status: Acute (3) Hyperkalemia Status: Acute Comment Review of Relevant I have reviewed the following items cira (where applicable) has been applied. Labs Laboratory Tests Test 06/02/20 16:00 06/02/20 21:20 06/03/20 05:30 06/03/20 07:36 Coronavirus (PCR) Not detected (Not Detected) Glucose (Fingerstick) 121 mg/dL (70-99) 68 mg/dL (70-99) Sodium Level 146 mmol/L (136-145) Potassium Level 4.1 mmol/L (3.5-5.1) Chloride Level 109 mmol/L (98-107) Carbon Dioxide Level 33 mmol/L (21-32) Anion Gap 4 (6-14) Blood Urea Nitrogen 27 mg/dL (7-20) Creatinine 1.0 mg/dL (0.6-1.0) Estimated GFR (Cockcroft-Gault) 53.3 Glucose Level 71 mg/dL (70-99) Calcium Level 7.9 mg/dL (8.5-10.1) Test 06/03/20 11:34 06/03/20 20:34 06/04/20 07:33 06/04/20 11:25 Glucose (Fingerstick) 82 mg/dL (70-99) 124 mg/dL (70-99) 75 mg/dL (70-99) 83 mg/dL (70-99) Laboratory Tests Test 06/03/20 20:34 06/04/20 07:33 06/04/20 11:25 Glucose (Fingerstick) 124 mg/dL (70-99) 75 mg/dL (70-99) 83 mg/dL (70-99) Microbiology 05/30/20 Blood Culture - Final, Complete NO GROWTH AFTER 5 DAYS Medications Current Medications Methylprednisolone Sodium Succinate (SOLU-Medrol 125MG VIAL) 125 mg 1X ONCE IV Last administered on 05/30/20at 10:31; Start 05/30/20 at 10:45; Stop 05/30/20 at 10:46; Status DC Diphenhydramine HCl (Benadryl) 25 mg 1X ONCE IVP Last administered on 05/30/20at 10:27; Start 05/30/20 at 10:45; Stop 05/30/20 at 10:46; Status DC Sodium Bicarbonate (Sodium Bicarb Adult 8.4% Syr) 50 meq 1X ONCE IV Last administered on 05/30/20at 11:42; Start 05/30/20 at 11:15; Stop 05/30/20 at 11:16; Status DC Sodium Chloride 1,000 ml @ 1,000 mls/hr 1X ONCE IV Last administered on 05/30/20at 11:53; Start 05/30/20 at 11:30; Stop 05/30/20 at 12:29; Status DC Dextrose (Dextrose 50%-Water Syringe) 25 gm 1X ONCE IV Last administered on 05/30/20at 11:35; Start 05/30/20 at 11:30; Stop 05/30/20 at 11:31; Status DC Insulin Human Regular (HumuLIN R VIAL) 10 unit 1X ONCE IV Last administered on 05/30/20at 11:45; Start 05/30/20 at 11:45; Stop 05/30/20 at 11:46; Status DC Albuterol Sulfate (Ventolin Neb Soln) 10 mg 1X ONCE CONT NEB Last administered on 05/30/20at 12:09; Start 05/30/20 at 12:00; Stop 05/30/20 at 12:01; Status DC Calcium Gluconate (Calcium Gluconate) 1,000 mg 1X ONCE IVP Last administered on 05/30/20at 12:21; Start 05/30/20 at 12:30; Stop 05/30/20 at 12:31; Status DC Ondansetron HCl (Zofran) 4 mg PRN Q8HRS PRN IV NAUSEA/VOMITING; Start 05/30/20 at 12:30; Stop 05/31/20 at 12:29; Status DC Sodium Chloride 1,000 ml @ 125 mls/hr Q8H IV Last administered on 05/30/20at 12:30; Start 05/30/20 at 12:19; Stop 05/30/20 at 18:43; Status DC Acetaminophen (Tylenol) 650 mg PRN Q6HRS PRN PO Headaches, Temp > 101.5'; Start 05/30/20 at 14:30 Prochlorperazine (Compazine) 25 mg PRN Q12HR PRN MS NAUSEA/VOMITING; Start 05/30/20 at 14:30 Famotidine (Pepcid Vial) 20 mg QHS IVP Last administered on 06/02/20at 21:13; Start 05/30/20 at 21:00; Stop 06/03/20 at 15:35; Status DC Heparin Sodium (Porcine) (Heparin Sodium) 5,000 unit Q8HRS SQ Last administered on 06/03/20at 21:20; Start 05/30/20 at 22:00 Sodium Chloride (Normal Saline Flush) 3 ml QSHIFT PRN IV AFTER MEDS AND BLOOD DRAWS; Start 05/30/20 at 14:30; Stop 05/30/20 at 14:40; Status DC Docusate Sodium (Colace) 100 mg BID PO Last administered on 06/04/20at 13:51; Start 05/30/20 at 21:00 Bisacodyl (Dulcolax Supp) 10 mg PRN DAILY PRN MS CONSTIPATION; Start 05/30/20 at 14:30 Sodium Chloride 1,000 ml @ 1,000 mls/hr 1X ONCE IV Last administered on 05/30/20at 14:30; Start 05/30/20 at 14:30; Stop 05/30/20 at 15:29; Status DC Sodium Chloride 1,000 ml @ 1,000 mls/hr 1X ONCE IV ; Start 05/30/20 at 14:45; Stop 05/30/20 at 15:44; Status DC Hydrocortisone Sodium Succinate (Solu-CORTEF) 100 mg 1X ONCE IV Last administered on 05/30/20at 18:03; Start 05/30/20 at 15:00; Stop 05/30/20 at 15:01; Status DC Sodium Chloride (Normal Saline Flush) 10 ml QSHIFT PRN IV AFTER MEDS AND BLOOD DRAWS; Start 05/30/20 at 14:30 Budesonide (Pulmicort) 0.5 mg RTBID NEB Last administered on 06/04/20at 06:28; Start 05/30/20 at 20:00 Non-Formulary Medication 1 ea QID INH ; Start 05/30/20 at 16:45; Stop 05/30/20 at 21:02; Status DC Ibuprofen (Motrin) 200 mg PRN Q6HRS PRN PO INFLAMMATION Last administered on 05/30/20at 22:14; Start 05/30/20 at 16:30 Dextrose (Dextrose 50%-Water Syringe) 25 gm 1X ONCE IV Last administered on 05/30/20at 20:04; Start 05/30/20 at 18:45; Stop 05/30/20 at 18:46; Status DC Insulin Human Regular (HumuLIN R VIAL) 10 unit 1X ONCE IV ; Start 05/30/20 at 19:00; Stop 05/30/20 at 18:48; Status DC Sodium Bicarbonate 50 meq/Sodium Chloride 1,050 ml @ 50 mls/hr Q21H IV Last administered on 05/31/20at 21:56; Start 05/30/20 at 19:00; Stop 06/01/20 at 11:39; Status DC Insulin Human Regular (HumuLIN R VIAL) 10 unit 1X ONCE IV ; Start 05/30/20 at 19:00; Stop 05/30/20 at 18:48; Status DC Insulin Human Regular (HumuLIN R VIAL) 10 unit 1X ONCE IV Last administered on 05/30/20at 20:41; Start 05/30/20 at 19:00; Stop 05/30/20 at 19:01; Status DC Diphenhydramine HCl (Benadryl) 50 mg DAILY PO Last administered on 06/04/20at 13:47; Start 05/30/20 at 20:00 Albuterol/ Ipratropium (Duoneb) 3 ml RTQID NEB Last administered on 06/04/20at 11:42; Start 05/30/20 at 21:00 Ascorbic Acid (Vitamin C) 500 mg DAILY PO Last administered on 06/04/20at 13:51; Start 06/01/20 at 09:00 Multivitamins (Thera M Plus) 1 tab DAILY PO Last administered on 06/04/20at 13:51; Start 06/01/20 at 09:00 Zinc Acetate/ Diphenhydramine (Benadryl Topical) 1 jesus BID TP Last administered on 06/04/20at 09:00; Start 06/01/20 at 11:00 Sodium Chloride 1,000 ml @ 75 mls/hr [id number] IV Last administered on 06/01/20at 12:10; Start 06/01/20 at 11:45; Stop 06/02/20 at 12:06; Status DC Dextrose (Dextrose 50%-Water Syringe) 12.5 gm PRN Q15MIN PRN IV SEE COMMENTS Last administered on 06/02/20at 04:18; Start 06/02/20 at 04:15 Furosemide (Lasix) 20 mg 1X ONCE IVP Last administered on 06/02/20at 10:35; Start 06/02/20 at 09:30; Stop 06/02/20 at 09:36; Status DC Famotidine (Pepcid) 20 mg QHS PO Last administered on 06/03/20at 21:20; Start 06/03/20 at 21:00 Active Scripts Active Reported Alprazolam 0.25 Mg Tablet 0.25 Mg PO PRN Q12HRS PRN Miralax (Polyethylene Glycol 3350) 17 Gm Powd.pack 1 Packet PO DAILY 2 Days dissolve in water Flomax (Tamsulosin Hcl) 0.4 Mg Cap.er.24h 0.4 Mg PO DAILY Benadryl Allergy (Diphenhydramine Hcl) 25 Mg Tablet 25 Mg PO PRN Q6HRS PRN Benadryl Allergy (Diphenhydramine Hcl) 25 Mg Tablet 50 Mg PO DAILY Triamcinolone Acetonide 80 Gm Oint...g. 1 Jesus TP BID Tizanidine Hcl 4 Mg Tablet 2 Mg PO TID PRN Albuterol Sulfate Neb Soln (Albuterol Sulfate) 2.5 Mg/3 Ml Vial.neb 2.5 Mg NEB PRN Q4-6HRS PRN Trazodone Hcl 50 Mg Tablet 50 Mg PO HS Symbicort 160-4.5 Mcg Inhaler (Budesonide/Formoterol Fumarate) 10.2 Gm Hfa.aer. ad 2 Puff IH BID Prednisone 20 Mg Tablet 20 Mg PO DAILY Mirtazapine 45 Mg Tablet 45 Mg PO HS Furosemide 40 Mg Tablet 40 Mg PO BID Combivent Respimat Inhal (Ipratropium/Albuterol Sulfate) 4 Gm Aer.w.adap 1 Puff IH 5XDAY Lotrimin Af (Clotrimazole) 12 Gm Cream..g. 1 Jesus TP BID Amlodipine Besylate 10 Mg Tablet 10 Mg PO DAILY Vitals/I & O Vital Sign - Last 24 Hours 06/03/20 06/03/20 06/03/20 06/03/20 15:17 19:00 19:42 19:43 Temp 98.2 97.4 98.2 97.4 Pulse 76 100 Resp 18 20 B/P (MAP) 113/42 (65) 124/54 (77) Pulse Ox 100 92 98 98 O2 Delivery Nasal Cannula Nasal Cannula Nasal Cannula Nasal Cannula O2 Flow Rate 3.0 3.0 3.0 06/03/20 06/03/20 06/04/20 06/04/20 20:00 23:00 03:05 06:27 Temp 98.1 97.6 98.1 97.6 Pulse 87 84 Resp 18 18 B/P (MAP) 109/46 (67) 112/54 (73) Pulse Ox 95 96 O2 Delivery Nasal Cannula Nasal Cannula Nasal Cannula Nasal Cannula O2 Flow Rate 3.0 3.0 06/04/20 06/04/20 06/04/20 07:00 11:00 11:42 Temp 98.2 97.4 98.2 97.4 Pulse 102 104 Resp 18 18 B/P (MAP) 127/55 (79) 95/50 (65) Pulse Ox 100 100 O2 Delivery Nasal Cannula Nasal Cannula Nasal Cannula O2 Flow Rate 3.0 3.0 3.0 Intake and Output 06/03/20 06/03/20 06/04/20 15:00 23:00 07:00 Intake Total 160 ml 250 ml 100 ml Output Total 200 ml 300 ml 750 ml Balance -40 ml -50 ml -650 ml Nutrition Consultation Dietary Evaluation: Recommendations by RD: Dietary education by RD, Increase Calorie Intake, Protein supplementation Comments: Continue w/cardiac diet, honor food preferences, provide snacks as requested REC Ensure w/dinner (chocolate or strawberry per pt request) mvi and vit c in place per wound protocal - continue Expected Outcomes/Goals: PO intake to meet >75% est needs- not met, goal ongoing Interpretation of weight loss: >5% in 1 month Malnutrition Findings: Food and Nutrition Intake (Mod: <75% est energy req 7days Weight Status: Appropriate Justicifation of Admission Dx: Justifications for Admission: Justification of Admission Dx: Yes Acute COPD Exacerbation: Acute COPD Exacerbation DORA TRAORE MD Jun 04, 2020 14:53
[2020-06-04 15:00] VITALS: BP 94/45
[2020-06-04] MEDS ORDERED: IV NORMAL SALINE 1000ML BAG 1,000 ML IV ONE (15:15)
[2020-06-04] MEDS ORDERED: DIGOXIN IV 500 MCG/2 ML AMPUL. IV ONE (15:30)
[2020-06-04] MEDS ORDERED: METOPROLOL TART IMMED RELEASE 50 MG TABLET. PO ONE (15:30)
--- NOTE | 2020-06-04 16:45 | EKG ---
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
[2020-06-04 19:00] VITALS: BP 115/53
[2020-06-04] MEDS ORDERED: METOPROLOL TART IMMED RELEASE 50 MG TABLET. PO SCH (21:00)
[2020-06-04] MEDS: FAMOTIDINE 20 MG TABLET. PO SCH (21:25)
[2020-06-04 23:00] VITALS: BP 111/61
[2020-06-05 03:35] VITALS: BP 125/54
[2020-06-05 07:00] VITALS: BP 121/48
[2020-06-05] MEDS: BUDESONIDE 0.5 MG/2 ML NEBU. NEB SCH (07:12)
[2020-06-05] MEDS: IPRATRPIUM/ALBUTEROL 0.5/2.5MG 3 ML NEBU. NEB SCH ×3 (07:13→15:25)
[2020-06-05] MEDS: DIPHENHYDRAMINE/ZINC ACETATE 2%/0.1% TOPICAL CREAM 28GM TUBE. TP SCH (09:00)
--- NOTE | 2020-06-05 09:58 | NUR ---
SW following. Spoke with RN and reviewed chart. GEMMA spoke with Charline from [facility] and she has authorization for SNU. GEMMA notified Dr. Lombardi to request discharge orders. Pt on 3l 02. Pt on oral medications. Pt COVID negative. GEMMA to follow. Addendum: 06/05/20 at 1245 by DONOVAN MENENDEZ GEMMA obtained discharge orders. GEMMA called [facility] transport and no available lyft driver. Certification of Medical Necessity form completed. GEMMA phoned and faxed to [employer] and transport arranged for 1040. RN notified and she will call report. Charline at [facility] notified. Packet of clinicals ready to be sent with patient. No further SW needs at this time.
--- NOTE | 2020-06-05 10:40 | PDOC ---
PROGRESS NOTES Date of Service: DATE: 06/05/20 TIME: 10:33 Chief Complaint Chief Complaint IMPRESSION Acute renal failure Hyperkalemia, IMPROVING Metabolic encephalopathy Allergic reaction Extended-spectrum beta-lactamase Escherichia coli on 05/11, meropenem started on the ANTIBIOTIC ALLERGIES LISTED PENICILLIN, but tolerated Zosyn, Rocephin, doxycycline, does not remember reaction. Respiratory failure, suspect chronic obstructive pulmonary UTI hypercapnic respiratory failure HX Sepsis due to ESBL UTI anxiety HX URINARY RETENTION RECENT echo c/w moderate aortic regurgitation. mild tricuspid regurgitation with an estimated PAP of 50 mmHg. c/w moderate pulmonary hypertension HOLD ARB AND ALDACTONE Duration of Treatment Expected * 2 weeks Discharge Recommendations * [facility] 28 MIN PT EXAM, CHART REVIEW, > 50% of time spent with exam, chart review, pt care coordination History of Present Illness History of Present Illness (06/05) Patient states she feels well today. Participating with PT at time of evaluation. She wants to discharge today. Discussed with nurse and social media marketer; plan to discharge to [facility]. SEEN IN ER WITH RASH, ACUTE SEVERE RENAL FAILURE 79 year old female who was sent here from [facility] due to trouble breathing, rash all over her body. Patient has history of COPD, she is on oxygen at home all the time. Patient is currently on some form of antibiotic for urinary tract infection. Patient was noted to have some rash in her genital area in her abdomen area yesterday, however it became widespread this morning so she was sent here for evaluation. Patient denies any fever, denies any chest pain. Patient says she only had a cough and still has trouble breathing because of COPD. recently admitted to hospital last month for COPD exacerbation. 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 Vitals Vitals Vital Signs Date Time Temp Pulse Resp B/P (MAP) Pulse Ox O2 Delivery O2 Flow Rate FiO2 06/05/20 08:30 Nasal Cannula 3.0 06/05/20 07:00 97.5 88 18 121/48 (72) 100 97.5 Physical Exam Physical Exam GENERAL: Propped up in bed, alert in NAD HENT: Oral mucosa dry, no oral lesions. No lip lesions. NECK: Supple, no JVD, no lymphadenopathy. LUNGS: Clear bilaterally except for decreased breath sounds at the bases. No accessory muscle use. HEART: S1, S2. No gallops or murmurs. ABDOMEN: Soft, nontender, nondistended, no rebound, no guarding. : Mg in place EXTREMITIES: No cyanosis. Edema over right upper extremity, chronic. DERMATOLOGY: Improved diffuse maculopapular rash all over the body Coccyx wound (refer to wound care note for further details) NEUROLOGIC: ALert, answers questions appropriately PIV looks ok General: Alert, Oriented X3, Cooperative, No acute distress Heart: Regular rate, Normal S1 Lungs: Clear Abdomen: Normal bowel sounds, Soft, No tenderness Extremities: No cyanosis, Normal pulses, Other Skin: No significant lesion Labs LABS Laboratory Tests Test 06/04/20 11:25 06/04/20 16:26 06/04/20 20:00 06/05/20 07:33 Glucose (Fingerstick) 83 mg/dL (70-99) 119 mg/dL (70-99) 73 mg/dL (70-99) 68 mg/dL (70-99) Review of Systems Review of Systems Denies itching. Denies leg pain. All other systems negative. Assessment and Plan Assessmemt and Plan Problems Medical Problems: (1) Acute renal failure (ARF) Status: Acute (2) Allergic reaction due to antibacterial drug Status: Acute (3) Hyperkalemia Status: Acute Plan: Patient was making conversation pleasantly. Creatinine improved from admission. Blood pressure pressure well controlled, will hold ARB and Aldactone on discharge. Comment Review of Relevant I have reviewed the following items cira (where applicable) has been applied. Labs Laboratory Tests Test 06/03/20 11:34 06/03/20 20:34 06/04/20 07:33 06/04/20 11:25 Glucose (Fingerstick) 82 mg/dL (70-99) 124 mg/dL (70-99) 75 mg/dL (70-99) 83 mg/dL (70-99) Test 06/04/20 16:26 06/04/20 20:00 06/05/20 07:33 Glucose (Fingerstick) 119 mg/dL (70-99) 73 mg/dL (70-99) 68 mg/dL (70-99) Laboratory Tests Test 06/04/20 11:25 06/04/20 16:26 06/04/20 20:00 06/05/20 07:33 Glucose (Fingerstick) 83 mg/dL (70-99) 119 mg/dL (70-99) 73 mg/dL (70-99) 68 mg/dL (70-99) Microbiology 05/30/20 Blood Culture - Final, Complete NO GROWTH AFTER 5 DAYS Medications Current Medications Methylprednisolone Sodium Succinate (SOLU-Medrol 125MG VIAL) 125 mg 1X ONCE IV Last administered on 05/30/20at 10:31; Start 05/30/20 at 10:45; Stop 05/30/20 at 10:46; Status DC Diphenhydramine HCl (Benadryl) 25 mg 1X ONCE IVP Last administered on 05/30/20at 10:27; Start 05/30/20 at 10:45; Stop 05/30/20 at 10:46; Status DC Sodium Bicarbonate (Sodium Bicarb Adult 8.4% Syr) 50 meq 1X ONCE IV Last a dministered on 05/30/20at 11:42; Start 05/30/20 at 11:15; Stop 05/30/20 at 11:16; Status DC Sodium Chloride 1,000 ml @ 1,000 mls/hr 1X ONCE IV Last administered on 05/30/20at 11:53; Start 05/30/20 at 11:30; Stop 05/30/20 at 12:29; Status DC Dextrose (Dextrose 50%-Water Syringe) 25 gm 1X ONCE IV Last administered on 05/30/20at 11:35; Start 05/30/20 at 11:30; Stop 05/30/20 at 11:31; Status DC Insulin Human Regular (HumuLIN R VIAL) 10 unit 1X ONCE IV Last administered on 05/30/20at 11:45; Start 05/30/20 at 11:45; Stop 05/30/20 at 11:46; Status DC Albuterol Sulfate (Ventolin Neb Soln) 10 mg 1X ONCE CONT NEB Last administered on 05/30/20at 12:09; Start 05/30/20 at 12:00; Stop 05/30/20 at 12:01; Status DC Calcium Gluconate (Calcium Gluconate) 1,000 mg 1X ONCE IVP Last administered on 05/30/20at 12:21; Start 05/30/20 at 12:30; Stop 05/30/20 at 12:31; Status DC Ondansetron HCl (Zofran) 4 mg PRN Q8HRS PRN IV NAUSEA/VOMITING; Start 05/30/20 at 12:30; Stop 05/31/20 at 12:29; Status DC Sodium Chloride 1,000 ml @ 125 mls/hr Q8H IV Last administered on 05/30/20at 12:30; Start 05/30/20 at 12:19; Stop 05/30/20 at 18:43; Status DC Acetaminophen (Tylenol) 650 mg PRN Q6HRS PRN PO Headaches, Temp > 101.5'; Start 05/30/20 at 14:30 Prochlorperazine (Compazine) 25 mg PRN Q12HR PRN MO NAUSEA/VOMITING; Start 05/30/20 at 14:30 Famotidine (Pepcid Vial) 20 mg QHS IVP Last administered on 06/02/20at 21:13; Start 05/30/20 at 21:00; Stop 06/03/20 at 15:35; Status DC Heparin Sodium (Porcine) (Heparin Sodium) 5,000 unit Q8HRS SQ Last administered on 06/03/20at 21:20; Start 05/30/20 at 22:00; Stop 06/04/20 at 15:09; Status DC Sodium Chloride (Normal Saline Flush) 3 ml QSHIFT PRN IV AFTER MEDS AND BLOOD DRAWS; Start 05/30/20 at 14:30; Stop 05/30/20 at 14:40; Status DC Docusate Sodium (Colace) 100 mg BID PO Last administered on 06/04/20at 21:25; Start 05/30/20 at 21:00 Bisacodyl (Dulcolax Supp) 10 mg PRN DAILY PRN MO CONSTIPATION; Start 05/30/20 at 14:30 Sodium Chloride 1,000 ml @ 1,000 mls/hr 1X ONCE IV Last administered on 05/30/20at 14:30; Start 05/30/20 at 14:30; Stop 05/30/20 at 15:29; Status DC Sodium Chloride 1,000 ml @ 1,000 mls/hr 1X ONCE IV ; Start 05/30/20 at 14:45; Stop 05/30/20 at 15:44; Status DC Hydrocortisone Sodium Succinate (Solu-CORTEF) 100 mg 1X ONCE IV Last administered on 05/30/20at 18:03; Start 05/30/20 at 15:00; Stop 05/30/20 at 15:01; Status DC Sodium Chloride (Normal Saline Flush) 10 ml QSHIFT PRN IV AFTER MEDS AND BLOOD DRAWS; Start 05/30/20 at 14:30 Budesonide (Pulmicort) 0.5 mg RTBID NEB Last administered on 06/05/20at 07:12; Start 05/30/20 at 20:00 Non-Formulary Medication 1 ea QID INH ; Start 05/30/20 at 16:45; Stop 05/30/20 at 21:02; Status DC Ibuprofen (Motrin) 200 mg PRN Q6HRS PRN PO INFLAMMATION Last administered on 05/30/20at 22:14; Start 05/30/20 at 16:30 Dextrose (Dextrose 50%-Water Syringe) 25 gm 1X ONCE IV Last administered on 05/30/20at 20:04; Start 05/30/20 at 18:45; Stop 05/30/20 at 18:46; Status DC Insulin Human Regular (HumuLIN R VIAL) 10 unit 1X ONCE IV ; Start 05/30/20 at 19:00; Stop 05/30/20 at 18:48; Status DC Sodium Bicarbonate 50 meq/Sodium Chloride 1,050 ml @ 50 mls/hr Q21H IV Last administered on 05/31/20at 21:56; Start 05/30/20 at 19:00; Stop 06/01/20 at 11:39; Status DC Insulin Human Regular (HumuLIN R VIAL) 10 unit 1X ONCE IV ; Start 05/30/20 at 19:00; Stop 05/30/20 at 18:48; Status DC Insulin Human Regular (HumuLIN R VIAL) 10 unit 1X ONCE IV Last administered on 05/30/20at 20:41; Start 05/30/20 at 19:00; Stop 05/30/20 at 19:01; Status DC Diphenhydramine HCl (Benadryl) 50 mg DAILY PO Last administered on 06/04/20at 13:47; Start 05/30/20 at 20:00 Albuterol/ Ipratropium (Duoneb) 3 ml RTQID NEB Last administered on 06/05/20at 07:13; Start 05/30/20 at 21:00 Ascorbic Acid (Vitamin C) 500 mg DAILY PO Last administered on 06/04/20at 13:51; Start 06/01/20 at 09:00 Multivitamins (Thera M Plus) 1 tab DAILY PO Last administered on 06/04/20at 13: 51; Start 06/01/20 at 09:00 Zinc Acetate/ Diphenhydramine (Benadryl Topical) 1 jesus BID TP Last administered on 06/04/20at 21:00; Start 06/01/20 at 11:00 Sodium Chloride 1,000 ml @ 75 mls/hr [id number] IV Last administered on 06/01/20at 12:10; Start 06/01/20 at 11:45; Stop 06/02/20 at 12:06; Status DC Dextrose (Dextrose 50%-Water Syringe) 12.5 gm PRN Q15MIN PRN IV SEE COMMENTS Last administered on 06/02/20at 04:18; Start 06/02/20 at 04:15 Furosemide (Lasix) 20 mg 1X ONCE IVP Last administered on 06/02/20at 10:35; Start 06/02/20 at 09:30; Stop 06/02/20 at 09:36; Status DC Famotidine (Pepcid) 20 mg QHS PO Last administered on 06/04/20at 21:25; Start 06/03/20 at 21:00 Enoxaparin Sodium (Lovenox Per Pharmacy Prophylaxis Dosing) 1 each PRN DAILY PRN MC SEE COMMENTS; Start 06/04/20 at 15:15 Digoxin (Lanoxin) 500 mcg 1X ONCE IV ; Start 06/04/20 at 15:30; Stop 06/04/20 at 17:45; Status DC Metoprolol Tartrate (Lopressor) 50 mg BID PO ; Start 06/04/20 at 21:00; Stop 06/04/20 at 20:32; Status DC Metoprolol Tartrate (Lopressor) 50 mg 1X ONCE PO ; Start 06/04/20 at 15:30; Stop 06/04/20 at 17:45; Status DC Sodium Chloride 1,000 ml @ 125 mls/hr 1X ONCE IV ; Start 06/04/20 at 15:15; Stop 06/04/20 at 17:45; Status DC Active Scripts Active Reported Alprazolam 0.25 Mg Tablet 0.25 Mg PO PRN Q12HRS PRN Miralax (Polyethylene Glycol 3350) 17 Gm Powd.pack 1 Packet PO DAILY 2 Days dissolve in water Flomax (Tamsulosin Hcl) 0.4 Mg Cap.er.24h 0.4 Mg PO DAILY Benadryl Allergy (Diphenhydramine Hcl) 25 Mg Tablet 25 Mg PO PRN Q6HRS PRN Benadryl Allergy (Diphenhydramine Hcl) 25 Mg Tablet 50 Mg PO DAILY Triamcinolone Acetonide 80 Gm Oint...g. 1 Jesus TP BID Tizanidine Hcl 4 Mg Tablet 2 Mg PO TID PRN Albuterol Sulfate Neb Soln (Albuterol Sulfate) 2.5 Mg/3 Ml Vial.neb 2.5 Mg NEB PRN Q4-6HRS PRN Trazodone Hcl 50 Mg Tablet 50 Mg PO HS Symbicort 160-4.5 Mcg Inhaler (Budesonide/Formoterol Fumarate) 10.2 Gm Hfa.aer.ad 2 Puff IH BID Prednisone 20 Mg Tablet 20 Mg PO DAILY Mirtazapine 45 Mg Tablet 45 Mg PO HS Furosemide 40 Mg Tablet 40 Mg PO BID Combivent Respimat Inhal (Ipratropium/Albuterol Sulfate) 4 Gm Aer.w.adap 1 Puff IH 5XDAY Lotrimin Af (Clotrimazole) 12 Gm Cream..g. 1 Jesus TP BID Amlodipine Besylate 10 Mg Tablet 10 Mg PO DAILY Vitals/I & O Vital Sign - Last 24 Hours 06/04/20 06/04/20 06/04/20 06/04/20 11:00 11:42 15:00 19:00 Temp 97.4 97.7 98.6 97.4 97.7 98.6 Pulse 104 86 88 Resp 18 18 B/P (MAP) 95/50 (65) 94/45 (61) 115/53 (73) Pulse Ox 100 100 98 O2 Delivery Nasal Cannula Nasal Cannula Nasal Cannula Nasal Cannula O2 Flow Rate 3.0 3.0 3.0 06/04/20 06/04/20 06/04/20 06/05/20 20:05 20:32 23:00 03:35 Temp 97.9 97.4 97.9 97.4 Pulse 83 76 Resp 18 18 B/P (MAP) 111/61 (78) 125/54 (77) Pulse Ox 99 98 98 O2 Delivery Nasal Cannula Nasal Cannula Nasal Cannula Nasal Cannula O2 Flow Rate 3.0 3.0 06/05/20 06/05/20 06/05/20 07:00 07:13 08:30 Temp 97.5 97.5 Pulse 88 Resp 18 B/P (MAP) 121/48 (72) Pulse Ox 100 O2 Delivery Nasal Cannula Nasal Cannula Nasal Cannula O2 Flow Rate 3.0 3.0 3.0 Intake and Output 06/04/20 06/04/20 06/05/20 14:59 22:59 06:59 Intake Total 120 ml 60 ml Output Total 600 ml 150 ml 300 ml Balance -600 ml -30 ml -240 ml Nutrition Consultation Dietary Evaluation: Recommendations by RD: Dietary education by RD, Increase Calorie Intake, Protein supplementation Comments: Continue w/cardiac diet, honor food preferences, provide snacks as requested REC Ensure w/dinner (chocolate or strawberry per pt request) mvi and vit c in place per wound protocal - continue Expected Outcomes/Goals: PO intake to meet >75% est needs- not met, goal ongoing Interpretation of weight loss: >5% in 1 month Malnutrition Findings: Food and Nutrition Intake (Mod: <75% est energy req 7days Weight Status: Appropriate Justicifation of Admission Dx: Justifications for Admission: Justification of Admission Dx: Yes Acute COPD Exacerbation: Acute COPD Exacerbation JULIAN URBINA MD Jun 05, 2020 10:40
[2020-06-05] MEDS: MULTIVITAMIN with MINERAL TABLET. PO SCH (10:45)
[2020-06-05] MEDS: ASCORBIC ACID 500 MG TABLET PO SCH (10:45)
[2020-06-05] MEDS: DOCUSATE SODIUM 100 MG CAPSULE. PO SCH (10:45)
[2020-06-05] MEDS: diphenhydrAMINE HCL 25 MG CAPSULE PO SCH (10:45)
--- NOTE | 2020-06-05 10:53 | SNU/HH DC ---
DISCHARGE ORDERS DISCHARGE INFORMATION: FINAL DIAGNOSIS Problems Medical Problems: (1) Acute renal failure (ARF) Status: Acute (2) Allergic reaction due to antibacterial drug Status: Acute (3) Hyperkalemia Status: Acute CONDITION ON DISCHARGE: Stable POST DISCHARGE ORDERS: ACTIVITY ORDERS: Activity as tolerated WEIGHT BEARING STATUS: Non weight bearing DIET AFTER DISCHARGE: Cardiac CHECKS AFTER DISCHARGE: CHECKS AFTER DISCHARGE: Check blood press - daily, Check blood sugar, ac/hs FOLLOW-UP: PHYSICIAN FOLLOW-UP: Follow-up with PCP vasiliy the next 5 days to have Potassium checked. LAB ORDERS FOR FOLLOW-UP: repeat urine and blood cx TREATMENT/EQUIPMENT ORDERS: Physical Therapy For: Evalulation/Treatment Occupational Therapy For: Evaluation/Treatment Speech Language Pathology For: Evaluation/Treatment DISCHARGE MEDICATIONS: Home Meds Reported Medications Alprazolam (ALPRAZOLAM) 0.25 Mg Tablet, 0.25 MG PO PRN Q12HRS PRN for ANXIETY / AGITATION, TAB 0 Refills 05/30/20 Polyethylene Glycol 3350 (MIRALAX) 17 Gm Powd.pack, 1 PACKET PO DAILY for constipation for 2 Days, #2 PACKET 0 Refills dissolve in water 05/30/20 Tamsulosin Hcl (FLOMAX) 0.4 Mg Cap.er.24h, 0.4 MG PO DAILY for retention, TAB 05/30/20 Diphenhydramine Hcl (BENADRYL ALLERGY) 25 Mg Tablet, 25 MG PO PRN Q6HRS PRN for ALLERGIC REACTION, TAB 05/30/20 Diphenhydramine Hcl (BENADRYL ALLERGY) 25 Mg Tablet, 50 MG PO DAILY for rash/pruitis, TAB 05/30/20 Triamcinolone Acetonide (TRIAMCINOLONE ACETONIDE) 80 Gm Oint...g., 1 KUSUM TP BID for rash, #30 GM 1 Refill 05/30/20 Tizanidine Hcl (TIZANIDINE HCL) 4 Mg Tablet, 2 MG PO TID PRN for MUSCLE SPASMS, TAB 05/12/20 Albuterol Sulfate (ALBUTEROL SULFATE NEB SOLN) 2.5 Mg/3 Ml Vial.neb, 2.5 MG NEB PRN Q4-6HRS PRN for WHEEZING, EACH 0 Refills 05/12/20 Trazodone Hcl (TRAZODONE HCL) 50 Mg Tablet, 50 MG PO HS for SLEEP, TAB 05/12/20 Budesonide/Formoterol Fumarate (SYMBICORT 160-4.5 MCG INHALER) 10.2 Gm Hfa.aer.ad, 2 PUFF IH BID for COPD, INHALER 05/12/20 Prednisone (PREDNISONE) 20 Mg Tablet, 20 MG PO DAILY for COPD, TAB 05/12/20 Mirtazapine (MIRTAZAPINE) 45 Mg Tablet, 45 MG PO HS for SLEEP, TAB 05/12/20 Furosemide (FUROSEMIDE) 40 Mg Tablet, 40 MG PO BID for EDEMA, TAB 05/12/20 Ipratropium/Albuterol Sulfate (COMBIVENT RESPIMAT INHAL) 4 Gm Aer.w.adap, 1 PUFF IH 5XDAY for COPD, INHALER 05/12/20 Clotrimazole (LOTRIMIN AF) 12 Gm Cream..g., 1 KUSUM TP BID for LEGS/FEET, EACH 05/12/20 Amlodipine Besylate (AMLODIPINE BESYLATE) 10 Mg Tablet, 10 MG PO DAILY for HTN, TAB 05/12/20 Discontinued Reported Medications Spironolactone (SPIRONOLACTONE) 50 Mg Tablet, 50 MG PO BID for HTN, TAB 05/12/20 Potassium Chloride (Klor-Con 10) 10 Meq Tablet.er, 10 MEQ PO BID for SUPPLEMENT, TAB.SR 05/12/20 Losartan Potassium (LOSARTAN POTASSIUM) 100 Mg Tablet, 100 MG PO DAILY for HYPERTENSION, TAB 05/12/20 JULIAN URBINA MD Jun 05, 2020 10:53
[2020-06-05 11:00] VITALS: BP 121/49
--- NOTE | 2020-06-05 11:12 | PDOC3 ---
Discharge Summary Visit Information Date of Admission: May 30, 2020 Date of Discharge: Jun 05, 2020 Final Diagnosis Problems Medical Problems: (1) Acute renal failure (ARF) Status: Acute (2) Allergic reaction due to antibacterial drug Status: Acute (3) Hyperkalemia Status: Acute Brief Hospital Course Allergies Allergies Coded Allergies Type Severity Reaction Last Updated Verified Penicillins Allergy Intermediate 05/15/20 Yes aspirin Allergy Intermediate 06/01/20 Yes codeine Allergy Intermediate 06/01/20 Yes doxycycline Allergy Intermediate 06/01/20 Yes tramadol Allergy Intermediate 06/01/20 Yes I S O L A T I O N *CONTACT* Allergy Unknown 05/15/20 Yes Vital Signs Vital Signs Date Time Temp Pulse Resp B/P (MAP) Pulse Ox O2 Delivery O2 Flow Rate FiO2 06/05/20 08:30 Nasal Cannula 3.0 06/05/20 07:00 97.5 88 18 121/48 (72) 100 97.5 Lab Results Laboratory Tests Test 06/03/20 11:34 06/03/20 20:34 06/04/20 07:33 06/04/20 11:25 Glucose (Fingerstick) 82 mg/dL (70-99) 124 mg/dL (70-99) 75 mg/dL (70-99) 83 mg/dL (70-99) Test 06/04/20 16:26 06/04/20 20:00 06/05/20 07:33 Glucose (Fingerstick) 119 mg/dL (70-99) 73 mg/dL (70-99) 68 mg/dL (70-99) Laboratory Tests Test 06/04/20 11:25 06/04/20 16:26 06/04/20 20:00 06/05/20 07:33 Glucose (Fingerstick) 83 mg/dL (70-99) 119 mg/dL (70-99) 73 mg/dL (70-99) 68 mg/dL (70-99) Brief Hospital Course Ms. Joe is a 79 old female who presented from group home due to trouble breathing, rash all over her body. Patient has history of COPD, she is on oxygen at home all the time. Patient was noted to have some rash in her genital area in her abdomen and was sent for evaluation. Patient denies any fever, denies any chest pain. Patient was on antibiotic for urinary tract infection, and her rash was deemed to be a drug reaction. She had hyperkalemia and SINGH on admission, and her ARB and Aldactone were held due to this. Evalauted by PT/OT and recommended to SNF. Patient feels well on day of discharge, and denies dysuria. Discussed need to hold her blood pressure medications, given her blood pressure is within normal range without treatment. Greater than 35 minutes was spent on the management of this patient's discharge. Assessment Assessment Drug rash treated with Benadryl. She had hyperkalemia and SINGH on admission, and her ARB and Aldactone were held due to this. Evalauted by PT/OT and recommended to SNF. Patient feels well on day of discharge, and denies dysuria. Discussed need to hold her blood pressure medications, given her blood pressure is within normal range without treatment. Greater than 35 minutes was spent on the management of this patient's discharge Discharge Information Follow Up: Weeks Scheduled Budesonide/Formoterol Fumarate (Symbicort 160-4.5 Mcg Inhaler) 10.2 Gm Hfa.aer.ad, 2 PUFF IH BID for COPD, (Reported) Entered as Reported by: YAEL SALAS on 05/12/20526 Last Action: Reviewed on 05/30/201917 by JASIEL OCHOA Clotrimazole (Lotrimin Af) 12 Gm Cream..g., 1 KUSUM TP BID for LEGS/FEET, (R eported) Entered as Reported by: YAEL SALAS on 05/12/20526 Last Action: Reviewed on 05/30/201917 by JASIEL OCHOA Furosemide (Furosemide) 40 Mg Tablet, 40 MG PO BID for EDEMA, (Reported) Entered as Reported by: YAEL SALAS on 05/12/20526 Last Action: Reviewed on 05/30/201917 by JASIEL OCHOA Ipratropium/Albuterol Sulfate (Combivent Respimat Inhal) 4 Gm Aer.w.adap, 1 PUFF IH 5XDAY for COPD, (Reported) Entered as Reported by: YAEL SALAS on 05/12/20526 Last Action: Reviewed on 05/30/201624 by JASIEL OCHOA Mirtazapine (Mirtazapine) 45 Mg Tablet, 45 MG PO HS for SLEEP, (Reported) Entered as Reported by: YAEL SALAS on 05/12/20526 Last Action: Reviewed on 05/30/201917 by JASIEL OCHOA Polyethylene Glycol 3350 (Miralax) 17 Gm Powd.pack, 1 PACKET PO DAILY for constipation for 2 Days, #2 Ref 0 (Reported) dissolve in water Entered as Reported by: JASIEL OCHOA on 05/30/201925 Last Action: New Order on 05/30/201925 by JASIEL OCHOA Prednisone (Prednisone) 20 Mg Tablet, 20 MG PO DAILY for COPD, (Reported) Entered as Reported by: YAEL SALAS on 05/12/20526 Last Action: Reviewed on 05/30/201917 by JASIEL OCHOA Tamsulosin Hcl (Flomax) 0.4 Mg Cap.er.24h, 0.4 MG PO DAILY for retention, (Reported) Entered as Reported by: JASIEL OCHOA on 05/30/201925 Last Action: New Order on 05/30/201925 by JASIEL OCHOA Trazodone Hcl (Trazodone Hcl) 50 Mg Tablet, 50 MG PO HS for SLEEP, (Reported) Entered as Reported by: YAEL SALAS on 05/12/20526 Last Action: Reviewed on 05/30/201917 by JASIEL OCHOA Triamcinolone Acetonide (Triamcinolone Acetonide) 80 Gm Oint...g., 1 KUSUM TP BID for rash, #30 Ref 1 (Reported) Entered as Reported by: JASIEL OCHOA on 05/30/201925 Last Action: New Order on 05/30/201925 by JASIEL OCHOA Scheduled PRN Albuterol Sulfate (Albuterol Sulfate Neb Soln) 2.5 Mg/3 Ml Vial.neb, 2.5 MG NEB PRN Q4-6HRS PRN for WHEEZING, Ref 0 (Reported) Entered as Reported by: YAEL SALAS on 05/12/20526 Last Action: Reviewed on 05/30/201917 by JASIEL OCHOA Alprazolam (Alprazolam) 0.25 Mg Tablet, 0.25 MG PO PRN Q12HRS PRN for ANXIETY / AGITATION, Ref 0 (Reported) Entered as Reported by: JASIEL OCHOA on 05/30/201925 Last Action: New Order on 05/30/201925 by JASIEL OCHOA Diphenhydramine Hcl (Benadryl Allergy) 25 Mg Tablet, 25 MG PO PRN Q6HRS PRN for ALLERGIC REACTION, (Reported) Entered as Reported by: JASIEL OCHOA on 05/30/201925 Last Action: New Order on 05/30/201925 by JASIEL OCHOA Tizanidine Hcl (Tizanidine Hcl) 4 Mg Tablet, 2 MG PO TID PRN for MUSCLE SPASMS, (Reported) Entered as Reported by: YAEL SALAS on 05/12/20526 Last Action: Reviewed on 05/30/201917 by JASIEL OCHOA Discontinued Medications Amlodipine Besylate (Amlodipine Besylate) 10 Mg Tablet, 10 MG PO DAILY for HTN, (Reported) Entered as Reported by: YAEL SALAS on 05/12/20526 Last Action: Reviewed on 05/30/201917 by JASIEL OCHOA Diphenhydramine Hcl (Benadryl Allergy) 25 Mg Tablet, 50 MG PO DAILY for rash/pruitis, (Reported) Entered as Reported by: JASIEL OCHOA on 05/30/201925 Last Action: Converted on 05/30/201944 by KOBE TEAGUE Losartan Potassium (Losartan Potassium) 100 Mg Tablet, 100 MG PO DAILY for HYPERTENSION, (Reported) Entered as Reported by: YAEL SALAS on 05/12/20526 Last Action: Discontinued on 05/30/201825 by JASIEL OCHOA Potassium Chloride (Klor-Con 10) 10 Meq Tablet.er, 10 MEQ PO BID for SUPPLEMENT, (Reported) Entered as Reported by: YAEL SALAS on 05/12/20526 Last Action: Discontinued on 05/30/201825 by JASIEL OCHOA Spironolactone (Spironolactone) 50 Mg Tablet, 50 MG PO BID for HTN, (Reported) Entered as Reported by: YAEL SALAS on 05/12/20526 Last Action: Discontinued on 05/30/201825 by JASIEL OCHOA Justicifation of Admission Dx: Justifications for Admission: Justification of Admission Dx: Yes Acute COPD Exacerbation: Acute COPD Exacerbation JULIAN URBINA MD Jun 05, 2020 11:12
[2020-06-05 15:00] VITALS: BP 116/54
--- NOTE | 2020-06-05 15:16 | NUR ---
Spoke to Lucy at [facility] and gave report on patient.
--- NOTE | 2020-06-05 15:46 | NUR ---
Discharge Note: STEVIE HSIEH Discharge instructions and discharge home medications reviewed with Other facility and a copy given. All questions have been answered and understanding verbalized. The following instructions and handouts were given: discharge instructions, copy of chart, and follow up recommendations. Discontinued lines and drains: Peripheral IV discontinued intact. Patient discharged to [facility] with Ambulance Personnel via Stretcher
[2020-07-03] MEDS ORDERED: LOSA100T14 PO (18:35)
[2020-07-03] MEDS ORDERED: BUDE10.2 IH (18:35)
[2020-07-03] MEDS ORDERED: AMLO10TA8 PO (18:35)
[2020-07-03] MEDS ORDERED: BUME1TAB3 PO (18:35)
[2020-07-10] MEDS ORDERED: METO-239 PO (10:02)
[2020-07-10] MEDS ORDERED: APIX5TAB PO (10:02)
[2020-07-10] MEDS ORDERED: ASCO500T4 PO (10:02)
[2020-07-11] MEDS ORDERED: IPRA4AER IH (10:25)
[2020-07-11] MEDS ORDERED: BUSP5TAB PO (10:26)
== END 2020-06-05 15:47 | DRG 606 ==
LOC: ER 09:46 → ED HOLD 12:15 → 1 WEST ICU 13:59 → 5 NORTH 05-31 16:59
PROVIDERS: ADMIT Family Medicine; ATTEND Family Medicine
DX: L27.0 Generalized skin eruption due to drugs and medicaments taken internally (principal); G93.41 Metabolic encephalopathy; J96.21 Acute and chronic respiratory failure with hypoxia; J96.22 Acute and chronic respiratory failure with hypercapnia; N17.9 Acute kidney failure, unspecified; I48.92 Unspecified atrial flutter; N39.0 Urinary tract infection, site not specified; Z16.12 Extended spectrum beta lactamase (ESBL) resistance; D72.1 Eosinophilia; E86.9 Volume depletion, unspecified; E87.5 Hyperkalemia; F17.200 Nicotine dependence, unspecified, uncomplicated; F41.9 Anxiety disorder, unspecified; I10 Essential (primary) hypertension; I27.20 Pulmonary hypertension, unspecified; I35.1 Nonrheumatic aortic (valve) insufficiency; I48.91 Unspecified atrial fibrillation; J44.9 Chronic obstructive pulmonary disease, unspecified; L89.159 Pressure ulcer of sacral region, unspecified stage; M19.90 Unspecified osteoarthritis, unspecified site; M41.9 Scoliosis, unspecified; Z20.828 Contact with and (suspected) exposure to other viral communicable diseases; Z82.49 Family history of ischemic heart disease and other diseases of the circulatory system; Z83.3 Family history of diabetes mellitus; Z87.440 Personal history of urinary (tract) infections; Z88.1 Allergy status to other antibiotic agents; Z90.11 Acquired absence of right breast and nipple; Z90.710 Acquired absence of both cervix and uterus; Z99.81 Dependence on supplemental oxygen; Z87.01 Personal history of pneumonia (recurrent); Z79.899 Other long term (current) drug therapy; T36.8X5A Adverse effect of other systemic antibiotics, initial encounter; Y92.89 Other specified places as the place of occurrence of the external cause; Z88.0 Allergy status to penicillin; Z88.8 Allergy status to other drugs, medicaments and biological substances; T36.95XA Adverse effect of unspecified systemic antibiotic, initial encounter
CPT/HCPCS: 36415; 71045; 80048; 80053; 81001; 82140; 82805; 82962; 83605; 83735; 83880; 84100; 84132; 84145; 84443; 84484; 85007; 85025; 85379; 85610; 85730; 87040; 93005; 94640; 94644; 94760; 96361; 96374; 96375; 99291; J0610; J1200; J1644; J1720; J1815; J1940; J2930; J3490; J7030; 92526-GN; 92610-GN; 97110-GO; 97110-GP; 97530-GO; 97530-GP; 97535-GO; G0378; J7613; J7626; Q0163; U0003-CS

== ENCOUNTER → 2020-06-29 | Outpatient (CLI) | payer OTHER, MEDICAID ==
[2020-06-05 15:00] VITALS: BP 116/54
[~2020-06-29] MED LIST changes: +ALPR0.254 PO; +BUME1TAB3 PO; +DIPH25TA64 PO; +POLY17PO29 PO; +TAMS0.4C97 PO; +TRIA80OI TP
[2020-06-29 11:14] LABS: BASO % 0 % (0-3); EOS # 0.1 x10^3/uL (0.0-0.7); EOS % 1 % (0-3); HEMATOCRIT 32.3 % (36.0-47.0); HEMOGLOBIN 10.6 g/dL (12.0-15.5); LYMPH # 0.7 x10^3/uL (1.0-4.8); LYMPH % 4 % (24-48); MEAN CORPUSCULAR HEMOGLOBIN 32 pg (25-35); MEAN CORPUSCULAR HGB CONC 33 g/dL (31-37); MEAN CORPUSCULAR VOLUME 98 fL (79-100); MONO # 0.4 x10^3/uL (0.0-1.1); MONO % 3 % (0-9); NEUT # 14.7 x10^3/uL (1.8-7.7); NEUT % 92 % (31-73); PLATELET COUNT 212 x10^3/uL (140-400); RED CELL DISTRIBUTION WIDTH 15.9 % (11.5-14.5); WHITE BLOOD COUNT 15.9 x10^3/uL (4.0-11.0)
[2020-06-29 11:28] LABS: ALBUMIN 3.4 g/dL (3.4-5.0); CALCIUM 8.8 mg/dL (8.5-10.1); CREATININE 1.1 mg/dL (0.6-1.0); GFR 47.8; POTASSIUM 3.4 mmol/L (3.5-5.1)
[2020-06-29 12:28] LABS: % BANDS 1 % (0-9); % LYMPHS 4 % (24-48); % MONOS 1 % (0-10); % SEGS 94 % (35-66); PLT ESTIMATE ADEQUATE (ADEQUATE)
== END | disposition home or self-care (01) ==
LOC: LAB 10:51
PROVIDERS: ATTEND Internal Medicine Cardiovascular Disease
DX: I50.32 Chronic diastolic (congestive) heart failure (principal)
CPT/HCPCS: 36415; 80048; 82040; 83880; 85007; 85025